=== PATIENT | male | born 1950 | race Caucasian/White ===

== ENCOUNTER 2016-07-14 01:53 | Inpatient (IN) | payer BC ==
[~2016-07-14] VITALS: Ht 185.4 cm; Wt 78.2 kg
[~2016-07-14 01:53] MED LIST: CITA20TA9 PO; HYDR500C3 PO; LORA-741 PO; OMEG10007 PO; PSEU60TA80 PO; SILD100T PO
[2016-07-14] MEDS ORDERED: ONDANSETRON INJ 2 MG/ML 2 ML VIAL IV STA (02:15)
[2016-07-14] MEDS ORDERED: SODIUM CHLORIDE 0.9% 1000ML 1,000 ML IV STA (02:15)
[2016-07-14] MEDS ORDERED: SODIUM CHLORIDE 0.9% 500ML 500 ML IV STA (02:15)
[2016-07-14 02:27] LABS: BASO % 0.4 %; BASO ABS # 0.04 K/uL (0-0.2); EOS % 1.3 %; HEMATOCRIT 41.3 % (42-52); IG% 0.2 %; LYMPH % 14.3 %; LYMPH ABS # 1.44 K/uL (1.2-3.4); MEAN CELL VOLUME 99.5 fL (80-100); MEAN CORPUSCULAR HEMOGLOBIN 34.2 pg (25-34); MEAN CORPUSCULAR HGB CONC 34.4 g/dl (32-36); MEAN PLATELET VOLUME 9.9 fL (7.4-10.4); MONO % 9.2 %; NEUT % 74.6 %; PLATELET COUNT 581 K/uL (130-400); RED BLOOD COUNT 4.15 M/uL (4.7-6.1); WHITE BLOOD COUNT 10.08 K/uL (4.8-10.8)
[2016-07-14] MEDS ORDERED: OPTIRAY 320 IV PRN (02:30)
[2016-07-14 02:37] LABS: INR 1.9 (0.9-1.1); PARTIAL THROMBOPLASTIN RATIO 1.5; PROTHROMBIN TIME (PATIENT) 21.1 SECONDS (9.0-12.0)
[2016-07-14 02:45] LABS: ALT/SGPT 29 U/L (12-78); AST/SGOT 15 U/L (15-37); BLOOD UREA NITROGEN 13 mg/dl (7-18); BUN/CREATININE RATIO 16.5 (10-20); CALCIUM 9.1 mg/dl (8.5-10.1); CARBON DIOXIDE 25 mmol/L (21-32); CHLORIDE 102 mmol/L (98-107); CREATININE 0.81 mg/dl (0.60-1.40); GLUCOSE 175 mg/dl (70-99); MAGNESIUM 2.2 mg/dl (1.8-2.4); SODIUM 138 mmol/L (136-145)
[2016-07-14 02:46] LABS: ANISOCYTOSIS PRESENT; COMPLETE YES
[2016-07-14 02:48] LABS: ALKALINE PHOSPHATASE 84 U/L (45-117); CKMB/CK RATIO 1.8 (0-3.0)
[2016-07-14] MEDS ORDERED: MoRPHine SULFATE 4 MG/ML 1 ML CARP\\VIAL IV STA (04:18)
[2016-07-14] MEDS ORDERED: WARF7.5T PO (04:22)
[2016-07-14] MEDS ORDERED: WARF5TAB90 PO (04:22)
--- NOTE | 2016-07-14 04:23 | EMERGENCY ROOM VISIT NOTE ---
History First contact with patient: 02:03 Chief Complaint: ABDOMINAL PAIN Stated Complaint: STOMACH PAIN Nursing Triage Summary: PT HX spleen removal in April. developed diffuse abd pain this Pm around 1800. PT has cramping/aching pain all over with nausea, no vomiting. PT denies diarrhe and denies any urinary symptoms. pain worse with palpation and movement. normal bowel sounds in all quadrants History of Present Illness The patient is a 65 year old male who presents to the Emergency Room with complaints of nausea, vomiting and upper abdominal pain the past several hours. Patient denies chest pain, dyspnea, fever, chills, back pain, diarrhea, urinary symptoms, testicular pain, penile pain. Colonoscopy in the past was normal. His splenectomy a few months ago. He is on Coumadin and has a Green filter. Review of Systems See HPI for pertinent positives & negatives. A total of 10 systems reviewed and were otherwise negative. Past Medical/Surgical History Medical Problems: (1) Essential thrombocytosis (2) Pulmonary emboli (3) Retroperitoneal hematoma (4) SBO (small bowel obstruction) Surgical Problems: (1) S/P appendectomy Splenectomy Family History No pertinent family history Social History Smoking Status: Former Smoker Alcohol Use: occasionally Drug Use: none Marital Status: single Housing Status: lives alone Occupation Status: employed Current/Historical Medications Scheduled Citalopram Hydrobromide (Celexa), 20 MG PO DAILY Fish Oil ([place]-3), 3 CAP PO DAILY Hydroxyurea (Hydrea Cap), 1,000 MG PO DAILY Sildenafil Citrate (Viagra), 100 MG PO PRN Scheduled PRN Lorazepam (Ativan), 0.5 MG PO Q6H PRN for Anxiety Pseudoephedrine-Guaifenesin (Mucinex D), 1 TAB PO BID PRN for CONGESTION Allergies Coded Allergies: No Known Allergies (Unverified , NKA, 01/25/09) Physical Exam Vital Signs Date Time Temp Pulse Resp B/P Pulse Ox O2 Delivery O2 Flow Rate FiO2 07/14/16 04:00 85 16 130/89 95 Room Air 07/14/16 03:23 95 Room Air 07/14/16 03:23 95 Room Air 07/14/16 01:54 107 22 156/90 98 Room Air Physical Exam VITALS: Vitals are noted on the nurse's note and reviewed by myself. Vital signs stable. GENERAL: Pleasant male dry heaving, in no acute distress, nondiaphoretic, well- developed well-nourished. SKIN: The skin was without rashes, erythema, edema, or bruising. There is no tenting of the skin. Capillary reflex less than 2 seconds. HEAD: Normocephalic atraumatic. EARS: External auditory canals clear, tympanic membranes pearly carroll without erythema or effusion bilaterally. EYES: Pupils equal round and reactive to light and accommodation. Conjunctivae without injection, sclerae without icterus. Extraocular movements intact. NOSE: Patent, turbinates without inflammation or discharge. MOUTH: Mucous membranes mildly dry. Pharynx without erythema or exudate. Uvula midline. Airway patent. Tongue does not deviate. NECK: Supple without nuchal rigidity. No lymphadenopathy. No thyromegaly. Cervical spine is nontender. No JVD. HEART: Regular rate and rhythm without murmurs gallops or rubs. LUNGS: Clear to auscultation bilaterally without wheezes, rales or rhonchi. No dullness to percussion. No retractions or accessory muscle use. ABDOMEN: Positive bowel sounds x 4. Normal tympanic percussion. post Surgical scars present, Soft, tender to palpation upper abdomen, no CVA tenderness, without masses or organomegaly. Woods sign negative. No guarding or rebound tenderness. MUSCULOSKELETAL: No muscle atrophy, erythema, or edema noted. NEURO: Patient was alert and oriented to person place and time. Normal sensation to light and sharp touch. No focal neurological deficits. Medical Decision & Procedures Laboratory Results 07/14/16 02:10 Red Blood Count 4.15, Mean Corpuscular Volume 99.5, Mean Corpuscular Hemoglobin 34.2, Mean Corpuscular Hemoglobin Concent 34.4, Mean Platelet Volume 9.9, Neutrophils (%) (Auto) 74.6, Lymphocytes (%) (Auto) 14.3, Monocytes (%) (Auto) 9.2, Eosinophils (%) (Auto) 1.3, Basophils (%) (Auto) 0.4, Neutrophils # (Auto) 7.52, Lymphocytes # (Auto) 1.44, Monocytes # (Auto) 0.93, Eosinophils # (Auto) 0.13, Basophils # (Auto) 0.04 07/14/16 02:10 Test 07/14/16 02:10 07/14/16 02:40 White Blood Count 10.08 K/uL (4.8-10.8) Red Blood Count 4.15 M/uL (4.7-6.1) Hemoglobin 14.2 g/dL (14.0-18.0) Hematocrit 41.3 % (42-52) Mean Corpuscular Volume 99.5 fL (80-100) Mean Corpuscular Hemoglobin 34.2 pg (25-34) Mean Corpuscular Hemoglobin Concent 34.4 g/dl (32-36) Platelet Count 581 K/uL (130-400) Mean Platelet Volume 9.9 fL (7.4-10.4) Neutrophils (%) (Auto) 74.6 % Lymphocytes (%) (Auto) 14.3 % Monocytes (%) (Auto) 9.2 % Eosinophils (%) (Auto) 1.3 % Basophils (%) (Auto) 0.4 % Neutrophils # (Auto) 7.52 K/uL (1.4-6.5) Lymphocytes # (Auto) 1.44 K/uL (1.2-3.4) Monocytes # (Auto) 0.93 K/uL (0.11-0.59) Eosinophils # (Auto) 0.13 K/uL (0-0.5) Basophils # (Auto) 0.04 K/uL (0-0.2) RDW Standard Deviation 72.1 fL (36.4-46.3) RDW Coefficient of Variation 20.0 % (11.5-14.5) Immature Granulocyte % (Auto) 0.2 % Immature Granulocyte # (Auto) 0.02 K/uL (0.00-0.02) Anisocytosis PRESENT Prothrombin Time 21.1 SECONDS (9.0-12.0) Prothromb Time International Ratio 1.9 (0.9-1.1) Activated Partial Thromboplast Time 38.0 SECONDS (21.0-31.0) Partial Thromboplastin Ratio 1.5 Anion Gap 11.0 mmol/L (3-11) Est Creatinine Clear Calc Drug Dose 102.4 ml/min Estimated GFR () 108.9 Estimated GFR (Non- 93.9 BUN/Creatinine Ratio 16.5 (10-20) Calcium Level 9.1 mg/dl (8.5-10.1) Magnesium Level 2.2 mg/dl (1.8-2.4) Total Bilirubin 0.5 mg/dl (0.2-1) Direct Bilirubin < 0.1 mg/dl (0-0.2) Aspartate Amino Transf (AST/SGOT) 15 U/L (15-37) Alanine Aminotransferase (ALT/SGPT) 29 U/L (12-78) Alkaline Phosphatase 84 U/L (45-117) Total Creatine Kinase 51 U/L (39-308) Creatine Kinase MB 0.9 ng/ml (0.5-3.6) Creatine Kinase MB Ratio 1.8 (0-3.0) Troponin I < 0.015 ng/ml (0-0.045) Total Protein 7.2 gm/dl (6.4-8.2) Albumin 3.9 gm/dl (3.4-5.0) Lipase 174 U/L (73-393) Ethyl Alcohol mg/dL < 3.0 mg/dl (0-3) Medications Administered Medications (Trade) Dose Ordered Sig/Kar Route Start Time Stop Time Status Last Admin Dose Admin Sodium Chloride (Nss 1000ml) 1,000 ml @ 200 mls/hr Q5H STAT IV 07/14/16 02:15 07/14/16 07:14 07/14/16 02:31 200 MLS/HR Ondansetron HCl 4 mg 4 mg NOW STAT IV 07/14/16 02:15 07/14/16 02:18 DC 07/14/16 02:30 4 MG Sodium Chloride (Nss 500ml) 500 ml @ 999 mls/hr Q31M STAT IV 07/14/16 02:15 07/14/16 02:45 DC 07/14/16 02:15 999 MLS/HR ED Course Prior records/ancillary studies reviewed. Triage Nursing notes reviewed. The patient's history was concerning for abdominal pain. Differential diagnosis: Etiologies such as appendicitis, diverticulitis, PUD, biliary pathology, UTI, pancreatitis, obstruction, mesenteric ischemia, aortic pathology, infections, inflammatory bowel disease, renal colic, as well as others were entertained. Physical examination findings: As above. ER treatment provided: zofran, NSS, pt declined pain meds On reassessment the patient felt better. Diagnostics interpreted by me: ECG: Normal sinus, normal intervals, no acute ST-T wave changes. Impression normal sinus rhythm interpreted by myself The labs revealed negative troponin. Hyperglycemia without DKA Subtherapeutic INR Imaging studies: Stat radiology read the CT scan and was concerning for bowel obstruction Chest x-ray with no acute consolidation, free air or pneumothorax per my interpretation Consultation: A consultation was placed with the hospitalist, Dr. Morton. The case was discussed and diagnostics were reviewed. The patient was evaluated in the ER for further treatment. Exam and history seem consistent with bowel obstruction. Patient was hydrated as above. His pain was managed. He will be evaluated by medicine for possible admission. He had a negative lactic acid. He's had prior abdominal surgeries.By the evaluation outlined above emergent etiologies such as appendicitis, diverticulitis, PUD, biliary pathology, UTI, pancreatitis, mesenteric ischemia, aortic pathology, infections, inflammatory bowel disease, renal colic, as well as others were deemed relatively unlikely. The pt informed about the findings as listed above. All questions were answered and pleased with the treatment. Case reviewed by attending Medical Decision As above Impression Primary Impression: SBO (small bowel obstruction) Departure Information Dispostion Being Evaluated By Hospitalist Condition FAIR Referrals Osman Ray MD (PCP) Patient Instructions My [facility]
[2016-07-14 04:42] LABS: ISTAT CREATININE 0.7 mg/dl (0.6-1.3); ISTAT HEMOGLOBIN 14.6 g/dl (14.0-18.0); ISTAT IONIZED CALCIUM 1.1 mmol/l (1.12-1.32)
[2016-07-14] MEDS ORDERED: HYDROmorphone INJ 0.5 MG/0.5 ML SYR IV PRN (04:45)
[2016-07-14] MEDS ORDERED: ACETAMINOPHEN 325 MG TAB PO PRN (04:45)
[2016-07-14] MEDS ORDERED: ONDANSETRON INJ 2 MG/ML 2 ML VIAL IV SCH (04:45)
[2016-07-14] MEDS ORDERED: PROMETHAZINE HCL INJ 12.5 MG in SODIUM CHLORIDE 0.9% 50ML 50 ML IV PRN (04:45)
[2016-07-14] MEDS ORDERED: TRAMADOL HCL 50 MG TAB PO PRN (04:45)
[2016-07-14] MEDS ORDERED: KETOROLAC TROMETHAMINE 30 MG/ML VIAL IV PRN (04:45)
[2016-07-14] MEDS ORDERED: LORAZEPAM 2 MG/ML 1 ML VIAL IV PRN (04:45)
[2016-07-14] MEDS ORDERED: LORAZEPAM 0.5 MG TAB PO PRN (04:45)
[2016-07-14] MEDS ORDERED: PROMETHAZINE HCL INJ 12.5 MG in SODIUM CHLORIDE 0.9% 50ML 50 ML IV ONE (05:15)
[2016-07-14] MEDS ORDERED: HEPARIN IV LOW DOSE NO BOLUS SCH (05:15)
[2016-07-14] MEDS: SODIUM CHLORIDE 0.9% 1000ML 1,000 ML IV SCH (05:41)
[2016-07-14 05:44] VITALS: BP 160/88; PULSE 82; TEMP 36.6; Ht 185.4 cm; Wt 78.2 kg
[2016-07-14] MEDS ORDERED: LORAZEPAM INJ 0.5 MG in SYRINGE 0.75 ML IV PRN (05:45)
[2016-07-14 05:53] LABS: HEMATOCRIT 40.6 % (42-52); MEAN CELL VOLUME 100.7 fL (80-100); MEAN PLATELET VOLUME 9.9 fL (7.4-10.4); PLATELET COUNT 558 K/uL (130-400); RED BLOOD COUNT 4.03 M/uL (4.7-6.1); WHITE BLOOD COUNT 8.83 K/uL (4.8-10.8)
[2016-07-14] MEDS: HEPARIN 25,000 UNIT/500ML D5W 500 ML IV PRN ×6 (05:54→22:53)
[2016-07-14 06:07] LABS: INR 1.9 (0.9-1.1); PARTIAL THROMBOPLASTIN RATIO 1.5; PROTHROMBIN TIME (PATIENT) 20.8 SECONDS (9.0-12.0)
[2016-07-14 06:09] LABS: MEAN CORPUSCULAR HGB CONC 33.7 g/dl (32-36)
--- NOTE | 2016-07-14 06:42 | DIAGNOSTIC IMAGING REPORT ---
CHEST ONE VIEW PORTABLE CLINICAL HISTORY: Atypical chest pain. Abdominal pain. Nausea and vomiting. COMPARISON STUDY: 05/10/2016 FINDINGS: The cardiac and mediastinal contours are normal. There is no evidence of focal pulmonary consolidation. There is no evidence of failure. No pleural effusions are visualized.[ Underlying emphysema is suspected. No free air is visualized. IMPRESSION: No active disease in the chest. Electronically signed by: Nikos Pierre M.D. 07/14/2016 6:40 AM Dictated Date/Time: 07/14/2016 6:40 AM
--- NOTE | 2016-07-14 06:55 | DIAGNOSTIC IMAGING REPORT ---
CT ABD/PELVIS IV CONTRAST ONLY CLINICAL HISTORY: Severe upper abdominal pain COMPARISON STUDY: 05/11/2016 TECHNIQUE: Following the IV administration of mL of Optiray-320, CT scan of the abdomen and pelvis was performed from the lung bases to the proximal femurs. Images are reviewed in the axial, sagittal, and coronal planes. IV contrast was administered without complication. CT DOSE: 356.38 mGy.cm FINDINGS: Lower chest: There are mild dependent atelectatic changes. Liver: The contrast-enhanced liver is normal in size, contour, and attenuation. There is no intrahepatic biliary ductal dilatation. The hepatic veins and portal veins are patent. Gallbladder: Unremarkable. Spleen: The patient appears status post a splenectomy. Pancreas: Unremarkable. Adrenal glands: Unremarkable. Kidneys: There is symmetric renal cortical enhancement. The kidneys are normal in size without hydronephrosis. Bowel: There are dilated left upper quadrant small bowel loops with air-fluid levels. The distal small bowel is of normal caliber. The findings are suggestive of a partial or early small bowel obstruction. There is no evidence of acute diverticulitis. Few scattered colonic diverticula are visualized. There are no findings to indicate acute appendicitis. Peritoneum: No free air is visualized. There is trace free fluid in the pelvis. Vasculature: There is been interval placement of an IVC filter. One of the struts extends into adjacent vertebral body. Another strut abuts the abdominal aorta. Adenopathy: None. Pelvic viscera: There is mild enlargement of the prostate. Skeletal structures: No destructive osseous lesions are seen. IMPRESSION: 1. Interval splenectomy 2. Dilated left upper quadrant small bowel loops. The findings are suggestive of an early or partial small bowel obstruction 3. No evidence of free air 4. Diverticulosis. No evidence of acute diverticulitis 5. Interval placement of an IVC filter. One of the struts extends into and adjacent vertebral body. Another strut abuts or is embedded in the right lateral aortic wall.. Electronically signed by: Nikos Pierre M.D. 07/14/2016 6:53 AM Dictated Date/Time: 07/14/2016 6:46 AM
[2016-07-14 07:15] VITALS: BP 154/98; PULSE 65; TEMP 36.6; O2SAT 96
[2016-07-14 07:18] LABS: ESTIMATED AVERAGE GLUCOSE 105 mg/dl; HA1C FLAG Normal (Normal)
--- NOTE | 2016-07-14 07:42 | HISTORY & PHYSICAL EXAMINATION ---
DATE OF ADMISSION: 07/14/2016 PRIMARY CARE PHYSICIAN: Dr. Ray CHIEF COMPLAINT: Abdominal pain. 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 Recent confinement at [facility] last February 2016 for splenic hemorrhage sp splenectomy. A month later he was readmitted at the [facility] for blood clots. Started on Coumadin for anticoagulation. Last night, patient had epigastric discomfort, achy with nausea, dry heaving, good bowel movement. No chest pain, no shortness of breath. Brought to the Emergency Room. MEDICAL HISTORY: As above. SURGERIES: Sinus surgery, IVC filter placement, appendectomy, dental surgery, UP3, Tonsillectomy HOME MEDICATIONS: Hydrea, Coumadin, citalopram, Ativan, Mucinex. ALLERGIES: No known drug allergies. FAMILY HISTORY: Breast cancer, melanoma. 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 REVIEW OF SYSTEMS: As per HPI. All other ROS negative. PHYSICAL EXAMINATION: VITAL SIGNS: Blood pressure was noted to be 159/60, later 130/89, pulse rate 80, RR 16, temperature 36.6, sats 96 on room air. GENERAL: Noted to be uncomfortable. No respiratory distress. SKIN: Normal color. HEENT : pink palpebral conjunctivae, dry buccal mucosa. NECK: No JVD. Supple. CHEST: Clear to auscultation. HEART: Regular rate and rhythm. ABDOMEN: Epigastric tenderness. EXTREMITIES: No edema. no tenderness NEUROLOGIC: No gross focality. LABS: Hemoglobin was 13.7, hematocrit 40.6, white cell count 8.8, platelets 558. Sodium 136, potassium 4, chloride 102, CO2 25, BUN 30, creatinine 0.8, glucose 175. INR is 1.9. CT of the abdomen and pelvis initial read showed dilated loops of proximal small bowel seen in the left upper abdomen with probable transition point in the anterior left upper quadrant, possible small-bowel obstruction. ASSESSMENT: 1. Small-bowel obstruction history of splenectomy for splenic hemorrhage. 2. History of recurrent pulmonary thromboembolism sp IVC filter placement on Coumadin INR slightly subtherapeutic on Coumadin. 3. Hyperglycemia, rule out diabetes. 2. History of PCV/thrombocythemia on Hydrea. PLAN: GMF bowel rest. IV fluids, antiemetics, analgesics, Surgery consult RE SBO low dose IV heparin while INR subtherapeutic while Coumadin on hold Check HgA1C. Full code. MTDD
--- NOTE | 2016-07-14 09:00 | History and Physical ---
History & Physical Date & Time of Service: Jul 14, 2016 at 08:50 Chief Complaint: SBO Primary Care Physician: Osman Ray MD History of Present Illness Source: patient pt is a 65 year old male who was admitted to hospital for abdominal pain, and SBO, the pain is located at epigastric area, some nausea, no vomiting, no fever , last BM at middle night, pt denies diarrhea, Medical history significant for polycythemia vera, thrombocythemia on Hydrea therapy, recurrent pulmonary embolism on medication, skin cancer, past tobacco use, sleep apnea on CPAP. Recent confinement at [facility] last February 2016 for splenic hemorrhage with splenectomy. The patient underwent a splenectomy at the [facility]. A month later he was readmitted at the [facility] for blood clots started on Coumadin for anticoagulation. Past Medical/Surgical History Medical Problems: (1) Essential thrombocytosis Status: Resolved (2) Pulmonary emboli Status: Resolved (3) Retroperitoneal hematoma Status: Resolved Surgical Problems: (1) S/P appendectomy Status: Resolved Family History No pertinent family history Social History Smoking Status: Never Smoker Smokeless Tobacco Use: No Alcohol Use: occasionally Drug Use: none Marital Status: single Occupational Status: employed Allergies Coded Allergies: No Known Allergies (Unverified , NKA, 01/25/09) Home Medications Scheduled Citalopram Hydrobromide (Celexa), 20 MG PO DAILY Fish Oil ([place]-3), 3 CAP PO DAILY Hydroxyurea (Hydrea Cap), 1,000 MG PO DAILY Warfarin Sodium (Coumadin), 5 MG PO 2XWK Warfarin Sodium (Coumadin), 7.5 MG PO 5XWK Scheduled PRN Lorazepam (Ativan), 0.5 MG PO Q6H PRN for Anxiety Pseudoephedrine-Guaifenesin (Mucinex D), 1 TAB PO BID PRN for CONGESTION Sildenafil Citrate (Viagra), 100 MG PO UD PRN for INTERCOURSE Review of Systems Constitutional: No chills, No fatigue, No fever, No problem reported, No sweats , No weakness, No weight loss Eyes: No diplopia, No discharge, No eye pain, No problem reported, No redness, No worsening of vision ENT: No dental problems, No hearing loss, No nasal symptoms, No problem reported, No sore throat, No tinnitus, No trouble swallowing, No unusual epistaxis Respiratory: No cough, No dyspnea at rest, No dyspnea on exertion, No hemoptysis, No problem reported, No shortness of breath, No sputum, No wheezing Cardiovascular: No PND, No chest pain, No claudication, No edema, No orthopnea , No palpitations, No problem reported Abdomen: + nausea, + pain Musculoskeletal: No calf pain, No joint pain, No muscle pain, No problem reported, No swelling Genitourinary - Male: No dysuria, No hematuria, No impotence, No lesions, No penile discharge, No problem reported, No urinary frequency, No urinary hesitancy, No urinary incontinence, No urinary retention, No urinary urgency Neurologic: No balance problems, No memory loss, No numbness/tingling, No paralysis, No problem reported, No vertigo, No weakness Psychiatric: No anhedonism, No anxiety, No depression symptoms, No insomnia, No problem reported, No substance abuse Endocrine: No excessive thirst, No excessive urination, No fatigue, No problem reported Integumentary: No bleeding, No color change, No itch, No new/changing skin lesions, No problem reported, No rash Physical Exam Vital Signs Date Time Temp Pulse Resp B/P Pulse Ox O2 Delivery O2 Flow Rate FiO2 07/14/16 07:15 36.6 65 18 154/98 96 07/14/16 07:00 Room Air 07/14/16 05:44 36.6 82 18 160/88 Room Air 07/14/16 04:22 70 16 154/95 96 Room Air 07/14/16 04:00 85 16 130/89 95 Room Air 07/14/16 03:23 95 Room Air 07/14/16 03:23 95 Room Air 07/14/16 01:54 107 22 156/90 98 Room Air General Appearance: WD/WN Head: normocephalic Eyes: normal inspection, PERRL ENT: normal ENT inspection, hearing grossly normal Neck: supple, no adenopathy Respiratory/Chest: chest non-tender, lungs clear, normal breath sounds Cardiovascular: regular rate, rhythm, no edema, no gallop, no JVD Abdomen/GI: normal bowel sounds, soft, no organomegaly, + tenderness Back: normal inspection Extremities/Musculoskelatal: normal inspection, no calf tenderness, normal capillary refill 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, no motor/sensory deficits Skin: normal color, warm/dry Diagnostics Laboratory Results Results Past 24 Hours Test 07/14/16 02:10 07/14/16 02:40 07/14/16 02:47 07/14/16 02:52 Range/Units White Blood Count 10.08 4.8-10.8 K/uL Red Blood Count 4.15 4.7-6.1 M/uL Hemoglobin 14.2 14.0-18.0 g/dL Hematocrit 41.3 42-52 % Mean Corpuscular Volume 99.5 80-100 fL Mean Corpuscular Hemoglobin 34.2 25-34 pg Mean Corpuscular Hemoglobin Concent 34.4 32-36 g/dl Platelet Count 581 130-400 K/uL Mean Platelet Volume 9.9 7.4-10.4 fL Neutrophils (%) (Auto) 74.6 % Lymphocytes (%) (Auto) 14.3 % Monocytes (%) (Auto) 9.2 % Eosinophils (%) (Auto) 1.3 % Basophils (%) (Auto) 0.4 % Neutrophils # (Auto) 7.52 1.4-6.5 K/uL Lymphocytes # (Auto) 1.44 1.2-3.4 K/uL Monocytes # (Auto) 0.93 0.11-0.59 K/uL Eosinophils # (Auto) 0.13 0-0.5 K/uL Basophils # (Auto) 0.04 0-0.2 K/uL RDW Standard Deviation 72.1 36.4-46.3 fL RDW Coefficient of Variation 20.0 11.5-14.5 % Immature Granulocyte % (Auto) 0.2 % Immature Granulocyte # (Auto) 0.02 0.00-0.02 K/uL Anisocytosis PRESENT Prothrombin Time 21.1 9.0-12.0 SECONDS Prothromb Time International Ratio 1.9 0.9-1.1 Activated Partial Thromboplast Time 38.0 21.0-31.0 SECONDS Partial Thromboplastin Ratio 1.5 Sodium Level 138 136-145 mmol/L Potassium Level 4.0 3.5-5.1 mmol/L Chloride Level 102 98-107 mmol/L Carbon Dioxide Level 25 21-32 mmol/L Anion Gap 11.0 18.0 16-25 mmol/L Blood Urea Nitrogen 13 7-18 mg/dl Creatinine 0.81 0.60-1.40 mg/dl Est Creatinine Clear Calc Drug Dose 102.4 ml/min Estimated GFR () 108.9 Estimated GFR (Non- 93.9 BUN/Creatinine Ratio 16.5 10-20 Random Glucose 175 70-99 mg/dl Calcium Level 9.1 8.5-10.1 mg/dl Magnesium Level 2.2 1.8-2.4 mg/dl Total Bilirubin 0.5 0.2-1 mg/dl Direct Bilirubin < 0.1 0-0.2 mg/dl Aspartate Amino Transf (AST/SGOT) 15 15-37 U/L Alanine Aminotransferase (ALT/SGPT) 29 12-78 U/L Alkaline Phosphatase 84 45-117 U/L Total Creatine Kinase 51 39-308 U/L Creatine Kinase MB 0.9 0.5-3.6 ng/ml Creatine Kinase MB Ratio 1.8 0-3.0 Troponin I < 0.015 0-0.045 ng/ml Total Protein 7.2 6.4-8.2 gm/dl Albumin 3.9 3.4-5.0 gm/dl Lipase 174 73-393 U/L Ethyl Alcohol mg/dL < 3.0 0-3 mg/dl Bedside Lactic Acid Venous 0.93 0.90-1.70 mmol/L Bedside Hemoglobin 14.6 14.0-18.0 g/dl Bedside Hematocrit 43 42-52 % Bedside Sodium 137 135-144 mEq/L Bedside Potassium 3.9 3.3-5.0 mEq/L Bedside Chloride 98 101-112 mEq/L Bedside Total CO2 26 24-31 mEq/l Bedside Blood Urea Nitrogen 12 7-18 mg/dl Bedside Creatinine 0.7 0.6-1.3 mg/dl Bedside Glucose (other) 166 70-99 mg/dl Bedside Ionized Calcium (Mark) 1.10 1.12-1.32 mmol/l Test 07/14/16 05:45 Range/Units White Blood Count 8.83 4.8-10.8 K/uL Red Blood Count 4.03 4.7-6.1 M/uL Hemoglobin 13.7 14.0-18.0 g/dL Hematocrit 40.6 42-52 % Mean Corpuscular Volume 100.7 80-100 fL Mean Corpuscular Hemoglobin 34.0 25-34 pg Mean Corpuscular Hemoglobin Concent 33.7 32-36 g/dl RDW Standard Deviation 73.2 36.4-46.3 fL RDW Coefficient of Variation 20.1 11.5-14.5 % Platelet Count 558 130-400 K/uL Mean Platelet Volume 9.9 7.4-10.4 fL Prothrombin Time 20.8 9.0-12.0 SECONDS Prothromb Time International Ratio 1.9 0.9-1.1 Activated Partial Thromboplast Time 38.9 21.0-31.0 SECONDS Partial Thromboplastin Ratio 1.5 Estimated Average Glucose 105 mg/dl Hemoglobin A1c 5.3 4.5-5.6 % Diagnostic Radiology CT scan- IMPRESSION: 1. Interval splenectomy 2. Dilated left upper quadrant small bowel loops. The findings are suggestive of an early or partial small bowel obstruction 3. No evidence of free air 4. Diverticulosis. No evidence of acute diverticulitis 5. Interval placement of an IVC filter. One of the struts extends into and adjacent vertebral body. Another strut abuts or is embedded in the right lateral aortic wall.. Impression Assessment and Plan IMP SBO Plan, consertive treatment, NPO, IV fluid, may need NGT if pt develops vomiting, OOB repeat labs in AM Will F/U Thanks, Advanced Directives Existing Advance Directive: No Existing Living Will: No Existing Power of Song And Dance Performer: No VTE Prophylaxis VTE Risk Assessment Done? Y/N: Yes Risk Level: High
[2016-07-14] MEDS: CITALOPRAM 20 MG TAB PO SCH (09:14)
[2016-07-14] MEDS: HYDROXYUREA 500 MG CAP PO SCH (09:15)
[2016-07-14 12:24] LABS: PARTIAL THROMBOPLASTIN RATIO 1.8
[2016-07-14] MEDS ORDERED: HEPARIN IV BOLUS 3,000 UNIT in SYRINGE 0 ML IV ONE (14:15)
--- NOTE | 2016-07-14 14:24 | Progress Note ---
Progress Note Pt was seen and examined Pt said that his abdominal pain improves a little bid He said that his last BM was last night around midnight He denies any chest pain, palpitation, dizziness and SOB General- No acute distress Head- atraumatic Eyes- PERRL, EOMI ENT- oropharynx clear Neck- supple, no JVD Lungs- clear to auscultation and percussion Heart- regular rhythm; no murmur Abdomen- hypoactive, mild tenderness with palpation Extremities- no calf tenderness A/p SBO Continue supportive therapy with IVF, antiemetic and analgesic Keep NPO Surgery on board Monitor cbc, bmp . Hx of recurrent pulmonary thromboembolism. INR slightly subtherapeutic on Coumadin. Coumadin is on hold in case pt has to go for surgery' Continue heparin drip Check INR in am GI px on PPI Code Status Full code
[2016-07-14 14:50] VITALS: BP 151/89; PULSE 67; TEMP 36.5; O2SAT 96
[2016-07-14 16:10] VITALS: O2SAT 96
[2016-07-14 21:02] LABS: PARTIAL THROMBOPLASTIN RATIO 2.3
[2016-07-14 23:50] VITALS: BP 146/84; PULSE 71; TEMP 36.6; O2SAT 91
[2016-07-15] MEDS: SODIUM CHLORIDE 0.9% 1000ML 1,000 ML IV SCH ×2 (00:20→19:53)
[2016-07-15] MEDS: HEPARIN 25,000 UNIT/500ML D5W 500 ML IV PRN ×4 (05:07→18:49)
[2016-07-15 06:19] LABS: BASO % 0.7 %; BASO ABS # 0.05 K/uL (0-0.2); EOS % 3.3 %; HEMATOCRIT 39.7 % (42-52); IG% 0.1 %; LYMPH ABS # 2.26 K/uL (1.2-3.4); MEAN CELL VOLUME 101.8 fL (80-100); MEAN CORPUSCULAR HEMOGLOBIN 34.4 pg (25-34); MEAN CORPUSCULAR HGB CONC 33.8 g/dl (32-36); MEAN PLATELET VOLUME 9.7 fL (7.4-10.4); MONO % 14.7 %; NEUT % 51.2 %; PLATELET COUNT 542 K/uL (130-400); WHITE BLOOD COUNT 7.53 K/uL (4.8-10.8)
[2016-07-15 06:51] LABS: INR 2.2 (0.9-1.1); PARTIAL THROMBOPLASTIN RATIO 1.9; PROTHROMBIN TIME (PATIENT) 24.4 SECONDS (9.0-12.0)
[2016-07-15 06:56] LABS: ANISOCYTOSIS PRESENT; COMPLETE YES; HOWELL-JOLLY BODIES OCCASIONAL; HYPERSEGMENTED POLYS 2+; TARGET CELLS 1+
[2016-07-15 07:01] VITALS: BP 136/84; PULSE 65; TEMP 36.3; O2SAT 93
[2016-07-15] MEDS: CITALOPRAM 20 MG TAB PO SCH (09:07)
[2016-07-15] MEDS: HYDROXYUREA 500 MG CAP PO SCH (09:10)
--- NOTE | 2016-07-15 11:00 | DIAGNOSTIC IMAGING REPORT ---
ABDOMEN 2 VIEWS HISTORY: Follow-up small bowel obstruction. COMPARISON: Abdomen and pelvis CT 07/14/2016. FINDINGS: There is no pneumoperitoneum or pneumatosis. Suture material within the left upper quadrant. There is an IVC filter. There is suture coil within the right side the abdomen. One of the limbs of the IVC filter appears fractured. This remains unchanged. The lung bases are clear. Small to moderate amount of well-formed stool seen within the colon. There are few left upper quadrant borderline dilated small bowel loops. These have improved. IMPRESSION: A few left upper quadrant borderline dilated loops of small bowel. These have improved in the interval. Electronically signed by: Maico Mcarthur M.D. 07/15/2016 10:58 AM Dictated Date/Time: 07/15/2016 10:55 AM
--- NOTE | 2016-07-15 14:38 | Progress Note ---
Medicine Progress Note Date & Time of Visit: Jul 15, 2016 at 11:57. Subjective Pt was seen and examined Lying in bed comfortable with no distress Pt said that he had a BM yesterday He said that he is very hungry he denies any abdominal pain, fever, palpitation, dizziness and sob Objective Last 8 Hrs Date Time Temp Pulse Resp B/P Pulse Ox O2 Delivery O2 Flow Rate FiO2 07/15/16 07:01 36.3 65 18 136/84 93 07/15/16 07:00 Room Air Physical Exam: General- No acute distress Head- atraumatic Eyes- PERRL, EOMI ENT- oropharynx clear Neck- supple, no JVD Lungs- clear to auscultation and percussion Heart- regular rhythm Abdomen- hypoactive bowel sound, soft, nontender Extremities- no calf tenderness Neuro- alert, oriented x 3; PERRL, EOMI Skin- warm & dry Laboratory Results: Last 24 Hours Test 07/14/16 20:15 07/15/16 05:48 Activated Partial Thromboplast Time 60.4 SECONDS 48.3 SECONDS Partial Thromboplastin Ratio 2.3 1.9 White Blood Count 7.53 K/uL Red Blood Count 3.90 M/uL Hemoglobin 13.4 g/dL Hematocrit 39.7 % Mean Corpuscular Volume 101.8 fL Mean Corpuscular Hemoglobin 34.4 pg Mean Corpuscular Hemoglobin Concent 33.8 g/dl Platelet Count 542 K/uL Mean Platelet Volume 9.7 fL Neutrophils (%) (Auto) 51.2 % Lymphocytes (%) (Auto) 30.0 % Monocytes (%) (Auto) 14.7 % Eosinophils (%) (Auto) 3.3 % Basophils (%) (Auto) 0.7 % Neutrophils # (Auto) 3.85 K/uL Lymphocytes # (Auto) 2.26 K/uL Monocytes # (Auto) 1.11 K/uL Eosinophils # (Auto) 0.25 K/uL Basophils # (Auto) 0.05 K/uL RDW Standard Deviation 74.4 fL RDW Coefficient of Variation 20.4 % Immature Granulocyte % (Auto) 0.1 % Immature Granulocyte # (Auto) 0.01 K/uL Hypersegmented Polys 2+ Anisocytosis PRESENT Target Cells 1+ [place] Bodies OCCASIONAL Prothrombin Time 24.4 SECONDS Prothromb Time International Ratio 2.2 Assessment & Plan SBO Continue supportive therapy with IVF, antiemetic and analgesic Abdominal xray done today showed A few left upper quadrant borderline dilated loops of small bowel. These have improved in the interval. Surgery on board Pt had 1 BM yesterday Will start on clear liquid diet Continue monitor . Hx of recurrent pulmonary thromboembolism. INR therapeutic with Coumadin being held Continue holding Coumadin in case pt has to go for surgery' Continue heparin drip Check INR in am INR today 2.2 GI px on PPI Code Status Full code Current Inpatient Medications: Current Inpatient Medications Medications (Trade) Dose Ordered Sig/Kar Route Start Time Stop Time Status Last Admin Dose Admin Ioversol 100 ml 100 ml UD PRN IV 07/14/16 02:30 07/18/16 02:29 Promethazine HCl/ Sodium Chloride (Phenergan Inj/ Nss 50ml) 50.5 ml @ 204 mls/hr Q6H PRN IV 07/14/16 04:45 08/13/16 04:44 Acetaminophen (Tylenol Tab) 650 mg Q4H PRN PO 07/14/16 04:45 08/13/16 04:44 Ondansetron HCl (Zofran Inj) 4 mg UD IV 07/14/16 04:45 08/13/16 04:44 Tramadol HCl 25 mg 25 mg Q6H PRN PO 07/14/16 04:45 08/13/16 04:44 Sodium Chloride (Nss 1000ml) 1,000 ml @ 50 mls/hr Q20H IV 07/14/16 04:45 08/13/16 04:44 07/15/16 00:20 50 MLS/HR Citalopram Hydrobromide (celeXA TAB) 20 mg DAILY PO 07/14/16 09:00 08/13/16 08:59 07/15/16 09:07 20 MG Hydroxyurea (Hydrea Cap) 1,000 mg DAILY PO 07/14/16 09:00 08/13/16 08:59 07/15/16 09:10 1,000 MG Lorazepam (Ativan Tab) 0.5 mg Q6H PRN PO 07/14/16 04:45 08/13/16 04:44 Ketorolac Tromethamine (Toradol Inj) 30 mg Q6H PRN IV 07/14/16 04:45 07/19/16 04:44 Hydromorphone HCl 0.5 mg 0.5 mg Q4H PRN IV 07/14/16 04:45 07/28/16 04:44 Lorazepam 0.5 mg/ Syringe 1 ml @ 1 mls/min Q4H PRN IV 07/14/16 05:45 08/13/16 05:44 Heparin Sodium/ Dextrose (Heparin 25,000 Unit/500ml D5W) 500 ml @ 21 mls/hr [id number] PRN IV 07/14/16 05:45 08/13/16 05:44 07/15/16 08:52 21 MLS/HR
[2016-07-15 15:43] VITALS: BP 132/77; PULSE 74; TEMP 36.7; O2SAT 95
[2016-07-15 22:50] VITALS: BP 132/81; PULSE 71; TEMP 36.5; O2SAT 93
[2016-07-16] MEDS: HEPARIN 25,000 UNIT/500ML D5W 500 ML IV PRN ×5 (00:03→15:12)
[2016-07-16 06:19] LABS: BASO % 0.8 %; BASO ABS # 0.07 K/uL (0-0.2); EOS % 2.6 %; HEMATOCRIT 40.1 % (42-52); IG% 0.2 %; LYMPH % 28.4 %; LYMPH ABS # 2.36 K/uL (1.2-3.4); MEAN CELL VOLUME 101.8 fL (80-100); MEAN CORPUSCULAR HGB CONC 33.4 g/dl (32-36); MEAN PLATELET VOLUME 10.2 fL (7.4-10.4); MONO % 13.1 %; NEUT % 54.9 %; PLATELET COUNT 560 K/uL (130-400); RED BLOOD COUNT 3.94 M/uL (4.7-6.1); WHITE BLOOD COUNT 8.31 K/uL (4.8-10.8)
[2016-07-16 06:34] LABS: INR 1.9 (0.9-1.1); PARTIAL THROMBOPLASTIN RATIO 1.7; PROTHROMBIN TIME (PATIENT) 21.1 SECONDS (9.0-12.0)
[2016-07-16 06:35] LABS: CALCIUM 8.9 mg/dl (8.5-10.1); CREATININE 0.83 mg/dl (0.60-1.40); POTASSIUM 3.3 mmol/L (3.5-5.1)
[2016-07-16 07:06] VITALS: BP 144/90; PULSE 67; TEMP 36.5; O2SAT 95
[2016-07-16] MEDS ORDERED: HEPARIN IV BOLUS 3,000 UNIT in SYRINGE 0 ML IV ONE (07:45)
[2016-07-16] MEDS ORDERED: POTASSIUM CHLORIDE 20 MEQ TABCR PO ONE (08:30)
[2016-07-16] MEDS: CITALOPRAM 20 MG TAB PO SCH (08:59)
[2016-07-16] MEDS: HYDROXYUREA 500 MG CAP PO SCH (09:00)
[2016-07-16 09:30] LABS: ANISOCYTOSIS PRESENT; COMPLETE YES; HYPERSEGMENTED POLYS 1+
[2016-07-16 15:05] LABS: PARTIAL THROMBOPLASTIN RATIO 2.2
[2016-07-16 15:45] VITALS: BP 144/84; PULSE 60; TEMP 36.8; O2SAT 94
--- NOTE | 2016-07-16 18:32 | Progress Note ---
Medicine Progress Note Date & Time of Visit: Jul 16, 2016 at 18:19. Subjective Pt was seen and examined Pt lying in bed comfortable with no distress Pt said that he feels fine he does not have any abdominal pain Pt said that he tolerated diet very well he said that he had 2 large BM today. denies any chest pain, palpitation, dizziness, SOB Objective Last 8 Hrs Date Time Temp Pulse Resp B/P Pulse Ox O2 Delivery O2 Flow Rate FiO2 07/16/16 15:45 36.8 60 18 144/84 94 Room Air Physical Exam: General- No acute distress Head- atraumatic Eyes- PERRL, EOMI ENT- oropharynx clear Neck- supple, no JVD Lungs- clear to auscultation and percussion Heart- regular rhythm Abdomen- normal bowel sound, soft, nontender Extremities- no calf tenderness Neuro- alert, oriented x 3; PERRL, EOMI Skin- warm & dry Laboratory Results: Last 24 Hours Test 07/16/16 05:15 07/16/16 05:16 07/16/16 14:38 White Blood Count 8.31 K/uL Red Blood Count 3.94 M/uL Hemoglobin 13.4 g/dL Hematocrit 40.1 % Mean Corpuscular Volume 101.8 fL Mean Corpuscular Hemoglobin 34.0 pg Mean Corpuscular Hemoglobin Concent 33.4 g/dl Platelet Count 560 K/uL Mean Platelet Volume 10.2 fL Neutrophils (%) (Auto) 54.9 % Lymphocytes (%) (Auto) 28.4 % Monocytes (%) (Auto) 13.1 % Eosinophils (%) (Auto) 2.6 % Basophils (%) (Auto) 0.8 % Neutrophils # (Auto) 4.55 K/uL Lymphocytes # (Auto) 2.36 K/uL Monocytes # (Auto) 1.09 K/uL Eosinophils # (Auto) 0.22 K/uL Basophils # (Auto) 0.07 K/uL RDW Standard Deviation 73.8 fL RDW Coefficient of Variation 20.1 % Immature Granulocyte % (Auto) 0.2 % Immature Granulocyte # (Auto) 0.02 K/uL Hypersegmented Polys 1+ Anisocytosis PRESENT Sodium Level 142 mmol/L Potassium Level 3.3 mmol/L Chloride Level 104 mmol/L Carbon Dioxide Level 27 mmol/L Anion Gap 11.0 mmol/L Blood Urea Nitrogen 7 mg/dl Creatinine 0.83 mg/dl Est Creatinine Clear Calc Drug Dose 99.5 ml/min Estimated GFR () 107.8 Estimated GFR (Non- 93.0 BUN/Creatinine Ratio 8.0 Random Glucose 89 mg/dl Calcium Level 8.9 mg/dl Prothrombin Time 21.1 SECONDS Prothromb Time International Ratio 1.9 Activated Partial Thromboplast Time 45.3 SECONDS 56.4 SECONDS Partial Thromboplastin Ratio 1.7 2.2 Assessment & Plan SBO Continue supportive therapy with IVF, antiemetic and analgesic Abdominal xray done yesterday showed A few left upper quadrant borderline dilated loops of small bowel. These have improved in the interval. Surgery on board Pt had 2 large BM today Tolerated regular diet Resolved . Hx of recurrent pulmonary thromboembolism. INR 2.2 today (therapeutic) d/c heparin drip resume coumadin tonight with previous dose Follow up at the anticoagulant clinic (Next INR check on Tuesday) GI px on PPI Code Status Full code Disposition Follow up with your PCP dr. Ray on 07/21 at 11:30 am Consultants: General Surgery Current Inpatient Medications: Current Inpatient Medications Medications (Trade) Dose Ordered Sig/Kar Route Start Time Stop Time Status Last Admin Dose Admin Ioversol 100 ml 100 ml UD PRN IV 07/14/16 02:30 07/18/16 02:29 Promethazine HCl/ Sodium Chloride (Phenergan Inj/ Nss 50ml) 50.5 ml @ 204 mls/hr Q6H PRN IV 07/14/16 04:45 08/13/16 04:44 Acetaminophen (Tylenol Tab) 650 mg Q4H PRN PO 07/14/16 04:45 08/13/16 04:44 Ondansetron HCl (Zofran Inj) 4 mg UD IV 07/14/16 04:45 08/13/16 04:44 Tramadol HCl 25 mg 25 mg Q6H PRN PO 07/14/16 04:45 08/13/16 04:44 Sodium Chloride (Nss 1000ml) 1,000 ml @ 50 mls/hr Q20H IV 07/14/16 04:45 08/13/16 04:44 07/15/16 19:53 50 MLS/HR Citalopram Hydrobromide (celeXA TAB) 20 mg DAILY PO 07/14/16 09:00 08/13/16 08:59 07/16/16 08:59 20 MG Hydroxyurea (Hydrea Cap) 1,000 mg DAILY PO 07/14/16 09:00 08/13/16 08:59 07/16/16 09:00 1,000 MG Lorazepam (Ativan Tab) 0.5 mg Q6H PRN PO 07/14/16 04:45 08/13/16 04:44 Ketorolac Tromethamine (Toradol Inj) 30 mg Q6H PRN IV 07/14/16 04:45 07/19/16 04:44 Hydromorphone HCl 0.5 mg 0.5 mg Q4H PRN IV 07/14/16 04:45 07/28/16 04:44 Lorazepam 0.5 mg/ Syringe 1 ml @ 1 mls/min Q4H PRN IV 07/14/16 05:45 08/13/16 05:44 Heparin Sodium/ Dextrose (Heparin 25,000 Unit/500ml D5W) 500 ml @ 23 mls/hr [id number] PRN IV 07/14/16 05:45 08/13/16 05:44 07/16/16 15:12 23 MLS/HR
--- NOTE | 2016-07-16 18:37 | Discharge Instructions ---
Discharge Instructions Admission Reason for Admission: SBO Discharge Discharge Diagnosis / Problem: Bowel obstruction, Hx of recurrent pulmonary thromboembolism. Discharge Goals Goal(s): Decrease discomfort, Improve function, Improve disease control Activity Recommendations Activity Limitations: resume your previous activity (as tolerated) . Instructions / Follow-Up Instructions / Follow-Up Follow up appointment with your primary care provider Dr. Ray on Jul 21 at 11:30 am Resume Coumadin tonight Follow up with anticoagulant clinic (next INR check on Tuesday) Current Hospital Diet Patient's current hospital diet: Regular Diet Discharge Diet Recommended Diet: Regular Diet Pending Studies Studies pending at discharge: no Laboratory Results Hemoglobin A1c Test 07/14/16 05:45 Range/Units Estimated Average Glucose 105 mg/dl Hemoglobin A1c 5.3 4.5-5.6 % Medical Emergencies . Who to Call and When: Medical Emergencies: If at any time you feel your situation is an emergency, please call 911 immediately. . Non-Emergent Contact Non-Emergency issues call your: Primary Care Provider Call Non-Emergent contact if: you have any medication questions . . "Provider Documentation" section prepared by Celsa Strauss. VTE Core Measure Inpt VTE Proph given/why not?: Other Anticoagulation (heparin drip)
[2016-07-16 18:49] VITALS: BP 144/84; PULSE 60; TEMP 36.8; O2SAT 94
--- NOTE | 2016-07-21 06:52 | Discharge Summary ---
Discharge Summary Admission Date: Jul 14, 2016 at 04:15 Discharge Date: Jul 16, 2016 Discharge Disposition: Home Principal Diagnosis: SBO Secondary Diagnoses/Problems: Abdominal Pain Hx of recurrent pulmonary thromboembolism. Procedures: Patient Name: GIANNI HUERTA Unit Number: [id number] Dictated: 07/14/16645 Transcribed: 07/14/16645 ARG Printed Date/Time: [~ rep prt dt]/[~ rep prt tm] [~ rep ct labl] - [~ rep ct ivnm] [facility] [place] [address] Dictated: 07/14/16645 Transcribed: 07/14/16645 ARG Printed Date/Time: [~ rep prt dt]/[~ rep prt tm] [~ rep ct labl] - [~ rep ct ivnm] CT ABD/PELVIS IV CONTRAST ONLY CLINICAL HISTORY: Severe upper abdominal pain COMPARISON STUDY: 05/11/2016 TECHNIQUE: Following the IV administration of mL of Optiray-320, CT scan of the abdomen and pelvis was performed from the lung bases to the proximal femurs. Images are reviewed in the axial, sagittal, and coronal planes. IV contrast was administered without complication. CT DOSE: 356.38 mGy.cm FINDINGS: Lower chest: There are mild dependent atelectatic changes. Liver: The contrast-enhanced liver is normal in size, contour, and attenuation. There is no intrahepatic biliary ductal dilatation. The hepatic veins and portal veins are patent. Gallbladder: Unremarkable. Spleen: The patient appears status post a splenectomy. Pancreas: Unremarkable. Adrenal glands: Unremarkable. Kidneys: There is symmetric renal cortical enhancement. The kidneys are normal in size without hydronephrosis. Bowel: There are dilated left upper quadrant small bowel loops with air-fluid levels. The distal small bowel is of normal caliber. The findings are suggestive of a partial or early small bowel obstruction. There is no evidence of acute diverticulitis. Few scattered colonic diverticula are visualized. There are no findings to indicate acute appendicitis. Peritoneum: No free air is visualized. There is trace free fluid in the pelvis. Vasculature: There is been interval placement of an IVC filter. One of the struts extends into adjacent vertebral body. Another strut abuts the abdominal aorta. Adenopathy: None. Pelvic viscera: There is mild enlargement of the prostate. Skeletal structures: No destructive osseous lesions are seen. IMPRESSION: 1. Interval splenectomy 2. Dilated left upper quadrant small bowel loops. The findings are suggestive of an early or partial small bowel obstruction 3. No evidence of free air 4. Diverticulosis. No evidence of acute diverticulitis 5. Interval placement of an IVC filter. One of the struts extends into and adjacent vertebral body. Another strut abuts or is embedded in the right lateral aortic wall.. Electronically signed by: Nikos Pierre M.D. 07/14/2016 6:53 AM Dictated Date/Time: 07/14/2016 6:46 AM The status of this report is Signed. Draft = Not yet reviewed or approved by Radiologist. Signed = Reviewed and approved by Radiologist. <AttendingPhy>Celsa Strauss M.D.</AttendingPhy> <FamilyPhy>Osman Ray MD</FamilyPhy> <PrimaryPhy>Osman Ray MD</PrimaryPhy> < UnitNumber>[id number]</UnitNumber> <VisitNumber>[id number]</VisitNumber> < PatientName>GIANNI HUERTA</PatientName> <DateOfBirth>1950</DateOfBirth > <Location>[facility]</Location> <ServiceDate>07/14/16</ServiceDate> <MNE>ESINDI</MNE > <OrderingPhy>Beulah Chávez PA-C</OrderingPhy> <OrderingPhyMNE>f rep ord dr garrett</OrderingPhyMNE> <DictatingPhyMNE>f rep dict dr garrett</DictatingPhyMNE> < CCListMNE>f rep ct gerry</CCListMNE> <AdmittingPhyMNE>f pt admit dr garrett</ AdmittingPhyMNE> <AttendingPhyMNE>f pt attend dr garrett</AttendingPhyMNE> <ConsultingPhyMNE>f pt consult dr garrett</ConsultingPhyMNE> <FamilyPhyMNE>f pt fam dr garrett</FamilyPhyMNE> <OtherPhyMNE>f pt other dr garrett</OtherPhyMNE> < PrimaryPhyMNE>f pt prim care dr garrett</PrimaryPhyMNE> <ReferringPhyMNE>f pt referring dr garrett</ReferringPhyMNE> Consultations: General Surgery Medication Reconciliation Continued Medications: Citalopram Hydrobromide (Celexa) 20 Mg Tab 20 MG PO DAILY, TAB Fish Oil (Wana-3) 1 Ea Cap 3 CAP PO DAILY, CAP Hydroxyurea (Hydrea Cap) 500 Mg Cap 1000 MG PO DAILY, CAP Lorazepam (Ativan) 0.5 Mg Tab 0.5 MG PO Q6H PRN for Anxiety, TAB Pseudoephedrine-Guaifenesin (Mucinex D) 1 Tab Tab 1 TAB PO BID PRN for CONGESTION Sildenafil Citrate (Viagra) 100 Mg Tab 100 MG PO UD PRN for INTERCOURSE Warfarin Sodium (Coumadin) 5 Mg Tab 5 MG PO 2XWK TAKE DAILY ON & SATURDAYS Warfarin Sodium (Coumadin) 7.5 Mg Tab 7.5 MG PO 5XWK TAKE DAILY ON TUE/TUE//TUE/SUNDAYS Admission Information HPI (per Admitting provider): pt is a 65 year old male who was admitted to hospital for abdominal pain, and SBO, the pain is located at epigastric area, some nausea, no vomiting, no fever , last BM at middle night, pt denies diarrhea, Medical history significant for polycythemia vera, thrombocythemia on Hydrea therapy, recurrent pulmonary embolism on medication, skin cancer, past tobacco use, sleep apnea on CPAP. Recent confinement at [facility] last February 2016 for splenic hemorrhage with splenectomy. The patient underwent a splenectomy at the [facility]. A month later he was readmitted at the [facility] for blood clots started on Coumadin for anticoagulation. 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 These have improved in the interval. Surgery on board Pt had 2 large BM today Tolerated regular diet Resolved . Hx of recurrent pulmonary thromboembolism. INR 2.2 today (therapeutic) d/c heparin drip resume coumadin tonight with previous dose Follow up at the anticoagulant clinic (Next INR check on Tuesday) GI px on PPI Code Status Full code Disposition Follow up with your PCP dr. Ray on 07/21 at 11:30 am Total time spent on discharge = 35 minutes This includes examination of the patient, discharge planning, medication reconciliation, and communication with other providers. Discharge Instructions DI: Medical v4 Discharge Instructions Admission Reason for Admission: SBO Discharge Discharge Diagnosis / Problem: Bowel obstruction, Hx of recurrent pulmonary thromboembolism. Discharge Goals Goal(s): Decrease discomfort, Improve function, Improve disease control Activity Recommendations Activity Limitations: resume your previous activity (as tolerated) . Instructions / Follow-Up Instructions / Follow-Up Follow up appointment with your primary care provider Dr. Ray on Jul 21 at 11:30 am Resume Coumadin tonight Follow up with anticoagulant clinic (next INR check on Tuesday) Current Hospital Diet Patient's current hospital diet: Regular Diet Discharge Diet Recommended Diet: Regular Diet Pending Studies Studies pending at discharge: no Laboratory Results Hemoglobin A1c Test 07/14/16 05:45 Range/Units Estimated Average Glucose 105 mg/dl Hemoglobin A1c 5.3 4.5-5.6 % Medical Emergencies . Who to Call and When: Medical Emergencies: If at any time you feel your situation is an emergency, please call 911 immediately. . Non-Emergent Contact Non-Emergency issues call your: Primary Care Provider Call Non-Emergent contact if: you have any medication questions . . "Provider Documentation" section prepared by Celsa Strauss. VTE Core Measure Inpt VTE Proph given/why not?: Other Anticoagulation (heparin drip) Additional Copies To Osman Ray MD
[2016-09-10] MEDS ORDERED: LVNIS80 SQ (11:17)
[2016-09-10] MEDS ORDERED: MTR500 PO (11:17)
[2016-09-10] MEDS ORDERED: CMD5 PO (11:17)
[2016-12-23] MEDS ORDERED: NAPR1TAB9 PO (09:44)
[2016-12-23] MEDS ORDERED: AMOX500C3 PO (09:44)
[2016-12-23] MEDS ORDERED: CITA10TA8 PO (09:44)
[2017-01-11] MEDS ORDERED: OXYC-57 PO (10:20)
[2017-01-18] MEDS ORDERED: CPR500 PO (15:53)
[2017-01-18] MEDS ORDERED: LCTX PO (15:53)
[2017-01-18] MEDS ORDERED: MTR500 PO (15:53)
== END 2016-07-16 19:17 | disposition home or self-care (01) | DRG 390 ==
LOC: ENRESERVTM → ENRESERVDT → CANRESERV → C.EDB 01:54 → C.3E 04:15
PROVIDERS: ADMIT Internal Medicine; ATTEND Internal Medicine
DX: K56.60 Unspecified intestinal obstruction (principal); G47.33 Obstructive sleep apnea (adult) (pediatric); D45 Polycythemia vera; D47.3 Essential (hemorrhagic) thrombocythemia; Z86.711 Personal history of pulmonary embolism; Z79.01 Long term (current) use of anticoagulants; Z90.81 Acquired absence of spleen; Z90.49 Acquired absence of other specified parts of digestive tract; Z79.899 Other long term (current) drug therapy; Z80.3 Family history of malignant neoplasm of breast; Z80.8 Family history of malignant neoplasm of other organs or systems; Z87.891 Personal history of nicotine dependence

== ENCOUNTER 2016-09-02 01:54 | Inpatient (IN) | payer BC ==
[~2016-09-02] VITALS: Ht 185.4 cm; Wt 73.8 kg
[~2016-09-02 01:54] MED LIST changes: +WARF5TAB90 PO; +WARF7.5T PO
[2016-09-02] MEDS ORDERED: SODIUM CHLORIDE 0.9% 1000ML 1,000 ML IV STA (02:06)
[2016-09-02] MEDS ORDERED: ONDANSETRON INJ 2 MG/ML 2 ML VIAL IV STA ×2 (02:06→02:55)
[2016-09-02] MEDS ORDERED: MoRPHine SULFATE 4 MG/ML 1 ML CARP\\VIAL IV STA ×2 (02:06→02:55)
[2016-09-02] MEDS ORDERED: SODIUM CHLORIDE 0.9% 500ML 500 ML IV STA (02:06)
[2016-09-02 02:41] LABS: BASO % 0.3 %; BASO ABS # 0.04 K/uL (0-0.2); COMPLETE YES; EOS % 0.2 %; HEMATOCRIT 43.2 % (42-52); IG% 0.2 %; LYMPH % 11.1 %; LYMPH ABS # 1.48 K/uL (1.2-3.4); MEAN CELL VOLUME 103.3 fL (80-100); MEAN CORPUSCULAR HEMOGLOBIN 36.1 pg (25-34); MEAN PLATELET VOLUME 9.9 fL (7.4-10.4); MONO % 5.9 %; NEUT % 82.3 %; PLATELET COUNT 652 K/uL (130-400); RED BLOOD COUNT 4.18 M/uL (4.7-6.1); WHITE BLOOD COUNT 13.36 K/uL (4.8-10.8)
[2016-09-02] MEDS ORDERED: OPTIRAY 320 IV PRN (02:45)
[2016-09-02 02:52] LABS: INR 1.8 (0.9-1.1); PARTIAL THROMBOPLASTIN RATIO 1.4; PROTHROMBIN TIME (PATIENT) 19.4 SECONDS (9.0-12.0)
[2016-09-02] MEDS ORDERED: HYDR500C3 PO (02:56)
[2016-09-02 03:03] LABS: ALT/SGPT 29 U/L (12-78); AST/SGOT 17 U/L (15-37); BLOOD UREA NITROGEN 17 mg/dl (7-18); BUN/CREATININE RATIO 15.7 (10-20); CARBON DIOXIDE 27 mmol/L (21-32); CHLORIDE 100 mmol/L (98-107); GLUCOSE 177 mg/dl (70-99); POTASSIUM 3.9 mmol/L (3.5-5.1); SODIUM 140 mmol/L (136-145)
[2016-09-02 03:09] LABS: ALKALINE PHOSPHATASE 78 U/L (45-117)
--- NOTE | 2016-09-02 03:51 | EMERGENCY ROOM VISIT NOTE ---
History First contact with patient: 02:01 Chief Complaint: ABDOMINAL PAIN Stated Complaint: ACUTE STOMACH PAIN,VOMITING History of Present Illness The patient is a 65 year old male who presents to the Emergency Room with complaints of nausea, vomiting and the lower abdominal pain for the past few hours. Patient who has a history of bowel obstructions and symptoms are similar. 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 He describes the pain as cramping, ranging in severity 8 out of 10. Nothing makes it better or worse. Patient denies chest pain, dyspnea, fever, chills, cough, congestion, back pain, urinary symptoms, diarrhea. He's had less bowel movements this week. Normal colonoscopy 5 years ago. Review of Systems See HPI for pertinent positives & negatives. A total of 10 systems reviewed and were otherwise negative. Past Medical/Surgical History Medical Problems: (1) Essential thrombocytosis (2) Hx of basal cell carcinoma (3) KYLAH on CPAP (4) Pulmonary emboli (5) Retroperitoneal hematoma (6) S/p vein filter placement (7) SBO (small bowel obstruction) Surgical Problems: (1) History of dental surgery (2) S/P appendectomy (3) S/P tonsillectomy and adenoidectomy (4) S/P UPPP (uvulopalatopharyngoplasty) Family History No pertinent family history Social History Smoking Status: Former Smoker Alcohol Use: occasionally Drug Use: none Marital Status: single Housing Status: lives alone Occupation Status: employed Current/Historical Medications Scheduled Citalopram Hydrobromide (Celexa), 10 MG PO DAILY Fish Oil ([place]-3), 3 CAP PO DAILY Hydroxyurea (Hydrea Cap), 1,000 MG PO EVEN DAYS Hydroxyurea (Hydrea Cap), 1,500 MG PO ODD DAYS Warfarin Sodium (Coumadin), 5 MG PO 2XWK Warfarin Sodium (Coumadin), 7.5 MG PO 5XWK Scheduled PRN Lorazepam (Ativan), 0.5 MG PO Q6H PRN for Anxiety Pseudoephedrine-Guaifenesin (Mucinex D), 1 TAB PO BID PRN for CONGESTION Sildenafil Citrate (Viagra), 100 MG PO UD PRN for INTERCOURSE Allergies Coded Allergies: No Known Allergies (Unverified , NKA, 3/9/17) Physical Exam Vital Signs Date Time Temp Pulse Resp B/P Pulse Ox O2 Delivery O2 Flow Rate FiO2 09/02/16 03:37 94 Nasal Cannula 2.0 09/02/16 03:29 85 16 154/88 91 Room Air 09/02/16 02:16 100 Room Air 09/02/16 02:16 100 Room Air 09/02/16 01:58 36.5 75 24 161/77 97 Room Air Physical Exam VITALS: Vitals are noted on the nurse's note and reviewed by myself. Vital signs stable. GENERAL: Pleasant male, in no acute distress, nondiaphoretic, well-developed well-nourished. SKIN: The skin was without rashes, erythema, edema, or bruising. There is no tenting of the skin. Capillary reflex less than 2 seconds. HEAD: Normocephalic atraumatic. EARS: External auditory canals clear, tympanic membranes pearly carroll without erythema or effusion bilaterally. EYES: Pupils equal round and reactive to light and accommodation. Conjunctivae without injection, sclerae without icterus. Extraocular movements intact. NOSE: Patent, turbinates without inflammation or discharge. MOUTH: Mucous membranes moist. Pharynx without erythema or exudate. Uvula midline. Airway patent. Tongue does not deviate. NECK: Supple without nuchal rigidity. No lymphadenopathy. No thyromegaly. Cervical spine is nontender. No JVD. HEART: Regular rate and rhythm without murmurs gallops or rubs. LUNGS: Clear to auscultation bilaterally without wheezes, rales or rhonchi. No dullness to percussion. No retractions or accessory muscle use. ABDOMEN: Positive bowel sounds x 4. Normal tympanic percussion. Soft, tender to palpation lower abdomen, no CVA tenderness without masses or organomegaly. Woods sign negative. No guarding or rebound tenderness. MUSCULOSKELETAL: No muscle atrophy, erythema, or edema noted. NEURO: Patient was alert and oriented to person place and time. Normal sensation to light and sharp touch. No focal neurological deficits. Medical Decision & Procedures Laboratory Results 09/02/16 02:15 Red Blood Count 4.18, Mean Corpuscular Volume 103.3, Mean Corpuscular Hemoglobin 36.1, Mean Corpuscular Hemoglobin Concent 35.0, Mean Platelet Volume 9.9, Neutrophils (%) (Auto) 82.3, Lymphocytes (%) (Auto) 11.1, Monocytes (%) ( Auto) 5.9, Eosinophils (%) (Auto) 0.2, Basophils (%) (Auto) 0.3, Neutrophils # ( Auto) 10.99, Lymphocytes # (Auto) 1.48, Monocytes # (Auto) 0.79, Eosinophils # ( Auto) 0.03, Basophils # (Auto) 0.04 09/02/16 02:15 Test 09/02/16 02:15 White Blood Count 13.36 K/uL (4.8-10.8) Red Blood Count 4.18 M/uL (4.7-6.1) Hemoglobin 15.1 g/dL (14.0-18.0) Hematocrit 43.2 % (42-52) Mean Corpuscular Volume 103.3 fL (80-100) Mean Corpuscular Hemoglobin 36.1 pg (25-34) Mean Corpuscular Hemoglobin Concent 35.0 g/dl (32-36) Platelet Count 652 K/uL (130-400) Mean Platelet Volume 9.9 fL (7.4-10.4) Neutrophils (%) (Auto) 82.3 % Lymphocytes (%) (Auto) 11.1 % Monocytes (%) (Auto) 5.9 % Eosinophils (%) (Auto) 0.2 % Basophils (%) (Auto) 0.3 % Neutrophils # (Auto) 10.99 K/uL (1.4-6.5) Lymphocytes # (Auto) 1.48 K/uL (1.2-3.4) Monocytes # (Auto) 0.79 K/uL (0.11-0.59) Eosinophils # (Auto) 0.03 K/uL (0-0.5) Basophils # (Auto) 0.04 K/uL (0-0.2) RDW Standard Deviation 67.7 fL (36.4-46.3) RDW Coefficient of Variation 18.0 % (11.5-14.5) Immature Granulocyte % (Auto) 0.2 % Immature Granulocyte # (Auto) 0.03 K/uL (0.00-0.02) Prothrombin Time 19.4 SECONDS (9.0-12.0) Prothromb Time International Ratio 1.8 (0.9-1.1) Activated Partial Thromboplast Time 35.5 SECONDS (21.0-31.0) Partial Thromboplastin Ratio 1.4 Anion Gap 13.0 mmol/L (3-11) Est Creatinine Clear Calc Drug Dose 76.0 ml/min Estimated GFR () 81.8 Estimated GFR (Non- 70.6 BUN/Creatinine Ratio 15.7 (10-20) Calcium Level 9.0 mg/dl (8.5-10.1) Total Bilirubin 0.6 mg/dl (0.2-1) Direct Bilirubin 0.1 mg/dl (0-0.2) Aspartate Amino Transf (AST/SGOT) 17 U/L (15-37) Alanine Aminotransferase (ALT/SGPT) 29 U/L (12-78) Alkaline Phosphatase 78 U/L (45-117) Troponin I < 0.015 ng/ml (0-0.045) Total Protein 7.7 gm/dl (6.4-8.2) Albumin 4.2 gm/dl (3.4-5.0) Lipase 150 U/L (73-393) Medications Administered Medications (Trade) Dose Ordered Sig/Kar Route Start Time Stop Time Status Last Admin Dose Admin Morphine Sulfate (MoRPHine SULFATE INJ) 4 mg NOW STAT IV 09/02/16 02:06 09/02/16 02:07 DC 09/02/16 02:14 4 MG Ondansetron HCl 4 mg 4 mg NOW STAT IV 09/02/16 02:06 09/02/16 02:07 DC 09/02/16 02:14 4 MG Sodium Chloride 500 ml @ 999 mls/hr Q31M STAT IV 09/02/16 02:06 09/02/16 02:36 DC 09/02/16 02:06 999 MLS/HR Sodium Chloride (Nss 1000ml) 1,000 ml @ 125 mls/hr Q8H STAT IV 09/02/16 02:06 09/02/16 10:05 09/02/16 02:14 125 MLS/HR Morphine Sulfate (MoRPHine SULFATE INJ) 4 mg NOW STAT IV 09/02/16 02:55 09/02/16 02:56 DC 09/02/16 02:58 4 MG Ondansetron HCl (Zofran Inj) 4 mg NOW STAT IV 09/02/16 02:55 09/02/16 02:56 DC 09/02/16 02:55 4 MG ED Course Prior records/ancillary studies reviewed. Triage Nursing notes reviewed. The patient's history was concerning for abdominal pain. Differential diagnosis: Etiologies such as appendicitis, diverticulitis, PUD, biliary pathology, UTI, pancreatitis, obstruction, mesenteric ischemia, aortic pathology, infections, inflammatory bowel disease, renal colic, as well as others were entertained. Physical examination findings: As above. ER treatment provided: Morphine, Zofran, IV fluids On reassessment the patient felt better. Diagnostics interpreted by me: ECG: Normal sinus, normal intervals, no acute ST-T wave changes. Impression normal sinus rhythm interpreted by myself The labs revealed leukocytosis. No worrisome electrolyte abnormality, subtherapeutic INR Imaging studies: CT ABDOMEN & PELVIS: Comparison: 07/14/2016 Impression: Small bowel obstruction with a transition point seen within the left upper quadrant (2-35). No pneumatosis or free air. Additional findings: Probable atelectasis scarring within the lingula and the dependent lower lobes. The gallbladder, liver, pancreas, and adrenal glands are unremarkable. The spleen is surgically absent. The kidneys, ureters and urinary bladder are unremarkable. The appendix is not visualized. IVC filter is noted. Degenerative changes of the osseous structures. Acute abdominal series with no obvious obstruction or free air per my interpretation Consultation: A consultation was placed with Dr. Fernandez. The case was discussed and diagnostics were reviewed. The patient was evaluated in the ER for further treatment. Exam and history seem consistent with small bowel obstruction. Patient will be evaluated by medicine. He was placed nothing by mouth. He was hydrated as above. His pain was managed. This is a recurrent issue for him. He has had prior abdominal surgeries.By the evaluation outlined above emergent etiologies such as appendicitis, diverticulitis, PUD, biliary pathology, UTI, pancreatitis , mesenteric ischemia, aortic pathology, infections, inflammatory bowel disease, renal colic, as well as others were deemed relatively unlikely. The pt informed about the findings as listed above. All questions were answered and pleased with the treatment. Case reviewed with my attending. Medical Decision As above Impression Primary Impression: Small bowel obstruction Departure Information Dispostion Being Evaluated By Hospitalist Condition FAIR Referrals Osman Ray MD (PCP) Patient Instructions My [facility]
[2016-09-02] MEDS ORDERED: HYDROmorphone INJ 1 MG/ML SYR IV STA (04:16)
[2016-09-02] MEDS ORDERED: FENTANYL CITRATE INJ 50 MCG/1 ML 2 ML VIAL IV STA (05:14)
[2016-09-02] MEDS ORDERED: HEPARIN IV LOW DOSE NO BOLUS STA (05:46)
--- NOTE | 2016-09-02 05:59 | History and Physical ---
History & Physical Date & Time of Service: Sep 02, 2016 at 05:50 Chief Complaint: Acute Stomach Pain,Vomiting Primary Care Physician: Osman Ray MD History of Present Illness Source: patient, clinic records 65 year old male with history of PE on coumadin, s/p IVC filter placement, Essential Thrombocythemia, other problems noted below presenting with abdominal pain. Patient was admitted to [facility] last June 2016 for small bowel obstruction which resolved with conservative measures. He was doing well until around 10pm last night when he started to have upper abdominal pain,associated with non bloody vomiting. He reports having 1 BM last evening. No other symptoms. CT abdomen showed small bowel obstruction with transition point at the LUQ. NG tube placed and patient was given IV analgesics. On exam, patient states he is feels somewhat improved.\ Denies chest pain, dyspnea, palpitations, dizziness. Past Medical/Surgical History Medical Problems: (1) Essential thrombocytosis Status: Resolved (2) Hx of basal cell carcinoma Status: Chronic (3) KYLAH on CPAP Status: Chronic (4) Pulmonary emboli Status: Resolved (5) Retroperitoneal hematoma Status: Resolved (6) S/p vein filter placement Status: Chronic Surgical Problems: (1) History of dental surgery Status: Chronic (2) S/P appendectomy Status: Resolved (3) S/P tonsillectomy and adenoidectomy Status: Chronic (4) S/P UPPP (uvulopalatopharyngoplasty) Status: Chronic Family History No pertinent family history Social History Smoking Status: Former Smoker Drug Use: none Marital Status: single Occupational Status: employed Allergies Coded Allergies: No Known Allergies (Unverified , NKA, 09/02/16) Home Medications Scheduled Citalopram Hydrobromide (Celexa), 10 MG PO DAILY Fish Oil ([place]-3), 3 CAP PO DAILY Hydroxyurea (Hydrea Cap), 1,000 MG PO EVEN DAYS Hydroxyurea (Hydrea Cap), 1,500 MG PO ODD DAYS Warfarin Sodium (Coumadin), 5 MG PO 2XWK Warfarin Sodium (Coumadin), 7.5 MG PO 5XWK Scheduled PRN Lorazepam (Ativan), 0.5 MG PO Q6H PRN for Anxiety Pseudoephedrine-Guaifenesin (Mucinex D), 1 TAB PO BID PRN for CONGESTION Sildenafil Citrate (Viagra), 100 MG PO UD PRN for INTERCOURSE Review of Systems Constitutional- no fever; no weight loss Eyes- no acute visual changes ENT- no sinus drainage; no pharyngitis Pulmonary- no cough, no wheezing, no shortness of breath Cardiac- no chest pain, no palpitations, no orthopnea, no dependent edema GI- (+) as noted above - no dysuria, no hematuria Musculoskeletal- no arthralgias, no myalgias Derm- no rashes, no new skin lesions, no changing skin lesions Hematologic- no unusual bruising, no unusual bleeding Lymphatics- no adenopathy Endocrine- no polyuria or polydipsia; no heat or cold intolerance Neuro- no headaches, no focal neurologic symptoms Psych- no anxiety, no depression Physical Exam Vital Signs Date Time Temp Pulse Resp B/P Pulse Ox O2 Delivery O2 Flow Rate FiO2 09/02/16 04:49 75 18 153/93 96 Room Air 09/02/16 03:37 94 Nasal Cannula 2.0 09/02/16 03:29 85 16 154/88 91 Room Air 09/02/16 03:00 75 09/02/16 02:16 100 Room Air 09/02/16 02:16 100 Room Air 09/02/16 01:58 36.5 75 24 161/77 97 Room Air General Appearance: WD/WN, no apparent distress Head: normocephalic, atraumatic Eyes: normal inspection, EOMI, sclerae normal ENT: normal ENT inspection, TMs normal Neck: supple, no adenopathy, thyroid normal, no JVD, trachea midline Respiratory/Chest: chest non-tender, lungs clear, normal breath sounds, no respiratory distress, no accessory muscle use Cardiovascular: regular rate, rhythm, no JVD, no murmur Abdomen/GI: non tender, soft, + abnormal bowel sounds (hypoactive) Back: normal inspection, no CVA tenderness Extremities/Musculoskelatal: normal inspection, no calf tenderness, normal capillary refill, no pedal edema, normal range of motion Neurologic/Psych: manager of marketing II-XII nml as tested, no motor/sensory deficits, alert, normal mood/affect, normal reflexes, oriented x 3 Skin: normal color, warm/dry, no rash Lymphatic: no adenopathy Diagnostics Laboratory Results Results Past 24 Hours Test 09/02/16 02:15 Range/Units White Blood Count 13.36 4.8-10.8 K/uL Red Blood Count 4.18 4.7-6.1 M/uL Hemoglobin 15.1 14.0-18.0 g/dL Hematocrit 43.2 42-52 % Mean Corpuscular Volume 103.3 80-100 fL Mean Corpuscular Hemoglobin 36.1 25-34 pg Mean Corpuscular Hemoglobin Concent 35.0 32-36 g/dl Platelet Count 652 130-400 K/uL Mean Platelet Volume 9.9 7.4-10.4 fL Neutrophils (%) (Auto) 82.3 % Lymphocytes (%) (Auto) 11.1 % Monocytes (%) (Auto) 5.9 % Eosinophils (%) (Auto) 0.2 % Basophils (%) (Auto) 0.3 % Neutrophils # (Auto) 10.99 1.4-6.5 K/uL Lymphocytes # (Auto) 1.48 1.2-3.4 K/uL Monocytes # (Auto) 0.79 0.11-0.59 K/uL Eosinophils # (Auto) 0.03 0-0.5 K/uL Basophils # (Auto) 0.04 0-0.2 K/uL RDW Standard Deviation 67.7 36.4-46.3 fL RDW Coefficient of Variation 18.0 11.5-14.5 % Immature Granulocyte % (Auto) 0.2 % Immature Granulocyte # (Auto) 0.03 0.00-0.02 K/uL Prothrombin Time 19.4 9.0-12.0 SECONDS Prothromb Time International Ratio 1.8 0.9-1.1 Activated Partial Thromboplast Time 35.5 21.0-31.0 SECONDS Partial Thromboplastin Ratio 1.4 Sodium Level 140 136-145 mmol/L Potassium Level 3.9 3.5-5.1 mmol/L Chloride Level 100 98-107 mmol/L Carbon Dioxide Level 27 21-32 mmol/L Anion Gap 13.0 3-11 mmol/L Blood Urea Nitrogen 17 7-18 mg/dl Creatinine 1.10 0.60-1.40 mg/dl Est Creatinine Clear Calc Drug Dose 76.0 ml/min Estimated GFR () 81.8 Estimated GFR (Non- 70.6 BUN/Creatinine Ratio 15.7 10-20 Random Glucose 177 70-99 mg/dl Calcium Level 9.0 8.5-10.1 mg/dl Total Bilirubin 0.6 0.2-1 mg/dl Direct Bilirubin 0.1 0-0.2 mg/dl Aspartate Amino Transf (AST/SGOT) 17 15-37 U/L Alanine Aminotransferase (ALT/SGPT) 29 12-78 U/L Alkaline Phosphatase 78 45-117 U/L Troponin I < 0.015 0-0.045 ng/ml Total Protein 7.7 6.4-8.2 gm/dl Albumin 4.2 3.4-5.0 gm/dl Lipase 150 73-393 U/L Diagnostic Radiology CT abdomen: small bowel obstruction, transition point at the LUQ Impression Assessment and Plan 65 year old male with history of PE on coumadin, s/p IVC filter placement, Essential Thrombocythemia, other problems noted below presenting with abdominal pain. SMALL BOWEL OBSTRUCTION NPO IV fluids PRN Morphine Gen Surg consult HISTORY OF PULMONARY EMBOLISM ON COUMADIN, S/P IVC FILTER PLACEMENT INR 1.8 usually on coumadin mg mon and fri, 7.5 mg other days hold coumadin, heparin drip for now ESSENTIAL THROMBOCYTHEMIA on Hydroxyurea--> on hold while NPO with NG tube KYLAH on CPAP S/P SPLENECTOMY DVT prophylaxis on heparin drip Disposition pending anticipate d/c home when medically stable VTE Prophylaxis VTE Risk Assessment Done? Y/N: Yes Risk Level: High
[2016-09-02] MEDS ORDERED: HEPARIN 25000 UNIT/500 ML D5W ONE (06:00)
[2016-09-02] MEDS ORDERED: MoRPHine SULFATE 4 MG/ML 1 ML CARP\\VIAL IV PRN (06:00)
[2016-09-02 07:04] VITALS: BP 177/98; PULSE 71; TEMP 36.2; O2SAT 95
[2016-09-02] MEDS: HEPARIN 25,000 UNIT/500ML D5W 500 ML IV PRN ×4 (07:15→22:45)
--- NOTE | 2016-09-02 07:27 | DIAGNOSTIC IMAGING REPORT ---
ABDOMEN AND PELVIS CT WITH IV CONTRAST CT DOSE: 331.62 mGy.cm HISTORY: Generalized abdominal pain. TECHNIQUE: Multiaxial CT images of the abdomen and pelvis were performed following the use of intravenous contrast. COMPARISON STUDY: Abdomen and pelvis CT 07/14/2016. FINDINGS: Mild dependent changes at the lung bases. No pneumoperitoneum. No pneumatosis. Multiple dilated air and fluid-filled loops of small bowel within the left side of the abdomen with a transition point located in image 180/481. Therefore, this is consistent with a small bowel obstruction. This is similar to the prior study. The spleen is surgically absent. Stable partially calcified soft tissue within the left side of the abdomen abutting the pancreatic tail. This measures 2.3 cm. This could be due to postoperative change. The adrenal glands, spleen, gallbladder, and kidneys are unremarkable. No hydronephrosis. No retroperitoneal lymphadenopathy. 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 IVC filter is again noted with a strut ending into the adjacent vertebral body and aortic wall. This remains unchanged. Small amount of chronic thrombus within the main portal vein has improved. Normal bladder. Colonic diverticulosis. The colon is decompressed. IMPRESSION: 1. Small bowel obstruction with the transition point located within the left midabdomen at the level of the mid jejunum. Overall, this is similar to the prior study. 2. Prior splenectomy. 3. Small amount of nonocclusive chronic thrombus within the main portal vein which has improved. 4. IVC filter is again noted. One of the struts extend into the adjacent vertebral body and another strut extends into the lateral aortic wall. This remains unchanged. Electronically signed by: Maico Mcarthur M.D. 09/02/2016 7:26 AM Dictated Date/Time: 09/02/2016 7:19 AM
--- NOTE | 2016-09-02 07:53 | DIAGNOSTIC IMAGING REPORT ---
ABDOMEN 2VIEW W/PA CHEST RTN CLINICAL HISTORY: abd pain, ? SBO pain. Obstruction. COMPARISON STUDY: 07/15/2016 FINDINGS: Emphysematous change of the chest. Scattered chronic fibrotic change unaltered. No superimposed infiltrate. Bowel pattern is nonobstructive. Postoperative changes in the region of the inferior vena cava with filter placement. No significant small bowel or colonic distention. No secondary signs of free air. IMPRESSION: No acute process of the chest or abdomen. Emphysematous change. Electronically signed by: Carlos Vail M.D. 09/02/2016 7:52 AM Dictated Date/Time: 09/02/2016 7:49 AM
[2016-09-02] MEDS: D5NSS + 20MEQ KCL 1,000 ML IV SCH ×2 (08:05→17:08)
[2016-09-02] MEDS: ONDANSETRON INJ 2 MG/ML 2 ML VIAL IV PRN (08:06)
[2016-09-02 08:10] VITALS: BP 187/98; PULSE 64; O2SAT 96; Ht 185.4 cm; Wt 73.8 kg
[2016-09-02] MEDS ORDERED: HYDROmorphone INJ 1 MG/ML SYR IV PRN ×2 (08:30→11:00)
[2016-09-02 08:43] VITALS: BP 166/96
--- NOTE | 2016-09-02 09:05 | DIAGNOSTIC IMAGING REPORT ---
KUB HISTORY: NG placement COMPARISON: Abdomen and pelvis CT 09/02/2016. FINDINGS: A few mildly distended gas-filled loops of small bowel within the left side of the abdomen persist. An IVC filter is again noted. Contrast within the bladder from the recent CT examination. Nasogastric tube terminates in the body of the stomach. No pneumoperitoneum or pneumatosis. IMPRESSION: 1. Nasogastric gastric tube terminates in the body of the stomach. 2. A few mildly distended loops of small bowel within the left upper quadrant. This corresponds to the patient's small bowel obstruction. Electronically signed by: Maico Mcarthur M.D. 09/02/2016 9:04 AM Dictated Date/Time: 09/02/2016 9:02 AM
--- NOTE | 2016-09-02 09:13 | Medical Consult ---
Consultation Date of Consultation: Sep 02, 2016. Attending Physician: Dorcas Skaggs., S History of Present Illness 65 y/o male with abdominal pain, N/V that began last night and subsequently admitted for SBO. Had turkey sandwich for dinner. Had normal BM yesterday, no recent flatus. Pain was marginally managed in the ED and he has recently arrived to the floor. NG has improved his bloating but not pain. He has vomited once around the NG. Was admitted about 6 weeks ago for SBO, responded to conservative treatment and was not having any problems at home until last night. 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 Is on coumadin for h/o PE. Past Medical/Surgical History Medical Problems: (1) Essential thrombocytosis Status: Resolved (2) Hx of basal cell carcinoma Status: Chronic (3) KYLAH on CPAP Status: Chronic (4) Pulmonary emboli Status: Resolved (5) Retroperitoneal hematoma Status: Resolved (6) S/p vein filter placement Status: Chronic Surgical Problems: (1) History of dental surgery Status: Chronic (2) S/P appendectomy Status: Resolved (3) S/P tonsillectomy and adenoidectomy Status: Chronic (4) S/P UPPP (uvulopalatopharyngoplasty) Status: Chronic 5) splenectomy Family History No pertinent family history Social History Smoking Status: Former Smoker Drug Use: none Marital Status: single Housing Status: lives alone Occupation Status: employed Allergies Coded Allergies: No Known Allergies (Unverified , NKA, 09/02/16) Current Inpatient Medications Current Inpatient Medications Medications (Trade) Dose Ordered Sig/Kar Route Start Time Stop Time Status Last Admin Dose Admin Ioversol 100 ml 100 ml UD PRN IV 09/02/16 02:45 09/06/16 02:44 Potassium Chloride/Dextrose/ Sod Cl (D5nss + 20meq KCl) 1,000 ml @ 125 mls/hr Q8H IV 09/02/16 07:00 09/02/16 08:05 75 MLS/HR Morphine Sulfate (MoRPHine SULFATE INJ) 4 mg Q4H PRN IV 09/02/16 06:00 09/16/16 05:59 Ondansetron HCl 4 mg 4 mg Q6H PRN IV 09/02/16 06:00 10/02/16 05:59 09/02/16 08:06 4 MG Heparin Sodium/ Dextrose (Heparin 25,000 Unit/500ml D5W) 500 ml @ 19 mls/hr Q24H PRN IV 09/02/16 07:15 10/02/16 07:14 09/02/16 07:15 19 MLS/HR Hydromorphone HCl 1 mg 1 mg Q1H PRN IV 09/02/16 08:30 09/16/16 08:29 UNV Promethazine HCl/ Sodium Chloride (Phenergan Inj/ Nss 50ml) 50.5 ml @ 204 mls/hr Q6H PRN IV 09/02/16 08:30 10/02/16 08:29 UNV Review of Systems Constitutional: No chills, No fever Abdomen: + nausea, + pain, + vomiting, No constipation, No diarrhea Physical Exam Date Time Temp Pulse Resp B/P Pulse Ox O2 Delivery O2 Flow Rate FiO2 09/02/16 08:43 166/96 09/02/16 08:10 64 20 187/98 96 Room Air 09/02/16 07:04 36.2 71 18 177/98 95 Nasal Cannula 2.0 09/02/16 06:22 66 14 173/109 96 Nasal Cannula 2.0 09/02/16 04:49 75 18 153/93 96 Room Air 09/02/16 03:37 94 Nasal Cannula 2.0 09/02/16 03:29 85 16 154/88 91 Room Air 09/02/16 03:00 75 09/02/16 02:16 100 Room Air 09/02/16 02:16 100 Room Air 09/02/16 01:58 36.5 75 24 161/77 97 Room Air General Appearance: + mild distress ENT: normal ENT inspection, + pertinent finding (NG drainage mccall, 150 cc) Respiratory/Chest: normal breath sounds Cardiovascular: regular rate, rhythm Abdomen/GI: soft, + tenderness (minimal), + distended (some fullness LUQ, no other distention) Laboratory Results Last 24 Hours Test 09/02/16 02:15 White Blood Count 13.36 K/uL Red Blood Count 4.18 M/uL Hemoglobin 15.1 g/dL Hematocrit 43.2 % Mean Corpuscular Volume 103.3 fL Mean Corpuscular Hemoglobin 36.1 pg Mean Corpuscular Hemoglobin Concent 35.0 g/dl Platelet Count 652 K/uL Mean Platelet Volume 9.9 fL Neutrophils (%) (Auto) 82.3 % Lymphocytes (%) (Auto) 11.1 % Monocytes (%) (Auto) 5.9 % Eosinophils (%) (Auto) 0.2 % Basophils (%) (Auto) 0.3 % Neutrophils # (Auto) 10.99 K/uL Lymphocytes # (Auto) 1.48 K/uL Monocytes # (Auto) 0.79 K/uL Eosinophils # (Auto) 0.03 K/uL Basophils # (Auto) 0.04 K/uL RDW Standard Deviation 67.7 fL RDW Coefficient of Variation 18.0 % Immature Granulocyte % (Auto) 0.2 % Immature Granulocyte # (Auto) 0.03 K/uL Prothrombin Time 19.4 SECONDS Prothromb Time International Ratio 1.8 Activated Partial Thromboplast Time 35.5 SECONDS Partial Thromboplastin Ratio 1.4 Sodium Level 140 mmol/L Potassium Level 3.9 mmol/L Chloride Level 100 mmol/L Carbon Dioxide Level 27 mmol/L Anion Gap 13.0 mmol/L Blood Urea Nitrogen 17 mg/dl Creatinine 1.10 mg/dl Est Creatinine Clear Calc Drug Dose 76.0 ml/min Estimated GFR () 81.8 Estimated GFR (Non- 70.6 BUN/Creatinine Ratio 15.7 Random Glucose 177 mg/dl Calcium Level 9.0 mg/dl Total Bilirubin 0.6 mg/dl Direct Bilirubin 0.1 mg/dl Aspartate Amino Transf (AST/SGOT) 17 U/L Alanine Aminotransferase (ALT/SGPT) 29 U/L Alkaline Phosphatase 78 U/L Troponin I < 0.015 ng/ml Total Protein 7.7 gm/dl Albumin 4.2 gm/dl Lipase 150 U/L CT IMPRESSION: 1. Small bowel obstruction with the transition point located within the left midabdomen at the level of the mid jejunum. Overall, this is similar to the prior study. 2. Prior splenectomy. 3. Small amount of nonocclusive chronic thrombus within the main portal vein which has improved. 4. IVC filter is again noted. One of the struts extend into the adjacent vertebral body and another strut extends into the lateral aortic wall. This remains unchanged. Electronically signed by: Maico Mcarthur M.D. 09/02/2016 7:26 AM Dictated Date/Time: 09/02/2016 7:19 AM Assessment & Plan recurrent PSBO anticoagulated He does not have any acute abdominal findings but will continue to follow him closely. His INR is 1.8 and last coumadin dose was yesterday morning. I've increased his IV to total 145 cc/hr including heparin gtt. Will check KUB to check NG placement given his vomiting and low output since insertion.
--- NOTE | 2016-09-02 09:53 | Surgery Progress Note ---
Surgery Progress Note Date of Service Sep 02, 2016. Subjective see Wm Reeves's note adm with abd pain, N/V- CT evidence of SBO- recent sx 04/2016- splenectomy for thrombocytosis open operation at [place] Objective Vital Signs: Date Time Temp Pulse Resp B/P Pulse Ox O2 Delivery O2 Flow Rate FiO2 09/02/16 08:43 166/96 09/02/16 08:10 64 20 187/98 96 Room Air 09/02/16 07:04 36.2 71 18 177/98 95 Nasal Cannula 2.0 09/02/16 06:22 66 14 173/109 96 Nasal Cannula 2.0 09/02/16 04:49 75 18 153/93 96 Room Air 09/02/16 03:37 94 Nasal Cannula 2.0 09/02/16 03:29 85 16 154/88 91 Room Air 09/02/16 03:00 75 09/02/16 02:16 100 Room Air 09/02/16 02:16 100 Room Air 09/02/16 01:58 36.5 75 24 161/77 97 Room Air General Appearance: no apparent distress Respiratory/Chest: no respiratory distress Cardiovascular: regular rate, rhythm Abdomen: non distended (minimal tenderness, decreased bs) Laboratory Results: Results Past 24 Hours Test 09/02/16 02:15 Range/Units White Blood Count 13.36 4.8-10.8 K/uL Red Blood Count 4.18 4.7-6.1 M/uL Hemoglobin 15.1 14.0-18.0 g/dL Hematocrit 43.2 42-52 % Mean Corpuscular Volume 103.3 80-100 fL Mean Corpuscular Hemoglobin 36.1 25-34 pg Mean Corpuscular Hemoglobin Concent 35.0 32-36 g/dl Platelet Count 652 130-400 K/uL Mean Platelet Volume 9.9 7.4-10.4 fL Neutrophils (%) (Auto) 82.3 % Lymphocytes (%) (Auto) 11.1 % Monocytes (%) (Auto) 5.9 % Eosinophils (%) (Auto) 0.2 % Basophils (%) (Auto) 0.3 % Neutrophils # (Auto) 10.99 1.4-6.5 K/uL Lymphocytes # (Auto) 1.48 1.2-3.4 K/uL Monocytes # (Auto) 0.79 0.11-0.59 K/uL Eosinophils # (Auto) 0.03 0-0.5 K/uL Basophils # (Auto) 0.04 0-0.2 K/uL RDW Standard Deviation 67.7 36.4-46.3 fL RDW Coefficient of Variation 18.0 11.5-14.5 % Immature Granulocyte % (Auto) 0.2 % Immature Granulocyte # (Auto) 0.03 0.00-0.02 K/uL Prothrombin Time 19.4 9.0-12.0 SECONDS Prothromb Time International Ratio 1.8 0.9-1.1 Activated Partial Thromboplast Time 35.5 21.0-31.0 SECONDS Partial Thromboplastin Ratio 1.4 Sodium Level 140 136-145 mmol/L Potassium Level 3.9 3.5-5.1 mmol/L Chloride Level 100 98-107 mmol/L Carbon Dioxide Level 27 21-32 mmol/L Anion Gap 13.0 3-11 mmol/L Blood Urea Nitrogen 17 7-18 mg/dl Creatinine 1.10 0.60-1.40 mg/dl Est Creatinine Clear Calc Drug Dose 76.0 ml/min Estimated GFR () 81.8 Estimated GFR (Non- 70.6 BUN/Creatinine Ratio 15.7 10-20 Random Glucose 177 70-99 mg/dl Calcium Level 9.0 8.5-10.1 mg/dl Total Bilirubin 0.6 0.2-1 mg/dl Direct Bilirubin 0.1 0-0.2 mg/dl Aspartate Amino Transf (AST/SGOT) 17 15-37 U/L Alanine Aminotransferase (ALT/SGPT) 29 12-78 U/L Alkaline Phosphatase 78 45-117 U/L Troponin I < 0.015 0-0.045 ng/ml Total Protein 7.7 6.4-8.2 gm/dl Albumin 4.2 3.4-5.0 gm/dl Lipase 150 73-393 U/L Assessment & Plan 09/02/16- adm with fabien NG in place- functioning- moderate bilious output normalize lytes, dilaudid for pain, nonoperative treatment for now pt satisfied with plan
--- NOTE | 2016-09-02 10:36 | Progress Note ---
Internal Med Progress Note Date of Service: Sep 02, 2016. Provider Documentation: SUBJECTIVE: Patient has NG tube + low suctioning- bilious + Abdominal pain has improved, nausea + improved, no vomiting Had a BM yesterday night No fever, chills OBJECTIVE: Vital Signs-as noted below Exam: General-AAOX3, no distress Neck-Supple HEENT- NG tube + Lungs-AEBE, no wheezing, crackles Heart-S1, S2 normal Abdomen-Soft, no distension, BS + Sluggish, Non tender Extremities-No edema Lab data as noted below. Diagnostic Radiology CT abdomen: small bowel obstruction, transition point at the LUQ ASSESSMENT & PLAN: Assessment and Plan: 65 year old male with history of PE on coumadin, s/p IVC filter placement, Essential Thrombocythemia, other problems noted below presenting with abdominal pain. SMALL BOWEL OBSTRUCTION Had recent admission for SBO, conservatively managed. Has had multiple surgeries in past, so possible adhesions -NG tube, NPO, IV fluids 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, S/P IVC FILTER PLACEMENT INR 1.8 Usually on coumadin 5 mg mon and fri, 7.5 mg other days -Hold coumadin, heparin drip for now ESSENTIAL THROMBOCYTHEMIA -on Hydroxyurea--> on hold while NPO with NG tube KYLAH -on CPAP S/P SPLENECTOMY DVT prophylaxis On heparin drip DISPOSITION anticipate d/c home when medically stab Vital Signs: Date Time Temp Pulse Resp B/P Pulse Ox O2 Delivery O2 Flow Rate FiO2 09/02/16 08:43 166/96 09/02/16 08:10 64 20 187/98 96 Room Air 09/02/16 07:04 36.2 71 18 177/98 95 Nasal Cannula 2.0 09/02/16 06:22 66 14 173/109 96 Nasal Cannula 2.0 09/02/16 04:49 75 18 153/93 96 Room Air 09/02/16 03:37 94 Nasal Cannula 2.0 09/02/16 03:29 85 16 154/88 91 Room Air 09/02/16 03:00 75 09/02/16 02:16 100 Room Air 09/02/16 02:16 100 Room Air 09/02/16 01:58 36.5 75 24 161/77 97 Room Air Lab Results: Results Past 24 Hours Test 09/02/16 02:15 09/02/16 09:30 Range/Units White Blood Count 13.36 4.8-10.8 K/uL Red Blood Count 4.18 4.7-6.1 M/uL Hemoglobin 15.1 14.0-18.0 g/dL Hematocrit 43.2 42-52 % Mean Corpuscular Volume 103.3 80-100 fL Mean Corpuscular Hemoglobin 36.1 25-34 pg Mean Corpuscular Hemoglobin Concent 35.0 32-36 g/dl Platelet Count 652 130-400 K/uL Mean Platelet Volume 9.9 7.4-10.4 fL Neutrophils (%) (Auto) 82.3 % Lymphocytes (%) (Auto) 11.1 % Monocytes (%) (Auto) 5.9 % Eosinophils (%) (Auto) 0.2 % Basophils (%) (Auto) 0.3 % Neutrophils # (Auto) 10.99 1.4-6.5 K/uL Lymphocytes # (Auto) 1.48 1.2-3.4 K/uL Monocytes # (Auto) 0.79 0.11-0.59 K/uL Eosinophils # (Auto) 0.03 0-0.5 K/uL Basophils # (Auto) 0.04 0-0.2 K/uL RDW Standard Deviation 67.7 36.4-46.3 fL RDW Coefficient of Variation 18.0 11.5-14.5 % Immature Granulocyte % (Auto) 0.2 % Immature Granulocyte # (Auto) 0.03 0.00-0.02 K/uL Prothrombin Time 19.4 9.0-12.0 SECONDS Prothromb Time International Ratio 1.8 0.9-1.1 Activated Partial Thromboplast Time 35.5 21.0-31.0 SECONDS Partial Thromboplastin Ratio 1.4 Sodium Level 140 136-145 mmol/L Potassium Level 3.9 3.5-5.1 mmol/L Chloride Level 100 98-107 mmol/L Carbon Dioxide Level 27 21-32 mmol/L Anion Gap 13.0 3-11 mmol/L Blood Urea Nitrogen 17 7-18 mg/dl Creatinine 1.10 0.60-1.40 mg/dl Est Creatinine Clear Calc Drug Dose 76.0 ml/min Estimated GFR () 81.8 Estimated GFR (Non- 70.6 BUN/Creatinine Ratio 15.7 10-20 Random Glucose 177 70-99 mg/dl Calcium Level 9.0 8.5-10.1 mg/dl Total Bilirubin 0.6 0.2-1 mg/dl Direct Bilirubin 0.1 0-0.2 mg/dl Aspartate Amino Transf (AST/SGOT) 17 15-37 U/L Alanine Aminotransferase (ALT/SGPT) 29 12-78 U/L Alkaline Phosphatase 78 45-117 U/L Troponin I < 0.015 0-0.045 ng/ml Total Protein 7.7 6.4-8.2 gm/dl Albumin 4.2 3.4-5.0 gm/dl Lipase 150 73-393 U/L
[2016-09-02 10:58] LABS: URINE APPEARANCE CLEAR (CLEAR); URINE BILIRUBIN NEG (NEG); URINE COLOR YELLOW; URINE NITRITE NEG (NEG); URINE PH 7.5 (4.5-7.5); URINE SPECIFIC GRAVITY > 1.045 (1.000-1.030); UROBILINOGEN NEG (NEG); ZZUR CULT IF INDIC CLEAN CATCH NO
[2016-09-02 11:14] LABS: MANUAL MICROSCOPIC REQUIRED? NO; REVIEW REQ? NO; SULFASALICYLIC ACID NEG (NEG)
[2016-09-02 11:31] VITALS: BP 143/87; PULSE 78; O2SAT 90; O2SAT 92
[2016-09-02 12:20] LABS: PARTIAL THROMBOPLASTIN RATIO 1.5
[2016-09-02] MEDS ORDERED: HEPARIN IV BOLUS 4,500 UNIT in SYRINGE 0 ML IV ONE (13:00)
[2016-09-02 15:53] VITALS: BP 158/100; PULSE 81; TEMP 36.3; O2SAT 95
[2016-09-02 23:10] VITALS: BP 161/92; PULSE 78; TEMP 36.3; O2SAT 91
[2016-09-03] MEDS: HYDROmorphone INJ 0.5 MG/0.5 ML SYR IV PRN (00:18)
[2016-09-03] MEDS: D5NSS + 20MEQ KCL 1,000 ML IV SCH ×3 (02:27→22:56)
[2016-09-03] MEDS: HEPARIN 25,000 UNIT/500ML D5W 500 ML IV PRN ×4 (03:55→22:55)
[2016-09-03 04:38] LABS: BASO % 0.2 %; BASO ABS # 0.02 K/uL (0-0.2); COMPLETE YES; EOS % 0.7 %; HEMATOCRIT 42.7 % (42-52); IG% 0.2 %; LYMPH ABS # 1.31 K/uL (1.2-3.4); MEAN CELL VOLUME 105.7 fL (80-100); MEAN CORPUSCULAR HEMOGLOBIN 36.1 pg (25-34); MEAN CORPUSCULAR HGB CONC 34.2 g/dl (32-36); MEAN PLATELET VOLUME 10.2 fL (7.4-10.4); MONO % 13.3 %; NEUT % 72.6 %; PLATELET COUNT 585 K/uL (130-400); RED BLOOD COUNT 4.04 M/uL (4.7-6.1); WHITE BLOOD COUNT 10.11 K/uL (4.8-10.8)
[2016-09-03 04:56] LABS: INR 1.4 (0.9-1.1); PARTIAL THROMBOPLASTIN RATIO 1.8; PROTHROMBIN TIME (PATIENT) 15.7 SECONDS (9.0-12.0)
[2016-09-03 05:07] LABS: BUN/CREATININE RATIO 10.8 (10-20); CALCIUM 8.5 mg/dl (8.5-10.1); CREATININE 0.86 mg/dl (0.60-1.40); MAGNESIUM 2.3 mg/dl (1.8-2.4); PHOSPHORUS 2.5 mg/dl (2.5-4.9); POTASSIUM 4.3 mmol/L (3.5-5.1)
--- NOTE | 2016-09-03 06:12 | Surgery Progress Note ---
Surgery Progress Note Date of Service Sep 03, 2016. Subjective No nausea, No vomiting some improvement, less pain, less NG output- more clear- some coffee grounds Objective Vital Signs: Date Time Temp Pulse Resp B/P Pulse Ox O2 Delivery O2 Flow Rate FiO2 09/03/16 00:00 Room Air 09/02/16 23:10 36.3 78 16 161/92 91 Room Air 09/02/16 20:00 Room Air 09/02/16 15:53 36.3 81 17 158/100 95 Nasal Cannula 1.0 81 09/02/16 15:30 Nasal Cannula 1.0 09/02/16 11:31 92 Nasal Cannula 1.0 09/02/16 11:31 78 16 143/87 90 Room Air 09/02/16 08:43 166/96 09/02/16 08:10 64 20 187/98 96 Room Air 09/02/16 07:04 36.2 71 18 177/98 95 Nasal Cannula 2.0 09/02/16 06:22 66 14 173/109 96 Nasal Cannula 2.0 General Appearance: no apparent distress Respiratory/Chest: no respiratory distress Abdomen: non tender, non distended, soft (some bowel sounds) Laboratory Results: Results Past 24 Hours Test 09/02/16 09:30 09/02/16 11:50 09/02/16 19:30 09/03/16 04:14 Range/Units Urine Color YELLOW Urine Appearance CLEAR CLEAR Urine pH 7.5 4.5-7.5 Urine Specific [place] > 1.045 1.000-1.030 Urine Protein NEG NEG Urine Glucose (UA) 3+ NEG Urine Ketones 1+ NEG Urine Occult Blood NEG NEG Urine Nitrite NEG NEG Urine Bilirubin NEG NEG Urine Urobilinogen NEG NEG Urine Leukocyte Esterase NEG NEG Urine WBC (Auto) 0 0-5 /hpf Urine RBC (Auto) 0-4 0-4 /hpf Urine Hyaline Casts (Auto) 0 0-5 /lpf Urine Epithelial Cells (Auto) 5-10 0-5 /lpf Urine Bacteria (Auto) NEG NEG Activated Partial Thromboplast Time 39.8 51.4 48.0 21.0-31.0 SECONDS Partial Thromboplastin Ratio 1.5 2.0 1.8 White Blood Count 10.11 4.8-10.8 K/uL Red Blood Count 4.04 4.7-6.1 M/uL Hemoglobin 14.6 14.0-18.0 g/dL Hematocrit 42.7 42-52 % Mean Corpuscular Volume 105.7 80-100 fL Mean Corpuscular Hemoglobin 36.1 25-34 pg Mean Corpuscular Hemoglobin Concent 34.2 32-36 g/dl Platelet Count 585 130-400 K/uL Mean Platelet Volume 10.2 7.4-10.4 fL Neutrophils (%) (Auto) 72.6 % Lymphocytes (%) (Auto) 13.0 % Monocytes (%) (Auto) 13.3 % Eosinophils (%) (Auto) 0.7 % Basophils (%) (Auto) 0.2 % Neutrophils # (Auto) 7.35 1.4-6.5 K/uL Lymphocytes # (Auto) 1.31 1.2-3.4 K/uL Monocytes # (Auto) 1.34 0.11-0.59 K/uL Eosinophils # (Auto) 0.07 0-0.5 K/uL Basophils # (Auto) 0.02 0-0.2 K/uL RDW Standard Deviation 70.1 36.4-46.3 fL RDW Coefficient of Variation 18.2 11.5-14.5 % Immature Granulocyte % (Auto) 0.2 % Immature Granulocyte # (Auto) 0.02 0.00-0.02 K/uL Prothrombin Time 15.7 9.0-12.0 SECONDS Prothromb Time International Ratio 1.4 0.9-1.1 Sodium Level 142 136-145 mmol/L Potassium Level 4.3 3.5-5.1 mmol/L Chloride Level 105 98-107 mmol/L Carbon Dioxide Level 30 21-32 mmol/L Anion Gap 7.0 3-11 mmol/L Blood Urea Nitrogen 9 7-18 mg/dl Creatinine 0.86 0.60-1.40 mg/dl Est Creatinine Clear Calc Drug Dose 97.2 ml/min Estimated GFR () 106.2 Estimated GFR (Non- 91.6 BUN/Creatinine Ratio 10.8 10-20 Random Glucose 152 70-99 mg/dl Calcium Level 8.5 8.5-10.1 mg/dl Phosphorus Level 2.5 2.5-4.9 mg/dl Magnesium Level 2.3 1.8-2.4 mg/dl Assessment & Plan 09/03/16- leave NG today, ambulate, mineral oil and senna syrup per NG check labs, add protonix Dr Johnson covering over weekend 09/02/16- adm with sbo, NG in place- functioning- moderate bilious output normalize lytes, dilaudid for pain, nonoperative treatment for now pt satisfied with plan 09/02/16- adm with sbo, NG in place- functioning- moderate bilious output normalize lytes, dilaudid for pain, nonoperative treatment for now pt satisfied with plan
[2016-09-03] MEDS ORDERED: MINERAL OIL 30 ML UDC PO ONE (06:15)
[2016-09-03 06:36] VITALS: BP 133/80
[2016-09-03] MEDS: SENNA 8.8 MG/5 ML UDP PO SCH ×2 (06:39→21:32)
[2016-09-03 07:35] VITALS: BP 144/76; PULSE 81; TEMP 36.5; O2SAT 91
--- NOTE | 2016-09-03 10:22 | DIAGNOSTIC IMAGING REPORT ---
ABDOMEN 2 VIEWS CLINICAL HISTORY: Small bowel obstruction COMPARISON STUDY: 09/02/2016 FINDINGS: There is a nasogastric tube with its tip projected over the gastric cardia. An IVC filter is visualized. There are nonspecific mildly dilated left upper quadrant small bowel loops. There are left upper quadrant sutures. There are metallic coils projected over the right paravertebral region. IMPRESSION: 1. Nasogastric tube with its tip projected of the gastric cardia 2. Mildly dilated left upper quadrant small bowel loops. Electronically signed by: Nikos Pierre M.D. 09/03/2016 10:20 AM Dictated Date/Time: 09/03/2016 10:18 AM
[2016-09-03] MEDS: PANTOprazole INJ 40 MG in SYRINGE 0 ML IV SCH (12:31)
[2016-09-03 15:23] VITALS: BP 153/87; PULSE 73; TEMP 36.6; O2SAT 92
--- NOTE | 2016-09-03 15:32 | Progress Note ---
Internal Med Progress Note Date of Service: Sep 03, 2016. Provider Documentation: SUBJECTIVE: Patient has NG tube + low suctioning- bilious + Abdominal pain has improved, nausea + improved, no vomiting Had a BM day before yesterday. No flatus No fever, chills OBJECTIVE: Vital Signs-as noted below Exam: General-AAOX3, no distress Neck-Supple HEENT- NG tube + Lungs-AEBE, no wheezing, crackles Heart-S1, S2 normal Abdomen-Soft, no distension, BS + Sluggish, Non tender Extremities-No edema Lab data as noted below. Diagnostic Radiology CT abdomen: small bowel obstruction, transition point at the LUQ ASSESSMENT & PLAN: Assessment and Plan: 65 year old male with history of PE on coumadin, s/p IVC filter placement, Essential Thrombocythemia, other problems noted below presenting with abdominal pain. SMALL BOWEL OBSTRUCTION Had recent admission for SBO, conservatively managed. Has had multiple surgeries in past, so possible adhesions -NG tube, NPO, IV fluids. Senna, Mineral oil . Continue NG tube for now 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, S/P IVC FILTER PLACEMENT INR 1.2 Usually on coumadin 5 mg mon and fri, 7.5 mg other days -Hold coumadin, heparin drip for now ESSENTIAL THROMBOCYTHEMIA -on Hydroxyurea--> on hold while NPO with NG tube KYLAH -on CPAP S/P SPLENECTOMY DVT prophylaxis On heparin drip DISPOSITION anticipate d/c home when medically stab Vital Signs: Date Time Temp Pulse Resp B/P Pulse Ox O2 Delivery O2 Flow Rate FiO2 09/03/16 15:23 36.6 73 17 153/87 92 Room Air 09/03/16 08:10 Room Air 09/03/16 07:35 36.5 81 16 144/76 91 Room Air 09/03/16 06:36 133/80 09/03/16 00:00 Room Air 09/02/16 23:10 36.3 78 16 161/92 91 Room Air 09/02/16 20:00 Room Air 09/02/16 15:53 36.3 81 17 158/100 95 Nasal Cannula 1.0 81 Lab Results: Results Past 24 Hours Test 09/02/16 19:30 09/03/16 04:14 Range/Units Activated Partial Thromboplast Time 51.4 48.0 21.0-31.0 SECONDS Partial Thromboplastin Ratio 2.0 1.8 White Blood Count 10.11 4.8-10.8 K/uL Red Blood Count 4.04 4.7-6.1 M/uL Hemoglobin 14.6 14.0-18.0 g/dL Hematocrit 42.7 42-52 % Mean Corpuscular Volume 105.7 80-100 fL Mean Corpuscular Hemoglobin 36.1 25-34 pg Mean Corpuscular Hemoglobin Concent 34.2 32-36 g/dl Platelet Count 585 130-400 K/uL Mean Platelet Volume 10.2 7.4-10.4 fL Neutrophils (%) (Auto) 72.6 % Lymphocytes (%) (Auto) 13.0 % Monocytes (%) (Auto) 13.3 % Eosinophils (%) (Auto) 0.7 % Basophils (%) (Auto) 0.2 % Neutrophils # (Auto) 7.35 1.4-6.5 K/uL Lymphocytes # (Auto) 1.31 1.2-3.4 K/uL Monocytes # (Auto) 1.34 0.11-0.59 K/uL Eosinophils # (Auto) 0.07 0-0.5 K/uL Basophils # (Auto) 0.02 0-0.2 K/uL RDW Standard Deviation 70.1 36.4-46.3 fL RDW Coefficient of Variation 18.2 11.5-14.5 % Immature Granulocyte % (Auto) 0.2 % Immature Granulocyte # (Auto) 0.02 0.00-0.02 K/uL Prothrombin Time 15.7 9.0-12.0 SECONDS Prothromb Time International Ratio 1.4 0.9-1.1 Sodium Level 142 136-145 mmol/L Potassium Level 4.3 3.5-5.1 mmol/L Chloride Level 105 98-107 mmol/L Carbon Dioxide Level 30 21-32 mmol/L Anion Gap 7.0 3-11 mmol/L Blood Urea Nitrogen 9 7-18 mg/dl Creatinine 0.86 0.60-1.40 mg/dl Est Creatinine Clear Calc Drug Dose 97.2 ml/min Estimated GFR () 106.2 Estimated GFR (Non- 91.6 BUN/Creatinine Ratio 10.8 10-20 Random Glucose 152 70-99 mg/dl Calcium Level 8.5 8.5-10.1 mg/dl Phosphorus Level 2.5 2.5-4.9 mg/dl Magnesium Level 2.3 1.8-2.4 mg/dl
[2016-09-03] MEDS: ONDANSETRON INJ 2 MG/ML 2 ML VIAL IV PRN (20:58)
[2016-09-03 23:07] VITALS: BP 158/98; PULSE 77; TEMP 36.7; O2SAT 91
[2016-09-04] MEDS: PROMETHAZINE HCL INJ 12.5 MG in SODIUM CHLORIDE 0.9% 50ML 50 ML IV PRN (01:04)
[2016-09-04] MEDS: HYDROmorphone INJ 0.5 MG/0.5 ML SYR IV PRN (01:05)
[2016-09-04] MEDS: HEPARIN 25,000 UNIT/500ML D5W 500 ML IV PRN ×7 (01:52→23:15)
[2016-09-04 07:05] LABS: INR 1.5 (0.9-1.1); PARTIAL THROMBOPLASTIN RATIO 1.7; PROTHROMBIN TIME (PATIENT) 16.2 SECONDS (9.0-12.0)
[2016-09-04] MEDS ORDERED: HEPARIN IV BOLUS 3,000 UNIT in SYRINGE 0 ML IV ONE ×3 (07:30→23:15)
[2016-09-04] MEDS: D5NSS + 20MEQ KCL 1,000 ML IV SCH ×2 (07:51→18:20)
[2016-09-04 07:57] VITALS: BP 142/60; PULSE 66; TEMP 36.6; O2SAT 93
[2016-09-04] MEDS: SENNA 8.8 MG/5 ML UDP PO SCH ×2 (08:00→20:43)
[2016-09-04 08:27] VITALS: O2SAT 93
[2016-09-04] MEDS: PANTOprazole INJ 40 MG in SYRINGE 0 ML IV SCH (11:13)
--- NOTE | 2016-09-04 11:47 | Surgery Progress Note ---
Surgery Progress Note Date of Service Sep 04, 2016. Subjective No bowel movement, No flatus, No nausea, No vomiting Occasional pain Objective Vital Signs: Date Time Temp Pulse Resp B/P Pulse Ox O2 Delivery O2 Flow Rate FiO2 09/04/16 08:27 93 Room Air 09/04/16 07:57 36.6 66 16 142/60 93 Room Air 09/04/16 07:25 Room Air 09/03/16 23:28 Room Air 09/03/16 23:07 36.7 77 18 158/98 91 Room Air 09/03/16 15:30 Room Air 09/03/16 15:23 36.6 73 17 153/87 92 Room Air Physical Exam: nasogastric drainage (710 cc yesterday, 10 cc last shift) Abdomen: non tender, non distended, soft, + abnormal bowel sounds (few) Laboratory Results: Results Past 24 Hours Test 09/04/16 05:40 Range/Units Prothrombin Time 16.2 9.0-12.0 SECONDS Prothromb Time International Ratio 1.5 0.9-1.1 Activated Partial Thromboplast Time 45.4 21.0-31.0 SECONDS Partial Thromboplastin Ratio 1.7 Assessment & Plan Possible SBO vs ileus No flatus or bm as yet Continue NGT and other conservative measures No peritonitis
[2016-09-04 11:51] VITALS: BP 142/66; PULSE 66; TEMP 36.7; O2SAT 92
--- NOTE | 2016-09-04 15:08 | Progress Note ---
Internal Med Progress Note Date of Service: Sep 04, 2016. Provider Documentation: SUBJECTIVE: Patient has NG tube + low suctioning- bilious + Abdominal pain has improved, nausea + improved, no vomiting No flatus, No BM No fever, chills OBJECTIVE: Vital Signs-as noted below Exam: General-AAOX3, no distress Neck-Supple HEENT- NG tube + Lungs-AEBE, no wheezing, crackles Heart-S1, S2 normal Abdomen-Soft, no distension, BS + Sluggish, Non tender Extremities-No edema Lab data as noted below. Diagnostic Radiology CT abdomen: small bowel obstruction, transition point at the LUQ ASSESSMENT & PLAN: Assessment and Plan: 65 year old male with history of PE on coumadin, s/p IVC filter placement, Essential Thrombocythemia, other problems noted below presenting with abdominal pain. SMALL BOWEL OBSTRUCTION- Persistent Had recent admission for SBO, conservatively managed. Has had multiple surgeries in past, so possible adhesions -NG tube, NPO, IV fluids. Senna, Mineral oil . Continue NG tube for now 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, S/P IVC FILTER PLACEMENT INR subtherapeutic Usually on coumadin 5 mg mon and fri, 7.5 mg other days -Hold coumadin, heparin drip for now ESSENTIAL THROMBOCYTHEMIA -on Hydroxyurea--> on hold while NPO with NG tube KYLAH -on CPAP S/P SPLENECTOMY DVT prophylaxis On heparin drip DISPOSITION anticipate d/c home when medically stable Vital Signs: Date Time Temp Pulse Resp B/P Pulse Ox O2 Delivery O2 Flow Rate FiO2 09/04/16 11:51 36.7 66 18 142/66 92 Room Air 09/04/16 08:27 93 Room Air 09/04/16 07:57 36.6 66 16 142/60 93 Room Air 09/04/16 07:25 Room Air 09/03/16 23:28 Room Air 09/03/16 23:07 36.7 77 18 158/98 91 Room Air 09/03/16 15:30 Room Air 09/03/16 15:23 36.6 73 17 153/87 92 Room Air Lab Results: Results Past 24 Hours Test 09/04/16 05:40 09/04/16 14:52 Range/Units Prothrombin Time 16.2 9.0-12.0 SECONDS Prothromb Time International Ratio 1.5 0.9-1.1 Activated Partial Thromboplast Time 45.4 21.0-31.0 SECONDS Partial Thromboplastin Ratio 1.7
[2016-09-04 15:09] LABS: PARTIAL THROMBOPLASTIN RATIO 1.7
[2016-09-04 15:21] VITALS: BP 152/84; PULSE 76; TEMP 36.4; O2SAT 93
[2016-09-04 22:47] LABS: PARTIAL THROMBOPLASTIN RATIO 1.8
[2016-09-04 23:06] VITALS: BP 121/72; PULSE 71; TEMP 36.4; O2SAT 92
[2016-09-05] MEDS: D5NSS + 20MEQ KCL 1,000 ML IV SCH ×3 (04:57→22:45)
[2016-09-05 05:18] LABS: BASO % 0.3 %; BASO ABS # 0.03 K/uL (0-0.2); COMPLETE YES; EOS % 1.6 %; HEMATOCRIT 41.3 % (42-52); IG% 0.3 %; MEAN CELL VOLUME 106.2 fL (80-100); MEAN CORPUSCULAR HGB CONC 34.9 g/dl (32-36); MEAN PLATELET VOLUME 9.8 fL (7.4-10.4); MONO % 15.5 %; NEUT % 67.3 %; PLATELET COUNT 510 K/uL (130-400); RED BLOOD COUNT 3.89 M/uL (4.7-6.1)
[2016-09-05 05:35] LABS: INR 1.3 (0.9-1.1); PROTHROMBIN TIME (PATIENT) 14.2 SECONDS (9.0-12.0)
[2016-09-05 05:54] LABS: BUN/CREATININE RATIO 7.6 (10-20); CALCIUM 8.7 mg/dl (8.5-10.1); CREATININE 0.82 mg/dl (0.60-1.40); POTASSIUM 3.6 mmol/L (3.5-5.1)
[2016-09-05] MEDS: HEPARIN 25,000 UNIT/500ML D5W 500 ML IV PRN ×4 (07:06→22:28)
[2016-09-05 07:38] VITALS: BP 139/61; PULSE 74; TEMP 36.6; O2SAT 94
[2016-09-05] MEDS: PANTOprazole INJ 40 MG in SYRINGE 0 ML IV SCH (08:42)
[2016-09-05] MEDS: SENNA 8.8 MG/5 ML UDP PO SCH (08:43)
[2016-09-05] MEDS ORDERED: POLYETHYLENE (MIRALAX) 17 GM PACK PO SCH (09:00)
--- NOTE | 2016-09-05 11:51 | Surgery Progress Note ---
Surgery Progress Note Date of Service Sep 05, 2016. Subjective + bowel movement (had small formed this AM), + feeling well, + flatus, No nausea , No vomiting Objective Vital Signs: Date Time Temp Pulse Resp B/P Pulse Ox O2 Delivery O2 Flow Rate FiO2 09/05/16 08:45 Room Air 09/05/16 07:38 36.6 74 17 139/61 94 Room Air 09/04/16 23:32 Room Air 09/04/16 23:06 36.4 71 16 121/72 92 Room Air 09/04/16 16:20 Room Air 09/04/16 15:21 36.4 76 18 152/84 93 Room Air 09/04/16 11:51 36.7 66 18 142/66 92 Room Air Physical Exam: nasogastric drainage (550 cc yesterday, 110 cc last shift) Abdomen: normal bowel sounds, non tender, non distended, soft Laboratory Results: Results Past 24 Hours Test 09/04/16 14:52 09/04/16 22:25 09/05/16 05:05 Range/Units Activated Partial Thromboplast Time 43.0 46.4 51.3 21.0-31.0 SECONDS Partial Thromboplastin Ratio 1.7 1.8 2.0 White Blood Count 10.70 4.8-10.8 K/uL Red Blood Count 3.89 4.7-6.1 M/uL Hemoglobin 14.4 14.0-18.0 g/dL Hematocrit 41.3 42-52 % Mean Corpuscular Volume 106.2 80-100 fL Mean Corpuscular Hemoglobin 37.0 25-34 pg Mean Corpuscular Hemoglobin Concent 34.9 32-36 g/dl Platelet Count 510 130-400 K/uL Mean Platelet Volume 9.8 7.4-10.4 fL Neutrophils (%) (Auto) 67.3 % Lymphocytes (%) (Auto) 15.0 % Monocytes (%) (Auto) 15.5 % Eosinophils (%) (Auto) 1.6 % Basophils (%) (Auto) 0.3 % Neutrophils # (Auto) 7.21 1.4-6.5 K/uL Lymphocytes # (Auto) 1.60 1.2-3.4 K/uL Monocytes # (Auto) 1.66 0.11-0.59 K/uL Eosinophils # (Auto) 0.17 0-0.5 K/uL Basophils # (Auto) 0.03 0-0.2 K/uL RDW Standard Deviation 64.1 36.4-46.3 fL RDW Coefficient of Variation 16.8 11.5-14.5 % Immature Granulocyte % (Auto) 0.3 % Immature Granulocyte # (Auto) 0.03 0.00-0.02 K/uL Prothrombin Time 14.2 9.0-12.0 SECONDS Prothromb Time International Ratio 1.3 0.9-1.1 Sodium Level 141 136-145 mmol/L Potassium Level 3.6 3.5-5.1 mmol/L Chloride Level 104 98-107 mmol/L Carbon Dioxide Level 28 21-32 mmol/L Anion Gap 9.0 3-11 mmol/L Blood Urea Nitrogen 6 7-18 mg/dl Creatinine 0.82 0.60-1.40 mg/dl Est Creatinine Clear Calc Drug Dose 102.0 ml/min Estimated GFR () 108.3 Estimated GFR (Non- 93.5 BUN/Creatinine Ratio 7.6 10-20 Random Glucose 125 70-99 mg/dl Calcium Level 8.7 8.5-10.1 mg/dl Magnesium Level 2.0 1.8-2.4 mg/dl Assessment & Plan Possible SBO vs ileus Had flatus and bm this AM D/C NGT but would continue sips and ice chips No peritonitis
--- NOTE | 2016-09-05 13:38 | Progress Note ---
Internal Med Progress Note Date of Service: Sep 05, 2016. Provider Documentation: SUBJECTIVE: Patient is doing better today. Abdominal pain has resolved, no nausea, vomiting Passed flatus, BM - small + No fever, chills OBJECTIVE: Vital Signs-as noted below Exam: General-AAOX3, no distress Neck-Supple HEENT- NG tube + Lungs-AEBE, no wheezing, crackles Heart-S1, S2 normal Abdomen-Soft, no distension, BS + , Non tender Extremities-No edema Lab data as noted below. Diagnostic Radiology CT abdomen: small bowel obstruction, transition point at the LUQ ASSESSMENT & PLAN: Assessment and Plan: 65 year old male with history of PE on coumadin, s/p IVC filter placement, Essential Thrombocythemia, other problems noted below presenting with abdominal pain. SMALL BOWEL OBSTRUCTION - Improved Had recent admission for SBO, conservatively managed. Has had multiple surgeries in past, so possible adhesions Clinically improved; Flatus + BM+ BS + -NG tube - Removed today, NPO with sips/chips, IV fluids. Senna, Mineral oil . 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, S/P IVC FILTER PLACEMENT INR subtherapeutic Usually on coumadin 5 mg mon and fri, 7.5 mg other days--> Re start -IV heparin drip ESSENTIAL THROMBOCYTHEMIA -on Hydroxyurea--> restart KYLAH -on CPAP S/P SPLENECTOMY DVT prophylaxis On heparin drip DISPOSITION anticipate d/c home when medically stable Vital Signs: Date Time Temp Pulse Resp B/P Pulse Ox O2 Delivery O2 Flow Rate FiO2 09/05/16 08:45 Room Air 09/05/16 07:38 36.6 74 17 139/61 94 Room Air 09/04/16 23:32 Room Air 09/04/16 23:06 36.4 71 16 121/72 92 Room Air 09/04/16 16:20 Room Air 09/04/16 15:21 36.4 76 18 152/84 93 Room Air Lab Results: Results Past 24 Hours Test 09/04/16 14:52 09/04/16 22:25 09/05/16 05:05 Range/Units Activated Partial Thromboplast Time 43.0 46.4 51.3 21.0-31.0 SECONDS Partial Thromboplastin Ratio 1.7 1.8 2.0 White Blood Count 10.70 4.8-10.8 K/uL Red Blood Count 3.89 4.7-6.1 M/uL Hemoglobin 14.4 14.0-18.0 g/dL Hematocrit 41.3 42-52 % Mean Corpuscular Volume 106.2 80-100 fL Mean Corpuscular Hemoglobin 37.0 25-34 pg Mean Corpuscular Hemoglobin Concent 34.9 32-36 g/dl Platelet Count 510 130-400 K/uL Mean Platelet Volume 9.8 7.4-10.4 fL Neutrophils (%) (Auto) 67.3 % Lymphocytes (%) (Auto) 15.0 % Monocytes (%) (Auto) 15.5 % Eosinophils (%) (Auto) 1.6 % Basophils (%) (Auto) 0.3 % Neutrophils # (Auto) 7.21 1.4-6.5 K/uL Lymphocytes # (Auto) 1.60 1.2-3.4 K/uL Monocytes # (Auto) 1.66 0.11-0.59 K/uL Eosinophils # (Auto) 0.17 0-0.5 K/uL Basophils # (Auto) 0.03 0-0.2 K/uL RDW Standard Deviation 64.1 36.4-46.3 fL RDW Coefficient of Variation 16.8 11.5-14.5 % Immature Granulocyte % (Auto) 0.3 % Immature Granulocyte # (Auto) 0.03 0.00-0.02 K/uL Prothrombin Time 14.2 9.0-12.0 SECONDS Prothromb Time International Ratio 1.3 0.9-1.1 Sodium Level 141 136-145 mmol/L Potassium Level 3.6 3.5-5.1 mmol/L Chloride Level 104 98-107 mmol/L Carbon Dioxide Level 28 21-32 mmol/L Anion Gap 9.0 3-11 mmol/L Blood Urea Nitrogen 6 7-18 mg/dl Creatinine 0.82 0.60-1.40 mg/dl Est Creatinine Clear Calc Drug Dose 102.0 ml/min Estimated GFR () 108.3 Estimated GFR (Non- 93.5 BUN/Creatinine Ratio 7.6 10-20 Random Glucose 125 70-99 mg/dl Calcium Level 8.7 8.5-10.1 mg/dl Magnesium Level 2.0 1.8-2.4 mg/dl
[2016-09-05 14:53] VITALS: BP 147/90; PULSE 73; TEMP 36.6; O2SAT 93
[2016-09-05] MEDS: WARFARIN SOD 5 MG TAB PO SCH (15:43)
[2016-09-05] MEDS: SENNA 8.6 MG TAB PO SCH (21:00)
[2016-09-05] MEDS ORDERED: NURSING DECISION MEDICATION ORDER SCH (21:00)
[2016-09-05] MEDS: ONDANSETRON INJ 2 MG/ML 2 ML VIAL IV PRN (22:50)
[2016-09-05 23:10] VITALS: BP 170/94; PULSE 78; TEMP 36.9; O2SAT 94
[2016-09-05] MEDS: HYDROmorphone INJ 0.5 MG/0.5 ML SYR IV PRN (23:36)
[2016-09-06 04:44] VITALS: BP 136/81; PULSE 96; O2SAT 92
[2016-09-06 05:50] LABS: BASO % 0.1 %; BASO ABS # 0.02 K/uL (0-0.2); COMPLETE YES; EOS % 0.1 %; HEMATOCRIT 41.7 % (42-52); IG% 0.2 %; LYMPH % 9.8 %; LYMPH ABS # 1.32 K/uL (1.2-3.4); MEAN CORPUSCULAR HEMOGLOBIN 36.7 pg (25-34); MEAN CORPUSCULAR HGB CONC 35.3 g/dl (32-36); MEAN PLATELET VOLUME 10.2 fL (7.4-10.4); MONO % 10.4 %; NEUT % 79.4 %; PLATELET COUNT 440 K/uL (130-400); RED BLOOD COUNT 4.01 M/uL (4.7-6.1); WHITE BLOOD COUNT 13.49 K/uL (4.8-10.8)
[2016-09-06 06:01] LABS: INR 1.2 (0.9-1.1); PARTIAL THROMBOPLASTIN RATIO 1.7; PROTHROMBIN TIME (PATIENT) 12.4 SECONDS (9.0-12.0)
[2016-09-06 06:21] LABS: BUN/CREATININE RATIO 7.7 (10-20); CALCIUM 8.5 mg/dl (8.5-10.1); CREATININE 0.9 mg/dl (0.60-1.40); MAGNESIUM 1.8 mg/dl (1.8-2.4); POTASSIUM 3.5 mmol/L (3.5-5.1)
[2016-09-06] MEDS: HEPARIN 25,000 UNIT/500ML D5W 500 ML IV PRN ×4 (06:29→19:05)
[2016-09-06] MEDS ORDERED: HEPARIN IV BOLUS 3,000 UNIT in SYRINGE 0 ML IV ONE (06:30)
[2016-09-06 07:30] VITALS: O2SAT 93
[2016-09-06 07:33] VITALS: BP 126/76; PULSE 91; TEMP 36.8; O2SAT 93
[2016-09-06] MEDS: SENNA 8.6 MG TAB PO SCH (08:09)
[2016-09-06] MEDS: D5NSS + 20MEQ KCL 1,000 ML IV SCH ×2 (08:10→20:53)
[2016-09-06] MEDS: HYDROXYUREA 500 MG CAP PO SCH (08:56)
[2016-09-06] MEDS: PANTOprazole INJ 40 MG in SYRINGE 0 ML IV SCH (11:07)
[2016-09-06 13:29] LABS: PARTIAL THROMBOPLASTIN RATIO 2.4
--- NOTE | 2016-09-06 14:08 | Progress Note ---
Internal Med Progress Note Date of Service: Sep 06, 2016. Provider Documentation: SUBJECTIVE: Patient is c/o multiple loose BMS today. Generalized weakness+ thinks he is getting dehydrated. Abdominal pain has resolved, no nausea, vomiting. No fever, chills Tolerating clear liquid diet OBJECTIVE: Vital Signs-as noted below Exam: General-AAOX3, no distress Neck-Supple HEENT- NG tube + Lungs-AEBE, no wheezing, crackles Heart-S1, S2 normal Abdomen-Soft, no distension, BS + , Non tender Extremities-No edema Lab data as noted below. Diagnostic Radiology CT abdomen: small bowel obstruction, transition point at the LUQ ASSESSMENT & PLAN: Assessment and Plan: 65 year old male with history of PE on coumadin, s/p IVC filter placement, Essential Thrombocythemia, other problems noted below presenting with abdominal pain. SMALL BOWEL OBSTRUCTION - Improved Had recent admission for SBO, conservatively managed. 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 Once SOB resolves, may be okay to dc on lovenox/coumadin if INR is still sub therapeutic -IV heparin drip ESSENTIAL THROMBOCYTHEMIA -on Hydroxyurea--> restarted on 09/05/16 KYLAH -on CPAP S/P SPLENECTOMY DVT prophylaxis On heparin drip IV/Coumadin DISPOSITION anticipate d/c home when medically stable Vital Signs: Date Time Temp Pulse Resp B/P Pulse Ox O2 Delivery O2 Flow Rate FiO2 09/06/16 07:33 36.8 91 18 126/76 93 Room Air 09/06/16 07:30 93 Room Air 09/06/16 04:44 96 20 136/81 92 Room Air 09/05/16 23:39 Room Air 09/05/16 23:10 36.9 78 16 170/94 94 Room Air 09/05/16 15:50 Room Air 09/05/16 14:53 36.6 73 18 147/90 93 Room Air Lab Results: Results Past 24 Hours Test 3/13/17 05:40 09/06/16 12:42 Range/Units White Blood Count 13.49 4.8-10.8 K/uL Red Blood Count 4.01 4.7-6.1 M/uL Hemoglobin 14.7 14.0-18.0 g/dL Hematocrit 41.7 42-52 % Mean Corpuscular Volume 104.0 80-100 fL Mean Corpuscular Hemoglobin 36.7 25-34 pg Mean Corpuscular Hemoglobin Concent 35.3 32-36 g/dl Platelet Count 440 130-400 K/uL Mean Platelet Volume 10.2 7.4-10.4 fL Neutrophils (%) (Auto) 79.4 % Lymphocytes (%) (Auto) 9.8 % Monocytes (%) (Auto) 10.4 % Eosinophils (%) (Auto) 0.1 % Basophils (%) (Auto) 0.1 % Neutrophils # (Auto) 10.70 1.4-6.5 K/uL Lymphocytes # (Auto) 1.32 1.2-3.4 K/uL Monocytes # (Auto) 1.40 0.11-0.59 K/uL Eosinophils # (Auto) 0.02 0-0.5 K/uL Basophils # (Auto) 0.02 0-0.2 K/uL RDW Standard Deviation 60.2 36.4-46.3 fL RDW Coefficient of Variation 16.4 11.5-14.5 % Immature Granulocyte % (Auto) 0.2 % Immature Granulocyte # (Auto) 0.03 0.00-0.02 K/uL Prothrombin Time 12.4 9.0-12.0 SECONDS Prothromb Time International Ratio 1.2 0.9-1.1 Activated Partial Thromboplast Time 43.9 62.0 21.0-31.0 SECONDS Partial Thromboplastin Ratio 1.7 2.4 Sodium Level 138 136-145 mmol/L Potassium Level 3.5 3.5-5.1 mmol/L Chloride Level 102 98-107 mmol/L Carbon Dioxide Level 27 21-32 mmol/L Anion Gap 9.0 3-11 mmol/L Blood Urea Nitrogen 7 7-18 mg/dl Creatinine 0.90 0.60-1.40 mg/dl Est Creatinine Clear Calc Drug Dose 92.9 ml/min Estimated GFR () 104.2 Estimated GFR (Non- 89.9 BUN/Creatinine Ratio 7.7 10-20 Random Glucose 122 70-99 mg/dl Calcium Level 8.5 8.5-10.1 mg/dl Magnesium Level 1.8 1.8-2.4 mg/dl
[2016-09-06 15:26] VITALS: BP 126/72; PULSE 82; TEMP 37; O2SAT 92
[2016-09-06] MEDS: WARFARIN SOD 5 MG TAB PO SCH (15:51)
[2016-09-06] MEDS: ONDANSETRON INJ 2 MG/ML 2 ML VIAL IV PRN (18:41)
[2016-09-06] MEDS: LORAZEPAM 0.5 MG TAB PO SCH (21:25)
[2016-09-06 22:54] VITALS: BP 127/77; PULSE 80; TEMP 36.6; O2SAT 94
[2016-09-07] MEDS: ONDANSETRON INJ 2 MG/ML 2 ML VIAL IV PRN (00:32)
[2016-09-07] MEDS: PROMETHAZINE HCL INJ 12.5 MG in SODIUM CHLORIDE 0.9% 50ML 50 ML IV PRN (01:33)
[2016-09-07] MEDS: HEPARIN 25,000 UNIT/500ML D5W 500 ML IV PRN ×6 (05:10→22:55)
[2016-09-07] MEDS: D5NSS + 20MEQ KCL 1,000 ML IV SCH (06:27)
[2016-09-07 07:20] VITALS: BP 141/83; PULSE 80; TEMP 36.9; O2SAT 92
[2016-09-07 07:22] LABS: INR 1.4 (0.9-1.1); PROTHROMBIN TIME (PATIENT) 14.7 SECONDS (9.0-12.0)
--- NOTE | 2016-09-07 07:22 | SURGERY PROGRESS NOTE ---
DATE: 09/07/2016 Maico had another small emesis during the night. He said it appeared to be dark green in consistency. This morning he has no real abdominal findings. He has been moving his bowels. Actually he said he has some diarrhea. His last vitals showed a temperature of 36.6, pulse 80, respirations 16, blood pressure 127/77, O2 sats 94 on room air. I\T\O given his insensible losses is fairly balanced. Laboratory banegas, his white count this morning is back up to 13.49. His hemoglobin was 14.7. He does have a left shift. The PRPs are pending. Yesterday his BUN was 7, creatinine 0.90. His abdomen is soft and nontender. He has no guarding. At this point we will repeat an acute abdominal series and keep him n.p.o., avoid an NG tube at this time, but there is good possibility I mentioned to the patient that he may need an exploratory lap unless we see drastic improvement. I would like to avoid this if possible since he had a similar episode in the past and it resolved.
[2016-09-07 07:30] VITALS: O2SAT 92
[2016-09-07 07:35] LABS: BUN/CREATININE RATIO 9.8 (10-20); CALCIUM 8.4 mg/dl (8.5-10.1); CREATININE 0.83 mg/dl (0.60-1.40); POTASSIUM 3.1 mmol/L (3.5-5.1)
[2016-09-07] MEDS ORDERED: POTASSIUM CHLORIDE INJ 40 MEQ in D5W AND NSS 1,000 ML IV SCH (08:00)
--- NOTE | 2016-09-07 08:41 | DIAGNOSTIC IMAGING REPORT ---
CHEST AND ABDOMEN 2 VIEWS HISTORY: follow up bowel obstruction COMPARISON: Abdominal series 09/03/2016. FINDINGS: The heart is normal in size. The lungs are mildly hyperexpanded. No focal lung consolidations. No pneumoperitoneum. No pneumatosis. There is no IVC filter present. Multiple mildly dilated air and fluid-filled loops of small bowel again noted within the left upper quadrant. This is not significantly changed. The nasogastric tube is been removed. No renal or ureteral calculi present. IMPRESSION: No change in the multiple mildly dilated air and fluid-filled loops of small bowel within left upper quadrant. This is consistent with a partial small bowel obstruction. Electronically signed by: Maico Mcarthur M.D. 09/07/2016 8:40 AM Dictated Date/Time: 09/07/2016 8:39 AM
[2016-09-07] MEDS: HYDROXYUREA 500 MG CAP PO SCH (08:42)
[2016-09-07] MEDS ORDERED: PANTOprazole SOD 40 MG TAB PO SCH (09:00)
--- NOTE | 2016-09-07 09:07 | SURGERY PROGRESS NOTE ---
DATE: 09/07/2016 DATE: 09/07/2016. I reviewed the most recent acute abdominal series which showed still some partial obstruction in the left upper quadrant, although the diameter of this bowel seems to be less. I do not see any other air fluid levels. I discussed the situation with the patient and most likely this is the same transit point that he has had before and hopefully it can resolve without surgery but most likely he will probably need exploration. Given the option lets wait until tomorrow since his abdomen is completely benign today and see how he does clinically with the expectation that he may open up without surgery. Having said that he is on Coumadin. His INR was 1.4 today. We will hold that. I will discuss with the medical service, I will try to get a hold of them to see that the patient will need some hyperalimentation since he has been here about 5 days and his oral intake has been poor. If we decide to proceed with surgery tomorrow then it may be few more days before he has any enteral feed. I will leave it up to them to initiate the hyperalimentation.
[2016-09-07] MEDS ORDERED: TPN/PPN CONSULT PHARMACY PRN (10:30)
--- NOTE | 2016-09-07 10:40 | Progress Note ---
Medicine Progress Note Date & Time of Visit: Sep 07, 2016 at 10:31. Subjective patient seen resting in bed, comfortable had emesis last night (+) loose BMs no abdominal pain denies chest pain, dyspnea, palpitations, dizziness no other symptoms Objective Last 8 Hrs Date Time Temp Pulse Resp B/P Pulse Ox O2 Delivery O2 Flow Rate FiO2 09/07/16 07:30 92 Room Air 09/07/16 07:20 36.9 80 16 141/83 92 Room Air Physical Exam: General- oriented x 3, not in distress, speaks in sentences with no effort Eyes- anicteric Neck- no JVD Lungs- clear to auscultation bilaterally Heart- normal rate, regular rhythm; no murmurs Abdomen- normal bowel sounds, non distended, soft, nontender Extremities- no pretibial edema, no calf tenderness Neuro- alert, oriented x 3;no gross focal deficits Skin- warm & dry Laboratory Results: Last 24 Hours Test 09/06/16 12:42 09/07/16 06:46 09/07/16 10:28 Activated Partial Thromboplast Time 62.0 SECONDS 53.2 SECONDS Partial Thromboplastin Ratio 2.4 2.0 Prothrombin Time 14.7 SECONDS Prothromb Time International Ratio 1.4 Sodium Level 138 mmol/L Potassium Level 3.1 mmol/L Chloride Level 103 mmol/L Carbon Dioxide Level 25 mmol/L Anion Gap 10.0 mmol/L Blood Urea Nitrogen 8 mg/dl Creatinine 0.83 mg/dl Est Creatinine Clear Calc Drug Dose 100.7 ml/min Estimated GFR () 107.8 Estimated GFR (Non- 93.0 BUN/Creatinine Ratio 9.8 Random Glucose 126 mg/dl Calcium Level 8.4 mg/dl Assessment & Plan 65 year old male with history of Portal Vein Thrombosis on coumadin, s/p IVC filter placement, Essential Thrombocythemia, other problems noted below presenting with abdominal pain. 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 This is consistent with a partial small bowel obstruction. -- discussed with Dr. Russell plan to observe for another 24 hours, if no improvement, will need surgical intervention hold Coumadin, continue heparin start TPN via PCC line today replace and monitor K DIARRHEA - check for C diff HISTORY OF PORTAL VEIN THROMBOSIS ON COUMADIN, S/P IVC FILTER PLACEMENT INR 1.4 HOLD coumadin for possible surgery tomorrow continue Heparin Usually on coumadin 5 mg mon and fri, 7.5 mg other day ESSENTIAL THROMBOCYTHEMIA -on Hydroxyurea--> restarted on 09/05/16 KYLAH -on CPAP S/P SPLENECTOMY April 2016 DVT prophylaxis Heparin drip DISPOSITION pending Current Inpatient Medications: Current Inpatient Medications Medications (Trade) Dose Ordered Sig/Kar Route Start Time Stop Time Status Last Admin Dose Admin Ondansetron HCl 4 mg 4 mg Q6H PRN IV 09/02/16 06:00 10/02/16 05:59 09/07/16 00:32 4 MG Heparin Sodium/ Dextrose 500 ml @ 30 mls/hr [id number] PRN IV 09/02/16 07:15 10/02/16 07:14 09/07/16 07:56 30 MLS/HR Promethazine HCl/ Sodium Chloride (Phenergan Inj/ Nss 50ml) 50.5 ml @ 204 mls/hr Q6H PRN IV 09/02/16 08:30 10/02/16 08:29 09/07/16 01:33 204 MLS/HR Hydromorphone HCl (Dilaudid Inj) 0.5 mg Q3H PRN IV 09/02/16 11:00 09/16/16 10:59 09/05/16 23:36 0.5 MG Hydromorphone HCl (Dilaudid Inj) 1 mg Q3H PRN IV 09/02/16 11:00 09/16/16 10:59 Hydroxyurea (Hydrea Cap) 1,000 mg Q2D@0900 PO 09/07/16 09:00 10/07/16 08:59 09/07/16 08:42 1,000 MG Hydroxyurea (Hydrea Cap) 1,500 mg Q2D@0900 PO 09/06/16 09:00 10/06/16 08:59 09/06/16 08:56 1,500 MG Pantoprazole Sodium (Protonix Tab) 40 mg QAM PO 09/07/16 09:00 10/07/16 08:59 09/07/16 08:45 40 MG Lorazepam 0.5 mg 0.5 mg HSZ PO 09/06/16 22:00 10/06/16 21:59 09/06/16 21:25 0.5 MG Potassium Chloride/Dextrose/ Sodium Chloride (KCl Inj/D5W And Nss) 1,020 ml @ 100 mls/hr [id number] IV 09/07/16 08:00 10/07/16 07:59 09/07/16 08:43 100 MLS/HR
--- NOTE | 2016-09-07 12:58 | Pharmacy Progress Note ---
Parenteral Nutrition Consult Date of Service Sep 07, 2016. Scope Pharmacy has been consulted to manage parenteral nutrition orders and order appropriate labs. As part of the Nutrition Support Team guidelines, pharmacy will work in conjunction with dietary when determining the patients caloric needs. Subjective The patient is a 65 year old male admitted on Sep 02, 2016 at 05:46. Patient is to receive parenteral nutrition for partial bowel obstruction w/ ongoing nausea / vomiting Pertinent PMH: * pulmonary embolism * IVC filter * portal vein thrombosis * essential thrombocythemia * anticoagulation w/ warfarin * KYLAH * splenectomy Objective Height (Feet): 6 Height (Inches): 1.00 Weight (Kilograms): 79.200 Diet: NPO Vascular Access: only peripheral access at time of order, Dr Kaplan has placed an order for PICC / Midline Intake & Output (Last 72 Hr): 1600mL U.O. over last 24 hours last weight of 79.2kg is from 09/02/16 Additional Fluid Losses/Gains: D5NS + 40mEq KCl @ 100cc/hr Heparin gtt @30cc/hr (mixed in D5W) Laboratory Data (Last 24 Hr): Test 09/07/16 06:46 Blood Urea Nitrogen 8 mg/dl (7-18) Calcium Level 8.4 mg/dl (8.5-10.1) Carbon Dioxide Level 25 mmol/L (21-32) Chloride Level 103 mmol/L (98-107) Creatinine 0.83 mg/dl (0.60-1.40) Magnesium Level 1.9 mg/dl (1.8-2.4) Phosphorus Level 3.2 mg/dl (2.5-4.9) Potassium Level 3.1 mmol/L (3.5-5.1) Random Glucose 126 mg/dl (70-99) Sodium Level 138 mmol/L (136-145) Recent Pertinent Medications: D5NS + 40mEq KCl @ 100cc/hr Heparin gtt @30cc/hr (mixed in D5W) Pantoprazole IV Promethazine IV Nutrition Assessment See safety person's note Assessment 65 yo male admitted with nausea, vomiting, and abdominal pain likely secondary to small bowel obstruction. Patient may require surgical intervention if no improvement with conservative management. Currently the patient only has peripheral access, however an order has been placed for PICC / MIDLINE placement. Given uncertain access at this time, will begin with PPN today. If a central line is successfully placed we will utilize a more concentrated TPN formulation. Plan is to provide macronutrients in a total volume of 2400mL over the next 24 hours - plan discussed with hospitalist. Per provider's and RN's physical assessments: lungs clear, no JVD, no edema noted. Vital signs are stable and patient sat well on room air. Will d/c the maintenance IVF (D5NS + 40mEq KCl) when first bag PPN hung. E-lytes reviewed, phos level is pending, hypokalemia noted -->provider had changed maint IVF to incorporate additional KCl, mild hypocalcemia noted however this is a total calcium and not reliable interpreted alone. Since maint IVF's contained K and these will be stopped, will provide same amount + additional K in 1st bag of PPN. Mg and Phos will also be supplemented as these can fall with IV nutrition. Plan For day 1 of PN administration, the following will be ordered: Macronutrients Amino acids 70 grams/day Dextrose 139 grams/day Lipids 0 grams/day Micronutrients Combined electrolytes 0 mL - contains 35 mEq Na, 20 meq K, 4.5 mEq Ca, 5 mEq Mg , 35 mEq Cl, 29.5 mEq acetate per 20 mL Sodium phosphate 0 MMol Sodium chloride 0 mEq Sodium acetate 0 mEq Potassium phosphate 21 mMol Potassium chloride 30 mEq Potassium acetate 0 mEq Magnesium sulfate 16.24 mEq Calcium gluconate 0 mEq Multivitamins 10 mL Trace Elements 1 mL Additional additives: Total volume 2400 mL to be infused over 24 hrs will provide 752.6 kcal/day Final osmolarity ~599 mOsm/L (maximum for PPN is 600 mOsm/L) Labs to be ordered per PN order protocol Pharmacy will follow and adjust parenteral nutrition orders on a daily basis. Thank you.
[2016-09-07 15:15] VITALS: BP 131/75; PULSE 87; TEMP 36.7; O2SAT 93
[2016-09-07] MEDS ORDERED: CUSTOM PERIPHERAL PN 1 BAG IV SCH (16:00)
[2016-09-07] MEDS ORDERED: NURSING VERBAL MED ORDER ONE (16:30)
[2016-09-07] MEDS: METRONIDAZOLE 500 MG TAB PO SCH (18:43)
[2016-09-07] MEDS: LORAZEPAM 0.5 MG TAB PO SCH (21:39)
[2016-09-07] MEDS ORDERED: ZOLPIDEM TARTRATE 5 MG TAB PO SCH (22:15)
[2016-09-07 22:50] VITALS: BP 108/67; PULSE 89; TEMP 37.2; O2SAT 91
[2016-09-08] MEDS: METRONIDAZOLE 500 MG TAB PO SCH ×3 (02:11→17:54)
[2016-09-08 06:02] LABS: PARTIAL THROMBOPLASTIN RATIO 2.1
[2016-09-08 06:20] LABS: BUN/CREATININE RATIO 11.6 (10-20); C-REACTIVE PROTEIN 11.6 mg/dl (0-0.29); CALCIUM 8.4 mg/dl (8.5-10.1); CREATININE 0.75 mg/dl (0.60-1.40); MAGNESIUM 2.1 mg/dl (1.8-2.4); PHOSPHORUS 2.9 mg/dl (2.5-4.9); POTASSIUM 2.9 mmol/L (3.5-5.1)
[2016-09-08] MEDS: HEPARIN 25,000 UNIT/500ML D5W 500 ML IV PRN ×3 (07:10→23:09)
--- NOTE | 2016-09-08 07:43 | SURGERY PROGRESS NOTE ---
DATE: 09/08/2016 Maico is resting comfortably, having no issues. Since yesterday he has felt much better. He has had multiple bowel movements. His abdomen has been completely benign. His last vitals showed a temperature of 37.2, pulse 89, respirations 17, blood pressure 108/67, O2 sats 91 on room air. I\T\O is only recorded as 300 yesterday, but he states he is voiding regularly. His abdomen as stated is completely benign. I had discussed this situation with Dr. Kaplan yesterday. Recommended hyperalimentation and the possibility that the patient may need surgery. At this time since he is feeling much better I will start him on full liquid diet and see how he does today and tomorrow. If he has any issues at all with recurrent emesis then we have no other choice than to proceed with surgery. The patient is agreeable to that.
[2016-09-08 07:55] VITALS: BP 104/66; PULSE 82; TEMP 36.7; O2SAT 94
[2016-09-08 08:37] VITALS: O2SAT 94
[2016-09-08 08:37] LABS: BASO % 0.6 %; BASO ABS # 0.05 K/uL (0-0.2); COMPLETE YES; EOS % 1.5 %; HEMATOCRIT 41.1 % (42-52); IG% 0.4 %; LYMPH % 17.1 %; LYMPH ABS # 1.38 K/uL (1.2-3.4); MEAN CELL VOLUME 101.7 fL (80-100); MEAN CORPUSCULAR HEMOGLOBIN 35.9 pg (25-34); MEAN CORPUSCULAR HGB CONC 35.3 g/dl (32-36); MEAN PLATELET VOLUME 10.5 fL (7.4-10.4); MONO % 31.3 %; NEUT % 49.1 %; PLATELET COUNT 336 K/uL (130-400); RED BLOOD COUNT 4.04 M/uL (4.7-6.1); WHITE BLOOD COUNT 8.09 K/uL (4.8-10.8)
[2016-09-08] MEDS: HYDROXYUREA 500 MG CAP PO SCH (08:56)
[2016-09-08] MEDS: PANTOprazole INJ 40 MG in SYRINGE 0 ML IV SCH (08:56)
[2016-09-08 09:12] LABS: BUN/CREATININE RATIO 12.9 (10-20); CALCIUM 8.6 mg/dl (8.5-10.1); CREATININE 0.75 mg/dl (0.60-1.40); MAGNESIUM 2.3 mg/dl (1.8-2.4)
[2016-09-08 12:31] VITALS: BP 100/71; PULSE 80; TEMP 36.7; O2SAT 94
[2016-09-08] MEDS ORDERED: POTASSIUM CHLORIDE 10 MEQ TABCR PO ONE (15:00)
--- NOTE | 2016-09-08 15:38 | Progress Note ---
Medicine Progress Note Date & Time of Visit: Sep 08, 2016 at 15:33. Subjective patient states he feels better improved today no nausea, abdominal pain, tolerating full liquid diarrhea is getting less no fever/chills denies other symptoms Objective Last 8 Hrs Date Time Temp Pulse Resp B/P Pulse Ox O2 Delivery O2 Flow Rate FiO2 09/08/16 12:31 36.7 80 18 100/71 94 Room Air 09/08/16 08:37 94 Room Air 09/08/16 08:30 Room Air 09/08/16 07:55 36.7 82 17 104/66 94 Room Air Physical Exam: General- oriented x 3, not in distress, speaks in sentences with no effort Lungs- clear to auscultation bilaterally, no rales/wheezes Heart- normal rate, regular rhythm; no murmurs Abdomen- normal bowel sounds, non distended, soft, nontender Extremities- no pretibial edema, no calf tenderness Neuro- alert, oriented x 3;no gross focal deficits Skin- warm & dry Laboratory Results: Last 24 Hours Test 09/07/16 16:24 09/07/16 19:23 09/07/16 23:42 09/08/16 05:30 Potassium Level 3.4 mmol/L 2.9 mmol/L Bedside Glucose 123 mg/dl 119 mg/dl Activated Partial Thromboplast Time 55.2 SECONDS Partial Thromboplastin Ratio 2.1 Sodium Level 136 mmol/L Chloride Level 100 mmol/L Carbon Dioxide Level 25 mmol/L Anion Gap 11.0 mmol/L Blood Urea Nitrogen 9 mg/dl Creatinine 0.75 mg/dl Est Creatinine Clear Calc Drug Dose 104.6 ml/min Estimated GFR () 112.4 Estimated GFR (Non- 96.9 BUN/Creatinine Ratio 11.6 Random Glucose 124 mg/dl Calcium Level 8.4 mg/dl Phosphorus Level 2.9 mg/dl Magnesium Level 2.1 mg/dl C-Reactive Protein 11.60 mg/dl Albumin 2.9 gm/dl Triglycerides Level 87 mg/dl Test 09/08/16 05:54 09/08/16 08:08 09/08/16 11:20 Bedside Glucose 115 mg/dl 113 mg/dl White Blood Count 8.09 K/uL Red Blood Count 4.04 M/uL Hemoglobin 14.5 g/dL Hematocrit 41.1 % Mean Corpuscular Volume 101.7 fL Mean Corpuscular Hemoglobin 35.9 pg Mean Corpuscular Hemoglobin Concent 35.3 g/dl Platelet Count 336 K/uL Mean Platelet Volume 10.5 fL Neutrophils (%) (Auto) 49.1 % Lymphocytes (%) (Auto) 17.1 % Monocytes (%) (Auto) 31.3 % Eosinophils (%) (Auto) 1.5 % Basophils (%) (Auto) 0.6 % Neutrophils # (Auto) 3.98 K/uL Lymphocytes # (Auto) 1.38 K/uL Monocytes # (Auto) 2.53 K/uL Eosinophils # (Auto) 0.12 K/uL Basophils # (Auto) 0.05 K/uL RDW Standard Deviation 57.8 fL RDW Coefficient of Variation 15.9 % Immature Granulocyte % (Auto) 0.4 % Immature Granulocyte # (Auto) 0.03 K/uL Sodium Level 136 mmol/L Potassium Level 3.0 mmol/L Chloride Level 101 mmol/L Carbon Dioxide Level 26 mmol/L Anion Gap 9.0 mmol/L Blood Urea Nitrogen 10 mg/dl Creatinine 0.75 mg/dl Est Creatinine Clear Calc Drug Dose 104.6 ml/min Estimated GFR () 112.4 Estimated GFR (Non- 96.9 BUN/Creatinine Ratio 12.9 Random Glucose 123 mg/dl Calcium Level 8.6 mg/dl Magnesium Level 2.3 mg/dl Date/Time Source Procedure Growth Status 09/07/16 16:25 Stool C.difficile Toxin B Gene (PCR) - Final Positive for C. difficile toxin B gene Complete Assessment & Plan 65 year old male with history of Portal Vein Thrombosis on coumadin, s/p IVC filter placement, Essential Thrombocythemia, other problems noted below presenting with abdominal pain. 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 This is consistent with a partial small bowel obstruction. -- improved since yesterday trial of full liquids today still hold Coumadin, continue heparin continue TPN via PCC line today replace and monitor K C DIFF COLITIS -Flagyl day 2 - diarrhea improving continue to monitor HISTORY OF PORTAL VEIN THROMBOSIS ON COUMADIN, S/P IVC FILTER PLACEMENT INR 1.4 still hold Coumadin, continue heparin Usually on coumadin 5 mg mon and fri, 7.5 mg other day ESSENTIAL THROMBOCYTHEMIA -on Hydroxyurea--> restarted on 09/05/16 KYLAH -on CPAP S/P SPLENECTOMY April 2016 DVT prophylaxis Heparin drip DISPOSITION pending Current Inpatient Medications: Current Inpatient Medications Medications (Trade) Dose Ordered Sig/Kar Route Start Time Stop Time Status Last Admin Dose Admin Ondansetron HCl 4 mg 4 mg Q6H PRN IV 09/02/16 06:00 10/02/16 05:59 09/07/16 00:32 4 MG Heparin Sodium/ Dextrose 500 ml @ 30 mls/hr [id number] PRN IV 09/02/16 07:15 10/02/16 07:14 09/08/16 14:53 30 MLS/HR Promethazine HCl/ Sodium Chloride (Phenergan Inj/ Nss 50ml) 50.5 ml @ 204 mls/hr Q6H PRN IV 09/02/16 08:30 10/02/16 08:29 09/07/16 01:33 204 MLS/HR Hydromorphone HCl (Dilaudid Inj) 0.5 mg Q3H PRN IV 09/02/16 11:00 09/16/16 10:59 09/05/16 23:36 0.5 MG Hydromorphone HCl (Dilaudid Inj) 1 mg Q3H PRN IV 09/02/16 11:00 09/16/16 10:59 Hydroxyurea (Hydrea Cap) 1,000 mg Q2D@0900 PO 09/07/16 09:00 10/07/16 08:59 09/07/16 08:42 1,000 MG Hydroxyurea (Hydrea Cap) 1,500 mg Q2D@0900 PO 09/06/16 09:00 10/06/16 08:59 09/08/16 08:56 1,500 MG Lorazepam (Ativan Tab) 0.5 mg HSZ PO 09/06/16 22:00 10/06/16 21:59 09/07/16 21:39 0.5 MG Miscellaneous Information 1 ea 1 ea UD PRN N/A 09/07/16 10:30 10/07/16 10:29 Pantoprazole Sodium 40 mg/ Syringe 10 ml @ 5 mls/min DAILY@11 IV 09/08/16 11:00 10/08/16 10:59 09/08/16 08:56 5 MLS/MIN Nutrition (Parenteral) (Custom Peripheral Pn) 0 ml @ 0 mls/hr TODAY@1600 IV 09/07/16 16:00 09/08/16 15:59 09/07/16 16:27 0 MLS/HR Heparin Sodium (Porcine) (Heparin 10 Unit/ ml 5 ml Flush) 5 ml PRN PRN FLUSH 09/07/16 16:30 10/07/16 16:29 Metronidazole 500 mg 500 mg Q8@0200,1000,1800 PO 09/07/16 19:00 09/21/16 18:59 09/08/16 08:53 500 MG Nutrition (Parenteral) 0 ml @ 0 mls/hr TODAY@1600 IV 09/08/16 16:00 09/09/16 15:59 Dextrose (D10w) 1,000 ml @ 0 mls/hr Q0M PRN IV 09/08/16 16:00 10/08/16 15:59
[2016-09-08 15:43] VITALS: BP 94/70; PULSE 71; TEMP 36.4; O2SAT 93
[2016-09-08] MEDS ORDERED: DEXTROSE 10% 1,000 ML IV PRN (16:00)
[2016-09-08] MEDS ORDERED: CUSTOM CENTRAL PN 1 BAG IV SCH (16:00)
[2016-09-08] MEDS: LORAZEPAM 0.5 MG TAB PO SCH (22:03)
[2016-09-08 22:46] VITALS: BP 101/67; PULSE 70; TEMP 36.9; O2SAT 95
[2016-09-09] MEDS: METRONIDAZOLE 500 MG TAB PO SCH ×3 (02:09→21:21)
[2016-09-09] MEDS: HEPARIN 25,000 UNIT/500ML D5W 500 ML IV PRN ×5 (05:20→23:14)
[2016-09-09 05:45] LABS: BASO % 0.9 %; BASO ABS # 0.06 K/uL (0-0.2); COMPLETE YES; EOS % 3.9 %; HEMATOCRIT 41.1 % (42-52); IG% 0.3 %; LYMPH % 29.4 %; LYMPH ABS # 1.87 K/uL (1.2-3.4); MEAN CELL VOLUME 105.7 fL (80-100); MEAN CORPUSCULAR HEMOGLOBIN 36.2 pg (25-34); MEAN CORPUSCULAR HGB CONC 34.3 g/dl (32-36); MEAN PLATELET VOLUME 10.9 fL (7.4-10.4); MONO % 25.6 %; NEUT % 39.9 %; PLATELET COUNT 329 K/uL (130-400); RED BLOOD COUNT 3.89 M/uL (4.7-6.1); WHITE BLOOD COUNT 6.36 K/uL (4.8-10.8)
[2016-09-09 06:14] LABS: BUN/CREATININE RATIO 15.3 (10-20); CALCIUM 8.4 mg/dl (8.5-10.1); CREATININE 0.76 mg/dl (0.60-1.40); MAGNESIUM 2.3 mg/dl (1.8-2.4); POTASSIUM 3.4 mmol/L (3.5-5.1)
[2016-09-09 06:15] LABS: PHOSPHORUS 2.9 mg/dl (2.5-4.9)
[2016-09-09 06:55] VITALS: BP 115/76; PULSE 69; TEMP 36.6; O2SAT 93
--- NOTE | 2016-09-09 07:26 | SURGERY PROGRESS NOTE ---
DATE: 09/09/2016 SUBJECTIVE: Maico is doing very well. He yesterday tolerated his full liquid diet without any issue and this morning, he is not nauseated. He is not complaining of abdominal pain. His last vitals showed a temperature of 36.9, pulse 70, respirations 16, blood pressure 101/67, O2 sats 90%. He has had 4 bowel movements yesterday, 1 overnight and is being treated for C. diff this time. He is completely benign abdominal banegas. At this point, he would like to increase his diet, and we will try him on a low fiber diet. I asked him to stay on that. I would like to keep him on hyperalimentation today to make sure that he continues his diet and pending how he does certainly and hopefully, we can get him discharged without surgery at this time. LEAH
--- NOTE | 2016-09-09 07:26 | Surgery Progress Note ---
Surgery Progress Note Date of Service Sep 09, 2016. Subjective + bowel movement, No nausea, No vomiting loose bms, + c diff, - on po Flagyl tolerating Full Liquids- Low fiber diet ordered Objective Vital Signs: Date Time Temp Pulse Resp B/P Pulse Ox O2 Delivery O2 Flow Rate FiO2 09/09/16 06:55 36.6 69 18 115/76 93 Room Air 09/08/16 23:35 Room Air 09/08/16 22:46 36.9 70 16 101/67 95 Room Air 09/08/16 15:50 Room Air 09/08/16 15:43 36.4 71 16 94/70 93 Room Air 09/08/16 12:31 36.7 80 18 100/71 94 Room Air 09/08/16 08:37 94 Room Air 09/08/16 08:30 Room Air 09/08/16 07:55 36.7 82 17 104/66 94 Room Air Abdomen: normal bowel sounds, non distended, soft Laboratory Results: Results Past 24 Hours Test 09/08/16 08:08 09/08/16 11:20 09/08/16 17:46 09/08/16 23:51 Range/Units White Blood Count 8.09 4.8-10.8 K/uL Red Blood Count 4.04 4.7-6.1 M/uL Hemoglobin 14.5 14.0-18.0 g/dL Hematocrit 41.1 42-52 % Mean Corpuscular Volume 101.7 80-100 fL Mean Corpuscular Hemoglobin 35.9 25-34 pg Mean Corpuscular Hemoglobin Concent 35.3 32-36 g/dl Platelet Count 336 130-400 K/uL Mean Platelet Volume 10.5 7.4-10.4 fL Neutrophils (%) (Auto) 49.1 % Lymphocytes (%) (Auto) 17.1 % Monocytes (%) (Auto) 31.3 % Eosinophils (%) (Auto) 1.5 % Basophils (%) (Auto) 0.6 % Neutrophils # (Auto) 3.98 1.4-6.5 K/uL Lymphocytes # (Auto) 1.38 1.2-3.4 K/uL Monocytes # (Auto) 2.53 0.11-0.59 K/uL Eosinophils # (Auto) 0.12 0-0.5 K/uL Basophils # (Auto) 0.05 0-0.2 K/uL RDW Standard Deviation 57.8 36.4-46.3 fL RDW Coefficient of Variation 15.9 11.5-14.5 % Immature Granulocyte % (Auto) 0.4 % Immature Granulocyte # (Auto) 0.03 0.00-0.02 K/uL Sodium Level 136 136-145 mmol/L Potassium Level 3.0 3.5-5.1 mmol/L Chloride Level 101 98-107 mmol/L Carbon Dioxide Level 26 21-32 mmol/L Anion Gap 9.0 3-11 mmol/L Blood Urea Nitrogen 10 7-18 mg/dl Creatinine 0.75 0.60-1.40 mg/dl Est Creatinine Clear Calc Drug Dose 104.6 ml/min Estimated GFR () 112.4 Estimated GFR (Non- 96.9 BUN/Creatinine Ratio 12.9 10-20 Random Glucose 123 70-99 mg/dl Calcium Level 8.6 8.5-10.1 mg/dl Magnesium Level 2.3 1.8-2.4 mg/dl Bedside Glucose 113 119 112 70-99 mg/dl Test 09/09/16 05:10 09/09/16 06:52 Range/Units White Blood Count 6.36 4.8-10.8 K/uL Red Blood Count 3.89 4.7-6.1 M/uL Hemoglobin 14.1 14.0-18.0 g/dL Hematocrit 41.1 42-52 % Mean Corpuscular Volume 105.7 80-100 fL Mean Corpuscular Hemoglobin 36.2 25-34 pg Mean Corpuscular Hemoglobin Concent 34.3 32-36 g/dl Platelet Count 329 130-400 K/uL Mean Platelet Volume 10.9 7.4-10.4 fL Neutrophils (%) (Auto) 39.9 % Lymphocytes (%) (Auto) 29.4 % Monocytes (%) (Auto) 25.6 % Eosinophils (%) (Auto) 3.9 % Basophils (%) (Auto) 0.9 % Neutrophils # (Auto) 2.53 1.4-6.5 K/uL Lymphocytes # (Auto) 1.87 1.2-3.4 K/uL Monocytes # (Auto) 1.63 0.11-0.59 K/uL Eosinophils # (Auto) 0.25 0-0.5 K/uL Basophils # (Auto) 0.06 0-0.2 K/uL RDW Standard Deviation 60.9 36.4-46.3 fL RDW Coefficient of Variation 15.9 11.5-14.5 % Immature Granulocyte % (Auto) 0.3 % Immature Granulocyte # (Auto) 0.02 0.00-0.02 K/uL Activated Partial Thromboplast Time 52.8 21.0-31.0 SECONDS Partial Thromboplastin Ratio 2.0 Sodium Level 138 136-145 mmol/L Potassium Level 3.4 3.5-5.1 mmol/L Chloride Level 103 98-107 mmol/L Carbon Dioxide Level 29 21-32 mmol/L Anion Gap 6.0 3-11 mmol/L Blood Urea Nitrogen 12 7-18 mg/dl Creatinine 0.76 0.60-1.40 mg/dl Est Creatinine Clear Calc Drug Dose 103.2 ml/min Estimated GFR () 111.7 Estimated GFR (Non- 96.4 BUN/Creatinine Ratio 15.3 10-20 Random Glucose 117 70-99 mg/dl Calcium Level 8.4 8.5-10.1 mg/dl Phosphorus Level 2.9 2.5-4.9 mg/dl Magnesium Level 2.3 1.8-2.4 mg/dl Aspartate Amino Transf (AST/SGOT) 9 15-37 U/L Alanine Aminotransferase (ALT/SGPT) 21 12-78 U/L Bedside Glucose 116 70-99 mg/dl Assessment & Plan 09/09/16- Will adv to low fiber diet, cont TPN via picc line- cont po flagyl monitor progress- operation could potentially be very difficult with high LUQ adhesions from splenic surgery- cont nonoperative mgt for now 09/03/16- leave NG today, ambulate, mineral oil and senna syrup per NG check labs, add protonix Dr Johnson covering over weekend 09/02/16- adm with sbo, NG in place- functioning- moderate bilious output normalize lytes, dilaudid for pain, nonoperative treatment for now pt satisfied with plan 09/03/16- leave NG today, ambulate, mineral oil and senna syrup per NG check labs, add protonix Dr Johnson covering over weekend 09/02/16- adm with sbo, NG in place- functioning- moderate bilious output normalize lytes, dilaudid for pain, nonoperative treatment for now pt satisfied with plan
[2016-09-09] MEDS: HYDROXYUREA 500 MG CAP PO SCH (09:00)
[2016-09-09] MEDS: PANTOprazole INJ 40 MG in SYRINGE 0 ML IV SCH (09:01)
[2016-09-09 12:31] VITALS: BP 115/65; PULSE 72; TEMP 36.4; O2SAT 98
[2016-09-09 15:17] VITALS: BP 103/65; PULSE 71; TEMP 36.3; O2SAT 92
[2016-09-09] MEDS ORDERED: CUSTOM CENTRAL PN 1 BAG IV SCH (16:00)
--- NOTE | 2016-09-09 19:50 | Progress Note ---
Medicine Progress Note Date & Time of Visit: Sep 09, 2016 at 19:41. Subjective patient seen resting in bed, comfortable tolerating low fiber diet diarrhea less frequent, no abdominal pain or nausea denies chest pain, dyspnea, palpitations, dizziness, headache no other symptoms Objective Last 8 Hrs Date Time Temp Pulse Resp B/P Pulse Ox O2 Delivery O2 Flow Rate FiO2 09/09/16 15:30 Room Air 09/09/16 15:17 36.3 71 16 103/65 92 Room Air 09/09/16 12:31 36.4 72 18 115/65 98 Room Air Physical Exam: General- oriented x 3, not in distress, speaks in sentences with no effort Lungs- clear breath sounds bilaterally, no rales/wheezes Heart- normal rate, regular rhythm; no murmurs Abdomen- normal bowel sounds, non distended, soft, nontender Extremities- no pretibial edema, no calf tenderness Neuro- alert, oriented x 3;no gross focal deficits Skin- warm & dry Laboratory Results: Last 24 Hours Test 09/08/16 23:51 09/09/16 05:10 09/09/16 06:52 09/09/16 13:12 Bedside Glucose 112 mg/dl 116 mg/dl 139 mg/dl White Blood Count 6.36 K/uL Red Blood Count 3.89 M/uL Hemoglobin 14.1 g/dL Hematocrit 41.1 % Mean Corpuscular Volume 105.7 fL Mean Corpuscular Hemoglobin 36.2 pg Mean Corpuscular Hemoglobin Concent 34.3 g/dl Platelet Count 329 K/uL Mean Platelet Volume 10.9 fL Neutrophils (%) (Auto) 39.9 % Lymphocytes (%) (Auto) 29.4 % Monocytes (%) (Auto) 25.6 % Eosinophils (%) (Auto) 3.9 % Basophils (%) (Auto) 0.9 % Neutrophils # (Auto) 2.53 K/uL Lymphocytes # (Auto) 1.87 K/uL Monocytes # (Auto) 1.63 K/uL Eosinophils # (Auto) 0.25 K/uL Basophils # (Auto) 0.06 K/uL RDW Standard Deviation 60.9 fL RDW Coefficient of Variation 15.9 % Immature Granulocyte % (Auto) 0.3 % Immature Granulocyte # (Auto) 0.02 K/uL Activated Partial Thromboplast Time 52.8 SECONDS Partial Thromboplastin Ratio 2.0 Sodium Level 138 mmol/L Potassium Level 3.4 mmol/L Chloride Level 103 mmol/L Carbon Dioxide Level 29 mmol/L Anion Gap 6.0 mmol/L Blood Urea Nitrogen 12 mg/dl Creatinine 0.76 mg/dl Est Creatinine Clear Calc Drug Dose 103.2 ml/min Estimated GFR () 111.7 Estimated GFR (Non- 96.4 BUN/Creatinine Ratio 15.3 Random Glucose 117 mg/dl Calcium Level 8.4 mg/dl Phosphorus Level 2.9 mg/dl Magnesium Level 2.3 mg/dl Aspartate Amino Transf (AST/SGOT) 9 U/L Alanine Aminotransferase (ALT/SGPT) 21 U/L Test 09/09/16 17:39 Bedside Glucose 101 mg/dl Assessment & Plan 65 year old male with history of Portal Vein Thrombosis on coumadin, s/p IVC filter placement, Essential Thrombocythemia, other problems noted below presenting with abdominal pain. 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 This is consistent with a partial small bowel obstruction. -- tolerating low fiber diet continue to monitor still hold Coumadin, continue heparin continue TPN via PCC line today replace and monitor K C DIFF COLITIS -Flagyl day 3 - diarrhea improving continue to monitor - add Floranex HISTORY OF PORTAL VEIN THROMBOSIS ON COUMADIN, S/P IVC FILTER PLACEMENT INR 1.4 still hold Coumadin, continue heparin Usually on coumadin 5 mg mon and fri, 7.5 mg other day ESSENTIAL THROMBOCYTHEMIA -on Hydroxyurea--> restarted on 09/05/16 KYLAH -on CPAP S/P SPLENECTOMY April 2016 DVT prophylaxis Heparin drip DISPOSITION pending Current Inpatient Medications: Current Inpatient Medications Medications (Trade) Dose Ordered Sig/Kar Route Start Time Stop Time Status Last Admin Dose Admin Ondansetron HCl 4 mg 4 mg Q6H PRN IV 09/02/16 06:00 10/02/16 05:59 09/07/16 00:32 4 MG Heparin Sodium/ Dextrose 500 ml @ 30 mls/hr [id number] PRN IV 09/02/16 07:15 10/02/16 07:14 09/09/16 15:02 30 MLS/HR Promethazine HCl/ Sodium Chloride (Phenergan Inj/ Nss 50ml) 50.5 ml @ 204 mls/hr Q6H PRN IV 09/02/16 08:30 10/02/16 08:29 09/07/16 01:33 204 MLS/HR Hydromorphone HCl (Dilaudid Inj) 0.5 mg Q3H PRN IV 09/02/16 11:00 09/16/16 10:59 09/05/16 23:36 0.5 MG Hydromorphone HCl (Dilaudid Inj) 1 mg Q3H PRN IV 09/02/16 11:00 09/16/16 10:59 Hydroxyurea (Hydrea Cap) 1,000 mg Q2D@0900 PO 09/07/16 09:00 10/07/16 08:59 09/09/16 09:00 1,000 MG Hydroxyurea (Hydrea Cap) 1,500 mg Q2D@0900 PO 09/06/16 09:00 10/06/16 08:59 09/08/16 08:56 1,500 MG Lorazepam (Ativan Tab) 0.5 mg HSZ PO 09/06/16 22:00 10/06/16 21:59 09/08/16 22:03 0.5 MG Miscellaneous Information 1 ea 1 ea UD PRN N/A 09/07/16 10:30 10/07/16 10:29 Pantoprazole Sodium/Syringe (Protonix Inj/ Syringe) 10 ml @ 5 mls/min DAILY@11 IV 09/08/16 11:00 10/08/16 10:59 09/09/16 09:01 5 MLS/MIN Heparin Sodium (Porcine) 5 ml 5 ml PRN PRN FLUSH 09/07/16 16:30 10/07/16 16:29 Dextrose (D10w) 1,000 ml @ 0 mls/hr Q0M PRN IV 09/08/16 16:00 10/08/16 15:59 Metronidazole 500 mg 500 mg Q8 PO 09/09/16 12:00 09/21/16 18:59 09/09/16 12:54 500 MG Nutrition (Parenteral) (Custom Central Pn) 0 ml @ 0 mls/hr TODAY@1600 IV 09/09/16 16:00 3/17/17 15:59 09/09/16 16:10 0 MLS/HR Potassium Chloride (Klor-Con M10) 20 meq ONE PO 09/09/16 19:15 10/09/16 19:14 UNV Lactobacillus Acidophilus (Floranex Tab) 4 tab TIDM PO 09/10/16 08:30 10/10/16 08:29 UNV Lactobacillus Acidophilus (Floranex Tab) 4 tab 1915 ONCE PO 09/09/16 19:15 09/09/16 19:16 UNV
[2016-09-09] MEDS ORDERED: LACTOBACILLUS ACIDOPHILUS (FLORANEX) TAB PO ONE (20:00)
[2016-09-09] MEDS ORDERED: POTASSIUM CHLORIDE 20 MEQ TABCR PO ONE (20:30)
[2016-09-09] MEDS: LORAZEPAM 0.5 MG TAB PO SCH (21:21)
[2016-09-10] VITALS: BP 132/82; PULSE 78; TEMP 36.6; O2SAT 97
[2016-09-10] MEDS: METRONIDAZOLE 500 MG TAB PO SCH ×2 (05:50→13:32)
[2016-09-10 05:57] LABS: BASO % 1.2 %; BASO ABS # 0.09 K/uL (0-0.2); COMPLETE YES; EOS % 6.1 %; HEMATOCRIT 41.1 % (42-52); IG% 0.6 %; LYMPH % 25.5 %; LYMPH ABS # 1.97 K/uL (1.2-3.4); MEAN CELL VOLUME 103.8 fL (80-100); MEAN CORPUSCULAR HEMOGLOBIN 36.4 pg (25-34); MEAN PLATELET VOLUME 10.7 fL (7.4-10.4); MONO % 22.1 %; NEUT % 44.5 %; PLATELET COUNT 361 K/uL (130-400); RED BLOOD COUNT 3.96 M/uL (4.7-6.1); WHITE BLOOD COUNT 7.73 K/uL (4.8-10.8)
--- NOTE | 2016-09-10 06:16 | Surgery Progress Note ---
Surgery Progress Note Date of Service Sep 10, 2016. Subjective + bowel movement, No nausea, No vomiting loose bowel movements concerned about spreading c diff to others Objective Vital Signs: Date Time Temp Pulse Resp B/P Pulse Ox O2 Delivery O2 Flow Rate FiO2 09/10/16 00:10 Room Air 09/10/16 00:00 36.6 78 18 132/82 97 Room Air 09/09/16 15:30 Room Air 09/09/16 15:17 36.3 71 16 103/65 92 Room Air 09/09/16 12:31 36.4 72 18 115/65 98 Room Air 09/09/16 08:43 Room Air 09/09/16 08:10 Room Air 09/09/16 06:55 36.6 69 18 115/76 93 Room Air Respiratory/Chest: no respiratory distress Abdomen: non tender, soft Laboratory Results: Results Past 24 Hours Test 09/09/16 06:52 09/09/16 13:12 09/09/16 17:39 09/10/16 00:05 Range/Units Bedside Glucose 116 139 101 103 70-99 mg/dl Test 09/10/16 05:13 09/10/16 06:00 Range/Units White Blood Count 7.73 4.8-10.8 K/uL Red Blood Count 3.96 4.7-6.1 M/uL Hemoglobin 14.4 14.0-18.0 g/dL Hematocrit 41.1 42-52 % Mean Corpuscular Volume 103.8 80-100 fL Mean Corpuscular Hemoglobin 36.4 25-34 pg Mean Corpuscular Hemoglobin Concent 35.0 32-36 g/dl Platelet Count 361 130-400 K/uL Mean Platelet Volume 10.7 7.4-10.4 fL Neutrophils (%) (Auto) 44.5 % Lymphocytes (%) (Auto) 25.5 % Monocytes (%) (Auto) 22.1 % Eosinophils (%) (Auto) 6.1 % Basophils (%) (Auto) 1.2 % Neutrophils # (Auto) 3.44 1.4-6.5 K/uL Lymphocytes # (Auto) 1.97 1.2-3.4 K/uL Monocytes # (Auto) 1.71 0.11-0.59 K/uL Eosinophils # (Auto) 0.47 0-0.5 K/uL Basophils # (Auto) 0.09 0-0.2 K/uL RDW Standard Deviation 60.2 36.4-46.3 fL RDW Coefficient of Variation 16.1 11.5-14.5 % Immature Granulocyte % (Auto) 0.6 % Immature Granulocyte # (Auto) 0.05 0.00-0.02 K/uL Bedside Glucose 108 70-99 mg/dl Assessment & Plan 09/10/16-tolerating diet- having loose bms- obstructions seems to have resolved, would like to go home. Concerned about spreading c diff Will ask for information for him. d/c home when medically stable 09/09/16- Will adv to low fiber diet, cont TPN via picc line- cont po flagyl monitor progress- operation could potentially be very difficult with high LUQ adhesions from splenic surgery- cont nonoperative mgt for now 09/03/16- leave NG today, ambulate, mineral oil and senna syrup per NG check labs, add protonix Dr Johnson covering over weekend 09/02/16- adm with sbo, NG in place- functioning- moderate bilious output normalize lytes, dilaudid for pain, nonoperative treatment for now pt satisfied with plan 09/09/16- Will adv to low fiber diet, cont TPN via picc line- cont po flagyl monitor progress- operation could potentially be very difficult with high LUQ adhesions from splenic surgery- cont nonoperative mgt for now 09/03/16- leave NG today, ambulate, mineral oil and senna syrup per NG check labs, add protonxu Johnson covering over weekend 09/02/16- adm with sbo, NG in place- functioning- moderate bilious output normalize lytes, dilaudid for pain, nonoperative treatment for now pt satisfied with plan
[2016-09-10 06:28] LABS: BUN/CREATININE RATIO 16.4 (10-20); CALCIUM 8.7 mg/dl (8.5-10.1); CREATININE 0.78 mg/dl (0.60-1.40); MAGNESIUM 2.3 mg/dl (1.8-2.4); PHOSPHORUS 3.5 mg/dl (2.5-4.9); POTASSIUM 4.1 mmol/L (3.5-5.1)
[2016-09-10] MEDS: HEPARIN 25,000 UNIT/500ML D5W 500 ML IV PRN (06:58)
[2016-09-10] MEDS ORDERED: LACTOBACILLUS ACIDOPHILUS (FLORANEX) TAB PO SCH (08:30)
[2016-09-10 08:32] VITALS: BP 108/74; PULSE 75; TEMP 36.4; O2SAT 93
[2016-09-10 08:44] VITALS: O2SAT 93
[2016-09-10] MEDS: HYDROXYUREA 500 MG CAP PO SCH (09:27)
[2016-09-10 10:36] LABS: PROTHROMBIN TIME (PATIENT) 11.1 SECONDS (9.0-12.0)
[2016-09-10] MEDS ORDERED: ENOXAPARIN 80 MG/0.8 ML SYR SQ SCH (11:00)
--- NOTE | 2016-09-10 11:09 | Progress Note ---
Medicine Progress Note Date & Time of Visit: Sep 10, 2016 at 10:57. Subjective patient seen sitting up in bed, comfortable states he only had 1 loose BM today, more formed than yesterday denies abdominal pain, nausea no chest pain, dyspnea no other symptoms states he is ready and would like to be discharged today if possible Objective Last 8 Hrs Date Time Temp Pulse Resp B/P Pulse Ox O2 Delivery O2 Flow Rate FiO2 09/10/16 08:44 93 Room Air 09/10/16 08:32 36.4 75 16 108/74 93 Room Air 09/10/16 07:30 Room Air Physical Exam: General- oriented x 3, not in distress, speaks in sentences with no effort Lungs- clear breath sounds bilaterally, no rales Heart- normal rate, regular rhythm; no murmurs Abdomen- non distended, soft, nontender Extremities- no pretibial edema, no calf tenderness Neuro- alert, oriented x 3;no gross focal deficits Skin- warm & dry Laboratory Results: Last 24 Hours Test 09/09/16 13:12 09/09/16 17:39 09/10/16 00:05 09/10/16 05:13 Bedside Glucose 139 mg/dl 101 mg/dl 103 mg/dl White Blood Count 7.73 K/uL Red Blood Count 3.96 M/uL Hemoglobin 14.4 g/dL Hematocrit 41.1 % Mean Corpuscular Volume 103.8 fL Mean Corpuscular Hemoglobin 36.4 pg Mean Corpuscular Hemoglobin Concent 35.0 g/dl Platelet Count 361 K/uL Mean Platelet Volume 10.7 fL Neutrophils (%) (Auto) 44.5 % Lymphocytes (%) (Auto) 25.5 % Monocytes (%) (Auto) 22.1 % Eosinophils (%) (Auto) 6.1 % Basophils (%) (Auto) 1.2 % Neutrophils # (Auto) 3.44 K/uL Lymphocytes # (Auto) 1.97 K/uL Monocytes # (Auto) 1.71 K/uL Eosinophils # (Auto) 0.47 K/uL Basophils # (Auto) 0.09 K/uL RDW Standard Deviation 60.2 fL RDW Coefficient of Variation 16.1 % Immature Granulocyte % (Auto) 0.6 % Immature Granulocyte # (Auto) 0.05 K/uL Prothrombin Time 11.1 SECONDS Prothromb Time International Ratio 1.0 Activated Partial Thromboplast Time 52.4 SECONDS Partial Thromboplastin Ratio 2.0 Sodium Level 139 mmol/L Potassium Level 4.1 mmol/L Chloride Level 104 mmol/L Carbon Dioxide Level 28 mmol/L Anion Gap 7.0 mmol/L Blood Urea Nitrogen 13 mg/dl Creatinine 0.78 mg/dl Est Creatinine Clear Calc Drug Dose 99.9 ml/min Estimated GFR () 110.6 Estimated GFR (Non- 95.4 BUN/Creatinine Ratio 16.4 Random Glucose 105 mg/dl Calcium Level 8.7 mg/dl Phosphorus Level 3.5 mg/dl Magnesium Level 2.3 mg/dl Test 09/10/16 06:00 Bedside Glucose 108 mg/dl Assessment & Plan 65 year old male with history of Chronic PE, Portal Vein Thrombosis on coumadin , s/p IVC filter placement, Essential Thrombocythemia, other problems noted below presenting with abdominal pain. 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 Small bowel obstruction with the transition point located within the left midabdomen at the level of the mid jejunum. Overall, this is similar to the prior study. 2. Prior splenectomy. 3. Small amount of nonocclusive chronic thrombus within the main portal vein which has improved. 4. IVC filter is again noted. One of the struts extend into the adjacent vertebral body and another strut extends into the lateral aortic wall. This remains unchanged. - General Surgery consulted - placed on NPO, IV fluids, NG tube placed and removed on 09/05/16 - was still having nausea and vomiting repeat KUB: No change in the multiple mildly dilated air and fluid-filled loops of small bowel within left upper quadrant. This is consistent with a partial small bowel obstruction. TPN started, remained NPO - with further observation, patient's symptoms improved diet gradually restarted and he tolerated this - cleared for discharge per Gen Surgery Dr. 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 Mera in 1 week Current Inpatient Medications: Current Inpatient Medications Medications (Trade) Dose Ordered Sig/Kar Route Start Time Stop Time Status Last Admin Dose Admin Ondansetron HCl 4 mg 4 mg Q6H PRN IV 09/02/16 06:00 10/02/16 05:59 09/07/16 00:32 4 MG Heparin Sodium/ Dextrose 500 ml @ 30 mls/hr [id number] PRN IV 09/02/16 07:15 10/02/16 07:14 09/10/16 06:58 30 MLS/HR Promethazine HCl/ Sodium Chloride (Phenergan Inj/ Nss 50ml) 50.5 ml @ 204 mls/hr Q6H PRN IV 09/02/16 08:30 10/02/16 08:29 09/07/16 01:33 204 MLS/HR Hydromorphone HCl (Dilaudid Inj) 0.5 mg Q3H PRN IV 09/02/16 11:00 09/16/16 10:59 09/05/16 23:36 0.5 MG Hydromorphone HCl (Dilaudid Inj) 1 mg Q3H PRN IV 09/02/16 11:00 09/16/16 10:59 Hydroxyurea (Hydrea Cap) 1,000 mg Q2D@0900 PO 09/07/16 09:00 10/07/16 08:59 09/09/16 09:00 1,000 MG Hydroxyurea (Hydrea Cap) 1,500 mg Q2D@0900 PO 09/06/16 09:00 10/06/16 08:59 09/10/16 09:27 1,500 MG Lorazepam (Ativan Tab) 0.5 mg HSZ PO 09/06/16 22:00 4/12/17 21:59 09/09/16 21:21 0.5 MG Miscellaneous Information (Pharmacy Tpn/ Ppn Consult Active) 1 ea UD PRN N/A 09/07/16 10:30 10/07/16 10:29 Heparin Sodium (Porcine) 5 ml 5 ml PRN PRN FLUSH 09/07/16 16:30 10/07/16 16:29 Dextrose (D10w) 1,000 ml @ 0 mls/hr Q0M PRN IV 09/08/16 16:00 10/08/16 15:59 Metronidazole 500 mg 500 mg Q8 PO 09/09/16 12:00 09/21/16 18:59 09/10/16 05:50 500 MG Nutrition (Parenteral) (Custom Central Pn) 0 ml @ 0 mls/hr TODAY@1600 IV 09/09/16 16:00 09/10/16 15:59 09/09/16 16:10 0 MLS/HR
[2016-09-10] MEDS ORDERED: CMD5 PO (11:17)
[2016-09-10] MEDS ORDERED: LVNIS80 SQ (11:17)
[2016-09-10] MEDS ORDERED: MTR500 PO (11:17)
--- NOTE | 2016-09-10 11:27 | Discharge Instructions ---
Discharge Instructions Date of Service Sep 10, 2016. Admission Reason for Admission: Small Bowel Obstruction Discharge Discharge Diagnosis / Problem: SMALL BOWEL OBSTRUCTION, CLOSTRIDIUM DIFFICILE COLITIS Discharge Goals Goal(s): Diagnostic testing, Therapeutic intervention Activity Recommendations Activity Limitations: as noted below (NO HEAVY EXERTION UNTIL RE-EVALUATED BY PRIMARY CARE PHYSICIAN) . Instructions / Follow-Up Instructions / Follow-Up PLEASE REVIEW YOUR NEW MEDICATION LIST AND FOLLOW INSTRUCTIONS CAREFULLY. CALL PRIMARY CARE PHYSICIAN OR RETURN TO ER IMMEDIATELY IF WITH RECURRENCE OF SYMPTOMS, INCREASING ABDOMINAL PAIN, DIARRHEA, NAUSEA/VOMITING, FEVER/CHILLS. OBSERVE STRICT HANDWASHING WITH SOAP AND WATER and USE BLEACH TO CLEAN THE BATHROOM AFTER EVERY USE. FOLLOW UP WITH DR. AGUILERA ON WEDNESDAY SEPTEMBER 14, 2016 AT 10:50AM. FOLLOW UP WITH [email or web address] FOR LOVENOX AND COUMADIN DOSING (CLINIC TO CALL YOU WITH APPOINTMENT). FOLLOW UP WITH DR. HANNAH (GENERAL SURGEON) IN 1-2 WEEKS. TEL. NO. Current Hospital Diet Patient's current hospital diet: Low Fiber Diet Discharge Diet Recommended Diet: Low Fiber Diet Pending Studies Studies pending at discharge: yes List of pending studies: REPEAT INR C/O [email or web address] Laboratory Results Hemoglobin A1c Test 07/14/16 05:45 Range/Units Estimated Average Glucose 105 mg/dl Hemoglobin A1c 5.3 4.5-5.6 % Lipid Panel Test 09/08/16 05:30 Range/Units Triglycerides Level 87 0-150 mg/dl Medical Emergencies . Who to Call and When: Medical Emergencies: If at any time you feel your situation is an emergency, please call 911 immediately. . Non-Emergent Contact Non-Emergency issues call your: Primary Care Provider Call Non-Emergent contact if: you have a fever, you have any medication questions . Past History Medical & Surgical History: (1) Small bowel obstruction (2) Essential thrombocytosis (3) Pulmonary emboli (4) Retroperitoneal hematoma (5) KYLAH on CPAP (6) S/p vein filter placement (7) SBO (small bowel obstruction) (8) Hx of basal cell carcinoma (9) S/P appendectomy (10) History of dental surgery (11) S/P tonsillectomy and adenoidectomy (12) S/P UPPP (uvulopalatopharyngoplasty) . "Provider Documentation" section prepared by Chase Kaplan. VTE Core Measure Inpt VTE Proph given/why not?: Unfractionated heparin SQ
--- NOTE | 2016-09-10 11:31 | Discharge Summary ---
Discharge Summary Date of Service Sep 10, 2016. Discharge Summary Admission Date: Sep 02, 2016 at 05:46 Discharge Date: Sep 10, 2016 Discharge Disposition: Home Principal Diagnosis: SMALL BOWEL OBSTRUCTION Secondary Diagnoses/Problems: PLEASE REFER TO HOSPITAL COURSE BELOW. Procedures: ABDOMEN AND PELVIS CT WITH IV CONTRAST CT DOSE: 331.62 mGy.cm HISTORY: Generalized abdominal pain. TECHNIQUE: Multiaxial CT images of the abdomen and pelvis were performed following the use of intravenous contrast. COMPARISON STUDY: Abdomen and pelvis CT 07/14/2016. FINDINGS: Mild dependent changes at the lung bases. No pneumoperitoneum. No pneumatosis. Multiple dilated air and fluid-filled loops of small bowel within the left side of the abdomen with a transition point located in image 180/481. Therefore, this is consistent with a small bowel obstruction. This is similar to the prior study. The spleen is surgically absent. Stable partially calcified soft tissue within the left side of the abdomen abutting the pancreatic tail. This measures 2.3 cm. This could be due to postoperative change. The adrenal glands, spleen, gallbladder, and kidneys are unremarkable. No hydronephrosis. No retroperitoneal lymphadenopathy. 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 IVC filter is again noted with a strut ending into the adjacent vertebral body and aortic wall. This remains unchanged. Small amount of chronic thrombus within the main portal vein has improved. Normal bladder. Colonic diverticulosis. The colon is decompressed. IMPRESSION: 1. Small bowel obstruction with the transition point located within the left midabdomen at the level of the mid jejunum. Overall, this is similar to the prior study. 2. Prior splenectomy. 3. Small amount of nonocclusive chronic thrombus within the main portal vein which has improved. 4. IVC filter is again noted. One of the struts extend into the adjacent vertebral body and another strut extends into the lateral aortic wall. This remains unchanged. Consultations: GENERAL SURGERY DR. MERA, DR. NAIK Pending Studies/Follow-Up: PLEASE REFER TO HOSPITAL COURSE BELOW. Medication Reconciliation New Medications: Warfarin Sod (Coumadin) 5 Mg Tab 7.5 MG PO DAILY for 7 Days further instructions on coumadin dose as per [facility] Enoxaparin (Lovenox) 80 Mg/0.8 Ml Inj 70 MG SQ Q12 for 7 Days, #14 SYR 2 Refills further instructions regarding duration of Lovenox use and coumadin dose as per [facility] Metronidazole (Metronidazole) 500 Mg Tab 500 MG PO Q8 for 7 Days, #21 TAB 0 Refills Continued Medications: Citalopram Hydrobromide (Celexa) 20 Mg Tab 10 MG PO DAILY, TAB 1/2 TABLET DOSE Fish Oil (Gifford-3) 1 Ea Cap 3 CAP PO DAILY, CAP Hydroxyurea (Hydrea Cap) 500 Mg Cap 1000 MG PO EVEN DAYS, CAP 2 TABS ON EVEN DAYS Hydroxyurea (Hydrea Cap) 500 Mg Cap 1500 MG PO ODD DAYS, CAP 3 TABS ON ODD DAYS Lorazepam (Ativan) 0.5 Mg Tab 0.5 MG PO Q6H PRN for Anxiety, TAB Pseudoephedrine-Guaifenesin (Mucinex D) 1 Tab Tab 1 TAB PO BID PRN for CONGESTION Sildenafil Citrate (Viagra) 100 Mg Tab 100 MG PO UD PRN for INTERCOURSE Discontinued Medications: Warfarin Sodium (Coumadin) 5 Mg Tab 5 MG PO 2XWK TAKE DAILY ON TUESDAY AND TUESDAY. Warfarin Sodium (Coumadin) 7.5 Mg Tab 7.5 MG PO 5XWK TAKE DAILY ON TUESDAY/TUESDAY/TUESDAY/TUESDAY/TUESDAY. Admission Information HPI (per Admitting provider): 65 year old male with history of PE on coumadin, s/p IVC filter placement, Essential Thrombocythemia, other problems noted below presenting with abdominal pain. Patient was admitted to [facility] last June 2016 for small bowel obstruction which resolved with conservative measures. He was doing well until around 10pm last night when he started to have upper abdominal pain,associated with non bloody vomiting. He reports having 1 BM last evening. No other symptoms. CT abdomen showed small bowel obstruction with transition point at the LUQ. NG tube placed and patient was given IV analgesics. On exam, patient states he is feels somewhat improved.\\ Denies chest pain, dyspnea, palpitations, dizziness. Physical Exam (per Admitting): General Appearance: WD/WN, no apparent distress Head: normocephalic, atraumatic Eyes: normal inspection, EOMI, sclerae normal ENT: normal ENT inspection, TMs normal Neck: supple, no adenopathy, thyroid normal, no JVD, trachea midline Respiratory/Chest: chest non-tender, lungs clear, normal breath sounds, no respiratory distress, no accessory muscle use Cardiovascular: regular rate, rhythm, no JVD, no murmur Abdomen/GI: non tender, soft, + abnormal bowel sounds (hypoactive) Back: normal inspection, no CVA tenderness Extremities/Musculoskelatal: normal inspection, no calf tenderness, normal capillary refill, no pedal edema, normal range of motion Neurologic/Psych: spot man II-XII nml as tested, no motor/sensory deficits, alert , normal mood/affect, normal reflexes, oriented x 3 Skin: normal color, warm/dry, no rash Lymphatic: no adenopathy Hospital Course 65 year old male with history of Chronic PE, Portal Vein Thrombosis on coumadin , s/p IVC filter placement, Essential Thrombocythemia, other problems noted below presenting with abdominal pain. 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 Small bowel obstruction with the transition point located within the left midabdomen at the level of the mid jejunum. Overall, this is similar to the prior study. 2. Prior splenectomy. 3. Small amount of nonocclusive chronic thrombus within the main portal vein which has improved. 4. IVC filter is again noted. One of the struts extend into the adjacent vertebral body and another strut extends into the lateral aortic wall. This remains unchanged. - General Surgery consulted - placed on NPO, IV fluids, NG tube placed and removed on 09/05/16 - was still having nausea and vomiting repeat KUB 09/07/16: No change in the multiple mildly dilated air and fluid- filled loops of small bowel within left upper quadrant. This is consistent with a partial small bowel obstruction. TPN started, remained NPO - with further observation, patient's symptoms improved diet gradually restarted and he tolerated this - cleared for discharge per Gen Surgery Dr. 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 Mera in 1 week plan of care discussed with patient, all questions answered, he is agreeable and comfortable with plan of care Total time spent on discharge = 55 minutes This includes examination of the patient, discharge planning, medication reconciliation, and communication with other providers. Discharge Instructions Discharge Instructions Date of Service Sep 10, 2016. Admission Reason for Admission: Small Bowel Obstruction Discharge Discharge Diagnosis / Problem: SMALL BOWEL OBSTRUCTION, CLOSTRIDIUM DIFFICILE COLITIS Discharge Goals Goal(s): Diagnostic testing, Therapeutic intervention Activity Recommendations Activity Limitations: as noted below (NO HEAVY EXERTION UNTIL RE-EVALUATED BY PRIMARY CARE PHYSICIAN) . Instructions / Follow-Up Instructions / Follow-Up PLEASE REVIEW YOUR NEW MEDICATION LIST AND FOLLOW INSTRUCTIONS CAREFULLY. CALL PRIMARY CARE PHYSICIAN OR RETURN TO ER IMMEDIATELY IF WITH RECURRENCE OF SYMPTOMS, INCREASING ABDOMINAL PAIN, DIARRHEA, NAUSEA/VOMITING, FEVER/CHILLS. OBSERVE STRICT HANDWASHING WITH SOAP AND WATER and USE BLEACH TO CLEAN THE BATHROOM AFTER EVERY USE. FOLLOW UP WITH DR. AGUILERA ON WEDNESDAY SEPTEMBER 14, 2016 AT 10:50AM. FOLLOW UP WITH [facility] FOR LOVENOX AND COUMADIN DOSING (CLINIC TO CALL YOU WITH APPOINTMENT). FOLLOW UP WITH DR. MERA (GENERAL SURGEON) IN 1-2 WEEKS. TEL. NO. Current Hospital Diet Patient's current hospital diet: Low Fiber Diet Discharge Diet Recommended Diet: Low Fiber Diet Pending Studies Studies pending at discharge: yes List of pending studies: REPEAT INR C/O [facility] Laboratory Results Hemoglobin A1c Test 07/14/16 05:45 Range/Units Estimated Average Glucose 105 mg/dl Hemoglobin A1c 5.3 4.5-5.6 % Lipid Panel Test 09/08/16 05:30 Range/Units Triglycerides Level 87 0-150 mg/dl Medical Emergencies . Who to Call and When: Medical Emergencies: If at any time you feel your situation is an emergency, please call 911 immediately. . Non-Emergent Contact Non-Emergency issues call your: Primary Care Provider Call Non-Emergent contact if: you have a fever, you have any medication questions . Past History Medical & Surgical History: (1) Small bowel obstruction (2) Essential thrombocytosis (3) Pulmonary emboli (4) Retroperitoneal hematoma (5) KYLAH on CPAP (6) S/p vein filter placement (7) SBO (small bowel obstruction) (8) Hx of basal cell carcinoma (9) S/P appendectomy (10) History of dental surgery (11) S/P tonsillectomy and adenoidectomy (12) S/P UPPP (uvulopalatopharyngoplasty) . "Provider Documentation" section prepared by Chase Kaplan. VTE Core Measure Inpt VTE Proph given/why not?: Unfractionated heparin SQ
[2016-09-10 13:14] VITALS: BP 108/74; PULSE 75; TEMP 36.4; O2SAT 93
[2016-09-10] MEDS ORDERED: WARFARIN SOD 5 MG TAB PO SCH (16:00)
[2016-12-23] MEDS ORDERED: AMOX500C3 PO (09:44)
[2016-12-23] MEDS ORDERED: NAPR1TAB9 PO (09:44)
[2016-12-23] MEDS ORDERED: CITA10TA8 PO (09:44)
[2017-01-11] MEDS ORDERED: OXYC-57 PO (10:20)
[2017-01-18] MEDS ORDERED: LCTX PO (15:53)
[2017-01-18] MEDS ORDERED: CPR500 PO (15:53)
[2017-01-18] MEDS ORDERED: MTR500 PO (15:53)
== END 2016-09-10 13:45 | disposition home or self-care (01) | DRG 389 ==
LOC: ENRESERVDT → ENRESERVTM → C.EDB 01:54 → C.MSN 05:46
PROVIDERS: ADMIT Internal Medicine; ATTEND Internal Medicine
DX: K56.60 Unspecified intestinal obstruction (principal); A04.7 Enterocolitis due to Clostridium difficile; D47.3 Essential (hemorrhagic) thrombocythemia; G47.33 Obstructive sleep apnea (adult) (pediatric); Z79.01 Long term (current) use of anticoagulants; Z79.899 Other long term (current) drug therapy; Z86.718 Personal history of other venous thrombosis and embolism; Z86.711 Personal history of pulmonary embolism; Z90.81 Acquired absence of spleen

== ENCOUNTER 2016-11-04 11:03 | Inpatient (IN) | payer BC ==
[~2016-11-04] VITALS: Ht 182.9 cm; Wt 77.0 kg
[~2016-11-04 11:03] MED LIST changes: +CMD5 PO; +LVNIS80 SQ; +MTR500 PO; -WARF5TAB90 PO; -WARF7.5T PO
[2016-11-04] MEDS ORDERED: SODIUM CHLORIDE 0.9% 1000ML 1,000 ML IV STA ×2 (11:20)
[2016-11-04] MEDS ORDERED: WARF7.5T4 PO (11:30)
[2016-11-04] MEDS ORDERED: WARF5TAB90 PO (11:30)
[2016-11-04 11:49] LABS: BASO % 0.2 %; BASO ABS # 0.02 K/uL (0-0.2); EOS % 0.1 %; HEMATOCRIT 46.1 % (42-52); IG% 0.1 %; LYMPH % 8.4 %; LYMPH ABS # 0.72 K/uL (1.2-3.4); MEAN CELL VOLUME 110.6 fL (80-100); MEAN CORPUSCULAR HEMOGLOBIN 38.8 pg (25-34); MEAN CORPUSCULAR HGB CONC 35.1 g/dl (32-36); MEAN PLATELET VOLUME 10.1 fL (7.4-10.4); MONO % 7.3 %; NEUT % 83.9 %; PLATELET COUNT 639 K/uL (130-400); RED BLOOD COUNT 4.17 M/uL (4.7-6.1)
--- NOTE | 2016-11-04 11:57 | EMERGENCY ROOM VISIT NOTE ---
History Report prepared by Thuy: Nathan Best Under the Supervision of: Dr. Abdirashid Matson M.D. First contact with patient: 11:16 Chief Complaint: ABDOMINAL PAIN Stated Complaint: NAUSEA, ABDOMINAL PAIN History of Present Illness The patient is a 65 year old male who presents to the Emergency Room with complaints of persistent abdominal pain that started 18 hours [employer]. The pain is rated 5-6/10 in severity. His abdomen also feels distended. The patient also complains of nausea and vomiting since the onset of his pain. He denies any fevers, shortness of breath, or diarrhea. He only had one small bowel movement this morning. The patient has had two bowel obstructions before. His symptoms today are more mild than the previous obstructions. He was in the hospital from September 02 to the for bowel obstruction. He is on Coumadin. The patient is s /p splenectomy. He has a history of essential thrombocytosis. Source of History: patient Onset: 18 hours [employer] Position: abdomen Symptom Intensity: 5-6/10 Timing: other (persistent) Associated Symptoms: + nausea, + vomiting, No SOB, No diarrhea, No fevers Review of Systems See HPI for pertinent positives & negatives. A total of 10 systems reviewed and were otherwise negative. Past Medical & Surgical Medical Problems: (1) Essential thrombocytosis (2) Hx of basal cell carcinoma (3) KYLAH on CPAP (4) Pulmonary emboli (5) Retroperitoneal hematoma (6) S/p vein filter placement (7) SBO (small bowel obstruction) Surgical Problems: (1) History of dental surgery (2) S/P appendectomy (3) S/P tonsillectomy and adenoidectomy (4) S/P UPPP (uvulopalatopharyngoplasty) Family History No pertinent family history Social History Smoking Status: Former Smoker Alcohol Use: occasionally Drug Use: none Marital Status: single Housing Status: lives alone Occupation Status: employed Current/Historical Medications Scheduled Citalopram Hydrobromide (Celexa), 10 MG PO DAILY Fish Oil ([place]-3), 3 CAP PO DAILY Hydroxyurea (Hydrea Cap), 1,000 MG PO EVEN DAYS Hydroxyurea (Hydrea Cap), 1,500 MG PO ODD DAYS Warfarin Sod (Jantoven), 7.5 MG PO DAILY Warfarin Sodium (Coumadin), 5 MG PO WK Scheduled PRN Lorazepam (Ativan), 0.5 MG PO Q6H PRN for Anxiety Pseudoephedrine-Guaifenesin (Mucinex D), 1 TAB PO BID PRN for CONGESTION Sildenafil Citrate (Viagra), 100 MG PO UD PRN for INTERCOURSE Allergies Coded Allergies: No Known Allergies (Unverified , NKA, 11/04/16) Physical Exam Vital Signs Date Time Temp Pulse Resp B/P Pulse Ox O2 Delivery O2 Flow Rate FiO2 11/04/16 13:42 98 Room Air 11/04/16 13:05 78 20 154/97 98 Room Air 11/04/16 12:28 84 11/04/16 11:08 36.4 89 18 153/96 96 Room Air Physical Exam GENERAL: Patient is in no acute distress. HEENT: No acute trauma, normocephalic atraumatic, mucous membranes moist, no nasal congestion, no scleral icterus. NECK: No stridor, no adenopathy, no meningismus, trachea is midline. LUNGS: Clear to auscultation bilaterally, no wheeze, no rhonchi, breath sounds equal. HEART: Without murmurs gallops or rubs, regular rate and rhythm. ABDOMEN: Mildly distended but soft, no peritonitis, umbilical hernia that is reducible and nontender, surgical incisions have healed well, bowel sounds positive. EXTREMITIES: No cyanosis or edema, full range of motion of all the joints without pain or difficulty, no signs for acute trauma. NEUROLOGIC: Oriented x 3, no acute motor or sensory deficits, no focal weakness. SKIN: No rash, no jaundice, no diaphoresis. Medical Decision & Procedures ER Provider Diagnostic Interpretation: Radiology results as stated below per my review and radiologist interpretation: CT ABD/PELVIS IV CONTRAST ONLY CLINICAL HISTORY: Generalized abdominal pain, nausea, vomiting. COMPARISON STUDY: 09/02/2016 TECHNIQUE: Following the IV administration of 93 mL of Optiray-320, CT scan of the abdomen and pelvis was performed from the lung bases to the proximal femurs. Images are reviewed in the axial, sagittal, and coronal planes. IV contrast was administered without complication. CT DOSE: 567.28 mGycm FINDINGS: Lower chest: There are dependent atelectatic changes. Liver: There is mild hepatic steatosis. There are no space-occupying hepatic masses. The portal vein appears patent. Gallbladder: Unremarkable. Spleen: Presumed surgically absent Pancreas: Unremarkable. Adrenal glands: Unremarkable. Kidneys: There is symmetric renal cortical enhancement. The kidneys are normal in size without hydronephrosis. Bowel: There is colonic diverticulosis. There are no acute peridiverticular inflammatory changes. By history the appendix is surgically absent. There are dilated fluid-filled left upper quadrant small bowel loops measuring up to 4 cm. The more distal small bowel is of normal caliber. The findings are suggestive of a partial small bowel obstruction. The findings remain similar to the preceding study. Peritoneum: There is no intraperitoneal free air or abdominal ascites. There is small fat-containing umbilical hernia Vasculature: The abdominal aorta is normal in course and caliber. IVC filter is again visualized. Several of the legs protrude beyond the lumen. 1 leg extends into the aortic wall. An anterior leg abuts the transverse duodenum. A posterior leg erosions into a adjacent vertebral body Adenopathy: None. Pelvic viscera: The prostate is mildly enlarged. Skeletal structures: No destructive osseous lesions are seen. IMPRESSION: 1. Persistent dilated left upper quadrant jejunal loops with normal caliber distal small bowel. The findings remain similar to the prior study and are again suggestive of a partial small bowel obstruction 2. No free air 3. Evidence of prior splenectomy 4. IVC filter with stress protruding beyond the lumen. 1 leg extends into the aortic wall, and posterior leg extends into adjacent vertebral body, and a third leg abuts transverse duodenum Electronically signed by: Nikos Pierre M.D. 11/04/2016 12:58 PM Dictated Date/Time: 11/04/2016 12:50 PM ABDOMEN 2VIEW W/PA CHEST RTN CLINICAL HISTORY: Abdominal pain and nausea COMPARISON STUDY: 09/07/2016 FINDINGS: The erect chest reveals no free air. There is no focal pulmonary consolidation. Erect and supine views the abdomen reveal no abnormally dilated loops of large or small bowel. There are no transition zone to indicate a bowel obstruction. An IVC filter is visualized. There are few scattered left upper quadrant air-fluid levels. IMPRESSION: No evidence of bowel obstruction. No evidence of free air. Electronically signed by: Nikos Pierre M.D. 11/04/2016 12:08 PM Dictated Date/Time: 11/04/2016 12:06 PM Laboratory Results 11/04/16 11:35 Red Blood Count 4.17, Mean Corpuscular Volume 110.6, Mean Corpuscular Hemoglobin 38.8, Mean Corpuscular Hemoglobin Concent 35.1, Mean Platelet Volume 10.1, Neutrophils (%) (Auto) 83.9, Lymphocytes (%) (Auto) 8.4, Monocytes (%) ( Auto) 7.3, Eosinophils (%) (Auto) 0.1, Basophils (%) (Auto) 0.2, Neutrophils # ( Auto) 7.21, Lymphocytes # (Auto) 0.72, Monocytes # (Auto) 0.63, Eosinophils # ( Auto) 0.01, Basophils # (Auto) 0.02 11/04/16 11:35 Test 11/04/16 11:35 11/04/16 13:50 White Blood Count 8.60 K/uL (4.8-10.8) Red Blood Count 4.17 M/uL (4.7-6.1) Hemoglobin 16.2 g/dL (14.0-18.0) Hematocrit 46.1 % (42-52) Mean Corpuscular Volume 110.6 fL (80-100) Mean Corpuscular Hemoglobin 38.8 pg (25-34) Mean Corpuscular Hemoglobin Concent 35.1 g/dl (32-36) Platelet Count 639 K/uL (130-400) Mean Platelet Volume 10.1 fL (7.4-10.4) Neutrophils (%) (Auto) 83.9 % Lymphocytes (%) (Auto) 8.4 % Monocytes (%) (Auto) 7.3 % Eosinophils (%) (Auto) 0.1 % Basophils (%) (Auto) 0.2 % Neutrophils # (Auto) 7.21 K/uL (1.4-6.5) Lymphocytes # (Auto) 0.72 K/uL (1.2-3.4) Monocytes # (Auto) 0.63 K/uL (0.11-0.59) Eosinophils # (Auto) 0.01 K/uL (0-0.5) Basophils # (Auto) 0.02 K/uL (0-0.2) RDW Standard Deviation 64.7 fL (36.4-46.3) RDW Coefficient of Variation 16.2 % (11.5-14.5) Immature Granulocyte % (Auto) 0.1 % Immature Granulocyte # (Auto) 0.01 K/uL (0.00-0.02) Macrocytosis PRESENT Prothrombin Time 16.4 SECONDS (9.0-12.0) Prothromb Time International Ratio 1.5 (0.9-1.1) Activated Partial Thromboplast Time 35.4 SECONDS (21.0-31.0) Partial Thromboplastin Ratio 1.4 Anion Gap 7.0 mmol/L (3-11) Est Creatinine Clear Calc Drug Dose 99.2 ml/min Estimated GFR () 108.3 Estimated GFR (Non- 93.5 BUN/Creatinine Ratio 25.4 (10-20) Calcium Level 9.3 mg/dl (8.5-10.1) Total Bilirubin 0.9 mg/dl (0.2-1) Aspartate Amino Transf (AST/SGOT) 18 U/L (15-37) Alanine Aminotransferase (ALT/SGPT) 36 U/L (12-78) Alkaline Phosphatase 87 U/L (45-117) Troponin I < 0.015 ng/ml (0-0.045) Total Protein 7.9 gm/dl (6.4-8.2) Albumin 4.4 gm/dl (3.4-5.0) Globulin 3.5 gm/dl (2.5-4.0) Albumin/Globulin Ratio 1.3 (0.9-2) Lipase 142 U/L (73-393) Laboratory results reviewed by me. Medications Administered Medications (Trade) Dose Ordered Sig/Kar Route Start Time Stop Time Status Last Admin Dose Admin Sodium Chloride 1,000 ml @ 200 mls/hr Q5H STAT IV 11/04/16 11:20 11/04/16 16:19 11/04/16 11:35 200 MLS/HR Sodium Chloride (Nss 1000ml) 1,000 ml @ 999 mls/hr Q1H1M STAT IV 11/04/16 11:20 11/04/16 12:20 DC 11/04/16 11:35 999 MLS/HR ECG Indication: abdominal pain Rate (beats per minute): 73 Rhythm: normal sinus Findings: no ectopy, other (flattened T waves in the inferior and lateral leads.) Comparison ECG Date: 02 September 2016 Change: T wave changes are slightly worse compared to previous EKG. ED Course 1117: The patient was evaluated in room C3. A complete history and physical exam was performed. 1120: NSS 1000 ml @ 999 mls/hr, NSS 1000 ml @ 200 mls/hr. 1214: Discussed the findings thus far with him. He elected for a CT scan. 1321: Updated the patient. He is willing to stay in the hospital. 1325: [facility] The patient will be evaluated. He requested a surgical consult. 1329: Spoke with Dr. Harmon, General Surgeon. He is aware of the case. Medical Decision Differential diagnosis includes small bowel obstruction, dehydration, renal failure, electrolyte imbalance, hernia, UTI, cardiac ischemia, viral illness. There is no leukocytosis or concerning anemia. No significant electrolyte abnormality, kidney failure, hepatitis or pancreatitis. EKG shows a sinus rhythm, no acute ischemia. Cardiac enzyme testing times one is not consistent with acute cardiac injury. Obstruction series shows no pneumonia, free air or obvious bowel obstruction. Abdominal and pelvis CT suggests a partial small bowel obstruction. No abscess. INR was elevated but subtherapeutic, the patient is on Coumadin. The patient received IV saline, I did have the nursing staff place an NG tube to low intermittent suction. The patient requires admission/observation. I did talk to him about his findings. I spoke with case management and the on-call hospitalist. The on- call surgeon was also consulted. Consults Time Called: 1321 [facility] Returned Call: [phone] The patient will be evaluated. He requested a surgical consult. Additional Consults: Time Called: 1326 Consulted Physician: Dr. Harmon, General Surgeon Returned Call: [phone] Additional Comments: He is aware of the case. Impression Primary Impression: Small bowel obstruction Additional Impression: Vomiting Scribe Attestation The scribe's documentation has been prepared under my direction and personally reviewed by me in its entirety. I confirm that the note above accurately reflects all work, treatment, procedures, and medical decision making performed by me. Departure Information Dispostion Being Evaluated By Hospitalist Referrals Osman Ray MD (PCP) Patient Instructions My [facility] Problem Qualifiers Additional Impression:
[2016-11-04 11:59] LABS: INR 1.5 (0.9-1.1); PARTIAL THROMBOPLASTIN RATIO 1.4; PROTHROMBIN TIME (PATIENT) 16.4 SECONDS (9.0-12.0)
[2016-11-04 12:06] LABS: BLOOD UREA NITROGEN 21 mg/dl (7-18); CREATININE 0.82 mg/dl (0.60-1.40); GLUCOSE 163 mg/dl (70-99)
[2016-11-04 12:07] LABS: ALT/SGPT 36 U/L (12-78); AST/SGOT 18 U/L (15-37); BUN/CREATININE RATIO 25.4 (10-20); CALCIUM 9.3 mg/dl (8.5-10.1); CARBON DIOXIDE 26 mmol/L (21-32); CHLORIDE 107 mmol/L (98-107); COMPLETE YES; POTASSIUM 4.1 mmol/L (3.5-5.1); SODIUM 140 mmol/L (136-145)
--- NOTE | 2016-11-04 12:10 | DIAGNOSTIC IMAGING REPORT ---
ABDOMEN 2VIEW W/PA CHEST RTN CLINICAL HISTORY: Abdominal pain and nausea COMPARISON STUDY: 09/07/2016 FINDINGS: The erect chest reveals no free air. There is no focal pulmonary consolidation. Erect and supine views the abdomen reveal no abnormally dilated loops of large or small bowel. There are no transition zone to indicate a bowel obstruction. An IVC filter is visualized. There are few scattered left upper quadrant air-fluid levels. IMPRESSION: No evidence of bowel obstruction. No evidence of free air. Electronically signed by: Nikos Pierre M.D. 11/04/2016 12:08 PM Dictated Date/Time: 11/04/2016 12:06 PM
[2016-11-04 12:12] LABS: ALB/GLOB RATIO 1.3 (0.9-2); ALKALINE PHOSPHATASE 87 U/L (45-117)
[2016-11-04] MEDS ORDERED: OPTIRAY 320 IV PRN (12:30)
--- NOTE | 2016-11-04 12:59 | DIAGNOSTIC IMAGING REPORT ---
CT ABD/PELVIS IV CONTRAST ONLY CLINICAL HISTORY: Generalized abdominal pain, nausea, vomiting. COMPARISON STUDY: 09/02/2016 TECHNIQUE: Following the IV administration of 93 mL of Optiray-320, CT scan of the abdomen and pelvis was performed from the lung bases to the proximal femurs. Images are reviewed in the axial, sagittal, and coronal planes. IV contrast was administered without complication. CT DOSE: 567.28 mGycm FINDINGS: Lower chest: There are dependent atelectatic changes. Liver: There is mild hepatic steatosis. There are no space-occupying hepatic masses. The portal vein appears patent. Gallbladder: Unremarkable. Spleen: Presumed surgically absent Pancreas: Unremarkable. Adrenal glands: Unremarkable. Kidneys: There is symmetric renal cortical enhancement. The kidneys are normal in size without hydronephrosis. Bowel: There is colonic diverticulosis. There are no acute peridiverticular inflammatory changes. By history the appendix is surgically absent. There are dilated fluid-filled left upper quadrant small bowel loops measuring up to 4 cm. The more distal small bowel is of normal caliber. The findings are suggestive of a partial small bowel obstruction. The findings remain similar to the preceding study. Peritoneum: There is no intraperitoneal free air or abdominal ascites. There is small fat-containing umbilical hernia Vasculature: The abdominal aorta is normal in course and caliber. IVC filter is again visualized. Several of the legs protrude beyond the lumen. 1 leg extends into the aortic wall. An anterior leg abuts the transverse duodenum. A posterior leg erosions into a adjacent vertebral body Adenopathy: None. Pelvic viscera: The prostate is mildly enlarged. Skeletal structures: No destructive osseous lesions are seen. IMPRESSION: 1. Persistent dilated left upper quadrant jejunal loops with normal caliber distal small bowel. The findings remain similar to the prior study and are again suggestive of a partial small bowel obstruction 2. No free air 3. Evidence of prior splenectomy 4. IVC filter with stress protruding beyond the lumen. 1 leg extends into the aortic wall, and posterior leg extends into adjacent vertebral body, and a third leg abuts transverse duodenum Electronically signed by: Nikos Pierre M.D. 11/04/2016 12:58 PM Dictated Date/Time: 11/04/2016 12:50 PM
[2016-11-04 13:42] VITALS: O2SAT 98; Ht 182.9 cm; Wt 77.0 kg
[2016-11-04] MEDS ORDERED: HYDROmorphone INJ 1 MG/ML SYR IV PRN (14:15)
[2016-11-04] MEDS ORDERED: ONDANSETRON INJ 2 MG/ML 2 ML VIAL IV PRN (14:15)
[2016-11-04] MEDS ORDERED: LORAZEPAM 0.5 MG TAB PO PRN (14:15)
--- NOTE | 2016-11-04 14:32 | History and Physical ---
History & Physical Date & Time of Service: November 04, 2016 at 14:18 Chief Complaint: Nausea, Abdominal Pain Primary Care Physician: Osman Ray MD History of Present Illness Source: patient The patient is a 65 year old male who presents to the Emergency Room with complaints of persistent abdominal pain that started 18 hours [employer]. The pain is rated 5-6/10 in severity. His abdomen also feels distended. The patient also complains of nausea and vomiting since the onset of his pain. He denies any fevers, shortness of breath, or diarrhea. He only had one small bowel movement this morning. The patient has had two bowel obstructions before. His symptoms today are more mild than the previous obstructions. He was in the hospital from September 02 to the for bowel obstruction. He is on Coumadin. The patient is s /p splenectomy. He has a history of essential thrombocytosis. now pt feels better, pt has no nausea no vomiting for 3 hours, pt denies fever, pt had PE and IVC filter placed 7 years ago, pt has a schedule to remove IVC filter on 11/15/2016 in [facility]. Past Medical/Surgical History Medical Problems: (1) Essential thrombocytosis Status: Resolved (2) Hx of basal cell carcinoma Status: Chronic (3) KYLAH on CPAP Status: Chronic (4) Pulmonary emboli Status: Resolved (5) Retroperitoneal hematoma Status: Resolved (6) S/p vein filter placement Status: Chronic Surgical Problems: (1) History of dental surgery Status: Chronic (2) S/P appendectomy Status: Resolved (3) S/P tonsillectomy and adenoidectomy Status: Chronic (4) S/P UPPP (uvulopalatopharyngoplasty) Status: Chronic Family History No pertinent family history Social History Smoking Status: Former Smoker Alcohol Use: occasionally Drug Use: none Marital Status: single Occupational Status: employed Allergies Coded Allergies: No Known Allergies (Unverified , NKA, 11/04/16) Home Medications Scheduled Citalopram Hydrobromide (Celexa), 10 MG PO DAILY Fish Oil ([place]-3), 3 CAP PO DAILY Hydroxyurea (Hydrea Cap), 1,000 MG PO EVEN DAYS Hydroxyurea (Hydrea Cap), 1,500 MG PO ODD DAYS Warfarin Sod (Jantoven), 7.5 MG PO DAILY Warfarin Sodium (Coumadin), 5 MG PO WK Scheduled PRN Lorazepam (Ativan), 0.5 MG PO Q6H PRN for Anxiety Pseudoephedrine-Guaifenesin (Mucinex D), 1 TAB PO BID PRN for CONGESTION Sildenafil Citrate (Viagra), 100 MG PO UD PRN for INTERCOURSE Review of Systems Constitutional: No chills, No fatigue, No fever, No problem reported, No sweats , No weakness, No weight loss Eyes: No diplopia, No discharge, No eye pain, No problem reported, No redness, No worsening of vision ENT: No dental problems, No hearing loss, No nasal symptoms, No problem reported, No sore throat, No tinnitus, No trouble swallowing, No unusual epistaxis Respiratory: + problem reported (PE history, pt is on coumadin), No cough, No dyspnea at rest, No dyspnea on exertion, No hemoptysis, No shortness of breath, No sputum, No wheezing Cardiovascular: No PND, No chest pain, No claudication, No edema, No orthopnea , No palpitations, No problem reported Abdomen: + nausea, + pain, + problem reported (pt had 2 times SBO after spleenectomy), + vomiting Musculoskeletal: No calf pain, No joint pain, No muscle pain, No problem reported, No swelling Genitourinary - Male: No dysuria, No hematuria, No impotence, No lesions, No penile discharge, No problem reported, No urinary frequency, No urinary hesitancy, No urinary incontinence, No urinary retention, No urinary urgency Neurologic: No balance problems, No memory loss, No numbness/tingling, No paralysis, No problem reported, No vertigo, No weakness Psychiatric: No anhedonism, No anxiety, No depression symptoms, No insomnia, No problem reported, No substance abuse Endocrine: No excessive thirst, No excessive urination, No fatigue, No problem reported Hematologic / Lymphatic: + clotting problems (essential thrombocytosis.) Physical Exam Vital Signs Date Time Temp Pulse Resp B/P Pulse Ox O2 Delivery O2 Flow Rate FiO2 11/04/16 13:42 98 Room Air 11/04/16 13:05 78 20 154/97 98 Room Air 11/04/16 12:28 84 11/04/16 11:08 36.4 89 18 153/96 96 Room Air General Appearance: WD/WN, no apparent distress Head: normocephalic Eyes: normal inspection ENT: normal ENT inspection, hearing grossly normal Neck: supple, no adenopathy, no JVD Respiratory/Chest: chest non-tender, lungs clear, normal breath sounds Cardiovascular: regular rate, rhythm, no edema, no gallop, no JVD, no murmur Abdomen/GI: normal bowel sounds, non tender, soft, no organomegaly (middle line scar) Extremities/Musculoskelatal: normal inspection, no calf tenderness, normal capillary refill Neurologic/Psych: no motor/sensory deficits, alert, normal mood/affect Diagnostics Laboratory Results Results Past 24 Hours Test 11/04/16 11:35 Range/Units White Blood Count 8.60 4.8-10.8 K/uL Red Blood Count 4.17 4.7-6.1 M/uL Hemoglobin 16.2 14.0-18.0 g/dL Hematocrit 46.1 42-52 % Mean Corpuscular Volume 110.6 80-100 fL Mean Corpuscular Hemoglobin 38.8 25-34 pg Mean Corpuscular Hemoglobin Concent 35.1 32-36 g/dl Platelet Count 639 130-400 K/uL Mean Platelet Volume 10.1 7.4-10.4 fL Neutrophils (%) (Auto) 83.9 % Lymphocytes (%) (Auto) 8.4 % Monocytes (%) (Auto) 7.3 % Eosinophils (%) (Auto) 0.1 % Basophils (%) (Auto) 0.2 % Neutrophils # (Auto) 7.21 1.4-6.5 K/uL Lymphocytes # (Auto) 0.72 1.2-3.4 K/uL Monocytes # (Auto) 0.63 0.11-0.59 K/uL Eosinophils # (Auto) 0.01 0-0.5 K/uL Basophils # (Auto) 0.02 0-0.2 K/uL RDW Standard Deviation 64.7 36.4-46.3 fL RDW Coefficient of Variation 16.2 11.5-14.5 % Immature Granulocyte % (Auto) 0.1 % Immature Granulocyte # (Auto) 0.01 0.00-0.02 K/uL Macrocytosis PRESENT Prothrombin Time 16.4 9.0-12.0 SECONDS Prothromb Time International Ratio 1.5 0.9-1.1 Activated Partial Thromboplast Time 35.4 21.0-31.0 SECONDS Partial Thromboplastin Ratio 1.4 Sodium Level 140 136-145 mmol/L Potassium Level 4.1 3.5-5.1 mmol/L Chloride Level 107 98-107 mmol/L Carbon Dioxide Level 26 21-32 mmol/L Anion Gap 7.0 3-11 mmol/L Blood Urea Nitrogen 21 7-18 mg/dl Creatinine 0.82 0.60-1.40 mg/dl Est Creatinine Clear Calc Drug Dose 99.2 ml/min Estimated GFR () 108.3 Estimated GFR (Non- 93.5 BUN/Creatinine Ratio 25.4 10-20 Random Glucose 163 70-99 mg/dl Calcium Level 9.3 8.5-10.1 mg/dl Total Bilirubin 0.9 0.2-1 mg/dl Aspartate Amino Transf (AST/SGOT) 18 15-37 U/L Alanine Aminotransferase (ALT/SGPT) 36 12-78 U/L Alkaline Phosphatase 87 45-117 U/L Troponin I < 0.015 0-0.045 ng/ml Total Protein 7.9 6.4-8.2 gm/dl Albumin 4.4 3.4-5.0 gm/dl Globulin 3.5 2.5-4.0 gm/dl Albumin/Globulin Ratio 1.3 0.9-2 Lipase 142 73-393 U/L Diagnostic Radiology CT ABD/PELVIS IV CONTRAST ONLY CLINICAL HISTORY: Generalized abdominal pain, nausea, vomiting. COMPARISON STUDY: 09/02/2016 TECHNIQUE: Following the IV administration of 93 mL of Optiray-320, CT scan of the abdomen and pelvis was performed from the lung bases to the proximal femurs. Images are reviewed in the axial, sagittal, and coronal planes. IV contrast was administered without complication. CT DOSE: 567.28 mGycm FINDINGS: Lower chest: There are dependent atelectatic changes. Liver: There is mild hepatic steatosis. There are no space-occupying hepatic masses. The portal vein appears patent. Gallbladder: Unremarkable. Spleen: Presumed surgically absent Pancreas: Unremarkable. Adrenal glands: Unremarkable. Kidneys: There is symmetric renal cortical enhancement. The kidneys are normal in size without hydronephrosis. Bowel: There is colonic diverticulosis. There are no acute peridiverticular inflammatory changes. By history the appendix is surgically absent. There are dilated fluid-filled left upper quadrant small bowel loops measuring up to 4 cm. The more distal small bowel is of normal caliber. The findings are suggestive of a partial small bowel obstruction. The findings remain similar to the preceding study. Peritoneum: There is no intraperitoneal free air or abdominal ascites. There is small fat-containing umbilical hernia Vasculature: The abdominal aorta is normal in course and caliber. IVC filter is again visualized. Several of the legs protrude beyond the lumen. 1 leg extends into the aortic wall. An anterior leg abuts the transverse duodenum. A posterior leg erosions into a adjacent vertebral body Adenopathy: None. Pelvic viscera: The prostate is mildly enlarged. Skeletal structures: No destructive osseous lesions are seen. IMPRESSION: 1. Persistent dilated left upper quadrant jejunal loops with normal caliber distal small bowel. The findings remain similar to the prior study and are again suggestive of a partial small bowel obstruction 2. No free air 3. Evidence of prior splenectomy 4. IVC filter with stress protruding beyond the lumen. 1 leg extends into the aortic wall, and posterior leg extends into adjacent vertebral body, and a third leg abuts transverse duodenum Impression Assessment and Plan IMP: partial SBO hospitalist will admit pt to hospital, conservative treatment, IV fluid, NGT if need repeat labs in AM, hold coumadin for 2-3 days now may consult vascular surgeon for IVC filter which could cause pt abdominal pain , will F/U D/W ER attending Thanks, Advanced Directives Existing Living Will: No Existing Power of Fitness And Wellness Coordinator: No VTE Prophylaxis VTE Risk Assessment Done? Y/N: Yes Risk Level: Moderate
--- NOTE | 2016-11-04 14:46 | HISTORY & PHYSICAL EXAMINATION ---
DATE OF ADMISSION: 11/04/2016 PRIMARY CARE PROVIDER: Dr. Ray. CHIEF COMPLAINT: Nausea, vomiting, abdominal pain with distention since last night. HISTORY OF PRESENT COMPLAINT: He is a 65-year-old male with significant past medical history including essential thrombocythemia status post splenectomy, history of recurrent bowel obstruction, depression, history of pulmonary embolism, obstructive sleep apnea on CPAP, apparently has been complaining of abdominal pain with nausea, vomiting, and distention since last night. He has had about 8 times vomiting since last night with some abdominal bloating. His pain is not so severe, no fever, chills or rigors. This is his third time of having this kind of symptoms, ended with intestinal obstruction. In the Emergency Room, he was afebrile and hemodynamically stable with a blood pressure towards the upper side and relevant tests including CAT scan of the abdomen and pelvis did show partial small bowel obstruction. From that point, he was advised admission. An NG tube was placed for bowel rest and he was started with intravenous fluids. PAST MEDICAL HISTORY: Significant for depression, essential thrombocythemia status post splenectomy, history of recurrent pulmonary embolism, allergic rhinitis, obstructive sleep apnea on CPAP. PAST SURGICAL HISTORY: Significant for appendectomy, dental surgery, splenectomy June 2015 at [facility], sinus surgery and vein filter that is IVC filter placed in 2008. FAMILY HISTORY: No significant disease. SOCIAL HISTORY: He is single. He has 1 child. He quit smoking in 1974. He uses alcohol occasionally. He has been reasonably ambulant. ALLERGIES: No allergy. MEDICATIONS: He has been on Celexa 10 mg daily, fish oil 3 capsules daily, Hydrea 1000 mg daily as directed, Ativan 0.5 mg q. 6 hourly as needed, warfarin 7.5 mg daily, Mucinex as directed and Viagra as directed. REVIEW OF SYSTEMS: CENTRAL NERVOUS SYSTEM: No headache, no palpitation, no numbness, no tingling, no weakness. RESPIRATORY: No shortness of breath, cough or phlegm. CARDIOVASCULAR: No chest pain, palpitation. GASTROINTESTINAL: Does have abdominal bloating with nausea and vomiting. No diarrhea. GENITOURINARY: No problem with urine. MUSCULOSKELETAL: No acute arthritis. No rash and/or enlargement of lymph nodes. CONSTITUTIONAL: No fever, chills or rigors. PHYSICAL EXAMINATION: GENERAL: On examination in the Emergency Room, he was not having any acute distress. VITAL SIGNS: Temperature 36.4, pulse was 78, blood pressure 154/97, saturation 98% on room air. HEAD, EYES, EARS, NOSE, AND THROAT: Unremarkable. NECK: Supple. No JVD, no bruit. CHEST: Clear to auscultation bilaterally. HEART: S1, S2 regular, no murmur. ABDOMEN: Soft, mildly tender in the epigastrium, not distended. Bowel sounds present. EXTREMITIES: Negative for any edema. MUSCULOSKELETAL SYSTEM: Did not show any acute arthritis involving any joint. CENTRAL NERVOUS: He is alert, awake, oriented x3. No focal sensory and/or motor deficit appreciated. LABORATORY DATA: Noted today white count was 8.60, H\T\H 16.2/46.1, platelet was more than 600, Sodium 140, potassium was 4.1, chloride 107, carbon dioxide 26, BUN 21, creatinine 0.80, random glucose 163 and LFTs normal. Troponin less than 0.04. Lipase was 142. INR was 1.5, PT ratio 1.4. X-ray of the chest and abdomen, no evidence of bowel obstruction, no free air. CT scan of the abdomen and pelvis, persistent dilated left upper quadrant jejunal loops with normal caliber distal small bowel. The findings remain similar to the prior study and again suggestive of partial small-bowel obstruction. No free air. IVC filter is misplaced . EKG was in sinus rhythm, rate of 73, normal axis and nonspecific ST-T wave changes. ST-T wave changes noted in the lateral leads. IMPRESSION AND PLAN: 1. Partial small-bowel obstruction. This is the third time he has had this problem. Prior obstruction treated conservatively. He will have NG tube suction, IV fluid and medications as needed. Surgical consultation will be taken while in the hospital and his caused mostly secondary to adhesions status post splenectomy and abdominoplasty. 2.IVC Filter displaced eroding the Aorta and vertebral body .May be the cause of abdominal pain. Will get a Vascular surgery consultation.Talked to Dr Haider ,will see her in AM. 3. Essential thrombocythemia status post splenectomy. His thrombocyte count more than 600. He has been getting Hydrea. Will continue with that. 4. History of pulmonary embolism. He has been on warfarin. His INR is subtherapeutic. We will hold the Coumadin and put him on subQ heparin with the view that he might need surgery. 5. Gastrointestinal prophylaxis with Maalox, Mylanta as needed. 6. Deep venous thrombosis prophylaxis, has been on heparin. 7. CODE STATUS. HE WILL BE A FULL CODE. 8. In my clinical assessment, the beneficiary meets criteria as per CMS for 2 midnight stay in the hospital. MTDD
[2016-11-04 14:52] LABS: URINE APPEARANCE CLEAR (CLEAR); URINE BILIRUBIN NEG (NEG); URINE COLOR YELLOW; URINE NITRITE NEG (NEG); URINE SPECIFIC GRAVITY > 1.045 (1.000-1.030); UROBILINOGEN NEG (NEG); ZZUR CULT IF INDIC CLEAN CATCH NO
[2016-11-04 14:56] LABS: MANUAL MICROSCOPIC REQUIRED? NO; REVIEW REQ? NO
[2016-11-04 15:05] VITALS: O2SAT 98
[2016-11-04 15:45] VITALS: BP 149/94; PULSE 82; TEMP 36.6; O2SAT 95
[2016-11-04] MEDS: D5W AND 1/2NSS + 20MEQ KCL 1,000 ML IV SCH (16:50)
[2016-11-04 18:02] VITALS: BP 149/94; PULSE 82; TEMP 36.6; O2SAT 95
[2016-11-04] MEDS: ACETAMINOPHEN 325 MG TAB PO PRN (18:29)
[2016-11-04] MEDS: HEPARIN SOD 5000 UNIT/0.5 ML CARP SQ SCH (20:56)
[2016-11-04 22:58] VITALS: BP 144/83; PULSE 79; TEMP 36.4; O2SAT 92
[2016-11-05] MEDS: D5W AND 1/2NSS + 20MEQ KCL 1,000 ML IV SCH ×3 (02:14→22:05)
[2016-11-05 06:53] VITALS: BP 149/88; PULSE 68; TEMP 36.5; O2SAT 96
--- NOTE | 2016-11-05 07:46 | Surgery Progress Note ---
Surgery Progress Note Date of Service November 05, 2016. Subjective + feeling well pt is doing beter, pt has no abdominal pain, no nausea, no vomiting, but not pass gas and stool yet, Objective Vital Signs: Date Time Temp Pulse Resp B/P Pulse Ox O2 Delivery O2 Flow Rate FiO2 11/04/16 23:25 Room Air 11/04/16 22:58 36.4 79 16 144/83 92 Room Air 11/04/16 15:45 Room Air 11/04/16 15:45 36.6 82 16 149/94 95 Room Air 11/04/16 15:05 79 20 162/103 98 Room Air 11/04/16 13:42 98 Room Air 11/04/16 13:05 78 20 154/97 98 Room Air 11/04/16 12:28 84 11/04/16 11:08 36.4 89 18 153/96 96 Room Air General Appearance: WD/WN Head: normocephalic Neck: supple Respiratory/Chest: chest non-tender, lungs clear Cardiovascular: regular rate, rhythm, no edema Abdomen: normal bowel sounds, non tender, non distended, soft Extremities: normal range of motion, non-tender, normal inspection Laboratory Results: Results Past 24 Hours Test 11/04/16 11:35 11/04/16 14:35 11/05/16 04:44 Range/Units White Blood Count 8.60 4.8-10.8 K/uL Red Blood Count 4.17 4.7-6.1 M/uL Hemoglobin 16.2 14.0-18.0 g/dL Hematocrit 46.1 42-52 % Mean Corpuscular Volume 110.6 80-100 fL Mean Corpuscular Hemoglobin 38.8 25-34 pg Mean Corpuscular Hemoglobin Concent 35.1 32-36 g/dl Platelet Count 639 130-400 K/uL Mean Platelet Volume 10.1 7.4-10.4 fL Neutrophils (%) (Auto) 83.9 % Lymphocytes (%) (Auto) 8.4 % Monocytes (%) (Auto) 7.3 % Eosinophils (%) (Auto) 0.1 % Basophils (%) (Auto) 0.2 % Neutrophils # (Auto) 7.21 1.4-6.5 K/uL Lymphocytes # (Auto) 0.72 1.2-3.4 K/uL Monocytes # (Auto) 0.63 0.11-0.59 K/uL Eosinophils # (Auto) 0.01 0-0.5 K/uL Basophils # (Auto) 0.02 0-0.2 K/uL RDW Standard Deviation 64.7 36.4-46.3 fL RDW Coefficient of Variation 16.2 11.5-14.5 % Immature Granulocyte % (Auto) 0.1 % Immature Granulocyte # (Auto) 0.01 0.00-0.02 K/uL Macrocytosis PRESENT Prothrombin Time 16.4 9.0-12.0 SECONDS Prothromb Time International Ratio 1.5 0.9-1.1 Activated Partial Thromboplast Time 35.4 21.0-31.0 SECONDS Partial Thromboplastin Ratio 1.4 Sodium Level 140 136-145 mmol/L Potassium Level 4.1 3.5-5.1 mmol/L Chloride Level 107 98-107 mmol/L Carbon Dioxide Level 26 21-32 mmol/L Anion Gap 7.0 3-11 mmol/L Blood Urea Nitrogen 21 7-18 mg/dl Creatinine 0.82 0.60-1.40 mg/dl Est Creatinine Clear Calc Drug Dose 99.2 ml/min Estimated GFR () 108.3 Estimated GFR (Non- 93.5 BUN/Creatinine Ratio 25.4 10-20 Random Glucose 163 70-99 mg/dl Calcium Level 9.3 8.5-10.1 mg/dl Total Bilirubin 0.9 0.2-1 mg/dl Aspartate Amino Transf (AST/SGOT) 18 15-37 U/L Alanine Aminotransferase (ALT/SGPT) 36 12-78 U/L Alkaline Phosphatase 87 45-117 U/L Troponin I < 0.015 0-0.045 ng/ml Total Protein 7.9 6.4-8.2 gm/dl Albumin 4.4 3.4-5.0 gm/dl Globulin 3.5 2.5-4.0 gm/dl Albumin/Globulin Ratio 1.3 0.9-2 Lipase 142 73-393 U/L Hepatitis C Antibody Screen NEG NEG Urine Color YELLOW Urine Appearance CLEAR CLEAR Urine pH 7.0 4.5-7.5 Urine Specific [place] > 1.045 1.000-1.030 Urine Protein NEG NEG Urine Glucose (UA) NEG NEG Urine Ketones NEG NEG Urine Occult Blood NEG NEG Urine Nitrite NEG NEG Urine Bilirubin NEG NEG Urine Urobilinogen NEG NEG Urine Leukocyte Esterase NEG NEG Assessment & Plan IMP : partial SBO continue conservative treatment, Dulcolax 10mg [place] I update information about treatment plan, repeat labs in am, will F/U
[2016-11-05] MEDS ORDERED: BISACODYL 10 MG SUPP PR ONE (08:30)
[2016-11-05 08:51] LABS: HEMATOCRIT 45.3 % (42-52); MEAN CELL VOLUME 111.3 fL (80-100); MEAN CORPUSCULAR HEMOGLOBIN 38.6 pg (25-34); MEAN CORPUSCULAR HGB CONC 34.7 g/dl (32-36); MEAN PLATELET VOLUME 10.1 fL (7.4-10.4); PLATELET COUNT 585 K/uL (130-400); RED BLOOD COUNT 4.07 M/uL (4.7-6.1); WHITE BLOOD COUNT 6.94 K/uL (4.8-10.8)
[2016-11-05] MEDS ORDERED: HYDROXYUREA 500 MG CAP PO SCH (09:00)
[2016-11-05] MEDS: CITALOPRAM 20 MG TAB PO SCH (09:00)
[2016-11-05 09:04] LABS: INR 1.5 (0.9-1.1); PROTHROMBIN TIME (PATIENT) 15.8 SECONDS (9.0-12.0)
[2016-11-05] MEDS: HEPARIN SOD 5000 UNIT/0.5 ML CARP SQ SCH ×2 (09:05→20:31)
[2016-11-05 09:22] LABS: BUN/CREATININE RATIO 14.8 (10-20); CREATININE 0.77 mg/dl (0.60-1.40); MAGNESIUM 2.4 mg/dl (1.8-2.4); PHOSPHORUS 2.3 mg/dl (2.5-4.9); POTASSIUM 4.2 mmol/L (3.5-5.1)
[2016-11-05] MEDS: ACETAMINOPHEN 325 MG TAB PO PRN ×2 (12:52→22:05)
--- NOTE | 2016-11-05 12:54 | Surgery Consultation ---
Consultation Date of Service November 05, 2016. Chief Complaint presence of IVC filter since 2008, erosion of struts History of Present Illness The patient is a 65 year old male with hx of essential thrombocytosis and subsequent splenectomy, PE and hepatic v thrombus s/p IVC filter insertion at [facility] in 2008, seen in consultation today for IVC filter struts noted to be external to IVC on CT scan. Pt states he had been advised to have his IVC filter removed and saw IR at [facility] who recommended that he undergo removal at [place]. He is scheduled on 11/15/16. Pt states when it was originally placed, he was told it would be permanent. Has been on anticoagulation for years. Pt currently admitted with SBO, 3rd episode since june 2016. States pain is minimal, no longer N/V. Denies VELA, fever, chills, chest pain, SOB, claudication, rest pain, other episodes of DVT/PE, other complaints. CT scan demonstrates tilted IVC filter with strut adjacent to duodenum as well as aorta. Vitals Vital Signs Past 12 Hours Date Time Temp Pulse Resp B/P Pulse Ox O2 Delivery O2 Flow Rate FiO2 11/05/16 08:00 Room Air 11/05/16 06:53 36.5 68 16 149/88 96 Room Air Allergies Coded Allergies: No Known Allergies (Unverified , NKA, 11/04/16) Home Medications Scheduled Citalopram Hydrobromide (Celexa), 10 MG PO DAILY Fish Oil ([place]-3), 3 CAP PO DAILY Hydroxyurea (Hydrea Cap), 1,000 MG PO EVEN DAYS Hydroxyurea (Hydrea Cap), 1,500 MG PO ODD DAYS Warfarin Sod (Jantoven), 7.5 MG PO DAILY Warfarin Sodium (Coumadin), 5 MG PO WK Scheduled PRN Lorazepam (Ativan), 0.5 MG PO Q6H PRN for Anxiety Pseudoephedrine-Guaifenesin (Mucinex D), 1 TAB PO BID PRN for CONGESTION Sildenafil Citrate (Viagra), 100 MG PO UD PRN for INTERCOURSE Problem List Medical Problems: (1) Essential thrombocytosis (2) Hx of basal cell carcinoma (3) KYLAH on CPAP (4) Pulmonary emboli (5) Retroperitoneal hematoma (6) S/p vein filter placement (7) SBO (small bowel obstruction) Surgical Problems: (1) History of dental surgery (2) S/P appendectomy (3) S/P tonsillectomy and adenoidectomy (4) S/P UPPP (uvulopalatopharyngoplasty) Surgical / Medical History Hx Cardiac Surgery: No Hx Abdominal Surgery: Yes (splenectomy) Hx Cancer Surgery: No Hx Thoracic Surgery: No Hx Orthopedic: No Hx Urinary Tract Surgery: Yes (vasectomy) HX Other Surgery: No Past Medical/Surgical History: Blood Dyscrasias Family History No pertinent family history Neg for DVT/PE Social History Smoking Status: Former Smoker Hx Tobacco Use In Past Year?: No Hx Alcohol Use - Type & Amnt: Yes (beer wine 4-5 daily) Hx Substance Use -Type & Amnt: No Review of Systems Constitutional: No chills, No fever, No malaise Skin: No change in color Eyes: No visual changes ENMT: No sore throat Respiratory: No JACOBSON, No cough, No hemoptysis, No short of breath Cardiovascular: No chest pain, No edema, No intermittent claudication, No palpitations, No syncope Gastrointestinal: + abdominal pain, No nausea, No vomiting Neurologic: No dizziness, No headache, No lethargy, No numbness, No tingling Physical Exam Constitutional: General Apperance: heathly-appearing, well-nourished, well-developed Level of Distress: NAD Ambulation: ambulating normally Psychiatric: Mental Status: active & alert, normal mood, normal affect Orientation: oriented except where noted, to time, to place, to person Memory: recent memory normal, remote memory normal Head: normocephalic, atraumatic Eyes: EOM: EOMI ENMT: normal ENT inspection, hearing grossly normal Neck: supple, trachea midline Lungs: Respiratory effort: no dyspnea Auscultation: breath sounds normal, no wheezing, no rales/crackles, no rhonchi, decreased breath sounds Cardiovascular: Apical Impulse: not displaced Heart Auscultation: RRR, no murmurs, no rubs, no gallops Peripheral Pulses: Pulses: full and equal, in all extremities except if noted Bruits: none appreciated Carotid Pulse: normal on the left, normal on the right Brachial Pulses: normal on the left, normal on the right Radial Pulse: normal on the left, normal on the right Femoral Pulse: normal on the left, normal on the right Posterior Tibialis Pulse: normal on the left, normal on the right Dorsalis Pedis Pulse: normal on the left, normal on the right Abdomen: Bowel Sounds: normal Inspection & Palpation: soft, non-distended, no tenderness, guarding & rebound Musculoskeletal: normal strength (5/5 throughout), normal tone Extremities: Upper Right: no cyanosis, no edema, no varicosities Upper Left: no cyanosis, no edema, no varicosities Lower Right: no cyanosis, no edema, no varicosities Lower Left: no cyanosis, no edema, no varicosities Neurologic: Cranial Nerves: grossly intact Sensation: grossly intact Assessment and Plan ASSESSMENT and PLAN: Presence of IVC filter, protrusion of struts Hx essential thrombocytosis Hx PE Pt also seen by Dr Haider. IVC filter strut protrusion does not appear to be contributing to SBO. Pt advised that long term care administrator presence of IVC filter does increase risk of complications during removal, but as long as his removing surgeon is aware of protrusion of struts and prepared for possible complications , removal can still be attempted. No urgent need for vascular surgical intervention at this time. Advised pt to take CD of his CT scan and have loaded to [employer] system for IR review prior to removal of filter. Please call if needed.
--- NOTE | 2016-11-05 15:06 | Progress Note ---
Internal Med Progress Note Date of Service: November 05, 2016. Provider Documentation: SUBJECTIVE: Seen and examined at bedside. States nausea, vomiting, abd pain resolved. Has 2 BM today. Denies chest pain, SOB, fever, chills. Offers no complaints. OBJECTIVE: Vital Signs-as noted below Physical Exam: General Appearance:Moderately built and nourished, no apparent distress Head: normocephalic, Atraumatic Eyes: normal inspection, EOMI, PERRL Neck: supple, Trachea midline Respiratory/Chest: Normal breath sounds, CTA Cardiovascular: S1, S2, No murmur Abdomen/GI:Soft, Non tender, Bowel sounds present Extremities/Musculoskelatal:normal inspection, no edema Neurologic/Psych:AAOX3, grossly no focal neurological deficits Skin: normal color, warm Lab data as noted below. ASSESSMENT & PLAN: PARTIAL SBO: Likely secondary to adhesions H/O Appendectomy, Splenectomy in the past Similar Partial SBO in the past Resolved with conservative management: Bowel, rest, IV fluids, NG tube Tolerating clear liquid diet Symptoms resolved Continue IV fluids for now IVC Filter:protrusion of struts Appreciate vascular surgery input No emergent need for surgery Planned for elective IVC filter removal on 11/15/16 in [place] Essential Thrombocythemia: S/P splenectomy Continue Hydrea Monitor platelets Follows with as outpatient H/O PE, Hepatic V thrombosis: INR is subtherapeutic Coumadin on hold for possible need for surgery Continue SQ Heparin DVT px: Heparin SQ CODE STATUS: Full code Vital Signs: Date Time Temp Pulse Resp B/P Pulse Ox O2 Delivery O2 Flow Rate FiO2 11/05/16 15:21 36.9 66 18 128/83 94 Room Air 11/05/16 08:00 Room Air 11/05/16 06:53 36.5 68 16 149/88 96 Room Air 11/04/16 23:25 Room Air 11/04/16 22:58 36.4 79 16 144/83 92 Room Air 11/04/16 15:45 Room Air 11/04/16 15:45 36.6 82 16 149/94 95 Room Air Lab Results: Results Past 24 Hours Test 11/05/16 08:18 Range/Units White Blood Count 6.94 4.8-10.8 K/uL Red Blood Count 4.07 4.7-6.1 M/uL Hemoglobin 15.7 14.0-18.0 g/dL Hematocrit 45.3 42-52 % Mean Corpuscular Volume 111.3 80-100 fL Mean Corpuscular Hemoglobin 38.6 25-34 pg Mean Corpuscular Hemoglobin Concent 34.7 32-36 g/dl RDW Standard Deviation 65.4 36.4-46.3 fL RDW Coefficient of Variation 16.2 11.5-14.5 % Platelet Count 585 130-400 K/uL Mean Platelet Volume 10.1 7.4-10.4 fL Prothrombin Time 15.8 9.0-12.0 SECONDS Prothromb Time International Ratio 1.5 0.9-1.1 Sodium Level 140 136-145 mmol/L Potassium Level 4.2 3.5-5.1 mmol/L Chloride Level 107 98-107 mmol/L Carbon Dioxide Level 24 21-32 mmol/L Anion Gap 9.0 3-11 mmol/L Blood Urea Nitrogen 11 7-18 mg/dl Creatinine 0.77 0.60-1.40 mg/dl Est Creatinine Clear Calc Drug Dose 105.6 ml/min Estimated GFR () 111.2 Estimated GFR (Non- 95.9 BUN/Creatinine Ratio 14.8 10-20 Random Glucose 133 70-99 mg/dl Calcium Level 9.0 8.5-10.1 mg/dl Phosphorus Level 2.3 2.5-4.9 mg/dl Magnesium Level 2.4 1.8-2.4 mg/dl
[2016-11-05 15:21] VITALS: BP 128/83; PULSE 66; TEMP 36.9; O2SAT 94
[2016-11-05 23:05] VITALS: BP 154/90; PULSE 66; TEMP 36.8; O2SAT 94
[2016-11-06 06:44] LABS: HEMATOCRIT 43.1 % (42-52); MEAN CELL VOLUME 111.7 fL (80-100); MEAN CORPUSCULAR HEMOGLOBIN 38.3 pg (25-34); MEAN CORPUSCULAR HGB CONC 34.3 g/dl (32-36); PLATELET COUNT 548 K/uL (130-400); RED BLOOD COUNT 3.86 M/uL (4.7-6.1); WHITE BLOOD COUNT 6.76 K/uL (4.8-10.8)
[2016-11-06 06:46] LABS: INR 1.3 (0.9-1.1); PROTHROMBIN TIME (PATIENT) 13.9 SECONDS (9.0-12.0)
[2016-11-06 06:57] VITALS: BP 153/96; PULSE 64; TEMP 36.3; O2SAT 93
[2016-11-06 07:33] LABS: BUN/CREATININE RATIO 7.7 (10-20); CALCIUM 8.8 mg/dl (8.5-10.1); CREATININE 0.67 mg/dl (0.60-1.40); POTASSIUM 3.8 mmol/L (3.5-5.1)
[2016-11-06] MEDS: D5W AND 1/2NSS + 20MEQ KCL 1,000 ML IV SCH (07:52)
[2016-11-06] MEDS ORDERED: HYDROXYUREA 500 MG CAP PO SCH (09:00)
[2016-11-06] MEDS: HEPARIN SOD 5000 UNIT/0.5 ML CARP SQ SCH (09:05)
[2016-11-06] MEDS: CITALOPRAM 20 MG TAB PO SCH (09:08)
--- NOTE | 2016-11-06 11:04 | Surgery Progress Note ---
Surgery Progress Note Date of Service November 06, 2016. Subjective + feeling well +BM. no complaints. "hungry" hortencia light diet no pain Objective Vital Signs: Date Time Temp Pulse Resp B/P Pulse Ox O2 Delivery O2 Flow Rate FiO2 11/06/16 07:50 Room Air 11/06/16 06:57 36.3 64 16 153/96 93 Room Air 11/05/16 23:20 Room Air 11/05/16 23:05 36.8 66 18 154/90 94 Room Air 11/05/16 15:45 Room Air 11/05/16 15:21 36.9 66 18 128/83 94 Room Air General Appearance: no apparent distress Head: normocephalic Neck: no JVD Respiratory/Chest: no respiratory distress, no accessory muscle use Abdomen: non tender, non distended, soft Extremities: non-tender, no pedal edema Laboratory Results: Results Past 24 Hours Test 11/06/16 06:16 Range/Units White Blood Count 6.76 4.8-10.8 K/uL Red Blood Count 3.86 4.7-6.1 M/uL Hemoglobin 14.8 14.0-18.0 g/dL Hematocrit 43.1 42-52 % Mean Corpuscular Volume 111.7 80-100 fL Mean Corpuscular Hemoglobin 38.3 25-34 pg Mean Corpuscular Hemoglobin Concent 34.3 32-36 g/dl RDW Standard Deviation 64.7 36.4-46.3 fL RDW Coefficient of Variation 16.1 11.5-14.5 % Platelet Count 548 130-400 K/uL Mean Platelet Volume 10.0 7.4-10.4 fL Prothrombin Time 13.9 9.0-12.0 SECONDS Prothromb Time International Ratio 1.3 0.9-1.1 Sodium Level 142 136-145 mmol/L Potassium Level 3.8 3.5-5.1 mmol/L Chloride Level 109 98-107 mmol/L Carbon Dioxide Level 26 21-32 mmol/L Anion Gap 7.0 3-11 mmol/L Blood Urea Nitrogen 5 7-18 mg/dl Creatinine 0.67 0.60-1.40 mg/dl Est Creatinine Clear Calc Drug Dose 121.3 ml/min Estimated GFR () 117.7 Estimated GFR (Non- 101.5 BUN/Creatinine Ratio 7.7 10-20 Random Glucose 116 70-99 mg/dl Calcium Level 8.8 8.5-10.1 mg/dl Assessment & Plan psbo clinically resolved would advance diet and consider d/c soon no surgical indications at this time
--- NOTE | 2016-11-06 15:28 | Progress Note ---
Internal Med Progress Note Date of Service: November 06, 2016. Provider Documentation: SUBJECTIVE: Seen and examined at bedside. States nausea, vomiting, abd pain completely resolved. Has BM today. Tolerating diet. Denies chest pain, SOB, fever, chills. Offers no complaints. OBJECTIVE: Vital Signs-as noted below Physical Exam: General Appearance:Moderately built and nourished, no apparent distress Head: normocephalic, Atraumatic Eyes: normal inspection, EOMI, PERRL Neck: supple, Trachea midline Respiratory/Chest: Normal breath sounds, CTA Cardiovascular: S1, S2, No murmur Abdomen/GI:Soft, Non tender, Bowel sounds present Extremities/Musculoskelatal:normal inspection, no edema Neurologic/Psych:AAOX3, grossly no focal neurological deficits Skin: normal color, warm Lab data as noted below. ASSESSMENT & PLAN: PARTIAL SBO: Likely secondary to adhesions H/O Appendectomy, Splenectomy in the past Similar Partial SBO in the past Resolved with conservative management: Bowel, rest, IV fluids, NG tube Tolerating diet Symptoms resolved DC IV fluids IVC Filter:protrusion of struts Appreciate vascular surgery input No emergent need for surgery Planned for elective IVC filter removal on 11/15/16 in [place] Essential Thrombocythemia: S/P splenectomy Continue Hydrea Monitor platelets Follows with as outpatient H/O PE, Hepatic V thrombosis: INR is subtherapeutic Resume Coumadin today Continue SQ Heparin DVT px: Heparin SQ Coumadin CODE STATUS: Full code DISPOSITION: Plan to discharge home today Follow up with on 11/11/16 at 12:45pm Follow up with your surgeon for elective IVC filter removal on 11/15/16 in [place] Can resume Coumadin today Vital Signs: Date Time Temp Pulse Resp B/P Pulse Ox O2 Delivery O2 Flow Rate FiO2 11/06/16 07:50 Room Air 11/06/16 06:57 36.3 64 16 153/96 93 Room Air 11/05/16 23:20 Room Air 11/05/16 23:05 36.8 66 18 154/90 94 Room Air 11/05/16 15:45 Room Air Lab Results: Results Past 24 Hours Test 11/06/16 06:16 Range/Units White Blood Count 6.76 4.8-10.8 K/uL Red Blood Count 3.86 4.7-6.1 M/uL Hemoglobin 14.8 14.0-18.0 g/dL Hematocrit 43.1 42-52 % Mean Corpuscular Volume 111.7 80-100 fL Mean Corpuscular Hemoglobin 38.3 25-34 pg Mean Corpuscular Hemoglobin Concent 34.3 32-36 g/dl RDW Standard Deviation 64.7 36.4-46.3 fL RDW Coefficient of Variation 16.1 11.5-14.5 % Platelet Count 548 130-400 K/uL Mean Platelet Volume 10.0 7.4-10.4 fL Prothrombin Time 13.9 9.0-12.0 SECONDS Prothromb Time International Ratio 1.3 0.9-1.1 Sodium Level 142 136-145 mmol/L Potassium Level 3.8 3.5-5.1 mmol/L Chloride Level 109 98-107 mmol/L Carbon Dioxide Level 26 21-32 mmol/L Anion Gap 7.0 3-11 mmol/L Blood Urea Nitrogen 5 7-18 mg/dl Creatinine 0.67 0.60-1.40 mg/dl Est Creatinine Clear Calc Drug Dose 121.3 ml/min Estimated GFR () 117.7 Estimated GFR (Non- 101.5 BUN/Creatinine Ratio 7.7 10-20 Random Glucose 116 70-99 mg/dl Calcium Level 8.8 8.5-10.1 mg/dl
--- NOTE | 2016-11-06 15:31 | Discharge Summary ---
Discharge Summary Date of Service November 06, 2016. Discharge Summary Admission Date: November 04, 2016 at 14:10 Discharge Date: November 06, 2016 Discharge Disposition: Home Principal Diagnosis: Partial SBO Procedures: CT abd: 1. Persistent dilated left upper quadrant jejunal loops with normal caliber distal small bowel. The findings remain similar to the prior study and are again suggestive of a partial small bowel obstruction 2. No free air 3. Evidence of prior splenectomy 4. IVC filter with stress protruding beyond the lumen. 1 leg extends into the aortic wall, and posterior leg extends into adjacent vertebral body, and a third leg abuts transverse duodenum Consultations: Surgery Pending Studies/Follow-Up: Follow up with on 11/11/16 at 12:45pm Follow up with your surgeon for elective IVC filter removal on 11/15/16 in [place] Can resume Coumadin today Medication Reconciliation Continued Medications: Citalopram Hydrobromide (Celexa) 20 Mg Tab 10 MG PO DAILY, TAB 1/2 TABLET DOSE Fish Oil ([place]-3) 1 Ea Cap 3 CAP PO DAILY, CAP Hydroxyurea (Hydrea Cap) 500 Mg Cap 1000 MG PO EVEN DAYS, CAP 2 TABS ON EVEN DAYS Hydroxyurea (Hydrea Cap) 500 Mg Cap 1500 MG PO ODD DAYS, CAP 3 TABS ON ODD DAYS Lorazepam (Ativan) 0.5 Mg Tab 0.5 MG PO Q6H PRN for Anxiety, TAB Pseudoephedrine-Guaifenesin (Mucinex D) 1 Tab Tab 1 TAB PO BID PRN for CONGESTION Sildenafil Citrate (Viagra) 100 Mg Tab 100 MG PO UD PRN for INTERCOURSE Warfarin Sod (Jantoven) 7.5 Mg Tab 7.5 MG PO DAILY, TAB 6 TIMES A WEEK Warfarin Sodium (Coumadin) 5 Mg Tab 5 MG PO WK, TAB WEDNESDAYS Admission Information HPI (per Admitting provider): The patient is a 65 year old male who presents to the Emergency Room with complaints of 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 The pain is rated 5-6/10 in severity. His abdomen also feels distended. The patient also complains of nausea and vomiting since the onset of his pain. He denies any fevers, shortness of breath, or diarrhea. He only had one small bowel movement this morning. The patient has had two bowel obstructions before. His symptoms today are more mild than the previous obstructions. He was in the hospital from September 02 to the for bowel obstruction. He is on Coumadin. The patient is s /p splenectomy. He has a history of essential thrombocytosis. now pt feels better, pt has no nausea no vomiting for 3 hours, pt denies fever, pt had PE and IVC filter placed 7 years ago, pt has a schedule to remove IVC filter on 11/15/2016 in [facility]. Physical Exam (per Admitting): General Appearance: WD/WN, no apparent distress Head: normocephalic Eyes: normal inspection ENT: normal ENT inspection, hearing grossly normal Neck: supple, no adenopathy, no JVD Respiratory/Chest: chest non-tender, lungs clear, normal breath sounds Cardiovascular: regular rate, rhythm, no edema, no gallop, no JVD, no murmur Abdomen/GI: normal bowel sounds, non tender, soft, no organomegaly (middle line scar) Extremities/Musculoskelatal: normal inspection, no calf tenderness, normal capillary refill Neurologic/Psych: no motor/sensory deficits, alert, normal mood/affect Hospital Course PARTIAL SBO: Likely secondary to adhesions H/O Appendectomy, Splenectomy in the past Similar Partial SBO in the past Resolved with conservative management: Bowel, rest, IV fluids, NG tube Tolerating diet Symptoms resolved DC IV fluids IVC Filter:protrusion of struts Appreciate vascular surgery input No emergent need for surgery Planned for elective IVC filter removal on 11/15/16 in [place] Essential Thrombocythemia: S/P splenectomy Continue Hydrea Monitor platelets Follows with as outpatient H/O PE, Hepatic V thrombosis: INR is subtherapeutic Resume Coumadin today Continue SQ Heparin DVT px: Heparin SQ Coumadin CODE STATUS: Full code DISPOSITION: Plan to discharge home today Follow up with on 11/11/16 at 12:45pm Follow up with your surgeon for elective IVC filter removal on 11/15/16 in [place] Can resume Coumadin today Total time spent on discharge = 35 minutes This includes examination of the patient, discharge planning, medication reconciliation, and communication with other providers. Discharge Instructions Discharge Instructions Date of Service November 06, 2016. Admission Reason for Admission: SBO Discharge Discharge Diagnosis / Problem: Partial SBO Discharge Goals Goal(s): Decrease discomfort, Improve function Activity Recommendations Activity Limitations: resume your previous activity Exercise/Sports Limitations: as tolerated . Instructions / Follow-Up Instructions / Follow-Up Follow up with on 11/11/16 at 12:45pm Follow up with your surgeon for elective IVC filter removal on 11/15/16 in [place] Can resume Coumadin today Current Hospital Diet Patient's current hospital diet: Regular Diet Discharge Diet Recommended Diet: Regular Diet Pending Studies Studies pending at discharge: no Laboratory Results Lipid Panel Test 09/08/16 05:30 Range/Units Triglycerides Level 87 0-150 mg/dl Medical Emergencies . Who to Call and When: Medical Emergencies: If at any time you feel your situation is an emergency, please call 911 immediately. . Non-Emergent Contact Non-Emergency issues call your: Primary Care Provider, Surgeon Call Non-Emergent contact if: you have a fever, your pain is not controlled, your pain is worsening, your pain is unusual for you, you have any medication questions . . "Provider Documentation" section prepared by Flo Martinez. . VTE Core Measure Inpt VTE Proph given/why not?: Unfractionated heparin SQ
[2016-11-06 15:43] VITALS: BP 154/89; PULSE 70; TEMP 36.7; O2SAT 95
[2016-11-06 16:32] VITALS: BP 154/89; PULSE 70; TEMP 36.7; O2SAT 95
[2016-12-23] MEDS ORDERED: NAPR1TAB9 PO (09:44)
[2016-12-23] MEDS ORDERED: CITA10TA8 PO (09:44)
[2016-12-23] MEDS ORDERED: AMOX500C3 PO (09:44)
[2017-01-11] MEDS ORDERED: OXYC-57 PO (10:20)
== END 2016-11-06 16:58 | disposition home or self-care (01) | DRG 390 ==
LOC: ENRESERV → ENRESERVTM → ENRESERVDT → C.EDB 11:07 → C.MSN 14:10
PROVIDERS: ADMIT Internal Medicine; ATTEND Internal Medicine
DX: K56.5 Intestinal adhesions [bands] with obstruction (postinfection) (principal); D47.3 Essential (hemorrhagic) thrombocythemia; Z79.01 Long term (current) use of anticoagulants; Z79.899 Other long term (current) drug therapy; Z86.711 Personal history of pulmonary embolism; Z95.828 Presence of other vascular implants and grafts

== ENCOUNTER 2017-01-11 07:18 | Day surgery (SDC) | payer BC ==
[2016-12-23 09:45] VITALS: Ht 185.4 cm; Wt 82.4 kg
--- NOTE | 2016-12-23 10:32 | PAT Medication Instructions ---
Service Date Dec 23, 2016. Current Home Medication List Amoxicillin (Amoxil), 500 MG PO UD PRN for RN Citalopram Hydrobromide (Celexa), 5 MG PO QAM Fish Oil ([place]-3), 3 CAP PO QAM Hydroxyurea (Hydrea Cap), 1,000 MG PO EVEN DAYS Hydroxyurea (Hydrea Cap), 1,500 MG PO ODD DAYS Lorazepam (Ativan), 0.5 MG PO Q6H PRN for Anxiety Naproxen (Aleve), 220 MG PO PRN Pseudoephedrine-Guaifenesin (Mucinex D), 1 TAB PO BID PRN for CONGESTION Sildenafil Citrate (Viagra), 100 MG PO UD PRN for INTERCOURSE Warfarin Sod (Jantoven), 7.5 MG PO 4XWEEK Warfarin Sodium (Coumadin), 5 MG PO 3 X WEEK Medication Instructions For Your Scheduled Surgery Amoxicillin (Amoxil), 500 MG PO UD PRN for RN (prior to dental procedures only) - Check with surgeon for instructions: Naproxen (Aleve), 220 MG PO PRN - Check with surgeon/prescribing physician for instructions: Hydroxyurea (Hydrea Cap), 1,000 MG PO EVEN DAYS Hydroxyurea (Hydrea Cap), 1,500 MG PO ODD DAYS Warfarin Sod (Jantoven), 7.5 MG PO 4XWEEK Warfarin Sodium (Coumadin), 5 MG PO 3 X WEEK - Hold the following medications 2 weeks prior to surgery: Fish Oil (Raymond-3), 3 CAP PO QAM - Hold the following medications the morning of surgery: Pseudoephedrine-Guaifenesin (Mucinex D), 1 TAB PO BID PRN for CONGESTION Sildenafil Citrate (Viagra), 100 MG PO UD PRN for INTERCOURSE - Take the following medications the morning of surgery with a sip of water: Citalopram Hydrobromide (Celexa), 5 MG PO QAM Lorazepam (Ativan), 0.5 MG PO Q6H PRN for Anxiety (if needed) - Take the following medications as scheduled the night before surgery: Pseudoephedrine-Guaifenesin (Mucinex D), 1 TAB PO BID PRN for CONGESTION (if needed) Sildenafil Citrate (Viagra), 100 MG PO UD PRN for INTERCOURSE (if needed) Lorazepam (Ativan), 0.5 MG PO Q6H PRN for Anxiety (if needed) If you have any questions please call us at [phone] or [phone] or [phone]
[~2017-01-11] VITALS: Ht 185.4 cm; Wt 82.4 kg
[~2017-01-11 07:18] MED LIST changes: +AMOX500C3 PO; +CEFAZOLIN 2000 MG/60 ML D5W IV SCH; +CITA10TA8 PO; -CITA20TA9 PO; -CMD5 PO; +LACTATED RINGER'S 1000ML 1,000 ML IV SCH; -LVNIS80 SQ; -MTR500 PO; +NAPR1TAB9 PO; +WARF5TAB90 PO; +WARF7.5T4 PO
[2017-01-11] MEDS ORDERED: ASPI81TA28 PO (07:48)
[2017-01-11 07:53] VITALS: BP 143/86; PULSE 75; TEMP 37; O2SAT 95
[2017-01-11 08:00] LABS: INR 1.1 (0.9-1.1); PARTIAL THROMBOPLASTIN RATIO 1.2; PROTHROMBIN TIME (PATIENT) 11.4 SECONDS (9.0-12.0)
--- NOTE | 2017-01-11 08:41 | History & Physical Bridge Note ---
H&P Re-Evaluation Bridge Note: I have examined the patient, reviewed the History & Physical and in the interval since the performance of the History & Physical I have noted the following changes of clinical significance: No changes noted
[2017-01-11] MEDS ORDERED: MIDAZOLAM HCL 1 MG/ML 2ML VIAL ONE ×2 (08:43)
[2017-01-11] MEDS ORDERED: FENTANYL CITRATE INJ 50 MCG/1 ML 2 ML VIAL ONE ×2 (08:43)
[2017-01-11] MEDS ORDERED: ONDANSETRON INJ 2 MG/ML 2 ML VIAL ONE (09:01)
[2017-01-11] MEDS ORDERED: ROCURONIUM BROMIDE 10 MG/ML 5 ML VIAL ONE (09:01)
[2017-01-11] MEDS ORDERED: DEXAMETHASONE SOD INJ 4 MG/ML VIAL ONE (09:01)
[2017-01-11] MEDS ORDERED: PROPOFOL IV EMULSION 10 MG/ML 20 ML VIAL IV ONE (09:01)
[2017-01-11] MEDS ORDERED: LARYING-O-JET KIT (LTA) ONE ×2 (09:01)
[2017-01-11] MEDS ORDERED: LIDOCAINE HCL 2% 2 ML VIAL (20MG/ML) ONE (09:01)
[2017-01-11] MEDS ORDERED: BUPIVACAINE 0.5 % 5 MG/1 ML MPF 30ML VIAL ONE (09:02)
[2017-01-11] MEDS ORDERED: LIDOCAINE HCL 1% 20 ML VIAL ONE (09:02)
[2017-01-11] MEDS ORDERED: BACITRACIN OINT 15 GM TUBE ONE (09:03)
[2017-01-11] MEDS ORDERED: SODIUM CHLORIDE 0.9% 1000ML 1,000 ML IV SCH (10:17)
--- NOTE | 2017-01-11 10:17 | [facility] Post Operative Brief Note ---
Immediate Operative Summary Operative Date Jan 11, 2017. Pre-Operative Diagnosis Umbilical and incisional hernias Post-Operative Diagnosis Same Procedure(s) Performed Open Repair Incisional Hernia, and Umbilical Hernia with Mesh Surgeon Dr Harmon Preparing Box Tender Surgeon(s) surgical nurse practitioner Estimated Blood Loss 10ML Findings umbilical and incisional hernia, size 2x3cm, Fluids (cc crystalloids) 1000ml Specimens None Drains none Anesthesia general Complication(s) None Disposition Recovery Room / PACU
[2017-01-11] MEDS ORDERED: OXYC-57 PO (10:20)
--- NOTE | 2017-01-11 10:23 | Discharge Instructions ---
Discharge Instructions Date of Service Jan 11, 2017. Visit Reason for Visit: Incisional Hernia, Umbilical Hernia Discharge Discharge Diagnosis / Problem: S/P repair umbilical hernia and incisional hernia Discharge Goals Goal(s): Decrease discomfort, Improve function Activity Recommendations Activity Limitations: per Instructions/Follow-up section Lifting Limitations: no more than 25 pounds Exercise/Sports Limitations: gradually increase as tolerated May Resume Sexual Activity: when tolerated Shower/Bathe: may shower/bathe in 3 days Driving or Machine Use: resume 3 days after discharge Anesthesia . Post Anesthesia Instructions: If you have had General Anesthesia or IV Sedation: * Do not drive today. * Resume driving when surgeon permits. * Do not make important decisions or sign legal documents today. * Call surgeon for: 1. Temperature elevations greater than 101 degrees F. 2. Uncontrollable pain. 3. Excessive bleeding. 4. Persistent nausea and vomiting. 5. Medication intolerance (nausea, vomiting or rash). * For nausea and vomiting use only clear liquids such as: tea, soda, bouillon until nausea subsides, then gradually increase diet as tolerated. * If you have any concerns or questions, call your surgeon's office. If physician is unavailable and it is an emergency, call 911 or go to the nearest emergency room. . Instructions / Follow-Up Instructions / Follow-Up keep the dressing on for 4 days, he can take a shower on 01/15/2017. no driving while taking pain medicine, follow up 1 week, . Diet Recommendations Recommended Home Diet: resume previous diet Procedures Procedures Performed: Open Repair Incisional Hernia, and Umbilical Hernia with Mesh Pending Studies Studies pending at discharge: no Medical Emergencies . Who to Call and When: Medical Emergencies: If at any time you feel your situation is an emergency, please call 911 immediately. . Non-Emergent Contact Non-Emergency issues call your: Surgeon Call Non-Emergent contact if: you have a fever, temperature is above 100.5, your pain is not controlled, your pain is worsening, wound has increased drainage, wound has increased redness . . "Provider Documentation" section prepared by Sherine Harmon. . [place] Drug Monitoring Program Search Results: no issues identified
[2017-01-11] MEDS ORDERED: ONDANSETRON INJ 2 MG/ML 2 ML VIAL IV PRN ×2 (10:30→11:00)
[2017-01-11] MEDS ORDERED: OXYCODONE/ACETAMINOPHEN 5-325 TAB PO PRN (10:30)
[2017-01-11] MEDS ORDERED: IBUPROFEN 600 MG TAB PO PRN (10:30)
[2017-01-11] MEDS ORDERED: MoRPHine SULFATE 4 MG/ML 1 ML CARP\\VIAL IV PRN (10:30)
--- NOTE | 2017-01-11 10:48 | [facility] Operative Report ---
Operative Report Operative Date Jan 11, 2017. Pre-Operative Diagnosis Umbilical and incisional hernias Post-Operative Diagnosis Same Procedure(s) Performed Open Repair Incisional Hernia, and Umbilical Hernia with Mesh Surgeon Dr Harmon Freight Elevator Operator Surgeon(s) surgical nurse practitioner Estimated Blood Loss 10ML Findings umbilical hernia and incisional hernia, [id number], Fluids 1000ml Specimens None Drains none Anesthesia general Complication(s) None Disposition Recovery Room / PACU Indications This is a 66 years old gentleman who presented umbilical hernia and incisional hernia, he required open repair umbilical hernia and incisional hernia with Mesh, I talked to patient about benefits, risks and alternatives of the procedure, I indicates the risks may include but not limit such as bleeding, infection, hernia recurrence, may need more procedure, patient understand, he signed informed consent, I answered all questions. Description of Procedure We bring patient to the operative room, put the patient on the superior position, patient receiving SCD on bilateral leg to prevent DVT, patient received 2 g Ancef IV for prophylactic antibiotic, patient received general anesthesia without difficulty, patient's abdomen was prep and drip in routine sterilization, a small incision was made just below umbilical area, mobilized umbilical, then we found the patient had umbilical hernia and incisional hernia to hernia size about 23 cm, mobilized fascial layer. Then truce 6.4 cm 6.4 cm mesh, the use 0 ethobend suture to fix the mesh fashion layer, recheck no active bleeding. the Mesh sites nicely, no tension, before we put the mesh in, we reduced the hernia sac back to abdominal cavity, hemostatic was obtained , then using 2-0 Vicryl close subcutaneous layer using 4-0 Vicryl close skin, then put dressing on , the patient tolerated procedure well all instrument needle sponge, time 2 at end of case. patient transferred to recovery room in stable condition. thank you I attest to the content of the Intraoperative Record and any orders documented therein. Any exceptions are noted below.
[2017-01-11] MEDS ORDERED: PHENYLEPHRINE 100MCG/ML 5ML SYR IV PRN (11:00)
[2017-01-11] MEDS ORDERED: ATROPINE SULFATE 0.1 MG/ML 5ML SYR IV PRN (11:00)
[2017-01-11] MEDS ORDERED: HYDROmorphone INJ 2 MG/ML SYR/VIAL IV PRN (11:00)
[2017-01-11] MEDS ORDERED: EpHEDrine SULFATE INJ 50 MG/ML AMP IV PRN (11:00)
--- NOTE | 2017-01-11 11:01 | Anesthesiology Progress Note ---
Anesthesia Post Op Note Date & Time Jan 11, 2017 at 11:01 Vital Signs Pain Intensity: 0 Vital Signs Past 12 Hours Date Time Temp Pulse Resp B/P (MAP) Pulse Ox O2 Delivery O2 Flow Rate FiO2 01/11/17 10:50 70 12 132/79 92 Room Air 01/11/17 10:40 68 12 142/85 94 Room Air 01/11/17 10:30 68 16 137/82 98 Mask 10 01/11/17 10:21 36.5 81 16 141/78 98 Mask 10 01/11/17 07:53 37 75 18 143/86 (105) 95 Room Air Notes Mental Status: alert / awake / arousable, participated in evaluation Pt Amnestic to Procedure: Yes Nausea / Vomiting: adequately controlled Pain: adequately controlled Airway Patency, RR, SpO2: stable & adequate BP & HR: stable & adequate Hydration State: stable & adequate Anesthetic Complications: no major complications apparent
[2017-01-11 11:10] VITALS: BP 133/83; PULSE 73; TEMP 36.9; O2SAT 96
[2017-01-11 11:40] VITALS: BP 126/76; PULSE 86; TEMP 36.9; O2SAT 95
[2017-01-11 12:10] VITALS: BP 149/85; PULSE 80; TEMP 36.9; O2SAT 96
[2017-01-12] MEDS ORDERED: CEFAZOLIN IV 2,000 MG/60 ML D5W IV ONE (06:00)
[2017-01-18] MEDS ORDERED: CPR500 PO (15:53)
[2017-01-18] MEDS ORDERED: MTR500 PO (15:53)
[2017-01-18] MEDS ORDERED: LCTX PO (15:53)
== END 2017-01-11 12:39 | disposition home or self-care (01) ==
LOC: C.ACU 07:18
PROVIDERS: ATTEND Surgery
DX: K43.2 Incisional hernia without obstruction or gangrene (principal); K42.9 Umbilical hernia without obstruction or gangrene; D47.3 Essential (hemorrhagic) thrombocythemia; G47.33 Obstructive sleep apnea (adult) (pediatric); F32.9 Major depressive disorder, single episode, unspecified; N52.9 Male erectile dysfunction, unspecified; Z87.891 Personal history of nicotine dependence; Z79.01 Long term (current) use of anticoagulants; Z79.899 Other long term (current) drug therapy; Z86.711 Personal history of pulmonary embolism

== ENCOUNTER 2017-01-15 21:50 | Inpatient (IN) | payer BC ==
[~2017-01-15] VITALS: Ht 185.4 cm; Wt 79.6 kg
[~2017-01-15 21:50] MED LIST changes: +ASPI81TA28 PO; -CEFAZOLIN 2000 MG/60 ML D5W IV SCH; -LACTATED RINGER'S 1000ML 1,000 ML IV SCH; +OXYC-57 PO
[2017-01-15] MEDS ORDERED: SODIUM CHLORIDE 0.9% 1000ML 1,000 ML IV STA (22:03)
[2017-01-15] MEDS ORDERED: ONDANSETRON INJ 2 MG/ML 2 ML VIAL IV STA (22:03)
[2017-01-15] MEDS ORDERED: SODIUM CHLORIDE 0.9% 1000ML 500 ML IV STA (22:03)
[2017-01-15] MEDS ORDERED: PROMETHAZINE HCL INJ 25 MG/ML 1 ML VIAL IV STA (22:03)
[2017-01-15] MEDS ORDERED: OXYC-57 PO (22:11)
--- NOTE | 2017-01-15 22:13 | EMERGENCY ROOM VISIT NOTE ---
History Report prepared by Thuy: Jc Reaves Under the Supervision of: Dr. Abdirashid Matson M.D. First contact with patient: 21:55 Chief Complaint: ABDOMINAL PAIN Stated Complaint: ABD PAIN, HAD SURG TUESDAY History of Present Illness The patient is a 66 year old male who presents to the Emergency Room with complaints of worsening abdominal pain. He describes his current pain as a "pressure" and is feeling increasingly distended. He rates his current pain as a 5/10 in severity. The patient has had 3 small bowel obstructions in the past, and notes that this episode feels very similar to those previous obstructions. He did have a normal bowel movement this morning, and passed some slight stool this afternoon. He is not passing any gas. He denies any urinary irregularities , and has not experienced any fevers or chills. The patient had an incisional hernia repair and and umbilical hernia repair on the of this month, four days ago. He stopped taking his Percocet on Tuesday the . He took another Percocet at 1800 this evening for his pain. Source of History: patient Position: abdomen Quality: pressure, other (Distention) Timing: worsening Associated Symptoms: No fevers, No chills Review of Systems See HPI for pertinent positives & negatives. A total of 10 systems reviewed and were otherwise negative. Past Medical & Surgical Medical Problems: (1) Essential thrombocytosis (2) Hx of basal cell carcinoma (3) KYLAH on CPAP (4) Pulmonary emboli (5) Retroperitoneal hematoma (6) S/p vein filter placement (7) SBO (small bowel obstruction) Surgical Problems: (1) History of dental surgery (2) S/P appendectomy (3) S/P tonsillectomy and adenoidectomy (4) S/P UPPP (uvulopalatopharyngoplasty) Family History No pertinent family history Social History Smoking Status: Never Smoker Alcohol Use: occasionally Drug Use: none Marital Status: single Housing Status: lives alone Occupation Status: employed Current/Historical Medications Scheduled Citalopram Hydrobromide (Celexa), 5 MG PO QAM Fish Oil ([place]-3), 3 CAP PO QAM Hydroxyurea (Hydrea Cap), 1,000 MG PO EVEN DAYS Hydroxyurea (Hydrea Cap), 1,500 MG PO ODD DAYS Naproxen (Aleve), 220 MG PO PRN Warfarin Sod (Jantoven), 7.5 MG PO 4XWEEK Warfarin Sodium (Coumadin), 5 MG PO 3 X WEEK Scheduled PRN Amoxicillin (Amoxil), 500 MG PO UD PRN for RN Lorazepam (Ativan), 0.5 MG PO Q6H PRN for Anxiety Oxycodone/Acetaminophen 5MG/325MG (Percocet 5MG/325MG), 1 TABLET PO Q6H PRN for Pain Sildenafil Citrate (Viagra), 100 MG PO UD PRN for INTERCOURSE Allergies Coded Allergies: No Known Allergies (Unverified , NKA, 01/15/17) Physical Exam Vital Signs Date Time Temp Pulse Resp B/P (MAP) Pulse Ox O2 Delivery O2 Flow Rate FiO2 01/15/17 23:50 72 20 141/94 98 Room Air 01/15/17 21:52 36.4 65 18 182/93 95 Room Air Physical Exam GENERAL: Patient is in no acute distress. HEENT: No acute trauma, normocephalic atraumatic, mucous membranes moist, no nasal congestion, no scleral icterus. NECK: No stridor, no adenopathy, no meningismus, trachea is midline. LUNGS: Clear to auscultation bilaterally, no wheeze, no rhonchi, breath sounds equal. HEART: Without murmurs gallops or rubs, regular rate and rhythm. ABDOMEN: There is evidence for recent mid-abdominal surgery near the umbilicus. Wound does not show any signs of infection. There is mild soft tissue edema noted. Bowel sounds are positive and somewhat hyperactive. The abdomen is diffusely midly tender. There is no peritonitis. EXTREMITIES: No cyanosis or edema, full range of motion of all the joints without pain or difficulty, no signs for acute trauma. NEUROLOGIC: Oriented x 3, no acute motor or sensory deficits, no focal weakness. SKIN: No rash, no jaundice, no diaphoresis. Medical Decision & Procedures ER Provider Diagnostic Interpretation: Radiology results as stated below per my review and radiologist interpretation: CHEST ONE VIEW PORTABLE CLINICAL HISTORY: Abdominal pain. COMPARISON STUDY: Chest radiograph November 04, 2016. FINDINGS: No pneumothorax or pleural effusion is present. There is no evidence of pulmonary edema. Cardiomediastinal silhouette is stable. Mild biapical opacities suggest scarring. There is no evidence of pulmonary edema. IMPRESSION: No acute cardiopulmonary findings. Electronically signed by: Osorio Lowry M.D. 01/15/2017 10:34 PM Dictated Date/Time: 01/15/2017 10:[address] ABDOMEN & PELVIS: Comparison 09/02/2016. small bowel obstruction with transition point located in the left lower quadrant , series 2, image 61. Post surgical changes of umbilical hernia repair with a complex fluid collection measuring approximately 2.9 x 4.6 cm. This is nonspecific and may represent an abscess or postoperative hematoma. Correlate with operative history and clinical symptoms. Surgical clips in the right upper quadrant, as before. No free intraperitoneal air. No free fluid. No pneumatosis or portal venous gas. Post surgical changes splenectomy redemonstrated. Remaining solid organs are unremarkable. IVC filter has been removed. Appendix is not visualized. No secondary sign of appendicitis. Radiologist: Panchito Johnson MD Laboratory Results 01/15/17 22:15 Red Blood Count 4.11, Mean Corpuscular Volume 110.5, Mean Corpuscular Hemoglobin 40.6, Mean Corpuscular Hemoglobin Concent 36.8, Mean Platelet Volume 10.3, Neutrophils (%) (Auto) 72.0, Lymphocytes (%) (Auto) 13.0, Monocytes (%) ( Auto) 10.7, Eosinophils (%) (Auto) 3.7, Basophils (%) (Auto) 0.4, Neutrophils # (Auto) 9.23, Lymphocytes # (Auto) 1.66, Monocytes # (Auto) 1.37, Eosinophils # ( Auto) 0.47, Basophils # (Auto) 0.05 01/15/17 22:15 Test 01/15/17 22:15 White Blood Count 12.81 K/uL (4.8-10.8) Red Blood Count 4.11 M/uL (4.7-6.1) Hemoglobin 16.7 g/dL (14.0-18.0) Hematocrit 45.4 % (42-52) Mean Corpuscular Volume 110.5 fL (80-100) Mean Corpuscular Hemoglobin 40.6 pg (25-34) Mean Corpuscular Hemoglobin Concent 36.8 g/dl (32-36) Platelet Count 595 K/uL (130-400) Mean Platelet Volume 10.3 fL (7.4-10.4) Neutrophils (%) (Auto) 72.0 % Lymphocytes (%) (Auto) 13.0 % Monocytes (%) (Auto) 10.7 % Eosinophils (%) (Auto) 3.7 % Basophils (%) (Auto) 0.4 % Neutrophils # (Auto) 9.23 K/uL (1.4-6.5) Lymphocytes # (Auto) 1.66 K/uL (1.2-3.4) Monocytes # (Auto) 1.37 K/uL (0.11-0.59) Eosinophils # (Auto) 0.47 K/uL (0-0.5) Basophils # (Auto) 0.05 K/uL (0-0.2) RDW Standard Deviation 54.0 fL (36.4-46.3) RDW Coefficient of Variation 13.7 % (11.5-14.5) Immature Granulocyte % (Auto) 0.2 % Immature Granulocyte # (Auto) 0.03 K/uL (0.00-0.02) Anisocytosis PRESENT Macrocytosis PRESENT [place] Bodies 1+ Prothrombin Time 15.2 SECONDS (9.0-12.0) Prothromb Time International Ratio 1.4 (0.9-1.1) Activated Partial Thromboplast Time 32.7 SECONDS (21.0-31.0) Partial Thromboplastin Ratio 1.3 Anion Gap 10.0 mmol/L (3-11) Est Creatinine Clear Calc Drug Dose 86.4 ml/min Estimated GFR () 95.8 Estimated GFR (Non- 82.6 BUN/Creatinine Ratio 20.8 (10-20) Calcium Level 10.2 mg/dl (8.5-10.1) Magnesium Level 2.1 mg/dl (1.8-2.4) Total Bilirubin 1.0 mg/dl (0.2-1) Aspartate Amino Transf (AST/SGOT) 18 U/L (15-37) Alanine Aminotransferase (ALT/SGPT) 28 U/L (12-78) Alkaline Phosphatase 78 U/L (45-117) Total Protein 7.9 gm/dl (6.4-8.2) Albumin 4.1 gm/dl (3.4-5.0) Globulin 3.8 gm/dl (2.5-4.0) Albumin/Globulin Ratio 1.1 (0.9-2) Lipase 75 U/L (73-393) Laboratory results reviewed by me. Medications Administered Medications (Trade) Dose Ordered Sig/Kar Route Start Time Stop Time Status Last Admin Dose Admin Sodium Chloride 500 ml @ 999 mls/hr Q31M STAT IV 01/15/17 22:03 01/15/17 22:33 DC 01/15/17 22:03 999 MLS/HR Promethazine HCl (Phenergan Inj) 6.25 mg NOW STAT IV 01/15/17 22:03 01/15/17 22:05 DC 01/15/17 22:43 6.25 MG Ondansetron HCl (Zofran Inj) 4 mg NOW STAT IV 01/15/17 22:03 01/15/17 22:05 DC 01/15/17 22:23 4 MG Sodium Chloride 1,000 ml @ 200 mls/hr Q5H STAT IV 01/15/17 22:03 01/16/17 03:02 01/15/17 22:03 200 MLS/HR Morphine Sulfate (MoRPHine SULFATE INJ) 2 mg Q30M PRN IV 01/15/17 22:15 01/29/17 22:14 01/15/17 22:24 2 MG Morphine Sulfate (MoRPHine SULFATE INJ) 2 mg STK-MED ONCE .ROUTE 01/15/17 22:47 01/15/17 22:48 DC 01/15/17 22:52 2 MG ED Course 8: The patient was evaluated in room A11. A complete history and physical exam was performed. 2203: Sodium Chloride 1000 mL @ 200 mL/hr IV, Zofran 4 mg IV, Phenergan HCl 6.25 mg IV, Sodium Chloride 500 mL @ 999 mL/hr IV. 2215: Ordered Morphine Sulfate 2 mg IV. 2236: Ordered Promethazine HCl 50.25 mL @ 202 mL/hr IV. 0030: I consulted the General Surgeon and [facility] Hospitalist on-call at this time. Medical Decision Differential Diagnosis includes; Bowel rupture, bowel obstruction, intraabdominal bleeding, viral illness, dehydration, anemia, cellulitis. There is a mild leukocytosis consistent with his pain or possibly infection. No worrisome anemia. INR was mildly elevated, low for someone using Coumadin. There was no significant electrolyte abnormality, kidney failure, hepatitis or pancreatitis. Chest film did not show pneumonia or free air. Abdominal and pelvis CT shows evidence for a small bowel obstruction, no bowel rupture. There was a potential hematoma to the recent surgical site near the umbilicus. The patient received IV saline, IV Zofran, IV Phenergan. He was given IV morphine for pain control. He feels improved. He eventually had an NG tube placed to low intermittent suction. The patient presents with abdominal pain. He appears to have a small bowel obstruction. He has a history of the same. Admission/observation is warranted. The on-call hospitalist has been consulted. The on-call surgeon has been consulted. I did talk with case management. The patient is aware of all his findings. Consults Time Called: 29 Consulting Physician: On-Call General Surgeon Returned Call: 0030 I consulted the General Surgeon on-call at this time. Impression Primary Impression: SBO (small bowel obstruction) Additional Impression: Diffuse abdominal pain Scribe Attestation The scribe's documentation has been prepared under my direction and personally reviewed by me in its entirety. I confirm that the note above accurately reflects all work, treatment, procedures, and medical decision making performed by me. Departure Information Dispostion Being Evaluated By Hospitalist Referrals Osman Ray MD (PCP) Patient Instructions My [facility] Problem Qualifiers
[2017-01-15] MEDS ORDERED: MoRPHine SULFATE 4 MG/ML 1 ML CARP\\VIAL IV PRN (22:15)
[2017-01-15] MEDS ORDERED: OPTIRAY 320 IV PRN (22:15)
--- NOTE | 2017-01-15 22:35 | DIAGNOSTIC IMAGING REPORT ---
CHEST ONE VIEW PORTABLE CLINICAL HISTORY: Abdominal pain. COMPARISON STUDY: Chest radiograph November 04, 2016. FINDINGS: No pneumothorax or pleural effusion is present. There is no evidence of pulmonary edema. Cardiomediastinal silhouette is stable. Mild biapical opacities suggest scarring. There is no evidence of pulmonary edema. IMPRESSION: No acute cardiopulmonary findings. Electronically signed by: Osorio Lowry M.D. 01/15/2017 10:34 PM Dictated Date/Time: 01/15/2017 10:32 PM
[2017-01-15 22:36] LABS: BASO % 0.4 %; BASO ABS # 0.05 K/uL (0-0.2); EOS % 3.7 %; HEMATOCRIT 45.4 % (42-52); IG% 0.2 %; LYMPH ABS # 1.66 K/uL (1.2-3.4); MEAN CELL VOLUME 110.5 fL (80-100); MEAN CORPUSCULAR HEMOGLOBIN 40.6 pg (25-34); MEAN CORPUSCULAR HGB CONC 36.8 g/dl (32-36); MEAN PLATELET VOLUME 10.3 fL (7.4-10.4); MONO % 10.7 %; PLATELET COUNT 595 K/uL (130-400); RED BLOOD COUNT 4.11 M/uL (4.7-6.1); WHITE BLOOD COUNT 12.81 K/uL (4.8-10.8)
[2017-01-15] MEDS ORDERED: PROMETHAZINE HCL INJ 6.25 MG in SODIUM CHLORIDE 0.9% 50ML 50 ML IV STA (22:36)
[2017-01-15 22:45] LABS: INR 1.4 (0.9-1.1); PARTIAL THROMBOPLASTIN RATIO 1.3; PROTHROMBIN TIME (PATIENT) 15.2 SECONDS (9.0-12.0)
[2017-01-15 22:46] LABS: CREATININE 0.96 mg/dl (0.60-1.40)
[2017-01-15 22:47] LABS: BUN/CREATININE RATIO 20.8 (10-20); CALCIUM 10.2 mg/dl (8.5-10.1); MAGNESIUM 2.1 mg/dl (1.8-2.4); POTASSIUM 3.6 mmol/L (3.5-5.1)
[2017-01-15] MEDS ORDERED: MoRPHine SULFATE 2 MG/ML CARP ONE (22:47)
[2017-01-15 22:50] LABS: ALB/GLOB RATIO 1.1 (0.9-2)
[2017-01-15 23:21] LABS: ANISOCYTOSIS PRESENT; COMPLETE YES; HOWELL-JOLLY BODIES 1+
[2017-01-16] MEDS ORDERED: PIPERACILLIN/TAZOBACTAM 4.5 GM/100ML D5W IV STA (01:45)
[2017-01-16] MEDS ORDERED: ONDANSETRON INJ 2 MG/ML 2 ML VIAL IV PRN (02:00)
[2017-01-16] MEDS ORDERED: ACETAMINOPHEN 325 MG TAB PO PRN (02:00)
[2017-01-16] MEDS ORDERED: PROMETHAZINE HCL INJ 12.5 MG in SODIUM CHLORIDE 0.9% 50ML 50 ML IV PRN (02:00)
[2017-01-16] MEDS ORDERED: TRAMADOL HCL 50 MG TAB PO PRN (02:00)
[2017-01-16] MEDS ORDERED: LORAZEPAM 2 MG/ML 1 ML VIAL IV PRN (02:00)
[2017-01-16] MEDS ORDERED: HEPARIN IV LOW DOSE NO BOLUS SCH (02:02)
[2017-01-16 02:05] VITALS: BP 169/109; PULSE 88; TEMP 36.8; O2SAT 92; Ht 185.4 cm; Wt 79.6 kg
[2017-01-16] MEDS: HEPARIN 25000 UNIT/ D5W 500 ML (PHARMACY PREPARED) IV PRN ×12 (02:56→23:17)
[2017-01-16] MEDS: NSS + 20MEQ KCL 1000ML 1,000 ML IV SCH ×2 (03:12→23:55)
[2017-01-16 03:19] VITALS: BP 144/92
--- NOTE | 2017-01-16 06:05 | HISTORY & PHYSICAL EXAMINATION ---
DATE OF ADMISSION: 01/16/2017 PRIMARY CARE PHYSICIAN: Dr. Ray. HISTORY OF PRESENT ILLNESS: History obtained from patient and records. Medical history is significant for recurrent pulmonary embolism status post IVC filter placement/removal on anticoagulation, hx essential thrombocytopenia status post splenectomy on Hydrea, mood disorder, KYLAH sp surgery on CPAP. Past tobacco abuse. Recent confinement October 2016 for partial SBO. Resolved with conservative management. Last 01/11/2017, the patient underwent elective open repair of incisional umbilical hernia with mesh by Dr. Harmon. Postop pain tolerable. Yesterday, the patient noted achy abdominal pain going across his belly with nausea, no emesis. Liitle bowel movement yesterday. No fever, no chills. At the Emergency Room, NGT placed for bowel obstruction. MEDICAL HISTORY: As above. SURGERIES: He has had IVC filter placement, splenectomy, appendectomy, tonsillectomy, sinus surgery, uvulopalatopharyngoplasty, adenoidectomy. HOME MEDICATIONS: Include citalopram, Hydrea, Coumadin, lorazepam, omega 3, Viagra. ALLERGIES: No known drug allergies. FAMILY HISTORY: Breast cancer, melanoma. PERSONAL AND SOCIAL HISTORY: Past tobacco abuse. No chronic intake of alcoholic beverages. [employer]. REVIEW OF SYSTEMS: As per HPI, all other ROS negative. PHYSICAL EXAMINATION: VITAL SIGNS: Blood pressure was noted to be 141/94, pulse rate 72, RR 20, temp 37, O2 sats 98 on room air. GENERAL: Noted to be slightly uncomfortable, no respiratory distress. SKIN: Normal color. HEENT: [place] palpebral conjunctivae. Dry mucosa. NGT in place. NECK: No JVD. Supple. CHEST Clear to auscultation. HEART: Regular rate and rhythm. ABDOMEN: well co-aptated incisional wound the periumbilical area. Some distention. No tenderness. EXTREMITIES: No edema. No tenderness NEUROLOGIC: No gross focality. LABS: Hemoglobin was noted to be 16.7, hematocrit 45.4, white cell count 12.81, platelets 500. Sodium 137, potassium 3.6, chloride 99, CO2 27, BUN 20, creatinine 0.9, glucose 207. INR was noted to be 1.4. IMAGING DATA: CT abdomen and pelvis initial read, small-bowel obstruction, transition point in the left lower quadrant, postsurgical changes, umbilical hernia repair with complex fluid collection measuring 2.9 x 4.6 cm, abscess versus postoperative hematoma. Surgical clips in the right upper quadrant as before; splenectomy demonstrated. ASSESSMENT: 1. Abdominal pain recurrent bowel obstruction possible postop abscess on initial CT read. recent hernia surgery -patient not septic. 2. Recurrent pulmonary embolism status post IVC filter placement and removal on Coumadin. INR subtherapeutic. 3. Essential thrombocytopenia sp splenectomy on Hydrea. 4. Hyperglycemia rule out diabetes mellitus 5. Past tobacco abuse PLAN: GMF continue NGT decompression analgesia and antiemetics. Surgery consult Re recurrent bowel obstruction. Dr. Luna recommends antibiotic coverage of a possible abscess on CT He agrees with Zosyn. Hold Coumadin for now, IV heparin while patient off Coumadin and INR subtherapeutic. DVT prophylaxis, heparin. Full code. MTDD
[2017-01-16] MEDS ORDERED: LORAZEPAM INJ 0.5 MG in SYRINGE 0.75 ML IV PRN (06:45)
[2017-01-16 06:51] VITALS: BP 154/95; PULSE 90; TEMP 36.7; O2SAT 93
--- NOTE | 2017-01-16 06:53 | DIAGNOSTIC IMAGING REPORT ---
CT ABD/PELVIS IV CONTRAST ONLY CLINICAL HISTORY: Generalized abdominal pain RECENT HERNIA REPAIR COMPARISON STUDY: 11/04/2016 TECHNIQUE: Following the IV administration of 94 mL of Optiray-320, CT scan of the abdomen and pelvis was performed from the lung bases to the proximal femurs. Images are reviewed in the axial, sagittal, and coronal planes. IV contrast was administered without complication. A dose lowering technique was utilized adhering to the principles of ALARA. CT DOSE: 421.71 mGy.cm FINDINGS: Lower chest: There is dependent reticulation of the lungs, likely atelectatic. Liver: The contrast-enhanced liver is normal in size, contour, and attenuation. There is no intrahepatic biliary ductal dilatation. The hepatic veins and portal veins are patent. Gallbladder: Distended. No calculi are visualized. Spleen: Presumed surgically absent Pancreas: Unremarkable. Adrenal glands: Unremarkable. Kidneys: There is symmetric renal cortical enhancement. The kidneys are normal in size without hydronephrosis. Bowel: There are dilated jejunal loops, similar to the preceding study. The distal small bowel is of normal caliber. The findings are again suggestive of a partial small bowel obstruction. By history the appendix is surgically absent. There is no acute diverticulitis. Peritoneum: There is no intraperitoneal free air or abdominal ascites. There is a small fat-containing ventral hernia. There is a fluid collection containing air abutting the anterior rectus sheath measuring 4.4 cm. This likely represents a small postoperative collection or abscess. Vasculature: The abdominal aorta is normal in course and caliber. The IVC filter has been Adenopathy: None. Pelvic viscera: The bladder, and pelvic viscera are unremarkable. Skeletal structures: No destructive osseous lesions are seen. IMPRESSION: 1. Persistent small bowel obstructive pattern 2. No evidence of free intraperitoneal air 3. Interval removal of the IVC filter 4. Surgically absent spleen 5. 4.4 cm fluid collection abutting the anterior rectus sheath. This likely represents a postoperative collection, or abscess. Clinical correlation in this regard is advocated Electronically signed by: Nikos Pierre M.D. 01/16/2017 6:52 AM Dictated Date/Time: 01/16/2017 6:43 AM
--- NOTE | 2017-01-16 07:22 | Progress Note ---
Internal Med Progress Note Date of Service: Jan 16, 2017. Provider Documentation: SUBJECTIVE: Seen and examined at bedside. States feeling better. No nausea, vomiting Abd pain is controlled NO BM yet OBJECTIVE: Vital Signs-as noted below Physical Exam: General Appearance:Moderately built and nourished, no apparent distress Head: normocephalic, Atraumatic Eyes: normal inspection, EOMI, PERRL Neck: supple, Trachea midline Respiratory/Chest: Normal breath sounds, CTA Cardiovascular: S1, S2, No murmur Abdomen/GI:Soft, mild tender, Diminished Bowel sounds Extremities/Musculoskelatal:normal inspection, no Neurologic/Psych:AAOX3, grossly no focal neurological deficits Skin: normal color, warm Lab data as noted below. ASSESSMENT & PLAN: Recurrent SBO: Likely secondary to adhesions CT ABD: anterior rectus sheath hematoma Vs Abscess H/O Appendectomy, Splenectomy in the past and recent Umbilical hernia repair Resolved with conservative management in the past Continue NPO, IV fluids, NG tube Appreciate Surgery Input Continue Empiric antibiotics Planned for repeat Imaging in AM per surgery Essential Thrombocythemia: S/P splenectomy Continue Hydrea Monitor platelets Follows with as outpatient H/O PE, Hepatic V thrombosis: INR subtherapeutic S/P IVC filter placement and removal Continue IV heparin for now Coumadin on hold Mood Disorder: Continue home meds Sleep Apnea: on CPAP QHS DVT px: on IV Heparin ggt CODE STATUS: Full code PROCEDURES: CT ABD: 1. Persistent small bowel obstructive pattern 2. No evidence of free intraperitoneal air 3. Interval removal of the IVC filter 4. Surgically absent spleen 5. 4.4 cm fluid collection abutting the anterior rectus sheath. This likely represents a postoperative collection, or abscess. Clinical correlation in this regard is advocated Vital Signs: Date Time Temp Pulse Resp B/P (MAP) Pulse Ox O2 Delivery O2 Flow Rate FiO2 01/16/17 08:00 Room Air 01/16/17 06:51 36.7 90 17 154/95 (114) 93 Room Air 01/16/17 03:19 144/92 (109) 01/16/17 02:05 36.8 88 16 169/109 92 Room Air 01/16/17 01:47 78 20 150/98 97 01/15/17 23:50 72 20 141/94 98 Room Air 01/15/17 21:52 36.4 65 18 182/93 95 Room Air Lab Results: Results Past 24 Hours Test 01/15/17 22:15 01/16/17 08:59 Range/Units White Blood Count 12.81 8.15 4.8-10.8 K/uL Red Blood Count 4.11 4.34 4.7-6.1 M/uL Hemoglobin 16.7 16.8 14.0-18.0 g/dL Hematocrit 45.4 48.0 42-52 % Mean Corpuscular Volume 110.5 110.6 80-100 fL Mean Corpuscular Hemoglobin 40.6 38.7 25-34 pg Mean Corpuscular Hemoglobin Concent 36.8 35.0 32-36 g/dl Platelet Count 595 615 130-400 K/uL Mean Platelet Volume 10.3 9.7 7.4-10.4 fL Neutrophils (%) (Auto) 72.0 72.0 % Lymphocytes (%) (Auto) 13.0 11.8 % Monocytes (%) (Auto) 10.7 14.0 % Eosinophils (%) (Auto) 3.7 1.8 % Basophils (%) (Auto) 0.4 0.2 % Neutrophils # (Auto) 9.23 5.86 1.4-6.5 K/uL Lymphocytes # (Auto) 1.66 0.96 1.2-3.4 K/uL Monocytes # (Auto) 1.37 1.14 0.11-0.59 K/uL Eosinophils # (Auto) 0.47 0.15 0-0.5 K/uL Basophils # (Auto) 0.05 0.02 0-0.2 K/uL RDW Standard Deviation 54.0 54.6 36.4-46.3 fL RDW Coefficient of Variation 13.7 13.8 11.5-14.5 % Immature Granulocyte % (Auto) 0.2 0.2 % Immature Granulocyte # (Auto) 0.03 0.02 0.00-0.02 K/uL Anisocytosis PRESENT Macrocytosis PRESENT PRESENT [place] Bodies 1+ 1+ Prothrombin Time 15.2 9.0-12.0 SECONDS Prothromb Time International Ratio 1.4 0.9-1.1 Activated Partial Thromboplast Time 32.7 42.9 21.0-31.0 SECONDS Partial Thromboplastin Ratio 1.3 1.7 Sodium Level 136 138 136-145 mmol/L Potassium Level 3.6 3.8 3.5-5.1 mmol/L Chloride Level 99 98 98-107 mmol/L Carbon Dioxide Level 27 34 21-32 mmol/L Anion Gap 10.0 6.0 3-11 mmol/L Blood Urea Nitrogen 20 16 7-18 mg/dl Creatinine 0.96 1.10 0.60-1.40 mg/dl Est Creatinine Clear Calc Drug Dose 86.4 75.4 ml/min Estimated GFR () 95.8 81.2 Estimated GFR (Non- 82.6 70.1 BUN/Creatinine Ratio 20.8 14.3 10-20 Random Glucose 207 131 70-99 mg/dl Calcium Level 10.2 10.0 8.5-10.1 mg/dl Magnesium Level 2.1 1.8-2.4 mg/dl Total Bilirubin 1.0 0.2-1 mg/dl Aspartate Amino Transf (AST/SGOT) 18 15-37 U/L Alanine Aminotransferase (ALT/SGPT) 28 12-78 U/L Alkaline Phosphatase 78 45-117 U/L Total Protein 7.9 6.4-8.2 gm/dl Albumin 4.1 3.4-5.0 gm/dl Globulin 3.8 2.5-4.0 gm/dl Albumin/Globulin Ratio 1.1 0.9-2 Lipase 75 73-393 U/L
[2017-01-16] MEDS: PIPERACILL/TAZOBAC IV 3.375 GM in DEXTROSE 5% 100ML IV SCH ×3 (08:30→23:55)
[2017-01-16] MEDS: CITALOPRAM 20 MG TAB PO SCH (08:40)
[2017-01-16] MEDS: HYDROXYUREA 500 MG CAP PO SCH (08:46)
[2017-01-16] MEDS ORDERED: PIPERACILL/TAZOBAC CONSULT ACTIVE PRN (09:00)
[2017-01-16 09:09] LABS: BASO % 0.2 %; BASO ABS # 0.02 K/uL (0-0.2); EOS % 1.8 %; IG% 0.2 %; LYMPH % 11.8 %; LYMPH ABS # 0.96 K/uL (1.2-3.4); MEAN CELL VOLUME 110.6 fL (80-100); MEAN CORPUSCULAR HEMOGLOBIN 38.7 pg (25-34); MEAN PLATELET VOLUME 9.7 fL (7.4-10.4); PLATELET COUNT 615 K/uL (130-400); RED BLOOD COUNT 4.34 M/uL (4.7-6.1); WHITE BLOOD COUNT 8.15 K/uL (4.8-10.8)
[2017-01-16 09:24] LABS: PARTIAL THROMBOPLASTIN RATIO 1.7
[2017-01-16 09:35] LABS: BUN/CREATININE RATIO 14.3 (10-20); CREATININE 1.1 mg/dl (0.60-1.40); POTASSIUM 3.8 mmol/L (3.5-5.1)
[2017-01-16 09:36] LABS: COMPLETE YES; HOWELL-JOLLY BODIES 1+
[2017-01-16] MEDS ORDERED: HEPARIN IV BOLUS 3,000 UNIT in SYRINGE 0 ML IV ONE (10:30)
[2017-01-16] MEDS ORDERED: HEPARIN BOLUS IV ONE (10:30)
--- NOTE | 2017-01-16 11:02 | Surgery Consultation ---
Consultation Date of Consultation: Jan 16, 2017. Attending Physician: Flo Martinez MD History of Present Illness pt s/o ventral/umbilical hernia repair with mesh approx [address] Harmon. has hx of 3 prior SBO's each treated conservatively. started having nausea/ vomitting yesterday. was doing well up til that point. feeling improved now since time of admission. Past Medical/Surgical History Medical Problems: (1) Anemia Status: Acute (2) Diffuse abdominal pain Status: Acute (3) LUQ abdominal pain Status: Acute (4) Small bowel obstruction Status: Acute (5) Small bowel obstruction Status: Acute (6) Spleen laceration Status: Acute (7) Vomiting Status: Acute Family History No pertinent family history Social History Smoking Status: Former Smoker Drug Use: none Marital Status: single Housing Status: lives alone Occupation Status: employed Allergies Coded Allergies: No Known Allergies (Unverified , NKA, 01/15/17) Home Medications Scheduled Citalopram Hydrobromide (Celexa), 5 MG PO QAM Fish Oil ([place]-3), 3 CAP PO QAM Hydroxyurea (Hydrea Cap), 1,000 MG PO EVEN DAYS Hydroxyurea (Hydrea Cap), 1,500 MG PO ODD DAYS Naproxen (Aleve), 220 MG PO PRN Warfarin Sod (Jantoven), 7.5 MG PO 4XWEEK Warfarin Sodium (Coumadin), 5 MG PO 3 X WEEK Scheduled PRN Amoxicillin (Amoxil), 500 MG PO UD PRN for RN Lorazepam (Ativan), 0.5 MG PO Q6H PRN for Anxiety Oxycodone/Acetaminophen 5MG/325MG (Percocet 5MG/325MG), 1 TABLET PO Q6H PRN for Pain Sildenafil Citrate (Viagra), 100 MG PO UD PRN for INTERCOURSE Current Inpatient Medications Current Inpatient Medications Medications (Trade) Dose Ordered Sig/Kar Route Start Time Stop Time Status Last Admin Dose Admin Ioversol (Optiray 320) 100 ml UD PRN IV 01/15/17 22:15 01/19/17 22:14 Piperacillin Sod/ Tazobactam Sod (Consult) 1 ea UD PRN N/A 01/16/17 09:00 02/15/17 08:59 Potassium Chloride/Sodium Chloride 1,000 ml @ 50 mls/hr Q20H IV 01/16/17 03:00 02/15/17 02:59 01/16/17 03:12 50 MLS/HR Acetaminophen (Tylenol Tab) 650 mg Q4H PRN PO 01/16/17 02:00 02/15/17 01:59 01/16/17 08:39 650 MG Ondansetron HCl (Zofran Inj) 4 mg Q6H PRN IV 01/16/17 02:00 02/15/17 01:59 Tramadol HCl (Ultram Tab) not relieved ... Q6H PRN PO 01/16/17 02:00 02/15/17 01:59 Promethazine HCl 12.5 mg/Sodium Chloride 50.5 ml @ 204 mls/hr Q6H PRN IV 01/16/17 02:00 02/15/17 01:59 Citalopram Hydrobromide (celeXA TAB) 5 mg QAM PO 01/16/17 09:00 02/15/17 08:59 01/16/17 08:40 5 MG Hydroxyurea (Hydrea Cap) 1,000 mg Q48H PO 01/17/17 09:00 02/16/17 08:59 Hydroxyurea (Hydrea Cap) 1,500 mg Q48H PO 01/16/17 09:00 02/15/17 08:59 01/16/17 08:46 1,500 MG Heparin Sodium (Porcine) 98995 unit/Dextrose 500 ml @ 21 mls/hr [id number] PRN IV 01/16/17 02:45 02/15/17 02:44 01/16/17 10:15 21 MLS/HR Piperacillin Sod/ Tazobactam Sod 3.375 gm/Dextrose 115 ml @ 28.75 mls/ hr Q8H IV 01/16/17 08:00 01/26/17 07:59 01/16/17 08:30 28.75 MLS/HR Lorazepam 0.5 mg/ Syringe 1 ml @ 1 mls/min Q4H PRN IV 01/16/17 06:45 02/15/17 06:44 Review of Systems Abdomen: + nausea, + vomiting Physical Exam Date Time Temp Pulse Resp B/P (MAP) Pulse Ox O2 Delivery O2 Flow Rate FiO2 01/16/17 06:51 36.7 90 17 154/95 (114) 93 Room Air 01/16/17 03:19 144/92 (109) 01/16/17 02:05 36.8 88 16 169/109 92 Room Air 01/16/17 01:47 78 20 150/98 97 01/15/17 23:50 72 20 141/94 98 Room Air 01/15/17 21:52 36.4 65 18 182/93 95 Room Air General Appearance: no apparent distress Head: normocephalic, atraumatic Eyes: EOMI ENT: hearing grossly normal Neck: supple, no JVD Respiratory/Chest: no respiratory distress, no accessory muscle use Abdomen/GI: + pertinent finding (soft. minimal tenderness. incision looks ok. mild swelling but no sign of infection. mild diffuse distension. ) Neurologic/Psych: alert, oriented x 3 Skin: normal color, warm/dry Laboratory Results Last 24 Hours Test 01/15/17 22:15 01/16/17 08:59 White Blood Count 12.81 K/uL 8.15 K/uL Red Blood Count 4.11 M/uL 4.34 M/uL Hemoglobin 16.7 g/dL 16.8 g/dL Hematocrit 45.4 % 48.0 % Mean Corpuscular Volume 110.5 fL 110.6 fL Mean Corpuscular Hemoglobin 40.6 pg 38.7 pg Mean Corpuscular Hemoglobin Concent 36.8 g/dl 35.0 g/dl Platelet Count 595 K/uL 615 K/uL Mean Platelet Volume 10.3 fL 9.7 fL Neutrophils (%) (Auto) 72.0 % 72.0 % Lymphocytes (%) (Auto) 13.0 % 11.8 % Monocytes (%) (Auto) 10.7 % 14.0 % Eosinophils (%) (Auto) 3.7 % 1.8 % Basophils (%) (Auto) 0.4 % 0.2 % Neutrophils # (Auto) 9.23 K/uL 5.86 K/uL Lymphocytes # (Auto) 1.66 K/uL 0.96 K/uL Monocytes # (Auto) 1.37 K/uL 1.14 K/uL Eosinophils # (Auto) 0.47 K/uL 0.15 K/uL Basophils # (Auto) 0.05 K/uL 0.02 K/uL RDW Standard Deviation 54.0 fL 54.6 fL RDW Coefficient of Variation 13.7 % 13.8 % Immature Granulocyte % (Auto) 0.2 % 0.2 % Immature Granulocyte # (Auto) 0.03 K/uL 0.02 K/uL Anisocytosis PRESENT Macrocytosis PRESENT PRESENT [place] Bodies 1+ 1+ Prothrombin Time 15.2 SECONDS Prothromb Time International Ratio 1.4 Activated Partial Thromboplast Time 32.7 SECONDS 42.9 SECONDS Partial Thromboplastin Ratio 1.3 1.7 Sodium Level 136 mmol/L 138 mmol/L Potassium Level 3.6 mmol/L 3.8 mmol/L Chloride Level 99 mmol/L 98 mmol/L Carbon Dioxide Level 27 mmol/L 34 mmol/L Anion Gap 10.0 mmol/L 6.0 mmol/L Blood Urea Nitrogen 20 mg/dl 16 mg/dl Creatinine 0.96 mg/dl 1.10 mg/dl Est Creatinine Clear Calc Drug Dose 86.4 ml/min 75.4 ml/min Estimated GFR () 95.8 81.2 Estimated GFR (Non- 82.6 70.1 BUN/Creatinine Ratio 20.8 14.3 Random Glucose 207 mg/dl 131 mg/dl Calcium Level 10.2 mg/dl 10.0 mg/dl Magnesium Level 2.1 mg/dl Total Bilirubin 1.0 mg/dl Aspartate Amino Transf (AST/SGOT) 18 U/L Alanine Aminotransferase (ALT/SGPT) 28 U/L Alkaline Phosphatase 78 U/L Total Protein 7.9 gm/dl Albumin 4.1 gm/dl Globulin 3.8 gm/dl Albumin/Globulin Ratio 1.1 Lipase 75 U/L Assessment & Plan 1. SBO. clinically feeling somewhat improved IVF. NGT. NPO will repeat imaging tomorrow. hopefully will resolve again with conservative tx 2. Fluid collection. abcess vs hematoma. in face of wbc antibiotics started and wbc now decreased. would cont antibiotics 3. recent surgery. wound looks ok. cont antibiotics . will need to monitor closely over the coming days/weeks for mesh infection will turn back over to Dr. Harmon tuesday AM
[2017-01-16 15:40] LABS: URINE APPEARANCE CLEAR (CLEAR); URINE BILIRUBIN NEG (NEG); URINE COLOR YELLOW; URINE NITRITE NEG (NEG); URINE PH 6.5 (4.5-7.5); URINE SPECIFIC GRAVITY 1.037 (1.000-1.030); UROBILINOGEN NEG (NEG); ZZUR CULT IF INDIC CLEAN CATCH NO
[2017-01-16 16:06] LABS: MANUAL MICROSCOPIC REQUIRED? NO; REVIEW REQ? NO
[2017-01-16 16:17] VITALS: BP 137/99; PULSE 82; TEMP 36.7; O2SAT 93
[2017-01-16 16:20] LABS: PARTIAL THROMBOPLASTIN RATIO 1.8
[2017-01-16 22:54] VITALS: BP 146/84; PULSE 81; TEMP 36.4; O2SAT 93
[2017-01-17] MEDS: HEPARIN 25000 UNIT/ D5W 500 ML (PHARMACY PREPARED) IV PRN ×12 (03:03→23:16)
[2017-01-17 06:14] LABS: BASO % 0.7 %; BASO ABS # 0.06 K/uL (0-0.2); EOS % 8.4 %; HEMATOCRIT 44.3 % (42-52); IG% 0.1 %; LYMPH % 20.6 %; LYMPH ABS # 1.71 K/uL (1.2-3.4); MEAN CELL VOLUME 113.6 fL (80-100); MEAN CORPUSCULAR HEMOGLOBIN 39.5 pg (25-34); MEAN CORPUSCULAR HGB CONC 34.8 g/dl (32-36); MONO % 13.5 %; NEUT % 56.7 %; PLATELET COUNT 537 K/uL (130-400)
[2017-01-17 06:41] LABS: INR 1.4 (0.9-1.1); PARTIAL THROMBOPLASTIN RATIO 1.7
[2017-01-17 06:50] LABS: BUN/CREATININE RATIO 11.1 (10-20); CALCIUM 8.8 mg/dl (8.5-10.1); CREATININE 0.92 mg/dl (0.60-1.40); POTASSIUM 3.9 mmol/L (3.5-5.1)
[2017-01-17 06:57] LABS: ESTIMATED AVERAGE GLUCOSE 105 mg/dl; HA1C FLAG Normal (Normal)
[2017-01-17 07:14] LABS: COMPLETE YES; HOWELL-JOLLY BODIES 1+
[2017-01-17] MEDS ORDERED: HEPARIN IV BOLUS 3,000 UNIT in SYRINGE 0 ML IV ONE ×3 (07:30→22:45)
[2017-01-17 07:49] VITALS: BP 156/92; PULSE 70; TEMP 36.6; O2SAT 93
[2017-01-17] MEDS: PIPERACILL/TAZOBAC IV 3.375 GM in DEXTROSE 5% 100ML IV SCH ×2 (08:08→15:27)
[2017-01-17] MEDS ORDERED: HYDROXYUREA 500 MG CAP PO SCH (09:00)
[2017-01-17] MEDS: CITALOPRAM 20 MG TAB PO SCH (09:09)
--- NOTE | 2017-01-17 10:20 | Progress Note ---
Internal Med Progress Note Date of Service: Jan 17, 2017. Provider Documentation: SUBJECTIVE: Seen and examined at bedside. Doing well today Had 4 small BMs today Denies nausea, vomiting, Abd pain NG tube discontinued OBJECTIVE: Vital Signs-as noted below Physical Exam: General Appearance:Moderately built and nourished, no apparent distress Head: normocephalic, Atraumatic Eyes: normal inspection, EOMI, PERRL Neck: supple, Trachea midline Respiratory/Chest: Normal breath sounds, CTA Cardiovascular: S1, S2, No murmur Abdomen/GI:Soft, mild tender, Diminished Bowel sounds Extremities/Musculoskelatal:normal inspection, no Neurologic/Psych:AAOX3, grossly no focal neurological deficits Skin: normal color, warm Lab data as noted below. ASSESSMENT & PLAN: Recurrent SBO: Likely secondary to adhesions CT ABD: anterior rectus sheath hematoma Vs Abscess H/O Appendectomy, Splenectomy in the past and recent Umbilical hernia repair Resolved with conservative management in the past Continue IV fluids NG tube discontinued Appreciate Surgery Input Continue Empiric antibiotics started on Clear liquid diet Essential Thrombocythemia: S/P splenectomy Continue Hydrea Monitor platelets Follows with as outpatient H/O PE, Hepatic V thrombosis: INR subtherapeutic S/P IVC filter placement and removal Continue IV heparin for now resume Coumadin in AM if no plan for surgery Mood Disorder: Continue home meds Sleep Apnea: on CPAP QHS DVT px: on IV Heparin ggt CODE STATUS: Full code PROCEDURES: CT ABD: 1. Persistent small bowel obstructive pattern 2. No evidence of free intraperitoneal air 3. Interval removal of the IVC filter 4. Surgically absent spleen 5. 4.4 cm fluid collection abutting the anterior rectus sheath. This likely represents a postoperative collection, or abscess. Clinical correlation in this regard is advocated Vital Signs: Date Time Temp Pulse Resp B/P (MAP) Pulse Ox O2 Delivery O2 Flow Rate FiO2 01/17/17 07:49 36.6 70 21 156/92 (113) 93 Room Air 01/17/17 07:35 Room Air 01/16/17 23:55 Room Air 01/16/17 22:54 36.4 81 16 146/84 (104) 93 Room Air 01/16/17 16:17 36.7 82 18 137/99 (112) 93 Room Air 01/16/17 16:00 Room Air Lab Results: Results Past 24 Hours Test 01/16/17 14:10 01/16/17 15:58 01/17/17 05:53 Range/Units Urine Color YELLOW Urine Appearance CLEAR CLEAR Urine pH 6.5 4.5-7.5 Urine Specific [place] 1.037 1.000-1.030 Urine Protein TRACE NEG Urine Glucose (UA) NEG NEG Urine Ketones TRACE NEG Urine Occult Blood NEG NEG Urine Nitrite NEG NEG Urine Bilirubin NEG NEG Urine Urobilinogen NEG NEG Urine Leukocyte Esterase NEG NEG Urine WBC (Auto) 1-5 0-5 /hpf Urine RBC (Auto) 0-4 0-4 /hpf Urine Hyaline Casts (Auto) 1-5 0-5 /lpf Urine Epithelial Cells (Auto) 10-20 0-5 /lpf Urine Bacteria (Auto) NEG NEG Activated Partial Thromboplast Time 47.2 45.0 21.0-31.0 SECONDS Partial Thromboplastin Ratio 1.8 1.7 White Blood Count 8.30 4.8-10.8 K/uL Red Blood Count 3.90 4.7-6.1 M/uL Hemoglobin 15.4 14.0-18.0 g/dL Hematocrit 44.3 42-52 % Mean Corpuscular Volume 113.6 80-100 fL Mean Corpuscular Hemoglobin 39.5 25-34 pg Mean Corpuscular Hemoglobin Concent 34.8 32-36 g/dl Platelet Count 537 130-400 K/uL Mean Platelet Volume 10.0 7.4-10.4 fL Neutrophils (%) (Auto) 56.7 % Lymphocytes (%) (Auto) 20.6 % Monocytes (%) (Auto) 13.5 % Eosinophils (%) (Auto) 8.4 % Basophils (%) (Auto) 0.7 % Neutrophils # (Auto) 4.70 1.4-6.5 K/uL Lymphocytes # (Auto) 1.71 1.2-3.4 K/uL Monocytes # (Auto) 1.12 0.11-0.59 K/uL Eosinophils # (Auto) 0.70 0-0.5 K/uL Basophils # (Auto) 0.06 0-0.2 K/uL RDW Standard Deviation 58.2 36.4-46.3 fL RDW Coefficient of Variation 14.2 11.5-14.5 % Immature Granulocyte % (Auto) 0.1 % Immature Granulocyte # (Auto) 0.01 0.00-0.02 K/uL Macrocytosis PRESENT [place] Bodies 1+ Prothrombin Time 15.0 9.0-12.0 SECONDS Prothromb Time International Ratio 1.4 0.9-1.1 Sodium Level 140 136-145 mmol/L Potassium Level 3.9 3.5-5.1 mmol/L Chloride Level 106 98-107 mmol/L Carbon Dioxide Level 29 21-32 mmol/L Anion Gap 5.0 3-11 mmol/L Blood Urea Nitrogen 10 7-18 mg/dl Creatinine 0.92 0.60-1.40 mg/dl Est Creatinine Clear Calc Drug Dose 90.1 ml/min Estimated GFR () 100.8 Estimated GFR (Non- 87.0 BUN/Creatinine Ratio 11.1 10-20 Random Glucose 100 70-99 mg/dl Calcium Level 8.8 8.5-10.1 mg/dl
--- NOTE | 2017-01-17 10:20 | Surgery Progress Note ---
Surgery Progress Note Date of Service Jan 17, 2017. Subjective + feeling well pt is S/P open repair ventral and umbilical hernia with mesh, pt came to ER yesterday with nausea and vomiting, pt had CT scan revealing SBO, some fluid collection around mesh, pt is doing better, passe BM 4 times since in hospital, pt denies abdominal pain, no fever, I reviewed CT scan finding with pt, NG output- 100ml/ 24h. Objective Vital Signs: Date Time Temp Pulse Resp B/P (MAP) Pulse Ox O2 Delivery O2 Flow Rate FiO2 01/17/17 07:49 36.6 70 21 156/92 (113) 93 Room Air 01/17/17 07:35 Room Air 01/16/17 23:55 Room Air 01/16/17 22:54 36.4 81 16 146/84 (104) 93 Room Air 01/16/17 16:17 36.7 82 18 137/99 (112) 93 Room Air 01/16/17 16:00 Room Air General Appearance: WD/WN, no apparent distress Head: normocephalic Neck: supple, no JVD Respiratory/Chest: chest non-tender, lungs clear, normal breath sounds Cardiovascular: regular rate, rhythm, no edema, no gallop, no JVD Abdomen: normal bowel sounds, non tender, non distended, soft, no organomegaly Incision(s): clean, dry, intact Extremities: normal range of motion, non-tender, normal inspection Laboratory Results: Results Past 24 Hours Test 01/16/17 14:10 01/16/17 15:58 01/17/17 05:53 Range/Units Urine Color YELLOW Urine Appearance CLEAR CLEAR Urine pH 6.5 4.5-7.5 Urine Specific [place] 1.037 1.000-1.030 Urine Protein TRACE NEG Urine Glucose (UA) NEG NEG Urine Ketones TRACE NEG Urine Occult Blood NEG NEG Urine Nitrite NEG NEG Urine Bilirubin NEG NEG Urine Urobilinogen NEG NEG Urine Leukocyte Esterase NEG NEG Urine WBC (Auto) 1-5 0-5 /hpf Urine RBC (Auto) 0-4 0-4 /hpf Urine Hyaline Casts (Auto) 1-5 0-5 /lpf Urine Epithelial Cells (Auto) 10-20 0-5 /lpf Urine Bacteria (Auto) NEG NEG Activated Partial Thromboplast Time 47.2 45.0 21.0-31.0 SECONDS Partial Thromboplastin Ratio 1.8 1.7 White Blood Count 8.30 4.8-10.8 K/uL Red Blood Count 3.90 4.7-6.1 M/uL Hemoglobin 15.4 14.0-18.0 g/dL Hematocrit 44.3 42-52 % Mean Corpuscular Volume 113.6 80-100 fL Mean Corpuscular Hemoglobin 39.5 25-34 pg Mean Corpuscular Hemoglobin Concent 34.8 32-36 g/dl Platelet Count 537 130-400 K/uL Mean Platelet Volume 10.0 7.4-10.4 fL Neutrophils (%) (Auto) 56.7 % Lymphocytes (%) (Auto) 20.6 % Monocytes (%) (Auto) 13.5 % Eosinophils (%) (Auto) 8.4 % Basophils (%) (Auto) 0.7 % Neutrophils # (Auto) 4.70 1.4-6.5 K/uL Lymphocytes # (Auto) 1.71 1.2-3.4 K/uL Monocytes # (Auto) 1.12 0.11-0.59 K/uL Eosinophils # (Auto) 0.70 0-0.5 K/uL Basophils # (Auto) 0.06 0-0.2 K/uL RDW Standard Deviation 58.2 36.4-46.3 fL RDW Coefficient of Variation 14.2 11.5-14.5 % Immature Granulocyte % (Auto) 0.1 % Immature Granulocyte # (Auto) 0.01 0.00-0.02 K/uL Macrocytosis PRESENT [place] Bodies 1+ Prothrombin Time 15.0 9.0-12.0 SECONDS Prothromb Time International Ratio 1.4 0.9-1.1 Sodium Level 140 136-145 mmol/L Potassium Level 3.9 3.5-5.1 mmol/L Chloride Level 106 98-107 mmol/L Carbon Dioxide Level 29 21-32 mmol/L Anion Gap 5.0 3-11 mmol/L Blood Urea Nitrogen 10 7-18 mg/dl Creatinine 0.92 0.60-1.40 mg/dl Est Creatinine Clear Calc Drug Dose 90.1 ml/min Estimated GFR () 100.8 Estimated GFR (Non- 87.0 BUN/Creatinine Ratio 11.1 10-20 Random Glucose 100 70-99 mg/dl Calcium Level 8.8 8.5-10.1 mg/dl Assessment & Plan pt is a S/P open repair ventral and umbilical hernia with mesh, pt was admitted to hospital for SBO, pt is doing better, passed BM, no abdominal pain, no fever IMP SBO D/C NG tube clear diet, SCD ontinue conservative treatment. will F/U clear liquids
[2017-01-17 14:22] LABS: PARTIAL THROMBOPLASTIN RATIO 1.8
[2017-01-17 15:03] VITALS: BP 136/87; PULSE 73; TEMP 36.8; O2SAT 93
[2017-01-17] MEDS: NSS + 20MEQ KCL 1000ML 1,000 ML IV SCH (18:42)
[2017-01-17 22:13] LABS: PARTIAL THROMBOPLASTIN RATIO 1.8
[2017-01-17 22:49] VITALS: BP 127/80; PULSE 69; TEMP 36.8; O2SAT 94
[2017-01-18] MEDS: PIPERACILL/TAZOBAC IV 3.375 GM in DEXTROSE 5% 100ML IV SCH ×2 (00:27→08:36)
[2017-01-18] MEDS: HEPARIN 25000 UNIT/ D5W 500 ML (PHARMACY PREPARED) IV PRN ×4 (02:23→07:08)
[2017-01-18 05:10] LABS: BASO % 1.8 %; BASO ABS # 0.12 K/uL (0-0.2); EOS % 10.8 %; HEMATOCRIT 43.4 % (42-52); IG% 0.1 %; LYMPH % 32.9 %; LYMPH ABS # 2.25 K/uL (1.2-3.4); MEAN CELL VOLUME 113.6 fL (80-100); MEAN CORPUSCULAR HEMOGLOBIN 38.7 pg (25-34); MEAN CORPUSCULAR HGB CONC 34.1 g/dl (32-36); MEAN PLATELET VOLUME 9.6 fL (7.4-10.4); MONO % 14.9 %; NEUT % 39.5 %; PLATELET COUNT 532 K/uL (130-400); RED BLOOD COUNT 3.82 M/uL (4.7-6.1); WHITE BLOOD COUNT 6.83 K/uL (4.8-10.8)
[2017-01-18 05:26] LABS: INR 1.3 (0.9-1.1); PARTIAL THROMBOPLASTIN RATIO 2.2
[2017-01-18 05:37] LABS: BUN/CREATININE RATIO 7.2 (10-20); CALCIUM 8.8 mg/dl (8.5-10.1); CREATININE 0.82 mg/dl (0.60-1.40); POTASSIUM 3.7 mmol/L (3.5-5.1)
[2017-01-18 05:39] LABS: COMPLETE YES; ECHINOCYTES 1+; HOWELL-JOLLY BODIES 1+
[2017-01-18 07:45] VITALS: BP 122/80; PULSE 64; TEMP 36.5; O2SAT 96
[2017-01-18 07:46] VITALS: O2SAT 96
[2017-01-18] MEDS: CITALOPRAM 20 MG TAB PO SCH (08:41)
[2017-01-18] MEDS: HYDROXYUREA 500 MG CAP PO SCH (08:44)
--- NOTE | 2017-01-18 11:20 | Surgery Progress Note ---
Surgery Progress Note Date of Service Jan 18, 2017. Subjective + feeling well pt is doing better, no abdominal pain, no nausea, no vomiting, passed gas, he tolerated clear diet, Objective Vital Signs: Date Time Temp Pulse Resp B/P (MAP) Pulse Ox O2 Delivery O2 Flow Rate FiO2 01/18/17 07:50 Room Air 01/18/17 07:46 96 Room Air 01/18/17 07:45 36.5 64 14 122/80 (94) 96 Room Air 01/18/17 00:20 Room Air 01/17/17 22:49 36.8 69 16 127/80 (96) 94 Room Air 01/17/17 15:30 Room Air 01/17/17 15:03 36.8 73 18 136/87 (103) 93 Room Air General Appearance: WD/WN, no apparent distress Head: normocephalic Neck: supple, no JVD Respiratory/Chest: chest non-tender, lungs clear, normal breath sounds Cardiovascular: regular rate, rhythm, no edema, no gallop, no JVD Abdomen: normal bowel sounds, non tender, soft, no organomegaly Incision(s): clean, dry, intact Extremities: normal range of motion, non-tender, normal inspection Laboratory Results: Results Past 24 Hours Test 01/17/17 13:50 01/17/17 21:42 01/18/17 04:57 Range/Units Activated Partial Thromboplast Time 46.4 46.7 57.4 21.0-31.0 SECONDS Partial Thromboplastin Ratio 1.8 1.8 2.2 White Blood Count 6.83 4.8-10.8 K/uL Red Blood Count 3.82 4.7-6.1 M/uL Hemoglobin 14.8 14.0-18.0 g/dL Hematocrit 43.4 42-52 % Mean Corpuscular Volume 113.6 80-100 fL Mean Corpuscular Hemoglobin 38.7 25-34 pg Mean Corpuscular Hemoglobin Concent 34.1 32-36 g/dl Platelet Count 532 130-400 K/uL Mean Platelet Volume 9.6 7.4-10.4 fL Neutrophils (%) (Auto) 39.5 % Lymphocytes (%) (Auto) 32.9 % Monocytes (%) (Auto) 14.9 % Eosinophils (%) (Auto) 10.8 % Basophils (%) (Auto) 1.8 % Neutrophils # (Auto) 2.69 1.4-6.5 K/uL Lymphocytes # (Auto) 2.25 1.2-3.4 K/uL Monocytes # (Auto) 1.02 0.11-0.59 K/uL Eosinophils # (Auto) 0.74 0-0.5 K/uL Basophils # (Auto) 0.12 0-0.2 K/uL RDW Standard Deviation 56.1 36.4-46.3 fL RDW Coefficient of Variation 13.9 11.5-14.5 % Immature Granulocyte % (Auto) 0.1 % Immature Granulocyte # (Auto) 0.01 0.00-0.02 K/uL Macrocytosis PRESENT [place] Bodies 1+ Echinocytes 1+ Prothrombin Time 14.0 9.0-12.0 SECONDS Prothromb Time International Ratio 1.3 0.9-1.1 Sodium Level 140 136-145 mmol/L Potassium Level 3.7 3.5-5.1 mmol/L Chloride Level 108 98-107 mmol/L Carbon Dioxide Level 28 21-32 mmol/L Anion Gap 4.0 3-11 mmol/L Blood Urea Nitrogen 6 7-18 mg/dl Creatinine 0.82 0.60-1.40 mg/dl Est Creatinine Clear Calc Drug Dose 101.1 ml/min Estimated GFR () 107.6 Estimated GFR (Non- 92.8 BUN/Creatinine Ratio 7.2 10-20 Random Glucose 104 70-99 mg/dl Calcium Level 8.8 8.5-10.1 mg/dl Assessment & Plan pt is a S/P open repair ventral and umbilical hernia with mesh, pt was admitted to hospital for SBO, pt is doing better, passed BM, no abdominal pain, no fever IMP SBO D/C NG tube clear diet, SCD ontinue conservative treatment. will F/U 01/18/2017 pt is doing better, no abdominal pain, he tolerated clear diet soft diet today, pt can be D/C home to day afternoon, if he tolerated diet, pt wants to go home today, Cipro + flagyl po X 5 days, F/U md next Tuesday [phone] low residue diet pt is a S/P open repair ventral and umbilical hernia with mesh, pt was admitted to hospital for SBO, pt is doing better, passed BM, no abdominal pain, no fever IMP SBO D/C NG tube clear diet, SCD ontinue conservative treatment. will F/U
[2017-01-18] MEDS ORDERED: METRONIDAZOLE 500 MG TAB PO ONE (13:53)
[2017-01-18] MEDS ORDERED: CIPROFLOXACIN 500 MG TAB PO ONE (13:53)
--- NOTE | 2017-01-18 14:07 | Progress Note ---
Internal Med Progress Note Date of Service: Jan 18, 2017. Provider Documentation: SUBJECTIVE: The patient was seen and examined Tolerated clears without any symptoms Diet advanced to Low fiber diet OBJECTIVE: Vital Signs-as noted below Exam: General-No distress at rest Eyes-normal ENT-normal Neck-supple Lungs-Clear to ausucltate bilaterally Heart-regular,no murmur Abdomen-Benign,no masses,bowel sound present S/P Surgery with minimal tenderness Extremities-No edema Neuro-AAOx3 Lab data as noted below. ASSESSMENT & PLAN: Recurrent SBO: Likely secondary to adhesions with H/O Appendectomy, Splenectomy in the past and recent Umbilical hernia repair CT ABD: anterior rectus sheath hematoma Vs Abscess IVF and IV antibiotics Appreciate Surgery Input Tolerating Low fiber diet Likely discharge this afternoon Essential Thrombocythemia: S/P splenectomy Continue Hydrea Monitor platelets-[id number] Follows with as outpatient H/O PE, Hepatic V thrombosis: INR subtherapeutic S/P IVC filter placement and removal Has been on IV heparin for now Will start Coumadin on discharge Mood Disorder: Continue home meds Sleep Apnea: on CPAP QHS DVT px: on IV Heparin ggt Started on Coumadin CODE STATUS: Full code PROCEDURES: CT ABD: 1. Persistent small bowel obstructive pattern 2. No evidence of free intraperitoneal air 3. Interval removal of the IVC filter 4. Surgically absent spleen 5. 4.4 cm fluid collection abutting the anterior rectus sheath. This likely represents a postoperative collection, or abscess. Clinical correlation in this regard is advocated Vital Signs: Date Time Temp Pulse Resp B/P (MAP) Pulse Ox O2 Delivery O2 Flow Rate FiO2 01/18/17 07:50 Room Air 01/18/17 07:46 96 Room Air 01/18/17 07:45 36.5 64 14 122/80 (94) 96 Room Air 01/18/17 00:20 Room Air 01/17/17 22:49 36.8 69 16 127/80 (96) 94 Room Air 01/17/17 15:30 Room Air 01/17/17 15:03 36.8 73 18 136/87 (103) 93 Room Air Lab Results: Results Past 24 Hours Test 01/17/17 21:42 01/18/17 04:57 Range/Units Activated Partial Thromboplast Time 46.7 57.4 21.0-31.0 SECONDS Partial Thromboplastin Ratio 1.8 2.2 White Blood Count 6.83 4.8-10.8 K/uL Red Blood Count 3.82 4.7-6.1 M/uL Hemoglobin 14.8 14.0-18.0 g/dL Hematocrit 43.4 42-52 % Mean Corpuscular Volume 113.6 80-100 fL Mean Corpuscular Hemoglobin 38.7 25-34 pg Mean Corpuscular Hemoglobin Concent 34.1 32-36 g/dl Platelet Count 532 130-400 K/uL Mean Platelet Volume 9.6 7.4-10.4 fL Neutrophils (%) (Auto) 39.5 % Lymphocytes (%) (Auto) 32.9 % Monocytes (%) (Auto) 14.9 % Eosinophils (%) (Auto) 10.8 % Basophils (%) (Auto) 1.8 % Neutrophils # (Auto) 2.69 1.4-6.5 K/uL Lymphocytes # (Auto) 2.25 1.2-3.4 K/uL Monocytes # (Auto) 1.02 0.11-0.59 K/uL Eosinophils # (Auto) 0.74 0-0.5 K/uL Basophils # (Auto) 0.12 0-0.2 K/uL RDW Standard Deviation 56.1 36.4-46.3 fL RDW Coefficient of Variation 13.9 11.5-14.5 % Immature Granulocyte % (Auto) 0.1 % Immature Granulocyte # (Auto) 0.01 0.00-0.02 K/uL Macrocytosis PRESENT [place] Bodies 1+ Echinocytes 1+ Prothrombin Time 14.0 9.0-12.0 SECONDS Prothromb Time International Ratio 1.3 0.9-1.1 Sodium Level 140 136-145 mmol/L Potassium Level 3.7 3.5-5.1 mmol/L Chloride Level 108 98-107 mmol/L Carbon Dioxide Level 28 21-32 mmol/L Anion Gap 4.0 3-11 mmol/L Blood Urea Nitrogen 6 7-18 mg/dl Creatinine 0.82 0.60-1.40 mg/dl Est Creatinine Clear Calc Drug Dose 101.1 ml/min Estimated GFR () 107.6 Estimated GFR (Non- 92.8 BUN/Creatinine Ratio 7.2 10-20 Random Glucose 104 70-99 mg/dl Calcium Level 8.8 8.5-10.1 mg/dl
[2017-01-18] MEDS ORDERED: MTR500 PO (15:53)
[2017-01-18] MEDS ORDERED: LCTX PO (15:53)
[2017-01-18] MEDS ORDERED: CPR500 PO (15:53)
--- NOTE | 2017-01-18 15:56 | Discharge Instructions ---
Discharge Instructions Date of Service Jan 18, 2017. Admission Reason for Admission: SBO Discharge Discharge Diagnosis / Problem: SBO-resolved Discharge Goals Goal(s): Prevent Disease Progression Activity Recommendations Activity Limitations: resume your previous activity . Instructions / Follow-Up Instructions / Follow-Up Dr Dorantes ([facility] is away) 01/21/17 at 10:45 AM.Please keep appointment with the surgeon Current Hospital Diet Patient's current hospital diet: Low Fiber Diet Discharge Diet Recommended Diet: Low Fiber Diet Pending Studies Studies pending at discharge: no Laboratory Results Hemoglobin A1c Test 01/15/17 22:15 Range/Units Estimated Average Glucose 105 mg/dl Hemoglobin A1c 5.3 4.5-5.6 % Medical Emergencies . Who to Call and When: Medical Emergencies: If at any time you feel your situation is an emergency, please call 911 immediately. . Non-Emergent Contact Non-Emergency issues call your: Primary Care Provider . Past History Medical & Surgical History: (1) Diffuse abdominal pain (2) Essential thrombocytosis (3) Pulmonary emboli (4) Retroperitoneal hematoma (5) [place]LA[place] on CPAP (6) SBO (small bowel obstruction) (7) S/P appendectomy (8) History of dental surgery (9) S/P tonsillectomy and adenoidectomy (10) S/P UPPP (uvulopalatopharyngoplasty) . "Provider Documentation" section prepared by Joselyn Almonet. . VTE Core Measure Inpt VTE Proph given/why not?: Unfractionated heparin SQ, Warfarin (Coumadin)
[2017-01-18] MEDS ORDERED: WARFARIN SOD 7.5 MG TAB PO SCH (16:00)
[2017-01-18 16:08] VITALS: BP 122/80; PULSE 64; TEMP 36.5; O2SAT 96
[2017-01-18] MEDS ORDERED: CIPROFLOXACIN 500 MG TAB PO SCH (21:00)
[2017-01-18] MEDS ORDERED: METRONIDAZOLE 500 MG TAB PO SCH (21:00)
--- NOTE | 2017-01-19 14:23 | Discharge Summary ---
Discharge Summary Date of Service Jan 19, 2017. Discharge Summary Admission Date: Jan 16, 2017 at 01:19 Discharge Date: Jan 18, 2017 Discharge Disposition: Home Principal Diagnosis: SBO-resolved Secondary Diagnoses/Problems: Please see H&P and Hospital Progress note Consultations: Surgery Medication Reconciliation New Medications: Lactobacillus Acidophilus (Lactinex) Tab 2 TAB PO BID, #30 TAB Ciprofloxacin (Ciprofloxacin HCl) 500 Mg Tab 500 MG PO BID for 5 Days, #10 TAB Metronidazole (Metronidazole) 500 Mg Tab 500 MG PO BID for 5 Days, #10 TAB Continued Medications: Citalopram Hydrobromide (Celexa) 10 Mg Tab 5 MG PO QAM, TAB Fish Oil ([place]-3) 1 Ea Cap 3 CAP PO QAM, CAP Hydroxyurea (Hydrea Cap) 500 Mg Cap 1000 MG PO EVEN DAYS, CAP 2 TABS ON EVEN DAYS Hydroxyurea (Hydrea Cap) 500 Mg Cap 1500 MG PO ODD DAYS, CAP 3 TABS ON ODD DAYS Lorazepam (Ativan) 0.5 Mg Tab 0.5 MG PO Q6H PRN for Anxiety, TAB Naproxen (Aleve) 220 Mg Tab 220 MG PO PRN, TAB Oxycodone/Acetaminophen 5MG/325MG (Percocet 5MG/325MG) Tab 1 TABLET PO Q6H PRN for Pain, TAB PAIN Sildenafil Citrate (Viagra) 100 Mg Tab 100 MG PO UD PRN for INTERCOURSE Warfarin Sod (Jantoven) 7.5 Mg Tab 7.5 MG PO 4XWEEK, TAB Saturdays Warfarin Sodium (Coumadin) 5 Mg Tab 5 MG PO 3 X WEEK, TAB MONDAYS/WEDNESDAYS/FRIDAYS Discontinued Medications: Amoxicillin (Amoxil) 500 Mg Cap 500 MG PO UD PRN for RN, #21 CAP WITH DENTAL Admission Information HPI (per Admitting provider): DATE OF ADMISSION: 01/16/2017 PRIMARY CARE PHYSICIAN: Dr. Ray. HISTORY OF PRESENT ILLNESS: History obtained from patient and records. Medical history is significant for recurrent pulmonary embolism status post IVC filter placement/removal on anticoagulation, hx essential thrombocytopenia status post splenectomy on Hydrea, mood disorder, KYLAH sp surgery on CPAP. Past tobacco abuse. Recent confinement October 2016 for partial SBO. Resolved with conservative management. Last 01/11/2017, the patient underwent elective open repair of incisional umbilical hernia with mesh by Dr. Harmon. Postop pain tolerable. Yesterday, the patient noted achy abdominal pain going across his belly with nausea, no emesis. Liitle bowel movement yesterday. No fever, no chills. At the Emergency Room, NGT placed for bowel obstruction. MEDICAL HISTORY: As above. SURGERIES: He has had IVC filter placement, splenectomy, appendectomy, tonsillectomy, sinus surgery, uvulopalatopharyngoplasty, adenoidectomy. HOME MEDICATIONS: Include citalopram, Hydrea, Coumadin, lorazepam, omega 3, Viagra. ALLERGIES: No known drug allergies. FAMILY HISTORY: Breast cancer, melanoma. PERSONAL AND SOCIAL HISTORY: Past tobacco abuse. No chronic intake of alcoholic beverages. [employer]. REVIEW OF SYSTEMS: As per HPI, all other ROS negative. PHYSICAL EXAMINATION: VITAL SIGNS: Blood pressure was noted to be 141/94, pulse rate 72, RR 20, temp 37, O2 sats 98 on room air. GENERAL: Noted to be slightly uncomfortable, no respiratory distress. SKIN: Normal color. HEENT: [place] palpebral conjunctivae. Dry mucosa. NGT in place. NECK: No JVD. Supple. CHEST Clear to auscultation. HEART: Regular rate and rhythm. ABDOMEN: well co-aptated incisional wound the periumbilical area. Some distention. No tenderness. EXTREMITIES: No edema. No tenderness NEUROLOGIC: No gross focality. LABS: Hemoglobin was noted to be 16.7, hematocrit 45.4, white cell count 12.81, platelets 500. Sodium 137, potassium 3.6, chloride 99, CO2 27, BUN 20, creatinine 0.9, glucose 207. INR was noted to be 1.4. IMAGING DATA: CT abdomen and pelvis initial read, small-bowel obstruction, transition point in the left lower quadrant, postsurgical changes, umbilical hernia repair with complex fluid collection measuring 2.9 x 4.6 cm, abscess versus postoperative hematoma. Surgical clips in the right upper quadrant as before; splenectomy demonstrated. ASSESSMENT: 1. Abdominal pain recurrent bowel obstruction possible postop abscess on initial CT read. recent hernia surgery -patient not septic. 2. Recurrent pulmonary embolism status post IVC filter placement and removal on Coumadin. INR subtherapeutic. 3. Essential thrombocytopenia sp splenectomy on Hydrea. 4. Hyperglycemia rule out diabetes mellitus 5. Past tobacco abuse PLAN: GMF continue NGT decompression analgesia and antiemetics. Surgery consult Re recurrent bowel obstruction. Dr. Luna recommends antibiotic coverage of a possible abscess on CT He agrees with Zosyn. Hold Coumadin for now, IV heparin while patient off Coumadin and INR subtherapeutic. DVT prophylaxis, heparin. Full code. Hospital Course Recurrent SBO: Likely secondary to adhesions with H/O Appendectomy, Splenectomy in the past and recent Umbilical hernia repair CT ABD: anterior rectus sheath hematoma Vs Abscess:::anterior rectus sheath hematoma vs abscess were complications of the recent surgery Expected to resolve by itself. IVF and IV antibiotics Appreciate Surgery Input Tolerating Low fiber diet Likely discharge this afternoon Essential Thrombocythemia: S/P splenectomy Continue Hydrea Monitor platelets-[id number] Follows with as outpatient H/O PE, Hepatic V thrombosis: INR subtherapeutic S/P IVC filter placement and removal Has been on IV heparin for now Will start Coumadin on discharge Mood Disorder: Continue home meds Sleep Apnea: on CPAP QHS DVT px: on IV Heparin ggt Started on Coumadin CODE STATUS: Full code PROCEDURES: CT ABD: 1. Persistent small bowel obstructive pattern 2. No evidence of free intraperitoneal air 3. Interval removal of the IVC filter 4. Surgically absent spleen 5. 4.4 cm fluid collection abutting the anterior rectus sheath. This likely represents a postoperative collection, or abscess. Clinical correlation in this regard is advocated Total time spent on discharge = 35 minutes This includes examination of the patient, discharge planning, medication reconciliation, and communication with other providers. Discharge Instructions Date of Service Jan 18, 2017. Admission Reason for Admission: SBO Discharge Discharge Diagnosis / Problem: SBO-resolved Discharge Goals Goal(s): Prevent Disease Progression Activity Recommendations Activity Limitations: resume your previous activity . Instructions / Follow-Up Instructions / Follow-Up Dr Dorantes ([facility] is away) 01/21/17 at 10:45 AM.Please keep appointment with the surgeon Current Hospital Diet Patient's current hospital diet: Low Fiber Diet Discharge Diet Recommended Diet: Low Fiber Diet Pending Studies Studies pending at discharge: no Laboratory Results Hemoglobin A1c Test 01/15/17 22:15 Range/Units Estimated Average Glucose 105 mg/dl Hemoglobin A1c 5.3 4.5-5.6 % Medical Emergencies . Who to Call and When: Medical Emergencies: If at any time you feel your situation is an emergency, please call 911 immediately. . Non-Emergent Contact Non-Emergency issues call your: Primary Care Provider . Past History Medical & Surgical History: (1) Diffuse abdominal pain (2) Essential thrombocytosis (3) Pulmonary emboli (4) Retroperitoneal hematoma (5) KYLAH on CPAP (6) SBO (small bowel obstruction) (7) S/P appendectomy (8) History of dental surgery (9) S/P tonsillectomy and adenoidectomy (10) S/P UPPP (uvulopalatopharyngoplasty) . "Provider Documentation" section prepared by Joselyn Almonte. . VTE Core Measure Inpt VTE Proph given/why not?: Unfractionated heparin SQ, Warfarin (Coumadin) <Electronically signed by Joselyn Almonte M.D.> Additional Copies To Osman Ray MD
--- NOTE | 2017-01-21 07:17 | EDITING REQUIRED CODING QUERY ---
CODING QUERY To promote full compliance with coding requirements relating to patient care, provider participation is requested in all cases of brainer uncertainty. Please assist us with the question(s) below: Coding Question(s): Patient with recent hernia surgery with noted possible postop abscess on CT and anterior rectus sheath hematoma vs abscess documented and IV antibiotics were given. Please clarify below, in your clinical opinion, to determine if these were possible postoperative complications from the recent hernia surgery. (+ ) anterior rectus sheath hematoma vs abscess were complications of the recent surgery ( ) anterior rectus sheath hematoma vs abscess were not complications of the recent surgery Physician's Response(s): Likely the consequence of surgery and expected to resolved by itself. Did not require any procedure. Thank you Lisa Whatley Principal Diagnosis: "_that condition established after study, to be chiefly responsible for occasioning the admission of the patient to the hospital for care." Co-Existing Principal Diagnosis: "_when two or more diagnoses equally meet the criteria for principal diagnosis as determined by the circumstances of admission, diagnostic work up, and/or therapy provided, and the Alphabetic Index, Tabular List, or another coding guideline does not provide sequencing direction, any one of the diagnoses may be sequenced first." "When the physician has documented what appears to be a current diagnosis in the body of the record, but has not included the diagnosis in the final diagnostic statement, the physician should be asked whether the diagnosis should be added." (Source [facility]oding [facility] 2 QTR90. p3-4)
== END 2017-01-18 17:00 | disposition home or self-care (01) | DRG 863 ==
LOC: C.EDB 21:51 → C.MSW 01-16 01:19 → ENRESERV 01-16 01:37
PROVIDERS: ADMIT Internal Medicine; ATTEND Internal Medicine
DX: T81.4XXA Infection following a procedure, initial encounter (principal); M96.841 Postprocedural hematoma of a musculoskeletal structure following other procedure; K56.5 Intestinal adhesions [bands] with obstruction (postinfection); D69.3 Immune thrombocytopenic purpura; K68.11 Postprocedural retroperitoneal abscess; R73.9 Hyperglycemia, unspecified; G47.33 Obstructive sleep apnea (adult) (pediatric); F39 Unspecified mood [affective] disorder; Z51.81 Encounter for therapeutic drug level monitoring; Z79.899 Other long term (current) drug therapy; Z79.01 Long term (current) use of anticoagulants; Z87.19 Personal history of other diseases of the digestive system; Z86.711 Personal history of pulmonary embolism; Z85.828 Personal history of other malignant neoplasm of skin; Z90.81 Acquired absence of spleen; Z87.891 Personal history of nicotine dependence; Z80.3 Family history of malignant neoplasm of breast; Z80.8 Family history of malignant neoplasm of other organs or systems; Y83.8 Other surgical procedures as the cause of abnormal reaction of the patient, or of later complication, without mention of misadventure at the time of the procedure

== ENCOUNTER 2017-04-09 23:57 | Inpatient (IN) | payer BC, OTHER ==
[~2017-04-09] VITALS: Ht 185.4 cm; Wt 80.7 kg
[~2017-04-09 23:57] MED LIST changes: -AMOX500C3 PO; -ASPI81TA28 PO; +CPR500 PO; +LCTX PO; +MTR500 PO; -PSEU60TA80 PO
[2017-04-10] MEDS ORDERED: SODIUM CHLORIDE 0.9% 1000ML 1,000 ML IV STA (00:35)
[2017-04-10] MEDS ORDERED: MoRPHine SULFATE 4 MG/ML 1 ML CARP\\VIAL IV STA (00:35)
[2017-04-10] MEDS ORDERED: ONDANSETRON INJ 2 MG/ML 2 ML VIAL IV STA (00:35)
[2017-04-10 01:11] LABS: BASO % 0.2 %; BASO ABS # 0.03 K/uL (0-0.2); EOS % 0.3 %; HEMATOCRIT 44.7 % (42-52); IG% 0.3 %; LYMPH % 10.9 %; LYMPH ABS # 1.69 K/uL (1.2-3.4); MEAN CELL VOLUME 112.3 fL (80-100); MEAN CORPUSCULAR HEMOGLOBIN 40.7 pg (25-34); MEAN CORPUSCULAR HGB CONC 36.2 g/dl (32-36); MEAN PLATELET VOLUME 10.3 fL (7.4-10.4); MONO % 10.9 %; NEUT % 77.4 %; PLATELET COUNT 647 K/uL (130-400); RED BLOOD COUNT 3.98 M/uL (4.7-6.1)
[2017-04-10 01:19] LABS: BUN/CREATININE RATIO 20.4 (10-20); CALCIUM 9.6 mg/dl (8.5-10.1); CREATININE 0.87 mg/dl (0.60-1.40); POTASSIUM 3.7 mmol/L (3.5-5.1)
[2017-04-10 01:30] LABS: INR 1.6 (0.9-1.1); PARTIAL THROMBOPLASTIN RATIO 1.2; PROTHROMBIN TIME (PATIENT) 17.4 SECONDS (9.0-12.0)
[2017-04-10 01:34] LABS: COMPLETE YES; HOWELL-JOLLY BODIES 1+
[2017-04-10] MEDS ORDERED: LORAZEPAM 0.5 MG TAB PO PRN (04:15)
[2017-04-10] MEDS ORDERED: ACETAMINOPHEN 325 MG TAB PO PRN (04:15)
[2017-04-10] MEDS ORDERED: ONDANSETRON INJ 2 MG/ML 2 ML VIAL IV PRN (04:15)
[2017-04-10] MEDS ORDERED: MoRPHine SULFATE 2 MG/ML CARP IV PRN (04:15)
--- NOTE | 2017-04-10 04:15 | History and Physical ---
History & Physical Date & Time of Service: Apr 10, 2017 at 04:15 Chief Complaint: Abdominal Pain,Possible Small Bowel Obstruction Primary Care Physician: Osman Ray MD History of Present Illness Source: patient Patient is a 66 yr male with PMH of recurrent SBO, Essential Thrombocytosis S/P splenectomy, H/O PE S/P IVC filter placement and removal, Hepatic Vein thrombosis, chronic anticoagulation, mood disorder, sleep apnea on CPAP, past tobacco use who was recently hospitalized for partial SBO which resolved with conservative management presents with history of worsening abdominal pain, nausea and vomiting. He states abdominal pain started yesterday afternoon after he had his lunch, pain is generalized and more on LLQ, non radiating, currently 3/10, crampy in nature, worsened with food intake and currently much improved while in ED after receiving medications. Reports associated nausea and vomiting since yesterday. He had CT abd on 04/08/17 and results of the same are not available. Denies any history of fever, chills, diarrhea, chest pain, SOB, cough , wheezing, dizziness, headache, blood in stools, dysuria. Last Bowel movement was yesterday morning which was normal per patient. Past Medical/Surgical History Medical Problems: (1) Essential thrombocytosis Status: Resolved (2) Hx of basal cell carcinoma Status: Chronic (3) KYLAH on CPAP Status: Chronic (4) Pulmonary emboli Status: Resolved (5) Retroperitoneal hematoma Status: Resolved (6) S/p vein filter placement Status: Chronic Surgical Problems: (1) History of dental surgery Status: Chronic (2) S/P appendectomy Status: Resolved (3) S/P tonsillectomy and adenoidectomy Status: Chronic (4) S/P UPPP (uvulopalatopharyngoplasty) Status: Chronic Family History No pertinent family history Reviewed, Not contributory Social History Smoking Status: Former Smoker Alcohol Use: none Drug Use: none Marital Status: single Occupational Status: employed Allergies Coded Allergies: No Known Allergies (Unverified , NKA, 01/15/17) Home Medications Scheduled Citalopram Hydrobromide (Celexa), 5 MG PO QAM Fish Oil ([place]-3), 3 CAP PO QAM Hydroxyurea (Hydrea Cap), 1,000 MG PO EVEN DAYS Hydroxyurea (Hydrea Cap), 1,500 MG PO ODD DAYS Naproxen (Aleve), 220 MG PO PRN Warfarin Sod (Jantoven), 7.5 MG PO DAILY Scheduled PRN Lorazepam (Ativan), 0.5 MG PO Q6H PRN for Anxiety Sildenafil Citrate (Viagra), 100 MG PO UD PRN for INTERCOURSE Review of Systems See HPI for pertinent positives & negatives. A total of 10 systems reviewed and were otherwise negative. Physical Exam Vital Signs Date Time Temp Pulse Resp B/P (MAP) Pulse Ox O2 Delivery O2 Flow Rate FiO2 04/10/17 02:40 78 20 128/85 97 Room Air 04/10/17 01:30 77 20 130/80 96 Room Air 04/10/17 00:43 82 20 152/86 94 Room Air 04/10/17 00:30 74 04/10/17 00:08 36.4 71 18 152/89 97 General Appearance: WD/WN, no apparent distress Head: normocephalic, atraumatic Eyes: normal inspection, PERRL, EOMI, sclerae normal ENT: normal ENT inspection, hearing grossly normal Neck: supple, no JVD, trachea midline Respiratory/Chest: lungs clear, normal breath sounds, no respiratory distress, no accessory muscle use Cardiovascular: regular rate, rhythm, no edema, no murmur Abdomen/GI: soft, + tenderness (generalized), + pertinent finding (Decreased bowel sounds, no guarding ) Back: normal inspection Extremities/Musculoskelatal: normal inspection, no pedal edema Neurologic/Psych: ball mill mixer II-XII nml as tested, no motor/sensory deficits, alert, normal mood/affect, oriented x 3 Skin: normal color, warm/dry, no rash Diagnostics Laboratory Results Results Past 24 Hours Test 04/10/17 00:25 Range/Units White Blood Count 15.50 4.8-10.8 K/uL Red Blood Count 3.98 4.7-6.1 M/uL Hemoglobin 16.2 14.0-18.0 g/dL Hematocrit 44.7 42-52 % Mean Corpuscular Volume 112.3 80-100 fL Mean Corpuscular Hemoglobin 40.7 25-34 pg Mean Corpuscular Hemoglobin Concent 36.2 32-36 g/dl Platelet Count 647 130-400 K/uL Mean Platelet Volume 10.3 7.4-10.4 fL Neutrophils (%) (Auto) 77.4 % Lymphocytes (%) (Auto) 10.9 % Monocytes (%) (Auto) 10.9 % Eosinophils (%) (Auto) 0.3 % Basophils (%) (Auto) 0.2 % Neutrophils # (Auto) 12.00 1.4-6.5 K/uL Lymphocytes # (Auto) 1.69 1.2-3.4 K/uL Monocytes # (Auto) 1.69 0.11-0.59 K/uL Eosinophils # (Auto) 0.04 0-0.5 K/uL Basophils # (Auto) 0.03 0-0.2 K/uL RDW Standard Deviation 58.4 36.4-46.3 fL RDW Coefficient of Variation 14.3 11.5-14.5 % Immature Granulocyte % (Auto) 0.3 % Immature Granulocyte # (Auto) 0.05 0.00-0.02 K/uL Macrocytosis PRESENT [place] Bodies 1+ Prothrombin Time 17.4 9.0-12.0 SECONDS Prothromb Time International Ratio 1.6 0.9-1.1 Activated Partial Thromboplast Time 31.6 21.0-31.0 SECONDS Partial Thromboplastin Ratio 1.2 Sodium Level 138 136-145 mmol/L Potassium Level 3.7 3.5-5.1 mmol/L Chloride Level 104 98-107 mmol/L Carbon Dioxide Level 21 21-32 mmol/L Anion Gap 13.0 3-11 mmol/L Blood Urea Nitrogen 18 7-18 mg/dl Creatinine 0.87 0.60-1.40 mg/dl Est Creatinine Clear Calc Drug Dose 95.2 ml/min Estimated GFR () 105.0 Estimated GFR (Non- 90.6 BUN/Creatinine Ratio 20.4 10-20 Random Glucose 185 70-99 mg/dl Calcium Level 9.6 8.5-10.1 mg/dl Total Bilirubin 1.2 0.2-1 mg/dl Direct Bilirubin 0.2 0-0.2 mg/dl Aspartate Amino Transf (AST/SGOT) 20 15-37 U/L Alanine Aminotransferase (ALT/SGPT) 26 12-78 U/L Alkaline Phosphatase 66 45-117 U/L Total Protein 7.6 6.4-8.2 gm/dl Albumin 4.3 3.4-5.0 gm/dl Lipase 204 73-393 U/L Diagnostic Radiology CXR/ABD X ray: Single air fluid level noted. Official reading is pending Impression Assessment and Plan Abdominal Pain: Likely secondary to Partial SBO Presented with abd pain, nausea, vomiting, Leukocytosis H/O recurrent SBO S/P appendectomy, splenectomy, Umbilical hernia repair NPO for for now IV fluids, Pain control, antiemetics Empiric Abx Surgery consulted Essential Thrombocytosis S/P splenectomy Previously followed with Currently planned to follow with Continue Hydrea Monitor Platelets H/O PE S/P IVC filter placement and removal Hepatic Vein thrombosis INR is subtherapeutic Continue Coumadin, monitor INR Start on Heparin ggt till INR is therapeutic Mood disorder: Continue Celexa sleep apnea CPAP Qhs DVT Px: Heparin ggt, coumadin Code Status: Full Code VTE Prophylaxis VTE Risk Assessment Done? Y/N: Yes Risk Level: Moderate
[2017-04-10] MEDS ORDERED: HEPARIN IV LOW DOSE NO BOLUS SCH (04:20)
[2017-04-10] MEDS ORDERED: HEPARIN 25000 UNIT/500 ML D5W ONE (04:30)
[2017-04-10 05:14] VITALS: BP 146/76; PULSE 75; TEMP 36.9; O2SAT 92; Ht 185.4 cm; Wt 80.7 kg
[2017-04-10] MEDS ORDERED: PIPERACILL/TAZOBAC CONSULT ACTIVE PRN (05:30)
[2017-04-10] MEDS ORDERED: PIPERACILL/TAZOBAC IV 3.375 GM in DEXTROSE 5% 100ML IV ONE (05:30)
[2017-04-10] MEDS: SODIUM CHLORIDE 0.9% 1000ML 1,000 ML IV SCH ×3 (05:31→19:54)
[2017-04-10] MEDS: HEPARIN 25,000 UNIT/500ML D5W 500 ML IV PRN ×3 (05:41→23:37)
[2017-04-10 07:05] VITALS: BP 123/77; PULSE 82; TEMP 36.5; O2SAT 92
--- NOTE | 2017-04-10 07:53 | CONSULTATION REPORT ---
DATE OF CONSULTATION: 04/10/2017 REASON FOR CONSULTATION: Partial small-bowel obstruction. HISTORY OF PRESENT ILLNESS: The patient is a 66-year-old male who was admitted with some abdominal pain, nausea and vomiting with abdominal film showing some dilated small-bowel in the left abdomen and left upper abdomen. He does have a history of prior partial small-bowel obstructions with resolution and recently in December underwent umbilical incisional hernia repair with mesh by Dr. Harmon. His other surgery includes a history of splenectomy and appendectomy. He also has a history of pulmonary emboli, on Coumadin, with a filter placed at one time and then removed. Currently overnight, he has not received significant pain medication, has had no nausea or vomiting, and his abdominal pain is somewhat less. REVIEW OF SYSTEMS: See HPI. Ten other systems reviewed and otherwise negative. FAMILY HISTORY: Noncontributory. SOCIAL HISTORY: Noncontributory. ALLERGIES: No known drug allergies. MEDICATIONS: Significant for Coumadin. PHYSICAL EXAMINATION: GENERAL APPEARANCE: Well nourished, well developed. He is awake and alert, in no distress. HEAD: Atraumatic. NECK: Supple. LUNGS: No respiratory distress. HEART: Regular rate and rhythm. ABDOMEN: Flat and soft. He has some bowel sounds but diminished. Some tenderness over the area of the hernia repair, some defect above the site of incision. SKIN: Warm and dry. I did review the abdominal films. ASSESSMENT AND PLAN: A 66-year-old male with history of partial small-bowel obstruction with resolution using nonoperative management. We will continue with IV fluids, check his laboratories and try to continue with nonoperative management and try to avoid an NG tube if possible. We will try to review his recent CT scan.
--- NOTE | 2017-04-10 07:59 | DIAGNOSTIC IMAGING REPORT ---
CHEST AND ABDOMEN 2 VIEWS HISTORY: eval for sbo. Nausea. Generalized abdominal pain. COMPARISON: Abdomen and pelvis CT 01/15/2017. FINDINGS: Mild emphysema. No new focal lung consolidations. The heart is normal in size. Metallic coils seen within the right side of the abdomen, unchanged. The IVC filter has been removed. There is a small metallic fragment remaining. Colonic diverticulosis. Small amount of residual barium within the colon. Dilated fluid-filled loops of small bowel seen within the left upper quadrant. These measure up to 3.2 cm in diameter. Gas and stool seen within the colon. No pneumoperitoneum. No pneumatosis. IMPRESSION: 1. No significant change in the persistent small bowel obstruction pattern. This is stable dating back to a 11/04/2016 CT. 2. Mild emphysema. Electronically signed by: Maico Mcarthur M.D. 04/10/2017 7:58 AM Dictated Date/Time: 04/10/2017 7:54 AM
[2017-04-10 08:00] VITALS: O2SAT 92
[2017-04-10] MEDS: CITALOPRAM 20 MG TAB PO SCH (08:21)
[2017-04-10] MEDS ORDERED: HYDROXYUREA 500 MG CAP PO SCH (09:00)
[2017-04-10 10:42] LABS: PARTIAL THROMBOPLASTIN RATIO 1.8
[2017-04-10] MEDS ORDERED: HEPARIN IV BOLUS 3,000 UNIT in SYRINGE 0 ML IV ONE (11:15)
[2017-04-10] MEDS: PIPERACILL/TAZOBAC IV 3.375 GM in DEXTROSE 5% 100ML 100 ML IV SCH ×2 (11:18→17:49)
--- NOTE | 2017-04-10 14:48 | Progress Note ---
Medicine Progress Note Date & Time of Visit: Apr 10, 2017 at 14:28. Subjective Pt was seen and examined Lying in bed comfortable with no distress Pt said that he feels fine he said that he does not have any abdominal pain, N/V currently He will like to go home today Denies any chest pain, palpitation, dizziness and SOB Objective Last 8 Hrs Date Time Temp Pulse Resp B/P (MAP) Pulse Ox O2 Delivery O2 Flow Rate FiO2 04/10/17 08:00 92 Room Air 04/10/17 07:05 36.5 82 18 123/77 (92) 92 Room Air Physical Exam: General- No acute distress Head- atraumatic Eyes- PERRL, EOMI ENT- oropharynx clear Neck- supple, no JVD, Lungs- clear to auscultation Heart- regular rhythm Abdomen- hypoactive bowel sounds, nontender, mild distended, +umbelical hernia, Extremities- no pretibial edema, no calf tenderness Neuro- alert, oriented x 3; PERRL, EOMI; no facial palsy; no dysarthria; Skin- warm & dry Laboratory Results: Last 24 Hours Test 04/10/17 00:25 04/10/17 10:17 White Blood Count 15.50 K/uL Red Blood Count 3.98 M/uL Hemoglobin 16.2 g/dL Hematocrit 44.7 % Mean Corpuscular Volume 112.3 fL Mean Corpuscular Hemoglobin 40.7 pg Mean Corpuscular Hemoglobin Concent 36.2 g/dl Platelet Count 647 K/uL Mean Platelet Volume 10.3 fL Neutrophils (%) (Auto) 77.4 % Lymphocytes (%) (Auto) 10.9 % Monocytes (%) (Auto) 10.9 % Eosinophils (%) (Auto) 0.3 % Basophils (%) (Auto) 0.2 % Neutrophils # (Auto) 12.00 K/uL Lymphocytes # (Auto) 1.69 K/uL Monocytes # (Auto) 1.69 K/uL Eosinophils # (Auto) 0.04 K/uL Basophils # (Auto) 0.03 K/uL RDW Standard Deviation 58.4 fL RDW Coefficient of Variation 14.3 % Immature Granulocyte % (Auto) 0.3 % Immature Granulocyte # (Auto) 0.05 K/uL Macrocytosis PRESENT [place] Bodies 1+ Prothrombin Time 17.4 SECONDS Prothromb Time International Ratio 1.6 Activated Partial Thromboplast Time 31.6 SECONDS 46.8 SECONDS Partial Thromboplastin Ratio 1.2 1.8 Sodium Level 138 mmol/L Potassium Level 3.7 mmol/L Chloride Level 104 mmol/L Carbon Dioxide Level 21 mmol/L Anion Gap 13.0 mmol/L Blood Urea Nitrogen 18 mg/dl Creatinine 0.87 mg/dl Est Creatinine Clear Calc Drug Dose 95.2 ml/min Estimated GFR () 105.0 Estimated GFR (Non- 90.6 BUN/Creatinine Ratio 20.4 Random Glucose 185 mg/dl Calcium Level 9.6 mg/dl Total Bilirubin 1.2 mg/dl Direct Bilirubin 0.2 mg/dl Aspartate Amino Transf (AST/SGOT) 20 U/L Alanine Aminotransferase (ALT/SGPT) 26 U/L Alkaline Phosphatase 66 U/L Total Protein 7.6 gm/dl Albumin 4.3 gm/dl Lipase 204 U/L Date/Time Source Procedure Growth Status 04/10/17 06:24 Blood Blood Culture Pending Received 04/10/17 06:15 Blood Blood Culture Pending Received Assessment & Plan Abdominal Pain associated with N/V Possible secondary to Partial SBO H/O recurrent SBO S/P appendectomy, splenectomy, Umbilical hernia repair Abdominal xray showed no significant change in the persistent small bowel obstruction pattern He had a CT abdomen done on Tuesday as an outpatient- Result pending has been NPO Continue IV fluids, Pain control, antiemetics Starting on clear liquid diet On IV zosyn Surgery on board Case discussed with Dr. Mera the surgeon No surgical intervention at this time Will continue conservative management Clinically improve significantly Essential Thrombocytosis S/P splenectomy Previously followed with Currently planned to follow with Continue Hydrea Monitor Platelets H/O PE S/P IVC filter placement and removal Hepatic Vein thrombosis INR is subtherapeutic Continue Coumadin, monitor INR On Heparin drip till INR is therapeutic Mood disorder: Continue Celexa sleep apnea CPAP Qhs DVT Px: Heparin ggt, coumadin Code Status Full Code Consultants: Surgery Current Inpatient Medications: Current Inpatient Medications Medications (Trade) Dose Ordered Sig/Kar Route Start Time Stop Time Status Last Admin Dose Admin Acetaminophen (Tylenol Tab) 650 mg Q4H PRN PO 04/10/17 04:15 05/10/17 04:14 04/10/17 05:19 650 MG Ondansetron HCl (Zofran Inj) 4 mg Q6H PRN IV 04/10/17 04:15 05/10/17 04:14 Morphine Sulfate (MoRPHine SULFATE INJ) 2 mg Q4H PRN IV 04/10/17 04:15 04/24/17 04:14 Sodium Chloride 1,000 ml @ 125 mls/hr Q8H IV 04/10/17 04:15 05/10/17 04:14 04/10/17 12:03 125 MLS/HR Piperacillin Sod/ Tazobactam Sod 3.375 gm/Dextrose 115 ml @ 28.75 mls/ hr Q8H IV 04/10/17 10:00 04/20/17 09:59 04/10/17 11:18 28.75 MLS/HR Citalopram Hydrobromide (celeXA TAB) 5 mg QAM PO 04/10/17 09:00 05/10/17 08:59 04/10/17 08:21 5 MG Lorazepam (Ativan Tab) 0.5 mg Q6H PRN PO 04/10/17 04:15 05/10/17 04:14 Warfarin Sodium (Coumadin Tab) 7.5 mg DAILY@1600 PO 04/10/17 16:00 05/10/17 15:59 Heparin Sodium/ Dextrose 500 ml @ 21 mls/hr [id number] PRN IV 04/10/17 05:30 05/10/17 05:29 04/10/17 05:41 19 MLS/HR Hydroxyurea (Hydrea Cap) 1,500 mg Q48H PO 04/10/17 09:00 05/10/17 08:59 04/10/17 08:21 1,500 MG Hydroxyurea (Hydrea Cap) 1,000 mg Q48H PO 04/11/17 09:00 05/11/17 08:59 Piperacillin Sod/ Tazobactam Sod (Consult) 1 ea UD PRN N/A 04/10/17 05:30 05/10/17 05:29
[2017-04-10 15:26] VITALS: BP 116/74; PULSE 70; TEMP 36.6; O2SAT 94
[2017-04-10] MEDS ORDERED: WARFARIN SOD 7.5 MG TAB PO SCH (16:00)
[2017-04-10 18:07] LABS: PARTIAL THROMBOPLASTIN RATIO 2.4
--- NOTE | 2017-04-10 22:32 | EMERGENCY ROOM VISIT NOTE ---
History Report prepared by Thuy: Shabana Montnao Under the Supervision of: Dr. Nicki Bates D.O. First contact with patient: 00:19 Chief Complaint: ABDOMINAL PAIN Stated Complaint: ABDOMINAL PAIN,POSSIBLE SMALL BOWEL OBSTRUCTION History of Present Illness The patient is a 66 year old male who presents to the Emergency Room with complaints of worsening abdominal pain starting 12 hours ago. The patient states that he has a history of bowel obstructions and this feels the same. He states that he has never had surgery, though he wanted to with his last one but his recent hernia surgery prevented it. He states that the pain may also be worse because he has been having issues with his hernia repair. He states that they have done an ultrasound and a CT to look at it. He reports it being tender to the touch. The patient complains of nausea and vomiting. The patient denies fever, chills, and cough. The patient notes he last ate around lunch and last moved his bowels this morning. Source of History: patient Onset: 12 hours ago Position: abdomen Quality: other ("similar to previous bowel obstructions" ) Timing: worsening Associated Symptoms: + nausea, + vomiting, No fevers, No chills, No cough Review of Systems See HPI for pertinent positives & negatives. A total of 10 systems reviewed and were otherwise negative. Past Medical & Surgical Medical Problems: (1) Abdominal pain (2) Essential thrombocytosis (3) Hx of basal cell carcinoma (4) KYLAH on CPAP (5) Pulmonary emboli (6) Retroperitoneal hematoma (7) S/p vein filter placement (8) SBO (small bowel obstruction) (9) Umbilical hernia Surgical Problems: (1) History of dental surgery (2) S/P appendectomy (3) S/P tonsillectomy and adenoidectomy (4) S/P UPPP (uvulopalatopharyngoplasty) Family History No pertinent family history Social History Smoking Status: Never Smoker Alcohol Use: occasionally Drug Use: none Marital Status: single Housing Status: lives alone Occupation Status: employed Current/Historical Medications Scheduled Citalopram Hydrobromide (Celexa), 5 MG PO QAM Fish Oil (Hutchinson-3), 3 CAP PO QAM Hydroxyurea (Hydrea Cap), 1,000 MG PO EVEN DAYS Hydroxyurea (Hydrea Cap), 1,500 MG PO ODD DAYS Naproxen (Aleve), 220 MG PO PRN Warfarin Sod (Jantoven), 7.5 MG PO DAILY Scheduled PRN Lorazepam (Ativan), 0.5 MG PO Q6H PRN for Anxiety Sildenafil Citrate (Viagra), 100 MG PO UD PRN for INTERCOURSE Allergies Coded Allergies: No Known Allergies (Unverified , NKA, 01/15/17) Physical Exam Vital Signs Date Time Temp Pulse Resp B/P (MAP) Pulse Ox O2 Delivery O2 Flow Rate FiO2 04/10/17 02:40 78 20 128/85 97 Room Air 04/10/17 01:30 77 20 130/80 96 Room Air 04/10/17 00:43 82 20 152/86 94 Room Air 04/10/17 00:30 74 04/10/17 00:08 36.4 71 18 152/89 97 Physical Exam HEENT: Head - normocephalic and atraumatic Pupils are equal, round, and reactive to light. Extraocular eye muscles are intact, and sclera are anicteric. Nose - moist nasal mucosa without discharge. Mouth - moist buccal mucosa. Oropharynx is nonerythematous and there is no tonsillar exudate or edema noted. Neck: Supple; no JVD, nuchal rigidity, cervical lymphadenopathy. Heart: Regular rate and rhythm. There is a normal S1 and S2 with no murmurs, clicks, or gallops appreciated. Lungs: Clear to auscultation bilaterally with no wheezes, rales, or rhonchi. Abdomen: Soft, exquisitely tender to palpation to the left of the umbilicus, moderately distended, with hyperactive bowel sounds. There are no palpable pulsatile masses or hepatosplenomegaly. There is no guarding, rigidity, or rebound noted. Midline abdominal surgical incisions appear well healed. Extremities: No evidence of cyanosis, clubbing, or edema. There are easily palpable peripheral pulses. Skin: warm and dry with good turgor and no rashes. Medical Decision & Procedures ER Provider Diagnostic Interpretation: OBSTRUCTION SERIES: Results were interpreted by me. Small air fluid levels. Findings seem consistent with a partial small bowel obstruction. X-ray is similar to previous x-rays over the past couple of months. Laboratory Results 04/10/17 00:25 Red Blood Count 3.98, Mean Corpuscular Volume 112.3, Mean Corpuscular Hemoglobin 40.7, Mean Corpuscular Hemoglobin Concent 36.2, Mean Platelet Volume 10.3, Neutrophils (%) (Auto) 77.4, Lymphocytes (%) (Auto) 10.9, Monocytes (%) ( Auto) 10.9, Eosinophils (%) (Auto) 0.3, Basophils (%) (Auto) 0.2, Neutrophils # (Auto) 12.00, Lymphocytes # (Auto) 1.69, Monocytes # (Auto) 1.69, Eosinophils # (Auto) 0.04, Basophils # (Auto) 0.03 04/10/17 00:25 Test 04/10/17 00:25 White Blood Count 15.50 K/uL (4.8-10.8) Red Blood Count 3.98 M/uL (4.7-6.1) Hemoglobin 16.2 g/dL (14.0-18.0) Hematocrit 44.7 % (42-52) Mean Corpuscular Volume 112.3 fL (80-100) Mean Corpuscular Hemoglobin 40.7 pg (25-34) Mean Corpuscular Hemoglobin Concent 36.2 g/dl (32-36) Platelet Count 647 K/uL (130-400) Mean Platelet Volume 10.3 fL (7.4-10.4) Neutrophils (%) (Auto) 77.4 % Lymphocytes (%) (Auto) 10.9 % Monocytes (%) (Auto) 10.9 % Eosinophils (%) (Auto) 0.3 % Basophils (%) (Auto) 0.2 % Neutrophils # (Auto) 12.00 K/uL (1.4-6.5) Lymphocytes # (Auto) 1.69 K/uL (1.2-3.4) Monocytes # (Auto) 1.69 K/uL (0.11-0.59) Eosinophils # (Auto) 0.04 K/uL (0-0.5) Basophils # (Auto) 0.03 K/uL (0-0.2) RDW Standard Deviation 58.4 fL (36.4-46.3) RDW Coefficient of Variation 14.3 % (11.5-14.5) Immature Granulocyte % (Auto) 0.3 % Immature Granulocyte # (Auto) 0.05 K/uL (0.00-0.02) Macrocytosis PRESENT Luong-Gamaliel Bodies 1+ Prothrombin Time 17.4 SECONDS (9.0-12.0) Prothromb Time International Ratio 1.6 (0.9-1.1) Anion Gap 13.0 mmol/L (3-11) Est Creatinine Clear Calc Drug Dose 95.2 ml/min Estimated GFR () 105.0 Estimated GFR (Non- 90.6 BUN/Creatinine Ratio 20.4 (10-20) Calcium Level 9.6 mg/dl (8.5-10.1) Total Bilirubin 1.2 mg/dl (0.2-1) Direct Bilirubin 0.2 mg/dl (0-0.2) Aspartate Amino Transf (AST/SGOT) 20 U/L (15-37) Alanine Aminotransferase (ALT/SGPT) 26 U/L (12-78) Alkaline Phosphatase 66 U/L (45-117) Total Protein 7.6 gm/dl (6.4-8.2) Albumin 4.3 gm/dl (3.4-5.0) Lipase 204 U/L (73-393) Laboratory results per my review. Medications Administered Medications (Trade) Dose Ordered Sig/Kar Route Start Time Stop Time Status Last Admin Dose Admin Ondansetron HCl (Zofran Inj) 4 mg NOW STAT IV 04/10/17 00:35 04/10/17 00:37 DC 04/10/17 00:41 4 MG Morphine Sulfate (MoRPHine SULFATE INJ) 4 mg NOW STAT IV 04/10/17 00:35 04/10/17 00:37 DC 04/10/17 00:41 4 MG Sodium Chloride 1,000 ml @ 250 mls/hr Q4H STAT IV 04/10/17 00:35 04/10/17 04:34 DC 04/10/17 00:41 250 MLS/HR Procedure 0035: Ordered NSS 1000 ml @ 250 mls/hr IV, Morphine Sulfate 4 mg IV, Zofran Inj 4 mg IV. ED Course 0029: Past medical records reviewed. The patient was evaluated in room B7. A complete history and physical exam was performed. An IV lock was initiated and labs were drawn as above. 0035: Ordered NSS 1000 ml @ 250 mls/hr IV, Morphine Sulfate 4 mg IV, Zofran Inj 4 mg IV. The patient went for obstruction series as described above. 0308: I reevaluated the patient and he is feeling much better. I reexamined his abdomen and the area of tenderness to the left of the umbilicus has resolved. 0327: Discussed the patient's case with Dr. Martinez. The patient will be evaluated for further management. Medical Decision The patient is a 66 year old male who presents to the Emergency Room with complaints of worsening abdominal pain starting 12 hours ago. Differential diagnoses include recurrent small bowel obstruction, colitis, UTI. LABS: White count 15.5 Stable H&H Platelet count 647 Normal renal function Glucose 185 Lipase 204 Total bilirubin 1.2 INR 1.6 This is a 66-year-old male patient with a history of recurrent small bowel obstructions presents to the emergency department with a fairly sudden onset of abdominal pain that seems consistent with his previous obstructions. The patient received IV analgesia and the pain seemed to significantly improve. I spent some time reviewing the patient's records from this hospital. We tried to obtain the CT scan report from the abdominal CAT scan performed yesterday at [facility] but were unsuccessful as it had not been read yet. X-ray seemed consistent with a partial small bowel obstructions learned to previous obstruction series over the past couple of months. I did not feel comfortable performing another CT scan because of the radiation exposure. I was convinced with the patient's abdominal exam include a presentation that he had a recurrent small bowel obstruction. I discussed the case with the hospitalist and they will evaluate for further care. Medication Reconcilliation Current Medication List: was personally reviewed by me Blood Pressure Screening Patient's blood pressure: Elevated blood pressure Will be further monitored by hospitalist. Consults Time Called: [phone] Consulting Physician: Dr. Martinez- gayle Returned Call: [phone] Discussed the patient's case with Dr. Martinez. The patient will be evaluated for further management. Impression Primary Impression: Partial small bowel obstruction Scribe Attestation The scribe's documentation has been prepared under my direction and personally reviewed by me in its entirety. I confirm that the note above accurately reflects all work, treatment, procedures, and medical decision making performed by me. Departure Information Dispostion Being Evaluated By Hospitalist Referrals Osman Ray MD (PCP) Patient Instructions My [facility]
[2017-04-10 23:21] VITALS: BP 145/85; PULSE 67; TEMP 36.5; O2SAT 94
[2017-04-11] MEDS: PIPERACILL/TAZOBAC IV 3.375 GM in DEXTROSE 5% 100ML 100 ML IV SCH ×2 (03:11→10:20)
[2017-04-11] MEDS: SODIUM CHLORIDE 0.9% 1000ML 1,000 ML IV SCH (04:21)
[2017-04-11] MEDS: HEPARIN 25,000 UNIT/500ML D5W 500 ML IV PRN ×3 (04:51→07:33)
[2017-04-11 07:21] LABS: BASO % 0.6 %; BASO ABS # 0.04 K/uL (0-0.2); EOS % 4.3 %; HEMATOCRIT 39.4 % (42-52); IG% 0.2 %; LYMPH % 32.3 %; MEAN CELL VOLUME 114.2 fL (80-100); MEAN CORPUSCULAR HEMOGLOBIN 40.9 pg (25-34); MEAN CORPUSCULAR HGB CONC 35.8 g/dl (32-36); MEAN PLATELET VOLUME 9.9 fL (7.4-10.4); MONO % 14.7 %; NEUT % 47.9 %; PLATELET COUNT 556 K/uL (130-400); RED BLOOD COUNT 3.45 M/uL (4.7-6.1); WHITE BLOOD COUNT 6.51 K/uL (4.8-10.8)
[2017-04-11 07:25] VITALS: BP 128/72; PULSE 58; TEMP 36.4; O2SAT 93
[2017-04-11 07:29] LABS: INR 1.6 (0.9-1.1); PARTIAL THROMBOPLASTIN RATIO 2.2; PROTHROMBIN TIME (PATIENT) 17.6 SECONDS (9.0-12.0)
[2017-04-11 07:50] LABS: COMPLETE YES; HOWELL-JOLLY BODIES 1+; HYPERSEGMENTED POLYS 1+
[2017-04-11 07:54] LABS: BUN/CREATININE RATIO 8.4 (10-20); CALCIUM 8.1 mg/dl (8.5-10.1); CREATININE 0.8 mg/dl (0.60-1.40); MAGNESIUM 2.3 mg/dl (1.8-2.4); POTASSIUM 3.5 mmol/L (3.5-5.1)
[2017-04-11] MEDS: CITALOPRAM 20 MG TAB PO SCH (08:56)
[2017-04-11] MEDS ORDERED: HYDROXYUREA 500 MG CAP PO SCH (09:00)
--- NOTE | 2017-04-11 12:14 | Progress Note ---
Medicine Progress Note Date & Time of Visit: Apr 11, 2017 at 12:03. Subjective Pt was seen and examined Sitting in bed with no distress Pt said that he feels fine He said that he does not have any abdominal pain He tolerates diet very well He had a small bowel movement this morning Denies any chest pain, palpitation, dizziness and SOB Objective Last 8 Hrs Date Time Temp Pulse Resp B/P (MAP) Pulse Ox O2 Delivery O2 Flow Rate FiO2 04/11/17 07:55 Room Air 04/11/17 07:25 36.4 58 18 128/72 (90) 93 Room Air Physical Exam: General- No acute distress Head- atraumatic Eyes- PERRL, EOMI ENT- oropharynx clear Neck- supple, no JVD, Lungs- clear to auscultation Heart- regular rhythm Abdomen- +bowel sound, nontender, mild distended, +umbilical hernia, Extremities- no pretibial edema, no calf tenderness Neuro- alert, oriented x 3; PERRL, EOMI; no facial palsy; no dysarthria; Skin- warm & dry Laboratory Results: Last 24 Hours Test 04/10/17 17:38 04/11/17 07:00 Activated Partial Thromboplast Time 62.9 SECONDS 56.7 SECONDS Partial Thromboplastin Ratio 2.4 2.2 White Blood Count 6.51 K/uL Red Blood Count 3.45 M/uL Hemoglobin 14.1 g/dL Hematocrit 39.4 % Mean Corpuscular Volume 114.2 fL Mean Corpuscular Hemoglobin 40.9 pg Mean Corpuscular Hemoglobin Concent 35.8 g/dl Platelet Count 556 K/uL Mean Platelet Volume 9.9 fL Neutrophils (%) (Auto) 47.9 % Lymphocytes (%) (Auto) 32.3 % Monocytes (%) (Auto) 14.7 % Eosinophils (%) (Auto) 4.3 % Basophils (%) (Auto) 0.6 % Neutrophils # (Auto) 3.12 K/uL Lymphocytes # (Auto) 2.10 K/uL Monocytes # (Auto) 0.96 K/uL Eosinophils # (Auto) 0.28 K/uL Basophils # (Auto) 0.04 K/uL RDW Standard Deviation 60.7 fL RDW Coefficient of Variation 14.8 % Immature Granulocyte % (Auto) 0.2 % Immature Granulocyte # (Auto) 0.01 K/uL Hypersegmented Polys 1+ Macrocytosis PRESENT Luong-Spalding Bodies 1+ Prothrombin Time 17.6 SECONDS Prothromb Time International Ratio 1.6 Sodium Level 143 mmol/L Potassium Level 3.5 mmol/L Chloride Level 111 mmol/L Carbon Dioxide Level 25 mmol/L Anion Gap 8.0 mmol/L Blood Urea Nitrogen 7 mg/dl Creatinine 0.80 mg/dl Est Creatinine Clear Calc Drug Dose 104.0 ml/min Estimated GFR () 108.7 Estimated GFR (Non- 93.7 BUN/Creatinine Ratio 8.4 Random Glucose 110 mg/dl Calcium Level 8.1 mg/dl Magnesium Level 2.3 mg/dl Assessment & Plan Abdominal Pain associated with N/V Possible secondary to Partial SBO H/O recurrent SBO S/P appendectomy, splenectomy, Umbilical hernia repair Abdominal xray showed no significant change in the persistent small bowel obstruction pattern He had a CT abdomen done on Tuesday as an outpatient- Result pending has been NPO Continue IV fluids, Pain control, antiemetics Starting on clear liquid diet On IV zosyn Surgery on board Case discussed with Dr. Mera the surgeon No surgical intervention at this time Will continue conservative management Clinically improve significantly 04/11 Denies any abdominal pain Tolerated diet well Had a small bowel movement today Outpatient CT abd/pelvis done-pending result clinically improves Essential Thrombocytosis S/P splenectomy Previously followed with Currently planned to follow with platelet 556 today Continue Hydrea Monitor Platelets H/O PE S/P IVC filter placement and removal Hepatic Vein thrombosis INR is subtherapeutic Continue Coumadin, monitor INR On Heparin drip during the hospital stay On coumadin 7.5 mg Mood disorder: Continue Celexa sleep apnea CPAP Qhs DVT Px: Heparin ggt, coumadin Code Status Full Code Disposition Will discharge home today Consultants: Surgery Current Inpatient Medications: Current Inpatient Medications Medications (Trade) Dose Ordered Sig/Kar Route Start Time Stop Time Status Last Admin Dose Admin Acetaminophen (Tylenol Tab) 650 mg Q4H PRN PO 04/10/17 04:15 05/10/17 04:14 04/10/17 05:19 650 MG Ondansetron HCl (Zofran Inj) 4 mg Q6H PRN IV 04/10/17 04:15 05/10/17 04:14 Morphine Sulfate (MoRPHine SULFATE INJ) 2 mg Q4H PRN IV 04/10/17 04:15 04/24/17 04:14 Sodium Chloride 1,000 ml @ 80 mls/hr [id number] IV 04/10/17 04:15 05/10/17 04:14 04/11/17 04:21 125 MLS/HR Piperacillin Sod/ Tazobactam Sod 3.375 gm/Dextrose 115 ml @ 28.75 mls/ hr Q8H IV 04/10/17 10:00 04/20/17 09:59 04/11/17 10:20 28.75 MLS/HR Citalopram Hydrobromide (celeXA TAB) 5 mg QAM PO 04/10/17 09:00 05/10/17 08:59 04/11/17 08:56 5 MG Lorazepam (Ativan Tab) 0.5 mg Q6H PRN PO 04/10/17 04:15 05/10/17 04:14 Warfarin Sodium (Coumadin Tab) 7.5 mg DAILY@1600 PO 04/10/17 16:00 05/10/17 15:59 04/10/17 15:36 7.5 MG Heparin Sodium/ Dextrose 500 ml @ 21 mls/hr [id number] PRN IV 04/10/17 05:30 05/10/17 05:29 04/11/17 07:33 21 MLS/HR Hydroxyurea (Hydrea Cap) 1,500 mg Q48H PO 04/10/17 09:00 05/10/17 08:59 04/10/17 08:21 1,500 MG Hydroxyurea (Hydrea Cap) 1,000 mg Q48H PO 04/11/17 09:00 05/11/17 08:59 04/11/17 08:57 1,000 MG Piperacillin Sod/ Tazobactam Sod (Consult) 1 ea UD PRN N/A 04/10/17 05:30 05/10/17 05:29
--- NOTE | 2017-04-11 12:30 | Discharge Instructions ---
Discharge Instructions Date of Service Apr 11, 2017. Admission Reason for Admission: Abd Pain Discharge Discharge Diagnosis / Problem: Abdominal Pain associated with N/V, Essential Thrombocytosis S/P splenectom Discharge Goals Goal(s): Decrease discomfort, Improve function, Improve disease control Activity Recommendations Activity Limitations: resume your previous activity (as tolerated) . Instructions / Follow-Up Instructions / Follow-Up Follow up appointment with your primary care provider Dr. Ray on 04/13 @ 10:45 am Follow up with the Coumadin clinic for your INR ( Check INR on Tuesday) Continue Coumadin 7.5 mg daily Current Hospital Diet Patient's current hospital diet: Low Fat Diet Discharge Diet Recommended Diet: Low Fat Diet Pending Studies Studies pending at discharge: no Laboratory Results Hemoglobin A1c Test 01/15/17 22:15 Range/Units Estimated Average Glucose 105 mg/dl Hemoglobin A1c 5.3 4.5-5.6 % Medical Emergencies . Who to Call and When: Medical Emergencies: If at any time you feel your situation is an emergency, please call 911 immediately. . Non-Emergent Contact Non-Emergency issues call your: Primary Care Provider Call Non-Emergent contact if: you have a fever, you have any medication questions . . "Provider Documentation" section prepared by Celsa Strauss. . VTE Core Measure Inpt VTE Proph given/why not?: Unfractionated heparin SQ (heparin drip), Warfarin (Coumadin)
[2017-04-11 12:55] VITALS: BP 128/72; PULSE 58; TEMP 36.4; O2SAT 93
--- NOTE | 2017-04-11 13:18 | Surgery Progress Note ---
Surgery Progress Note Date of Service Apr 11, 2017. Subjective Post OP Day: HD # 2 + feeling well, + bowel movement, + flatus, + pain controlled, + diet (low fat diet), No complaints, No nausea, No vomiting Objective Vital Signs: Date Time Temp Pulse Resp B/P (MAP) Pulse Ox O2 Delivery O2 Flow Rate FiO2 04/11/17 12:55 36.4 58 18 93 Room Air 04/11/17 07:55 Room Air 04/11/17 07:25 36.4 58 18 128/72 (90) 93 Room Air 04/10/17 23:59 Room Air 04/10/17 23:21 36.5 67 16 145/85 (105) 94 Room Air 04/10/17 15:26 36.6 70 18 116/74 (88) 94 04/10/17 15:17 Room Air General Appearance: WD/WN, no apparent distress Head: normocephalic, atraumatic Neck: trachea midline Abdomen: non tender, non distended, soft Laboratory Results: Results Past 24 Hours Test 04/10/17 17:38 04/11/17 07:00 Range/Units Activated Partial Thromboplast Time 62.9 56.7 21.0-31.0 SECONDS Partial Thromboplastin Ratio 2.4 2.2 White Blood Count 6.51 4.8-10.8 K/uL Red Blood Count 3.45 4.7-6.1 M/uL Hemoglobin 14.1 14.0-18.0 g/dL Hematocrit 39.4 42-52 % Mean Corpuscular Volume 114.2 80-100 fL Mean Corpuscular Hemoglobin 40.9 25-34 pg Mean Corpuscular Hemoglobin Concent 35.8 32-36 g/dl Platelet Count 556 130-400 K/uL Mean Platelet Volume 9.9 7.4-10.4 fL Neutrophils (%) (Auto) 47.9 % Lymphocytes (%) (Auto) 32.3 % Monocytes (%) (Auto) 14.7 % Eosinophils (%) (Auto) 4.3 % Basophils (%) (Auto) 0.6 % Neutrophils # (Auto) 3.12 1.4-6.5 K/uL Lymphocytes # (Auto) 2.10 1.2-3.4 K/uL Monocytes # (Auto) 0.96 0.11-0.59 K/uL Eosinophils # (Auto) 0.28 0-0.5 K/uL Basophils # (Auto) 0.04 0-0.2 K/uL RDW Standard Deviation 60.7 36.4-46.3 fL RDW Coefficient of Variation 14.8 11.5-14.5 % Immature Granulocyte % (Auto) 0.2 % Immature Granulocyte # (Auto) 0.01 0.00-0.02 K/uL Hypersegmented Polys 1+ Macrocytosis PRESENT Luong-Germania Bodies 1+ Prothrombin Time 17.6 9.0-12.0 SECONDS Prothromb Time International Ratio 1.6 0.9-1.1 Sodium Level 143 136-145 mmol/L Potassium Level 3.5 3.5-5.1 mmol/L Chloride Level 111 98-107 mmol/L Carbon Dioxide Level 25 21-32 mmol/L Anion Gap 8.0 3-11 mmol/L Blood Urea Nitrogen 7 7-18 mg/dl Creatinine 0.80 0.60-1.40 mg/dl Est Creatinine Clear Calc Drug Dose 104.0 ml/min Estimated GFR () 108.7 Estimated GFR (Non- 93.7 BUN/Creatinine Ratio 8.4 10-20 Random Glucose 110 70-99 mg/dl Calcium Level 8.1 8.5-10.1 mg/dl Magnesium Level 2.3 1.8-2.4 mg/dl Assessment & Plan Partial SBO- resolved -vitals stable - + bowel function - abdomen soft, nontender, nondistended Plan: Okay for discharge May follow-up with Dr. Harmon in 2-3 weeks Discharge per medicine team Dr. Harmon has seen and examined patient, agrees with above
--- NOTE | 2017-04-12 21:32 | Discharge Summary ---
Discharge Summary Date of Service Apr 12, 2017. Discharge Summary Admission Date: Apr 10, 2017 at 04:07 Discharge Date: Apr 11, 2017 Discharge Disposition: Home Principal Diagnosis: Partial SBO Secondary Diagnoses/Problems: Essential Thrombocytosis S/P splenectomy HX PE Mood dx Sleep apnea Procedures: CHEST AND ABDOMEN 2 VIEWS HISTORY: eval for sbo. Nausea. Generalized abdominal pain. COMPARISON: Abdomen and pelvis CT 01/15/2017. FINDINGS: Mild emphysema. No new focal lung consolidations. The heart is normal in size. Metallic coils seen within the right side of the abdomen, unchanged. The IVC filter has been removed. There is a small metallic fragment remaining. Colonic diverticulosis. Small amount of residual barium within the colon. Dilated fluid-filled loops of small bowel seen within the left upper quadrant. These measure up to 3.2 cm in diameter. Gas and stool seen within the colon. No pneumoperitoneum. No pneumatosis. IMPRESSION: 1. No significant change in the persistent small bowel obstruction pattern. This is stable dating back to a 11/04/2016 CT. 2. Mild emphysema. Electronically signed by: Maico Mcarthur M.D. 04/10/2017 7:58 AM Consultations: Surgery Medication Reconciliation Continued Medications: Citalopram Hydrobromide (Celexa) 10 Mg Tab 5 MG PO QAM, TAB Fish Oil ([place]-3) 1 Ea Cap 3 CAP PO QAM, CAP Hydroxyurea (Hydrea Cap) 500 Mg Cap 1000 MG PO EVEN DAYS, CAP 2 TABS ON EVEN DAYS Hydroxyurea (Hydrea Cap) 500 Mg Cap 1500 MG PO ODD DAYS, CAP 3 TABS ON ODD DAYS Lorazepam (Ativan) 0.5 Mg Tab 0.5 MG PO Q6H PRN for Anxiety, TAB Naproxen (Aleve) 220 Mg Tab 220 MG PO PRN, TAB Sildenafil Citrate (Viagra) 100 Mg Tab 100 MG PO UD PRN for INTERCOURSE Warfarin Sod (Jantoven) 7.5 Mg Tab 7.5 MG PO DAILY, TAB TUESDAY/TUESDAY/TUESDAY/TUESDAY/TUESDAY/TUESDAY/TUESDAY. Admission Information HPI (per Admitting provider): Patient is a 66 yr male with PMH of recurrent SBO, Essential Thrombocytosis S/P splenectomy, H/O PE S/P IVC filter placement and removal, Hepatic Vein thrombosis, chronic anticoagulation, mood disorder, sleep apnea on CPAP, past tobacco use who was recently hospitalized for partial SBO which resolved with conservative management presents with history of worsening abdominal pain, nausea and vomiting. He states abdominal pain started yesterday afternoon after he had his lunch, pain is generalized and more on LLQ, non radiating, currently 3/10, crampy in nature, worsened with food intake and currently much improved while in ED after receiving medications. Reports associated nausea and vomiting since yesterday. He had CT abd on 04/08/17 and results of the same are not available. Denies any history of fever, chills, diarrhea, chest pain, SOB, cough , wheezing, dizziness, headache, blood in stools, dysuria. Last Bowel movement was yesterday morning which was normal per patient. Physical Exam (per Admitting): General Appearance: WD/WN, no apparent distress Head: normocephalic, atraumatic Eyes: normal inspection, PERRL, EOMI, sclerae normal ENT: normal ENT inspection, hearing grossly normal Neck: supple, no JVD, trachea midline Respiratory/Chest: lungs clear, normal breath sounds, no respiratory distress, no accessory muscle use Cardiovascular: regular rate, rhythm, no edema, no murmur Abdomen/GI: soft, + tenderness (generalized), + pertinent finding ( Decreased bowel sounds, no guarding ) Back: normal inspection Extremities/Musculoskelatal: normal inspection, no pedal edema Neurologic/Psych: field underwriter II-XII nml as tested, no motor/sensory deficits, alert , normal mood/affect, oriented x 3 Skin: normal color, warm/dry, no rash Hospital Course Abdominal Pain associated with N/V Possible secondary to Partial SBO H/O recurrent SBO S/P appendectomy, splenectomy, Umbilical hernia repair Abdominal xray showed no significant change in the persistent small bowel obstruction pattern He had a CT abdomen done on Tuesday as an outpatient- Result pending has been NPO Continue IV fluids, Pain control, antiemetics Starting on clear liquid diet On IV zosyn Surgery on board Case discussed with Dr. Mera the surgeon No surgical intervention at this time Will continue conservative management Clinically improve significantly 04/11 Denies any abdominal pain Tolerated diet well Had a small bowel movement today Outpatient CT abd/pelvis done-pending result clinically improves Essential Thrombocytosis S/P splenectomy Previously followed with Currently planned to follow with platelet 556 today Continue Hydrea Monitor Platelets H/O PE S/P IVC filter placement and removal Hepatic Vein thrombosis INR is subtherapeutic Continue Coumadin, monitor INR On Heparin drip during the hospital stay On coumadin 7.5 mg Mood disorder: Continue Celexa sleep apnea CPAP Qhs DVT Px: Heparin ggt, coumadin Code Status Full Code Disposition Will discharge home today Total time spent on discharge = 35 minutes This includes examination of the patient, discharge planning, medication reconciliation, and communication with other providers. Discharge Instructions Discharge Instructions Date of Service Apr 11, 2017. Admission Reason for Admission: Abd Pain Discharge Discharge Diagnosis / Problem: Abdominal Pain associated with N/V, Essential Thrombocytosis S/P splenectom Discharge Goals Goal(s): Decrease discomfort, Improve function, Improve disease control Activity Recommendations Activity Limitations: resume your previous activity (as tolerated) . Instructions / Follow-Up Instructions / Follow-Up Follow up appointment with your primary care provider Dr. Ray on 04/13 @ 10:45 am Follow up with the Coumadin clinic for your INR ( Check INR on Tuesday) Continue Coumadin 7.5 mg daily Current Hospital Diet Patient's current hospital diet: Low Fat Diet Discharge Diet Recommended Diet: Low Fat Diet Pending Studies Studies pending at discharge: no Laboratory Results Hemoglobin A1c Test 01/15/17 22:15 Range/Units Estimated Average Glucose 105 mg/dl Hemoglobin A1c 5.3 4.5-5.6 % Medical Emergencies . Who to Call and When: Medical Emergencies: If at any time you feel your situation is an emergency, please call 911 immediately. . Non-Emergent Contact Non-Emergency issues call your: Primary Care Provider Call Non-Emergent contact if: you have a fever, you have any medication questions . . "Provider Documentation" section prepared by Celsa Strauss. . VTE Core Measure Inpt VTE Proph given/why not?: Unfractionated heparin SQ (heparin drip), Warfarin (Coumadin) Additional Copies To Osman Ray MD
== END 2017-04-11 13:27 | disposition home or self-care (01) | DRG 390 ==
LOC: C.EDB 04-10 → C.MSN 04-10 04:07 → ENRESERV 04-10 04:30
PROVIDERS: ADMIT Internal Medicine; ATTEND Internal Medicine
DX: K56.609 Unspecified intestinal obstruction, unspecified as to partial versus complete obstruction (principal); R79.1 Abnormal coagulation profile; D47.3 Essential (hemorrhagic) thrombocythemia; F39 Unspecified mood [affective] disorder; Z90.81 Acquired absence of spleen; Z99.89 Dependence on other enabling machines and devices; Z86.711 Personal history of pulmonary embolism; Z86.718 Personal history of other venous thrombosis and embolism; Z87.891 Personal history of nicotine dependence; Z79.01 Long term (current) use of anticoagulants; Z79.899 Other long term (current) drug therapy